=== PATIENT | female | born 1955 | race Two or more races ===

== ENCOUNTER 2024-07-14 22:32 | Inpatient (IN) | payer MEDICARE, SELFPAY ==
[2024-07-14 22:32] VITALS: BMI 46.4
--- NOTE | 2024-07-14 22:42 | EKG_ITS ---
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
[2024-07-14 23:00] VITALS: BP 100/57; PULSE 88; RESP 24; TEMP 37.7; O2SAT 89
--- NOTE | 2024-07-14 23:12 | XR_ITS ---
Examination: AP chest single view TECHNIQUE: AP portable upright chest single view Exam date time: July 14, 2024 11:53 PM INDICATIONS: Difficulty breathing and shortness of breath today. FINDINGS: Mild chronic heart failure pattern Mild enlargement cardiac contour Prominent vascular congestion including central vascular engorgement Early edema and/or pneumonia at the lung bases IMPRESSION: Mild heart failure pattern Early edema and/or pneumonia at the lung bases, clinical correlation is advised
--- NOTE | 2024-07-14 23:14 | EDRME_ITS ---
Rapid Medical Screening Exam [facility] Arrival date/time: 07/14/24 22:32 69F with extensive PMH including COPD, CHF, DVT, and afib presents to ED with 1 week of cough, fevers/chills, and SOB. Chief Complaint: Shortness of Breath/Dyspnea Time Seen by Provider: 07/14/24 23:34 Vital signs: Vital Signs Temperature 99.8 F 07/14/24 23:00 Pulse Rate 88 07/14/24 23:00 Respiratory Rate 24 H 07/14/24 23:00 Blood Pressure 100/57 L 07/14/24 23:00 Pulse Oximetry (%) 89 L 07/14/24 23:00 Oxygen Delivery Method Nasal Cannula 07/14/24 23:00 Oxygen Flow Rate 6 07/14/24 23:00
[2024-07-14] MEDS: IPRATROPIUM RT 0.5 MG/ 2.5 ML NEBU 1 MG INH (23:33)
--- NOTE | 2024-07-14 23:34 | PD.EDSOB ---
ED SOB =RME/HPI General Chief Complaint: Shortness of Breath/Dyspnea Stated Complaint: DIFFICULTY BREATHING Time Seen by Provider: 07/14/24 23:34 Arrival date/time: 07/14/24 22:32 RME / HPI RME / HPI Narrative: 07/14/24 22:32 69F with extensive PMH including COPD, CHF, DVT, and afib presents to ED with 1 week of cough, fevers/chills, and SOB. Dr. Douglas?s Main ED Evaluation: 69yo female with a history of COPD on /, pulmonary hypertension, CHF, aFib presents to the ED for a chief complaint of shortness of breath x 5 days. Patient states she started having shortness of breath on Wednesday, reporting it has progressively gotten worse over the last day. Patient reports an associated productive cough with yellow phlegm, diarrhea, sweating, and chills. Patient denies any N/V or any other associated symptoms. Related Data Home Medications ?Medication ?Instructions ?Recorded ?Confirmed spironolactone 50 mg tablet 50 mg PO QDAY 11/26/17 08/12/23 ambrisentan 10 mg tablet (Letairis) 10 mg PO HS 05/10/19 08/12/23 pantoprazole 40 mg tablet,delayed 40 mg PO QDAY 12/05/19 08/12/23 release ropinirole 3 mg tablet 6 mg PO HS 12/05/19 08/12/23 trazodone 50 mg tablet 50 mg PO HS 12/05/19 08/12/23 tadalafil (pulm. hypertension) 20 40 mg PO QDAY 01/25/20 08/12/23 mg tablet (pulmonary hypertension) (Adcirca) potassium chloride 10 mEq 10 meq PO BID 05/13/20 08/12/23 capsule,extended release gabapentin 100 mg capsule 100 mg PO QDAY 01/09/22 08/12/23 levothyroxine 100 mcg tablet 50 mcg PO QDAY 01/09/22 08/12/23 (Euthyrox) selexipag 200 mcg tablet (Uptravi) 200 mcg PO BID 08/13/23 08/13/23 Previous Rx's ?Medication ?Instructions ?Recorded albuterol sulfate 90 mcg/actuation 2 puff inhalation Q4HR PRN 05/17/19 aerosol inhaler Shortness Of Breath Or Wheezing #0 grams apixaban 5 mg (74 tabs) tablets in 5 mg PO BID DVT #74 tabs 08/17/23 a dose pack (U-NOTE DVT-PE Treat 30D Start) bumetanide 1 mg tablet 1 mg PO BID #60 tabs 08/17/23 ondansetron 4 mg disintegrating 4 mg PO Q8H PRN nausea and 08/17/23 tablet vomiting #30 tabs Allergies Allergy/AdvReac Type Severity Reaction Status Date / Time erythromycin base Allergy Severe SWELLING Verified 08/12/23 07:45 Review of Systems Review of Systems Systems Reviewed: All systems reviewed, normal except as documented Past Medical History Past Medical History NEUROLOGIC: Positive Neurological Disorders and Peripheral Neuropathy; Negative Cerebrovascular Accident, Transient Ischemic Attacks (TIA), Dementia, Alzheimer's Disease, Parkinson's Disease, Brain Tumor, Meningitis, Seizures, Epilepsy, Multiple Sclerosis, Cerebral Palsy, Amyotrophic Lateral Sclerosis (ALS/Anna Gehrig's), Guillain-[place] Syndrome, Spina Bifida, Paralysis, Welsh's Palsy, Subdural Hematoma, Migraine, Head Trauma, Spinal Cord Injury or Traumatic Brain Injury CARDIAC: Positive Cardiac Disorders, Cardiac Arrhythmia, Atrial Fibrillation, Heart Murmur, Peripheral Vascular Disease, Congestive Heart Failure, Edema, Cellulitis, Deep Vein Thrombosis, Hypertension, Hypotension and Varicose Veins; Negative Myocardial Infarction, Angina, Coronary Artery Disease, Atherosclerotic Heart Disease, Hypercholesterolemia, Aneurysm, Congenital Heart Disease, Valvular Heart Disease, Rheumatic Fever or Cardiomyopathy RESPIRATORY: Positive Chronic Obstructive Pulmonary Disease (COPD), Asthma, Pneumonia, Pulmonary Edema, Sleep Apnea, CPAP Dependent and Smoking Exposure; Negative Pulmonary Fibrosis, Tuberculosis or Pulmonary Embolism GASTROINTESTINAL: Positive Gastrointestinal Disorders, Gall Bladder Disease and Obesity; Negative Cirrhosis, Pancreatitis, Celiac Disease, Gastrointestinal Bleed, Esophageal Varices, Mcclure's Esophagus, Colitis, Ulcerative Colitis, Diverticulitis, Diverticulosis, Ulcer, Colorectal Cancer, Irritable Bowel, Crohn's Disease, Obstructive Bowel, Hiatal Hernia, Hemorrhoids or Gastroesophageal Reflux Disease GENITOURINARY: Negative Genitourinary Disorders, Renal Disease, Kidney Stones, Polycystic Kidney Disease, Neurogenic Bladder, Inguinal Hernia, Dialysis, Prostate Cancer or Benign Prostatic Hyperplasia REPRODUCTIVE: Positive Previous Pregnancies; Negative Breast Cancer, Endometriosis, Genital Herpes, Gonorrhea, Pelvic Inflammatory Disease, Syphilis, Testicular Cancer or Uterine Prolapse MUSCULOSKELETAL: Positive Musculoskeletal Disorders and Arthritis; Negative Muscular Dystrophy, Myasthenia Gravis, Marfan's Syndrome, Bone Cancer, Rheumatoid Arthritis, Osteoporosis, Degenerative Disk Disease, Gout, Scoliosis, Carpal Tunnel Syndrome, Fibromyalgia, Fractures, Degenerative Joint Disease, Osteomyelitis or Poliovirus ENT: Negative Cataracts, Glaucoma, Blind, Retinal Detachment, Macular Degeneration, Ear Infection, Deafness, Head Trauma or Eye Prosthesis ENDOCRINE: Positive Endocrine Disorders, Hyperthyroidism and Hypothyroidism; Negative Diabetes Mellitus Type 1, Diabetes Mellitus Type 2, Hypoglycemia, Martin's Syndrome, Clarke's Disease, Parathyroid Disease, Pituitary Disease, Systemic Lupus Erythematosus, Syndrome of Inappropriate Antidiuretic Hormone (SIADH), Adrenal Disease or Graves' Disease HEMATOLOGIC: Negative Blood Disorders, Anemia, Leukemia, Hemophilia, Thalassemia, Sickle Cell Disease or Clotting Problems PSYCHO/SOCIAL: Positive Depression and Anxiety; Negative Psychiatric Problems, Schizophrenia, Recreational Drug Use, Bipolar Disorder, Self-Mutilation, Attention Deficit Disorder, Attention Deficit Hyperactivity Disorder, Depression, Post Traumatic Stress Disorder or Eating Disorder OTHER HISTORY: Positive Hospitalization, Shingles, Falls, MRSA, Chicken Pox, Measles and Mumps; Negative Autoimmune Disease, Down Syndrome, Autism, Developmental Delay, Blood Transfusions, Blood Transfusion Reaction, Anesthesia Reactions, Organ Transplant, Chemotherapy, Radiation Therapy, Hyperbaric Therapy, Cancer, Breast Cancer, Cervical Cancer, Colorectal Cancer, Lung Cancer, Ovarian Cancer, Prostate Cancer or Testicular Cancer Family History FAMILY HISTORY: Positive Family Psychiatric Problems, Family Respiratory Disorders, Family Cardiac Disorders, Family Gastrointestinal Problems and Family Surgery; Negative Family Cancer or Family Anesthesia Reaction Surgical History SURGICAL: Positive Joint Replacement and Hysterectomy; Negative Cardiac Surgery, Open Heart Surgery, Coronary Artery Bypass Graft, Valve Replacement, Vascular Surgery, Coronary Stent, Cardiac Catheterization, Pacemaker, Angiogram, Auto Implanted Cardiovert Defib, Carotid Endarterectomy, Endocrine Surgery, Thyroidectomy, Ear Surgery, Tympanostomy Tube, Eye Surgery, Nose Surgery, Oral Surgery, Tonsillectomy, Adenoidectomy, Cochlear Implant, Corneal Transplant, Throat Surgery, Abdominal Surgery, Tracheostomy, Gastric Bypass Surgery, Gastrostomy, Bowel Surgery, Nephrectomy, Transurethral Resection, Amputation, Open Reduction Internal Fixation, Arthroscopy, Neurologic Surgery, Brain Shunt, Mastectomy, Lumpectomy, Tubal Ligation, Section, Vasectomy or Organ Transplant Social History SMOKING STATUS: Never smoker SECOND HAND EXPOSURE: Yes (12 years working at [employer]) SUBSTANCE USE: does not use ED Exam Narrative Physical exam: GENERAL APPEARANCE: alert and oriented x 4, well-developed, well-nourished, no acute distress VITALS: All vitals were reviewed and the pulse ox is 88% on 4L/NC, which is hypoxic according to my interpretation. HEENT: Normocephalic, atraumatic; pupils equal, round, reactive to light; EOMI; mucous membranes pink, moist; oropharynx clear NECK: Supple LUNGS: CTABL; no wheezes, no rales, no rhonchi; no respiratory distress; tachypneic HEART: Regular rate, regular rhythm; normal S1, S2; no murmurs ABDOMEN: non distended; normal BS; soft, no tenderness, no guarding, no rebound; no masses, no organomegaly, no hernia BACK: no CVA tenderness EXTREMITIES: atraumatic; no edema NEUROLOGIC: awake; alert and oriented x4; cranial nerves II-XII grossly intact; no focal sensory or motor deficits PSYCHIATRIC: appropriate mood and affect SKIN: warm, dry, normal color; no rashes Course Course Course Narrative: CXR is ordered for determining the etiology of shortness of breath. Quality Measures Possible source: pulmonary Blood cultures ordered: yes Antibiotic ordered: Yes Pertinent labs: 07/14/24 00:00 Lactic Acid 1.2 mMol/L (0.4-2.0) Procalcitonin 0.60 H ng/ml (0.0-0.49) sepsis Orders Category Date Time Status Bedside Blood Glucose NOW Care 07/15/24 00:16 Active Bedside COVID-19 Antigen Test NOW Care 07/14/24 23:12 Active Bedside Influenza A&B Antigen Test NOW Care 07/14/24 23:12 Completed Patient Service Coordinator now Care 07/15/24 00:17 Active Continuous Pulse Oximetry NOW Care 07/15/24 00:17 Completed EKG (ED ONLY) *Do not use* NOW Care 07/14/24 22:43 Completed Insert IV NOW Care 07/14/24 23:14 Active Strict Intake and Output Routine Care 07/15/24 00:16 Ordered EKG (ED Only) Stat Exams 07/14/24 22:42 Draft XR chest 1V portable Stat Exams 07/14/24 23:12 Completed ABG [Arterial Blood Gas] Stat Lab 07/14/24 23:46 Completed B-Type Natriuretic Peptide Stat Lab 07/14/24 00:00 Completed Blood Culture (Lab) Stat Lab 07/15/24 00:00 Received CBC Stat Lab 07/14/24 00:00 Completed Comprehensive Metabolic Panel Stat Lab 07/14/24 00:00 Completed Free T4 (Free Thyroxine) Stat Lab 07/14/24 00:00 Completed Lactate (Lactic Acid) Stat Lab 07/14/24 00:00 Completed Magnesium Stat Lab 07/14/24 00:00 Completed Partial Thromboplastin Time Stat Lab 07/15/24 00:00 Completed Procalcitonin Stat Lab 07/14/24 00:00 Completed Prothrombin Time with INR Stat Lab 07/15/24 00:00 Completed Troponin I Stat Lab 07/14/24 00:00 Completed Urinalysis Stat Lab 07/15/24 01:12 Completed Urine Culture Stat Lab 07/15/24 01:12 Received Ipratropium Nora Rt Shell [Atrovent Rt Shell] Med 07/14/24 23:13 Discontinued 1 mg INH X1 ONE MethylPREDNISolone.* [SoluMEDROL Inj] Med 07/14/24 23:48 Discontinued 125 mg IVP X1 ONE Morphine Inj Med 07/15/24 02:19 Discontinued 5 mg IVP Q30M PRN POTASSIUM CHL 10 mEq IVPB [Kcl Ivpb] Med 07/15/24 02:24 Ordered 10 meq in 100 ml IV X1 Potassium Chloride [K-Dur] Med 07/15/24 02:24 Once 40 meq PO X1 ONE cefTRIAXone/D5w 1gm IV premix [Rocephin/D5w 1gm IV Med 07/15/24 00:20 Discontinued premix] 1 gm in 50 ml IV X1 Oxygen Delivery NOW RT 07/15/24 00:16 Active Vital Signs Vital signs: Vital Signs Temperature 99.8 F 07/14/24 23:00 Pulse Rate 88 07/14/24 23:00 Respiratory Rate 24 H 07/14/24 23:00 Blood Pressure 100/57 L 07/14/24 23:00 Pulse Oximetry (%) 89 L 07/14/24 23:00 Oxygen Delivery Method Nasal Cannula 07/14/24 23:00 Oxygen Flow Rate 6 07/14/24 23:00 Shortness of Breath / Dyspnea MDM Narrative MDM Narrative:: Scribe Attestation: 07/14/24 Ely Cormier am scribing for and in the presence of Dr. Douglas. 0023: Sepsis alert initiated due to the patient being tachycardic at 104 and tachypneic at 26. Orders made at this time are congruent with ED Adult Sepsis Order List. Re-evaluation is to be completed. NS IVF not ordered due to the patient being in CHF. Potassium ordered due to her Potassium level being low. 0225: Discussed case with the resident physician, attending Dr. Cleary from Hospitalist service regarding admission. Discussed patients ED course, exam findings, labs, and radiology results. The Hospitalist agrees to accept the patient for admission. Patient is 98 systolically. NS IVF ordered. Patient data External records reviewed:: [facility] previous records (Per chart review, patient was admitted here on 08/12/23 for acute DVT of the LLE.) Clinical information provided by:: patient Social determinants that could affect healthcare access:: none Patient has the following chronic illnesses:: COPD, pulmonary hypertension, CHF, aFib How is presenting disease/condition affected by chronic disease/condition?: exacerbated by Evaluation data The following diagnostics were reviewed and interpreted by me:: lab results, radiology exam(s) and EKG tracing(s) Lab and/or radiology exams considered but not ordered:: none Interpretation Summary: Bedside Influenza is negative, CBC is normal, Potassium is low at 2.8, Troponin is normal, BNP is normal, Lactic Acid is normal, Procalcitonin is 0.60, UA is positive for a UTI, according to my interpretation. CXR shows a right lower lobe infiltrate, cardiomegaly, and mild vascular congestion, according to my interpretation. EKG done at 2258, NSR, rate of 88, right axis deviation, ST depressions in lead II, lead III, avF, and V1-V4; no STEMI, unchanged from previous EKG done on 08/12/23, according to my interpretation. Medications / Prescriptions Medications or Prescriptions considered but not ordered:: none Medication administrations:: Medication Administration History Potassium Chloride (Kcl Ivpb) 10 meq in 100 mls @ 100 mls/hr IV X1 ONE Stop: 07/15/24 03:23 Potassium Chloride (Potassium Chloride 20 Meq Tabcr) 40 meq PO X1 ONE Stop: 07/15/24 02:25 Discontinued Medications Ceftriaxone Sodium/Dextrose (Rocephin/D5w 1gm Iv Premix) 1 gm in 50 mls @ 100 mls/hr IV X1 ONE Stop: 07/15/24 00:49 Last Admin: 07/15/24 01:00 Dose: 100 mls/hr Documented By: JESSICA Ipratropium Nora (Ipratropium Rt 0.5 Mg/ 2.5 Ml Nebu) 1 mg INH X1 ONE Stop: 07/14/24 23:14 Last Admin: 07/14/24 23:33 Dose: 1 mg Documented By: CHLOE Methylprednisolone Sodium Succinate (Methylprednisolone Sod Succ 62.5 Mg/Ml 2ml Vial) 125 mg IVP X1 ONE Stop: 07/14/24 23:49 Last Admin: 07/15/24 00:07 Dose: 125 mg Documented By: JESSICA Morphine Sulfate (Morphine Sulf Inj 10 Mg/Ml Vial) 5 mg IVP Q30M PRN PRN Reason: PAIN see above Consultations Consultation(s) initiated? (list below): Yes Diagnosis Shortness of Breath Differential Diagnosis: community acquired pneumonia and other (COPD exacerbation, CHF exacerbation, sepsis, septic shock) Most likely diagnosis given after review of the tests above:: hypokalemia, hypoxia, UTI, sepsis Admission Indicated Admission indicated?: indicated Admission Request Was there a request for admission?: Yes Admission Attestation Admission request attestation: Discussed case with [] from Hospitalist service regarding admission. Discussed patients ED course, exam findings, labs, and radiology results. The Hospitalist [agrees,declines] to accept the patient for admission. Disposition Plan Disposition Plan: Admit Critical Care Time Critical Care Time Critical Care Time: Yes Total Critical Care Time (min.): 35 Attestation: The high probability of sudden, clinically significant deterioration in the patient?s condition required the highest level of my preparedness to intervene urgently. The services I provided to this patient were to treat and/or prevent clinically significant deterioration. Services included the following: chart data review, reviewing nursing notes and/or old charts, documentation time, lean process deployment consultant collaboration regarding findings and treatment options, medication orders and management, direct patient care, vital sign assessments and ordering, interpreting and reviewing diagnostic studies and lab tests. Aggregate critical care time includes only time during which I was engaged in work directly related to the patient?s care, as described above, whether at bedside or elsewhere in the Emergency Department. It did not include time spent performing other reported procedures or the services of residents, students, nurses or physician assistants. Discharge Plan Plan Patient Disposition: Admit Acute Care w/in Hospital Prescriptions/Referrals Prescriptions/Med Rec: No Action spironolactone 50 mg Tablet 50 mg PO QDAY trazodone 50 mg tablet 50 mg PO HS ropinirole 3 mg tablet 6 mg PO HS pantoprazole 40 mg tablet,delayed release (DR/EC) 40 mg PO QDAY Patient Comments: TAKE 1 TABLET BY MOUTH ONCE DAILY FOR 90 DAYS potassium chloride 10 mEq Capsule, Extended Release 10 meq PO BID ambrisentan [Letairis] 10 mg Tablet 10 mg PO HS albuterol sulfate 90 mcg/actuation Hfa Aerosol Inhaler 2 puff Inhalation Q4HR PRN (Reason: Shortness Of Breath Or Wheezing) Qty: 0 0RF tadalafil (pulm. hypertension) [Adcirca] 20 mg Tablet 40 mg PO QDAY gabapentin 100 mg Capsule 100 mg PO QDAY levothyroxine [Euthyrox] 100 mcg Tablet 50 mcg PO QDAY Uptravi 200 mcg tablet 200 mcg PO BID Rx Instructions: Take 200mcg by mouth 2 times a day for 1 week Then increase by 200mcg 2 times a day at weekly intervals to the highest tolerated dose up to 1600mcg 2 time a day [place]ha DVT-PE Treat 30D Start 5 mg (74 tabs) tablets,dose pack 5 mg PO BID Qty: 74 0RF bumetanide 1 mg tablet 1 mg PO BID Qty: 60 0RF ondansetron 4 mg tablet,disintegrating 4 mg PO Q8H PRN (Reason: nausea and vomiting) Qty: 30 0RF Referrals: Mikey Stephen MD [Primary Care Provider] - In 1 week Problem List Clinical Impression: Sepsis, Hypoxia, Hypokalemia, UTI (urinary tract infection) Patient/Caregiver Discharge Instructions Print Language: [place] Stand Alone Forms: Kayleen Award Info., Patient Portal Info Letter
[2024-07-14 23:44] VITALS: PULSE 79; RESP 19; O2SAT 94
[2024-07-14 23:50] LABS: Base Excess 1 (-3-3); HCO3 24 mEq/L (20-26); Inspired Oxygen, FIO2 21 %; O2 Saturation 89 % (91-98); PCO2 33 mmHg (32.0-48.0); pH, Arterial 7.46 (7.35-7.45)
[2024-07-14 23:51] LABS: Allen Test Performed/OK; Puncture Site Right Radial
[2024-07-14 23:53] LABS: PO2 55 mmHg (83-108)
[2024-07-15] VITALS (17 sets, daily range): BP systolic 95–127; BP diastolic 54–70; PULSE 55–85; RESP 15–26; TEMP 36.1–37.2; O2SAT 92–97; BMI 39.6
[2024-07-15] MEDS: MethylPREDNISolone SOD SUCC 62.5 MG/ML 2ML VIAL 125 MG IVP (00:07)
[2024-07-15 00:32] LABS: Lactate (Lactic Acid) 1.2 mMol/L (0.4-2.0)
[2024-07-15 00:50] LABS: INR 1.2 (0.9-1.3); Partial Thromboplastin Time 34.5 Seconds (22.0-36.0); Prothrombin Time 12.9 Seconds (9.0-12.2)
[2024-07-15] MEDS: cefTRIAXone/D5w 1gm IV premix 1 GM/50 ML BAG IV ×2 (01:00→20:44)
[2024-07-15 01:04] LABS: B-Type Natriuretic Peptide 99 pg/mL (0-100)
[2024-07-15 01:08] LABS: Alanine Aminotransferase 10 U/L (10-49); Albumin, Serum 3.7 gm/dL (3.4-4.8); Albumin/Globulin Ratio 1.5 (1.2-2.2); Alkaline Phosphatase 81 U/L (46-116); Anion Gap 10 (7-16); Aspartate Amino Transferase 20 U/L (0-34); BUN/Creatinine Ratio 13 Ratio (12-20); Bilirubin,Total 0.6 mg/dL (0.3-1.2); Blood Urea Nitrogen 17 mg/dL (9-23); Calcium 8.2 mg/dL (8.3-10.6); Calcium (Corrected) 8.4 mg/dL (8.5-10.1); Carbon Dioxide 23.2 mMol/L (20.0-31.0); Chloride 102 mMol/L (98-107); Creatinine (Component) 1.3 mg/dL (0.6-1.3); Estimated Creatinine Clearance 44.2 mL/min (>60); Globulin 2.5 gm/dL (2.3-3.5); Glucose 132 mg/dL (74-106); Magnesium 1.7 mg/dL (1.6-2.6); Osmolality,Calculated 273 (275-295); Potassium 2.8 mMol/L (3.4-5.1); Sodium 135 mMol/L (136-145); Total Protein 6.2 gm/dL (5.7-8.2); Troponin I < 0.020 ng/mL (0.0-0.045); eGFR 45 See Note
[2024-07-15 01:19] LABS: Collection Type, Urine Catheter
[2024-07-15 01:26] LABS: Basophils # (Auto) 0.1 Thou/mm3 (0.0-0.2); Basophils % (Auto) 1 % (0-2.5); Eosinophils % (Auto) 1 % (0-10); Hematocrit 37.9 % (36.0-46.0); Hemoglobin 12.5 g/dL (12.0-16.0); Immature Granulocytes % (Auto) 2 % (0-0); Immature Granulocytes Auto 0.15 Thou/mm3 (0.00-0.00); Lymphocytes # (Auto) 1.1 Thou/mm3 (1.0-4.8); Lymphocytes % (Auto) 13 % (10-50); Mean Corpuscular Hemoglobin 25.7 pg (25.0-35.0); Mean Corpuscular Volume 78 fL (80-100); Monocytes # (Auto) 0.9 Thou/mm3 (0.0-0.8); Monocytes % (Auto) 11 % (0-12); Neutrophils # (Auto) 6.3 Thou/mm3 (1.8-7.7); Neutrophils % (Auto) 73 % (37-80); Nucleated Red Blood Cell % 0 /100 WBC (0); Platelet Count 148 Thou/mm3 (140-440); RDW Standard Deviation 44.8 fL (36.4-46.3); Red Blood Count 4.86 Miln/mm3 (4.00-5.20); White Blood Count 8.5 Thou/mm3 (3.6-11.0)
[2024-07-15 01:39] LABS: Bacteria,Urine Rare; Bilirubin,Urine Negative (Negative); Blood,Urine Negative (Negative); Clarity,Urine Turbid (Clear/Hazy); Color,Urine Lt-Yellow (Lt Yel-Yel); Glucose, Urine Negative (Negative); Hyaline Casts,Urine 1 /hpf (0-1); Ketones,Urine Negative (Negative); Leukocyte Esterase,Urine Positive (Negative); Nitrite,Urine Positive (Negative); Protein,Urine Negative (Neg - Trace); RBC,Urine 5 /hpf (0-3); Specific Gravity,Urine 1.009 (1.001-1.035); Squamous Epithelial Cell,Urine 1 /hpf (0-5); Urobilinogen,Urine Negative mg/dL (0.0-1.0); WBC,Urine 78 /hpf (0-5)
[2024-07-15] MEDS: POTASSIUM CHLORIDE 20 mEq TABCR 40 MEQ PO ×2 (02:48→05:45)
[2024-07-15] MEDS: POTASSIUM CHL 10 mEq IVPB 10 MEQ/100 ML BAG 100 MEQ IV (02:49)
--- NOTE | 2024-07-15 03:22 | PD.RESHP ---
Documentation for date of: 07/15/24 [facility] History of Present Illness History of present illness: The patient is a 69-year-old female with a past medical history of COPD and CHF on 3-4L of oxygen, severe pulmonary artery hypertension, hypothyroidism, A-fib, and restless leg syndrome who presents to the ED on 07/14/2024 with complaints of productive cough, fever and shortness of breath. Per patient, she has been in her usual state of health until about a week ago when she developed a cough not preceded by runny nose or sore throat, productive in nature with yellowish and occasionally greenish sputum and accompanied with hemoptysis after long periods of coughing. She also reports a fever with the highest recorded temperature of 101.2, with chills. Patient explains that she started to have shortness of breath about 2 days after her symptoms started, denies orthopnea or PND and denies chest pain or palpitations. As she does use about 3 to 4 L of oxygen at baseline at home, she noticed that she was requiring more use daily and continue to have shortness of breath after which she presented to the ED. She denies any sick contacts and no travel history, no recent illnesses or surgeries. Additionally, denies any GI or genitourinary symptoms including dysuria. ED course: In the ED, the patient was initially noted to be hypoxic, saturating at 89% on room air and was put on 6 L of oxygen. Additionally, she was noted to be tachypneic and tachycardic although afebrile. Initial labs significant for MCV of 78, sodium 135 potassium 2.8 normal lactic acid and elevated procalcitonin 0.6. ABG was done which had a pH of 7.46 with pO2 of 55. Urinalysis showed turbid urine with 5 RBCs and 70 WBCs. Chest x-ray showed pneumonia in the lung bases, particularly on the right and EKG showed a sinus rhythm with a heart rate of 88. PMHx-as above PSHx-joint replacement, hysterectomy Social ykxslyp-olw-irvwik nondrinker Home meds-bumetanide, gabapentin, levothyroxine, ropinirole, tadalafil, trazodone, selexipag Review of Systems Review of Systems Narrative Review of Systems: GENERAL: Admits fevers and chills HEENT: Denies headache or visual/hearing changes. Denies nasal discharge. NEURO: Denies unusual weakness or difficulty speaking. CARDIO: Denies chest pain or palpitations. PULM: Admits productive cough, shortness of breath. Denies wheezing. GI: Denies abdominal pain, N/V/C/D/reflux/gas, bright red blood per rectum or melena. Reports having BMs. URO: Denies burning/itching/pain/urinary changes. MSK/EXT/SKIN: Denies joint/skeletal/muscle pain, issues/changes in upper or lower extremities, itchiness, or superficial pain. PSYCH: Cooperative, pleasant mood & affect. Exam Vital Signs Temp Pulse Resp BP Pulse Ox O2 Del Method O2 Flow Rate 98.0 F 70 22 H 107/57 L 92 L Nasal Cannula 5 07/15/24 01:01 07/15/24 02:59 07/15/24 02:59 07/15/24 01:01 07/15/24 02:59 07/15/24 01:01 07/15/24 01:01 Narrative Exam GENERAL: AAOX3 NEURO: GAME ROOM ATTENDANT grossly intact, moves extremities x4 HEENT: Moist mucosa. Eyes open, symmetrical, & clear CARDIO: No chest pain on palpation. Heart RRR, III/ systolic ejection murmur heard on left sternal border PULM: Crackles bilaterally, worse in the right basal lung GI: Abdomen soft, nondistended, no pain on palpation. BSx4 URO/OPHTHALMIC PHOTOGRAPHER:: No further abnormalities noted. SKIN/MSK/EXT: Bilateral stasis dermatitis, minimal pitting edema Results: Labs 07/14/24 00:00 07/14/24 00:00 Labs: Short CBC 07/14/24 Range/Units 00:00 WBC 8.5 (3.6-11.0) Thou/mm3 Hgb 12.5 (12.0-16.0) g/dL Hct 37.9 (36.0-46.0) % Plt Count 148 (140-440) Thou/mm3 BMP 07/14/24 00:00 Sodium 135 L Potassium 2.8 L Chloride 102 Carbon Dioxide 23.2 BUN 17 Creatinine 1.3 Glucose 132 H Calcium 8.2 L Cardiac Enzymes 07/14/24 Range/Units 00:00 Troponin I < 0.020 (0.0-0.045) ng/mL Liver Function 07/14/24 Range/Units 00:00 Total Bilirubin 0.6 (0.3-1.2) mg/dL AST 20 (0-34) U/L ALT 10 (10-49) U/L Alkaline Phosphatase 81 (46-116) U/L Albumin 3.7 (3.4-4.8) gm/dL Urine 07/15/24 Range/Units 01:12 Urine Color Lt-Yellow (Lt Yel-Yel) Urine Clarity Turbid A (Clear/Hazy) Urine pH 6.0 (5.0-7.0) Ur Specific [place] 1.009 (1.001-1.035) Urine Protein Negative (Neg - Trace) Urine Glucose (UA) Negative (Negative) ABG Interpretation ABG results: 07/14/24 23:46 ABG pH 7.46 H ABG pCO2 33 ABG pO2 55 L* ABG HCO3 24 ABG O2 Saturation 89 L ABG Base Excess 1 Quality Measures Quality Measures sepsis Current suspected stage: sepsis Possible source: pulmonary Blood cultures ordered: yes Antibiotic ordered: Yes Advance care planning discussed with:: patient Medications Home Medications and Allergies Home Medications ?Medication ?Instructions ?Recorded ?Confirmed ?Type spironolactone 50 mg tablet 50 mg PO QDAY 11/26/17 08/12/23 History ambrisentan 10 mg tablet (Letairis) 10 mg PO HS 05/10/19 08/12/23 History pantoprazole 40 mg tablet,delayed 40 mg PO QDAY 12/05/19 08/12/23 History release ropinirole 3 mg tablet 6 mg PO HS 12/05/19 08/12/23 History trazodone 50 mg tablet 50 mg PO HS 12/05/19 08/12/23 History tadalafil (pulm. hypertension) 20 40 mg PO QDAY 01/25/20 08/12/23 History mg tablet (pulmonary hypertension) (Adcirca) potassium chloride 10 mEq 10 meq PO BID 05/13/20 08/12/23 History capsule,extended release gabapentin 100 mg capsule 100 mg PO QDAY 01/09/22 08/12/23 History levothyroxine 100 mcg tablet 50 mcg PO QDAY 01/09/22 08/12/23 History (Euthyrox) selexipag 200 mcg tablet (Uptravi) 200 mcg PO BID 08/13/23 08/13/23 History Allergies Allergy/AdvReac Type Severity Reaction Status Date / Time erythromycin base Allergy Severe SWELLING Verified 08/12/23 07:45 Visit Medications Acetaminophen (Acetaminophen 325 Mg Tablet) 650 mg PO Q6H PRN PRN Reason: Pain 1-3 or Fever >100.3 Stop: 08/14/24 02:53 Apixaban (Apixaban 2.5 Mg Tablet) 5 mg PO BID KARLY Stop: 08/14/24 08:59 Azithromycin (Azithromycin 250 Mg Tablet) 500 mg PO QDAY KARLY Stop: 07/22/24 08:59 Azithromycin (Azithromycin 250 Mg Tablet) 250 mg PO QDAY KARLY Stop: 07/20/24 08:59 Gabapentin (Gabapentin 100 Mg Capsule) 100 mg PO QDAY KARLY Stop: 08/14/24 08:59 Potassium Chloride (Kcl Ivpb) 10 meq in 100 mls @ 100 mls/hr IV X1 ONE Stop: 07/15/24 03:23 Last Admin: 07/15/24 02:49 Dose: 100 mls/hr Ceftriaxone Sodium/Dextrose (Rocephin/D5w 1gm Iv Premix) 1 gm in 50 mls @ 100 mls/hr IV QDAY@2100 KARLY Stop: 07/22/24 20:59 Levothyroxine Sodium (Levothyroxine Sodium 100 Mcg Tablet) 100 mcg PO ACBR KARLY Stop: 08/14/24 05:59 Ondansetron HCl (Ondansetron Inj 2 Mg/Ml Inj 2 Ml) 4 mg IV Q6H PRN; Protocol PRN Reason: NAUSEA OR VOMITING Stop: 08/14/24 02:53 Prednisone (Prednisone 20 Mg Tablet) 40 mg PO QDAY KARLY Stop: 07/19/24 09:01 Ropinirole HCl (Ropinirole Hcl 1 Mg Tablet) 3 mg PO HS KARLY Stop: 08/14/24 20:59 Trazodone HCl (Trazodone Hcl 50 Mg Tablet) 50 mg PO HS KARLY Stop: 08/14/24 20:59 Discontinued Medications Ceftriaxone Sodium/Dextrose (Rocephin/D5w 1gm Iv Premix) 1 gm in 50 mls @ 100 mls/hr IV X1 ONE Stop: 07/15/24 00:49 Last Admin: 07/15/24 01:00 Dose: 100 mls/hr Sodium Chloride (Ns) 1,000 mls @ 999 mls/hr IV .Q1H1M ONE Stop: 07/15/24 03:28 Last Admin: 07/15/24 02:54 Dose: Not Given Ipratropium [place] (Ipratropium Rt 0.5 Mg/ 2.5 Ml Nebu) 1 mg INH X1 ONE Stop: 07/14/24 23:14 Last Admin: 07/14/24 23:33 Dose: 1 mg Methylprednisolone Sodium Succinate (Methylprednisolone Sod Succ 62.5 Mg/Ml 2ml Vial) 125 mg IVP X1 ONE Stop: 07/14/24 23:49 Last Admin: 07/15/24 00:07 Dose: 125 mg Morphine Sulfate (Morphine Sulf Inj 10 Mg/Ml Vial) 5 mg IVP Q30M PRN PRN Reason: PAIN Potassium Chloride (Potassium Chloride 20 Meq Tabcr) 40 meq PO X1 ONE Stop: 07/15/24 02:25 Last Admin: 07/15/24 02:48 Dose: 40 meq Assessment & Plan Plan Summary: ear-old female with a past medical history of COPD and CHF on 3-4L of oxygen, severe pulmonary artery hypertension, hypothyroidism, A-fib, and restless leg syndrome who presents to the ED on 07/14/2024 with complaints of productive cough, fever and shortness of breath. Chest x-ray revealed pneumonia. Admitted for acute on chronic hypoxic respiratory failure #Acute on chronic hypoxic respiratory failure #Sepsis secondary community-acquired pneumonia Per patient, she has been in her usual state of health until about a week ago when she developed a cough not preceded by runny nose or sore throat, productive in nature with yellowish and occasionally greenish sputum and accompanied with hemoptysis after long periods of coughing. She also reports a fever with the highest recorded temperature of 101.2, with chills. In the ED, the patient was initially noted to be hypoxic, saturating at 89% on room air and was put on 6 L of oxygen. Bedside influenza and COVID-negative Additionally, she was noted to be tachypneic and tachycardic although afebrile. Chest x-ray showed pneumonia in the lung bases. Plan: - Admit to med telemetry - RSV - Holding off on IV fluids due to history of CHF and patient is adequately hydrated - IV ceftriaxone 1 g daily and azithromycin 500 mg x 1 and 250 mg daily for 3 days -Blood and sputum cultures with Gram stain - Oxygen as needed #Asymptomatic bacteriuria Urinalysis on admission showed turbid urine with minimal RBC and WBCs as well as rare bacteria.. Patient denies dysuria or any other genitourinary symptoms #Electrolyte imbalance #Hypokalemia #Hyponatremia Admit to labs showed sodium of 135 with potassium of 2.8. Patient denies any vomiting or diarrhea. She does take bumetanide 1 mg twice daily. Repleted with 100 mg of potassium. Plan: - Follow renal panel in a.m. #History of COPD Patient has a history of COPD is on 3 to 4 L of oxygen at home. She also uses inhaler albuterol fluticasone. She also uses a BiPAP at night. On admission, patient has no wheezing and does not seem to be in COPD exacerbation. Admitting ABG was with a pH of 7.46, pCO2 of 33 and repeat with pH of 7.32 and pCO2 of 72 with a bicarb of 37. BiPAP settings adjusted Plan: - Repeat ABG in a.m. - Ensure BiPAP at night - Prednisone 40 mg daily #History of CHF #History of pulmonary hypertension Patient has a history of CHF and pulmonary hypertension as well as reported undiagnosed congenital heart disease. Last echocardiogram done about a year ago showed a normal LV size and function with estimated RVSP of 102 mmHg. She is on bumetanide 1 mg twice daily, tadalafil 40 mg daily and selexipag 1600 mcg daily. On this admission, patient denies PND and orthopnea only has minimal trace edema in bilateral lower extremities. Plan: - Resume home medications - Fluid restriction 1200 cc #History of paroxysmal A-fib Patient has a history of paroxysmal A-fib and is on Eliquis 5 mg twice daily On admission, EKG showed sinus rhythm. Plan: - Resume Eliquis 5 mg twice daily #History of restless leg syndrome On ropinirole 3 mg at bedtime Plan: - Resume home medication Health maintenance: Dispo: MedTele Diet: Cardiac with fluid restrition DVT: Eliquis Levy: None Lines: Peripheral Med Rec: Pending, f/u PT: Not ordered Code: Full Case was discussed with attending physician, Dr Evin Manley MD PGY-1 Disclaimer: This note was dictated by speech recognition. Minor errors in supplemental manager may be present due to voice recognition software. Attending Provider Attestation/Addendum I attest that I was physically present for the evaluation, physical examination, lab and imaging review of the patient with the residents. I discussed the case with the residents and agree with most of the the findings and plans of care except mentioned below. Patient is a 69 years old female with past medical history of COPD and CHF on 3 to 4 L of oxygen at home, severe pulmonary artery hypertension, hypothyroidism, A-fib, restless leg syndrome who presented to the ED with complaint of increased shortness of breath, fever and increased productive cough. Her symptoms started about a week ago. She had noted temperature of 101.2 ?F at home associated with chills. In the ED, she was found to be tachycardic and tachypneic. Saturating around high 80s on 6 L nasal cannula. Lab results were significant for potassium of 2.8 and procalcitonin 0.6. Chest x-ray was done, which shows pneumonia in the lung bases. We will admit the patient for management of acute on chronic hypoxic respiratory failure secondary to COPD exacerbation due to community-acquired pneumonia. #Acute on chronic hypoxic respiratory failure #COPD exacerbation #Community-acquired pneumonia Presented with increased shortness of breath, productive cough and fever Chest x-ray shows early pneumonia in the lung bases Started on IV Rocephin and azithromycin Received 125 mg of Solu-Medrol in the ED, we will continue with 40 mg prednisone daily DuoNebs as needed RSV, sputum culture ordered, negative COVID and influenza #Hypokalemia Patient had potassium of 2.8 Repleted accordingly #History of CHF #Pulmonary hypertension Patient has trace edema on exam, does not appear to be on exacerbation Resume home medications #History of paroxysmal A-fib Continue home Eliquis #Restless leg syndrome Continue home ropinirole #Asymptomatic bacteriuria Urinalysis shows WBCs but patient denies any urinary symptoms Patient is on Rocephin for CAP Tex Cleary MD
[2024-07-15 05:23] LABS: Basophils % (Auto) 0 % (0-2.5); Eosinophils % (Auto) 0 % (0-10); Hematocrit 35.1 % (36.0-46.0); Hemoglobin 11.2 g/dL (12.0-16.0); Immature Granulocytes % (Auto) 1 % (0-0); Lymphocytes # (Auto) 0.4 Thou/mm3 (1.0-4.8); Lymphocytes % (Auto) 6 % (10-50); Mean Corpuscular HGB Conc 31.9 g/dl (31.0-37.0); Mean Corpuscular Hemoglobin 25.3 pg (25.0-35.0); Mean Corpuscular Volume 79 fL (80-100); Monocytes # (Auto) 0.2 Thou/mm3 (0.0-0.8); Monocytes % (Auto) 3 % (0-12); Neutrophils # (Auto) 6.3 Thou/mm3 (1.8-7.7); Neutrophils % (Auto) 89 % (37-80); Nucleated Red Blood Cell % 0 /100 WBC (0); Platelet Count 168 Thou/mm3 (140-440); RDW Standard Deviation 44.6 fL (36.4-46.3); Red Blood Count 4.42 Miln/mm3 (4.00-5.20); White Blood Count 7.1 Thou/mm3 (3.6-11.0)
[2024-07-15 05:42] LABS: Glucose Estimated Average 120 mg/dL (80-131); Hemoglobin A1C 5.8 % Hgb (4.8-6.0)
[2024-07-15 05:48] LABS: Ferritin 42 ng/mL (7.3-270.7); Iron 16 mcg/dL (50-170); Percent Iron Saturation 5 % (20-55); Total Iron Binding Capacity 289 mcg/dL (250-425); Unsaturated Iron Binding 273 (225-295)
[2024-07-15 05:48] LABS: Base Excess -1 (-3-3); HCO3 23 mEq/L (20-26); Inspired Oxygen, FIO2 45 %; O2 Saturation 93 % (91-98); PCO2 35 mmHg (32.0-48.0); PO2 73 mmHg (83-108); pH, Arterial 7.43 (7.35-7.45)
[2024-07-15 05:52] LABS: Puncture Site Left Radial
[2024-07-15 05:53] LABS: Allen Test Performed/OK
[2024-07-15 05:58] LABS: Alanine Aminotransferase 9 U/L (10-49); Albumin, Serum 3.5 gm/dL (3.4-4.8); Albumin/Globulin Ratio 1.4 (1.2-2.2); Alkaline Phosphatase 78 U/L (46-116); Anion Gap 10 (7-16); Aspartate Amino Transferase 18 U/L (0-34); BUN/Creatinine Ratio 16 Ratio (12-20); Bilirubin,Total 0.5 mg/dL (0.3-1.2); Blood Urea Nitrogen 18 mg/dL (9-23); Calcium (Corrected) 8.4 mg/dL (8.5-10.1); Carbon Dioxide 22.9 mMol/L (20.0-31.0); Chloride 102 mMol/L (98-107); Creatinine (Component) 1.1 mg/dL (0.6-1.3); Estimated Creatinine Clearance 52.3 mL/min (>60); Globulin 2.5 gm/dL (2.3-3.5); Glucose 179 mg/dL (74-106); Magnesium 1.7 mg/dL (1.6-2.6); Osmolality,Calculated 276 (275-295); Potassium 3.4 mMol/L (3.4-5.1); Sodium 135 mMol/L (136-145); Thyroid Stimulating Hormone 3.14 uIU/mL (0.55-4.78); eGFR 55 See Note
--- NOTE | 2024-07-15 08:00 | PC.NURSE ---
breakfast tray provided.
[2024-07-15] MEDS: predniSONE 20 MG TABLET 40 MG PO (09:28)
[2024-07-15] MEDS: DOXYCYCLINE 100 MG TABLET PO ×2 (09:29→20:44)
[2024-07-15] MEDS: APIXABAN 2.5 MG TABLET 5 MG PO ×2 (09:29→20:44)
[2024-07-15] MEDS: GABAPENTIN 100 MG CAPSULE PO (09:29)
[2024-07-15] MEDS: LEVOTHYROXINE SODIUM 100 MCG TABLET PO (10:42)
--- NOTE | 2024-07-15 10:46 | PC.NURSE ---
PT C/O SOB, RT CALLED FOR ORDERED PRN BREATHING TREATMENT.
[2024-07-15] MEDS: ALBUTEROL/IPRATROPIUM (Duoneb) RT SOL 3 ML NEBU INH (10:55)
[2024-07-15 14:58] LABS: Respiratory Syncytial Virus Ag Negative (Negative)
--- NOTE | 2024-07-15 16:35 | ESPR_ITS ---
<Statement entered by Chan Pritchett MD - 07/16/24 10:55> I discussed with and supervised the international sales representative physician involved in the care of this patient. Patient assessment and plan was discussed with entire medicine team, including my attending. I agree with the assessment and plan as documented by international sales representative doctor. Patient care was discussed with my attending physician Dr. Rima Pritchett, PGY-2 Documentation for date of: 07/15/24 Subjective Subjective Interval history: Patient examined at bedside. No major complaints, vital stable. Saturating 93% on 4 L O2. Physical exam negative for fluid overload status. CBC CMP unremarkable. Creatinine downtrended 1.1. Patient had moderate respiratory alkalosis which resolved with BiPAP. Urine cultures and blood cultures pending, will continue with antibiotics for treatment of pneumonia. Exam Vital Signs Temp Pulse Resp BP Pulse Ox O2 Del Method O2 Flow Rate 97.4 F 61 17 123/70 94 L Nasal Cannula 3 07/15/24 16:00 07/15/24 16:00 07/15/24 16:00 07/15/24 16:00 07/15/24 16:00 07/15/24 16:00 07/15/24 16:00 FiO2 45 07/15/24 07:01 Narrative Exam GENERAL: AAOX3 NEURO: SPECIALTY SALES CONSULTANT grossly intact, moves extremities x4 HEENT: Moist mucosa. Eyes open, symmetrical, & clear CARDIO: No chest pain on palpation. Heart RRR, III/ systolic ejection murmur heard on left sternal border PULM:lungs clear to auscultation GI: Abdomen soft, nondistended, no pain on palpation. BSx4 URO/GERIATRIC NURSING ASSISTANT:: No further abnormalities noted. SKIN/MSK/EXT: Bilateral stasis dermatitis, minimal pitting edema Objective Labs 07/16/24 05:24 07/16/24 05:24 Labs: Laboratory Results - last 24 hr 07/14/24 07/14/24 07/15/24 00:00 23:46 00:00 WBC 8.5 RBC 4.86 Hgb 12.5 Hct 37.9 MCV 78 L MCH 25.7 MCHC 33.0 RDW Std Deviation 44.8 Plt Count 148 Neut % (Auto) 73 Lymph % (Auto) 13 [place] % (Auto) 11 Eos % (Auto) 1 Baso % (Auto) 1 Neut # (Auto) 6.3 Lymph # (Auto) 1.1 [place] # (Auto) 0.9 H Eos # (Auto) 0.0 Baso # (Auto) 0.1 Immature Gran # (Auto) 0.15 H Absolute Nucleated RBC 0.00 Immature Gran % 2 H Nucleated RBC % 0 PT 12.9 H INR 1.2 APTT 34.5 Puncture Site Right Radial ABG pH 7.46 H ABG pCO2 33 ABG pO2 55 L* ABG HCO3 24 ABG O2 Saturation 89 L ABG Base Excess 1 FiO2 21 Sodium 135 L Potassium 2.8 L Chloride 102 Carbon Dioxide 23.2 Anion Gap 10 BUN 17 Creatinine 1.3 Estim Creat Clear Calc 44.2 L eGFR 45 L BUN/Creatinine Ratio [address] Glu mg/dL Hemoglobin A1c Calculated Osmolality 273 L Lactic Acid 1.2 Calcium 8.2 L Corrected Calcium 8.4 L Magnesium 1.7 Iron TIBC Iron Saturation Unsat Iron Binding Ferritin Total Bilirubin 0.6 AST 20 ALT 10 Alkaline Phosphatase 81 Troponin I < 0.020 B-Natriuretic Peptide 99 Total Protein 6.2 Albumin 3.7 Globulin 2.5 Albumin/Globulin Ratio 1.5 Procalcitonin 0.60 H TSH Free T4 1.00 Ur Collection Type Urine Color Urine Clarity Urine pH Ur Specific [place] Urine Protein Urine Glucose (UA) Urine Ketones Urine Blood Urine Nitrite Urine Bilirubin Urine Urobilinogen (Auto) Ur Leukocyte Esterase Urine RBC Urine WBC Ur Squamous Epith Cells Urine Bacteria Hyaline Casts RSV Rapid 07/15/24 07/15/24 07/15/24 01:12 03:30 05:00 WBC 7.1 RBC 4.42 Hgb 11.2 L Hct 35.1 L MCV 79 L MCH 25.3 MCHC 31.9 RDW Std Deviation 44.6 Plt Count 168 Neut % (Auto) 89 H Lymph % (Auto) 6 L [place] % (Auto) 3 Eos % (Auto) 0 Baso % (Auto) 0 Neut # (Auto) 6.3 Lymph # (Auto) 0.4 L [place] # (Auto) 0.2 Eos # (Auto) 0.0 Baso # (Auto) 0.0 Immature Gran # (Auto) 0.10 H Absolute Nucleated RBC 0.00 Immature Gran % 1 H Nucleated RBC % 0 PT INR APTT Puncture Site ABG pH ABG pCO2 ABG pO2 ABG HCO3 ABG O2 Saturation ABG Base Excess FiO2 Sodium 135 L Potassium 3.4 D Chloride 102 Carbon Dioxide 22.9 Anion Gap 10 BUN 18 Creatinine 1.1 Estim Creat Clear Calc 52.3 L eGFR 55 L BUN/Creatinine Ratio [address]ucose [address] Glu mg/dL 120 Hemoglobin A1c 5.8 Calculated Osmolality 276 Lactic Acid Calcium 8.0 L Corrected Calcium 8.4 L Magnesium 1.7 Iron 16 L TIBC 289 Iron Saturation 5 L Unsat Iron Binding 273 Ferritin 42 Total Bilirubin 0.5 AST 18 ALT 9 L Alkaline Phosphatase 78 Troponin I B-Natriuretic Peptide Total Protein 6.0 Albumin 3.5 Globulin 2.5 Albumin/Globulin Ratio 1.4 Procalcitonin TSH 3.14 Free T4 Ur Collection Type Catheter Urine Color Lt-Yellow Urine Clarity Turbid A Urine pH 6.0 Ur Specific [place] 1.009 Urine Protein Negative Urine Glucose (UA) Negative Urine Ketones Negative Urine Blood Negative Urine Nitrite Positive Urine Bilirubin Negative Urine Urobilinogen (Auto) Negative Ur Leukocyte Esterase Positive Urine RBC 5 H Urine WBC 78 H Ur Squamous Epith Cells 1 Urine Bacteria Rare Hyaline Casts 1 RSV Rapid 07/15/24 07/15/24 05:30 13:41 WBC RBC Hgb Hct MCV MCH MCHC RDW Std Deviation Plt Count Neut % (Auto) Lymph % (Auto) [place] % (Auto) Eos % (Auto) Baso % (Auto) Neut # (Auto) Lymph # (Auto) [place] # (Auto) Eos # (Auto) Baso # (Auto) Immature Gran # (Auto) Absolute Nucleated RBC Immature Gran % Nucleated RBC % PT INR APTT Puncture Site Left Radial ABG pH 7.43 ABG pCO2 35 ABG pO2 73 L ABG HCO3 23 ABG O2 Saturation 93 ABG Base Excess -1 FiO2 45 Sodium Potassium Chloride Carbon Dioxide Anion Gap BUN Creatinine Estim Creat Clear Calc eGFR BUN/Creatinine Ratio Glucose Estimated Ave Glu mg/dL Hemoglobin A1c Calculated Osmolality Lactic Acid Calcium Corrected Calcium Magnesium Iron TIBC Iron Saturation Unsat Iron Binding Ferritin Total Bilirubin AST ALT Alkaline Phosphatase Troponin I B-Natriuretic Peptide Total Protein Albumin Globulin Albumin/Globulin Ratio Procalcitonin TSH Free T4 Ur Collection Type Urine Color Urine Clarity Urine pH Ur Specific [place] Urine Protein Urine Glucose (UA) Urine Ketones Urine Blood Urine Nitrite Urine Bilirubin Urine Urobilinogen (Auto) Ur Leukocyte Esterase Urine RBC Urine WBC Ur Squamous Epith Cells Urine Bacteria Hyaline Casts RSV Rapid Negative ABG Interpretation ABG results: 07/14/24 07/15/24 07/15/24 23:46 03:30 05:30 ABG pH 7.46 H 7.43 ABG pCO2 33 35 ABG pO2 55 L* 73 L ABG HCO3 24 23 ABG O2 Saturation 89 L 93 ABG Base Excess 1 -1 Quality Measures Quality Measures sepsis Current suspected stage: sepsis Possible source: pulmonary Blood cultures ordered: yes Antibiotic ordered: Yes Advance care planning discussed with:: patient Assessment & Plan Assessment Current Active Medications: Generic Name Dose Route Start Last Admin Trade Name Freq PRN Reason Stop Dose Admin Acetaminophen 650 mg 07/15/24 02:54 Acetaminophen 325 Mg Tablet PO 08/14/24 02:53 Q6H PRN Pain 1-3 or Fever >100.3 Albuterol 2 puff 07/15/24 16:12 Albuterol Inh 8 Gm INH 08/14/24 16:11 Q4HRRT KARLY Albuterol/Ipratropium 3 ml 07/15/24 04:49 07/15/24 10:55 Albuterol/Ipratropium (Duoneb) Rt Shell 3 Ml Nebu INH 08/14/24 06:59 3 ml Q6HRRT PRN Administration SOB or wheeze Apixaban 5 mg 07/15/24 09:00 07/15/24 09:29 Apixaban 2.5 Mg Tablet PO 08/14/24 08:59 5 mg BID KARLY Administration Bumetanide 1 mg 07/15/24 18:00 Bumetanide 0.5 Mg Tablet PO 08/14/24 17:59 BIDD KARLY Doxycycline Hyclate 100 mg 07/15/24 09:00 07/15/24 09:29 Doxycycline 100 Mg Tablet PO 07/22/24 08:59 100 mg BID KARLY Administration Gabapentin 100 mg 07/15/24 09:00 07/15/24 09:29 Gabapentin 100 Mg Capsule PO 08/14/24 08:59 100 mg QDAY KARLY Administration Gabapentin 100 mg 07/15/24 16:15 Gabapentin 100 Mg Capsule PO 08/14/24 16:14 QDAY KARLY Ceftriaxone Sodium/Dextrose 1 gm in 50 mls @ 100 mls/hr 07/15/24 21:00 Rocephin/D5w 1gm Iv Premix IV 07/22/24 20:59 QDAY@2100 KARLY Levothyroxine Sodium 100 mcg 07/15/24 06:00 07/15/24 10:42 Levothyroxine Sodium 100 Mcg Tablet PO 08/14/24 05:59 100 mcg [facility] Administration Levothyroxine Sodium 100 mcg 07/16/24 06:00 Levothyroxine Sodium 100 Mcg Tablet PO 08/15/24 05:59 [facility] Respiratory Home 1 inh 07/15/24 16:15 Medication- Please 08/14/24 16:14 Speak With Patient Q24H [facility] Caregiver To Have Rx Brought To [facility] Non-Formulary Medication 1,600 mcg 07/15/24 21:00 Selexipag [Uptravi] PO 08/14/24 20:59 BID [facility] Non-Formulary Medication 40 mg 07/15/24 16:15 Tadalafil (Pulm. Hypertension) [Adcirca] PO 08/14/24 16:14 QDAY [facility] Ondansetron HCl 4 mg 07/15/24 02:54 Ondansetron Inj 2 Mg/Ml Inj 2 Ml IV 08/14/24 02:53 Q6H PRN NAUSEA OR VOMITING Protocol Prednisone 40 mg 07/15/24 09:00 07/15/24 09:28 Prednisone 20 Mg Tablet PO 07/19/24 09:01 40 mg QDAY [facility] Administration Ropinirole HCl 6 mg 07/15/24 21:00 Ropinirole Hcl 1 Mg Tablet PO 08/14/24 20:59 HS [facility] Spironolactone 50 mg 07/16/24 09:00 Spironolactone 25 Mg Tablet PO 08/15/24 08:59 QDAY [facility] Trazodone HCl 50 mg 07/15/24 21:00 Trazodone Hcl 50 Mg Tablet PO 08/14/24 20:59 HS [facility] Plan 69 year-old female with a past medical history of COPD and CHF on 3-4L of oxygen, severe pulmonary artery hypertension, hypothyroidism, A-fib, and restless leg syndrome who presents to the ED on 07/14/2024 with complaints of productive cough, fever and shortness of breath. Chest x-ray revealed pneumonia. Admitted for acute on chronic hypoxic respiratory failure and sepsis 2/2 pna. #Acute on chronic hypoxic respiratory failure #Sepsis secondary community-acquired pneumonia #COPD exacerbation Per patient, she has been in her usual state of health until about a week ago when she developed a cough not preceded by runny nose or sore throat, productive in nature with yellowish and occasionally greenish sputum and accompanied with hemoptysis after long periods of coughing. She also reports a fever with the highest recorded temperature of 101.2, with chills. In the ED, the patient was initially noted to be hypoxic, saturating at 89% on room air and was put on 6 L of oxygen. Bedside influenza and COVID-negative Additionally, she was noted to be tachypneic and tachycardic although afebrile. Chest x-ray showed pneumonia in the lung bases. Admitting ABG was with a pH of 7.46, pCO2 of 33 and repeat with pH of 7.32 and pCO2 of 72 with a bicarb of 37. Plan: - Admit to med telemetry - RSV - Holding off on IV fluids due to history of CHF and patient is adequately hydrated - IV ceftriaxone 1 g daily -doxycyline 100mg BID -Blood and sputum cultures with Gram stain - Oxygen as needed -BiPAP HS -duonebs PRN #Electrolyte imbalance #Hypokalemia #Hyponatremia Admit to labs showed sodium of 135 with potassium of 2.8. Patient denies any vomiting or diarrhea. She does take bumetanide 1 mg twice daily. Repleted with 100 mg of potassium. Plan: - Follow renal panel in a.m. -replete as needed #History of CHF #History of pulmonary hypertension Patient has a history of CHF and pulmonary hypertension as well as reported undiagnosed congenital heart disease. Last echocardiogram done about a year ago showed a normal LV size and function with estimated RVSP of 102 mmHg. She is on bumetanide 1 mg twice daily, tadalafil 40 mg daily and selexipag 1600 mcg daily. On this admission, patient denies PND and orthopnea only has minimal trace edema in bilateral lower extremities. Plan: - Resume home medications -Bumetanide 1 mg twice daily ? Selexipag 1600 mcg twice daily ? Tadalafil 40 mg daily - Fluid restriction 1200 cc #History of paroxysmal A-fib Patient has a history of paroxysmal A-fib and is on Eliquis 5 mg twice daily On admission, EKG showed sinus rhythm. Plan: - Resume Eliquis 5 mg twice daily #History of restless leg syndrome - ropinirole 3 mg at bedtime Health maintenance: Dispo: MedTele Diet: Cardiac with fluid restrition DVT: Eliquis Levy: None Lines: Peripheral Code: Full The patient's management plan was discussed with my attending physician Dr. Abarca. Lissy Grossman, PGY-1 Attending Provider Attestation/Addendum I discussed with and supervised the resident physician who took care of this patient. I agree with the assessment and plan as above. 69-year-old female patient was admitted for hypoxic respiratory failure secondary to pneumonia. The patient has underlying COPD, congestive heart failure, pulmonary hypertension on tadalafil. Patient is on IV antibiotic treatment. She is receiving bronchodilators, she will continue on bumetanide as a diuretic. Continue to monitor electrolytes.
[2024-07-15] MEDS: BUMETANIDE 0.5 MG TABLET 1 MG PO (17:50)
[2024-07-15] MEDS: TADALAFIL 20 MG PO (17:51)
[2024-07-15] MEDS: ALBUTEROL INH 8 GM 2 PUFF INH ×2 (19:40→22:57)
[2024-07-15] MEDS: rOPINIRole HCL 1 MG TABLET 6 MG PO (20:44)
[2024-07-15] MEDS: traZODone HCL 50 MG TABLET PO (20:44)
[2024-07-16] VITALS (16 sets, daily range): BP systolic 96–123; BP diastolic 52–69; PULSE 54–92; RESP 14–21; TEMP 35.8–36.4; O2SAT 89–98
[2024-07-16] MEDS: ALBUTEROL INH 8 GM 2 PUFF INH ×6 (02:55→22:45)
[2024-07-16] MEDS: BUMETANIDE 0.5 MG TABLET 1 MG PO ×2 (05:02→17:25)
[2024-07-16] MEDS: LEVOTHYROXINE SODIUM 100 MCG TABLET PO ×2 (05:03)
[2024-07-16] MEDS: SELEXIPAG 1600 MCG PO ×2 (05:03→17:28)
[2024-07-16 06:48] LABS: Alanine Aminotransferase 11 U/L (10-49); Albumin, Serum 3.6 gm/dL (3.4-4.8); Albumin/Globulin Ratio 1.4 (1.2-2.2); Alkaline Phosphatase 76 U/L (46-116); Anion Gap 7 (7-16); Aspartate Amino Transferase 15 U/L (0-34); BUN/Creatinine Ratio 22 Ratio (12-20); Bilirubin,Total 0.4 mg/dL (0.3-1.2); Blood Urea Nitrogen 22 mg/dL (9-23); Calcium (Corrected) 9.3 mg/dL (8.5-10.1); Carbon Dioxide 23.8 mMol/L (20.0-31.0); Chloride 100 mMol/L (98-107); Estimated Creatinine Clearance 52.3 mL/min (>60); Globulin 2.6 gm/dL (2.3-3.5); Glucose 140 mg/dL (74-106); Osmolality,Calculated 267 (275-295); Phosphorous 3.1 mg/dL (2.4-5.1); Potassium 3.8 mMol/L (3.4-5.1); Sodium 131 mMol/L (136-145); Total Protein 6.2 gm/dL (5.7-8.2); eGFR > 60 See Note
[2024-07-16 06:50] LABS: Basophils % (Auto) 0 % (0-2.5); Eosinophils % (Auto) 0 % (0-10); Immature Granulocytes % (Auto) 1 % (0-0); Immature Granulocytes Auto 0.14 Thou/mm3 (0.00-0.00); Lymphocytes # (Auto) 1.1 Thou/mm3 (1.0-4.8); Lymphocytes % (Auto) 11 % (10-50); Mean Corpuscular HGB Conc 32.4 g/dl (31.0-37.0); Mean Corpuscular Hemoglobin 25.8 pg (25.0-35.0); Mean Corpuscular Volume 80 fL (80-100); Monocytes # (Auto) 0.9 Thou/mm3 (0.0-0.8); Monocytes % (Auto) 9 % (0-12); Neutrophils # (Auto) 7.9 Thou/mm3 (1.8-7.7); Neutrophils % (Auto) 79 % (37-80); Nucleated Red Blood Cell % 0 /100 WBC (0); Platelet Count 199 Thou/mm3 (140-440); RDW Standard Deviation 45.5 fL (36.4-46.3); Red Blood Count 4.65 Miln/mm3 (4.00-5.20)
[2024-07-16] MEDS: DOXYCYCLINE 100 MG TABLET PO ×2 (08:20→20:32)
[2024-07-16] MEDS: SPIRONOLACTONE 25 MG TABLET 50 MG PO (08:20)
[2024-07-16] MEDS: GABAPENTIN 100 MG CAPSULE PO (08:20)
[2024-07-16] MEDS: predniSONE 20 MG TABLET 40 MG PO (08:20)
[2024-07-16] MEDS: APIXABAN 2.5 MG TABLET 5 MG PO ×2 (08:20→20:32)
[2024-07-16] MEDS: TADALAFIL 20 MG PO (08:23)
--- NOTE | 2024-07-16 11:23 | ESPR_ITS ---
Documentation for date of: 07/16/24 Subjective Subjective Interval history: Patient examined at bedside. No events overnight. She has no major complaints. Sitting comfortably crocheting. Vitals are stable, patient on 2 L oxygen nasal cannula saturating 97%. No lower extremity swelling, lungs are clear. Labs unremarkable. Blood culture preliminary returned positive for GPC. At this time we will continue with ceftriaxone and Doxy. Prednisone 40mg daily and duonebs for COPD exacerbation. Exam Vital Signs Temp Pulse Resp BP Pulse Ox O2 Del Method O2 Flow Rate 96.4 F L 58 L 18 103/54 L 98 BiPAP 3 07/16/24 08:00 07/16/24 10:43 07/16/24 10:43 07/16/24 08:20 07/16/24 10:43 07/16/24 08:00 07/16/24 10:43 FiO2 45 07/16/24 02:56 Narrative Exam GENERAL: AAOX3, pleasant, elderly female, comfortable NEURO: PARACHUTE FOLDER grossly intact, moves extremities x4 HEENT: Moist mucosa. Eyes open, symmetrical, & clear CARDIO: No chest pain on palpation. Heart RRR, III/ systolic ejection murmur heard on left sternal border PULM:lungs clear to auscultation GI: Abdomen soft, nondistended, no pain on palpation. BSx4 Obese. URO/COMMERCIAL INTERIOR DESIGNER:: No further abnormalities noted. SKIN/MSK/EXT: Bilateral stasis dermatitis, no edema. Objective Labs 07/16/24 05:24 07/16/24 05:24 Labs: Laboratory Results - last 24 hr 07/15/24 07/16/24 13:41 05:24 WBC 10.0 D RBC 4.65 Hgb 12.0 Hct 37.0 MCV 80 MCH 25.8 MCHC 32.4 RDW Std Deviation 45.5 Plt Count 199 D Neut % (Auto) 79 Lymph % (Auto) 11 [place] % (Auto) 9 Eos % (Auto) 0 Baso % (Auto) 0 Neut # (Auto) 7.9 H Lymph # (Auto) 1.1 [place] # (Auto) 0.9 H Eos # (Auto) 0.0 Baso # (Auto) 0.0 Immature Gran # (Auto) 0.14 H Absolute Nucleated RBC 0.00 Immature Gran % 1 H Nucleated RBC % 0 Sodium 131 L Potassium 3.8 Chloride 100 Carbon Dioxide 23.8 Anion Gap 7 BUN 22 Creatinine 1.0 Estim Creat Clear Calc 52.3 L eGFR > 60 BUN/Creatinine Ratio 22 H Glucose 140 H Calculated Osmolality 267 L Calcium 9.0 Corrected Calcium 9.3 Phosphorus 3.1 Magnesium 2.0 Total Bilirubin 0.4 AST 15 ALT 11 Alkaline Phosphatase 76 Total Protein 6.2 Albumin 3.6 Globulin 2.6 Albumin/Globulin Ratio 1.4 RSV Rapid Negative ABG Interpretation ABG results: 07/14/24 07/15/24 07/15/24 23:46 03:30 05:30 ABG pH 7.46 H 7.43 ABG pCO2 33 35 ABG pO2 55 L* 73 L ABG HCO3 24 23 ABG O2 Saturation 89 L 93 ABG Base Excess 1 -1 Quality Measures Quality Measures sepsis Current suspected stage: ruled out Possible source: pulmonary Blood cultures ordered: yes Antibiotic ordered: Yes Advance care planning discussed with:: patient Assessment & Plan Assessment Current Active Medications: Generic Name Dose Route Start Last Admin Trade Name Freq PRN Reason Stop Dose Admin Acetaminophen 650 mg 07/15/24 02:54 Acetaminophen 325 Mg Tablet PO 08/14/24 02:53 Q6H PRN Pain 1-3 or Fever >100.3 Albuterol 2 puff 07/15/24 16:12 07/16/24 10:42 Albuterol Inh 8 Gm INH 08/14/24 16:11 2 puff Q4HRRT KARLY Administration Albuterol/Ipratropium 3 ml 07/15/24 04:49 07/15/24 10:55 Albuterol/Ipratropium (Duoneb) Rt Shell 3 Ml Nebu INH 08/14/24 06:59 3 ml Q6HRRT PRN Administration SOB or wheeze Apixaban 5 mg 07/15/24 09:00 07/16/24 08:20 Apixaban 2.5 Mg Tablet PO 08/14/24 08:59 5 mg BID KARLY Administration Bumetanide 1 mg 07/15/24 18:00 07/16/24 05:02 Bumetanide 0.5 Mg Tablet PO 08/14/24 17:59 1 mg BIDD KARLY Administration Tadalafil [Adcirca 0 ea 07/15/24 16:45 07/16/24 08:23 ] 20 Mg Tablet PO 08/14/24 16:44 2 tablet QDAY KARLY Administration Selexipag [Uptravi] 0 ea 07/15/24 17:00 07/16/24 05:03 1600 Mcg Tablet) PO 08/14/24 16:59 1 tablet Q12H KARLY Administration Doxycycline Hyclate 100 mg 07/15/24 09:00 07/16/24 08:20 Doxycycline 100 Mg Tablet PO 07/22/24 08:59 100 mg BID KARLY Administration Gabapentin 100 mg 07/15/24 16:15 07/16/24 08:20 Gabapentin 100 Mg Capsule PO 08/14/24 16:14 100 mg QDAY KARLY Administration Ceftriaxone Sodium/Dextrose 1 gm in 50 mls @ 100 mls/hr 07/15/24 21:00 07/15/24 20:44 Rocephin/D5w 1gm Iv Premix IV 07/22/24 20:59 100 mls/hr QDAY@2100 KARLY Administration Levothyroxine Sodium 100 mcg 07/15/24 06:00 07/16/24 05:03 Levothyroxine Sodium 100 Mcg Tablet PO 08/14/24 05:59 100 mcg ACBR KARLY Administration Levothyroxine Sodium 100 mcg 07/16/24 06:00 07/16/24 05:03 Levothyroxine Sodium 100 Mcg Tablet PO 08/15/24 05:59 100 mcg ACBR KARLY Administration Respiratory Home 1 inh 07/15/24 16:15 Medication- Please 08/14/24 16:14 Speak With Patient Q24H KARLY Caregiver To Have Rx Brought To [facility] Ondansetron HCl 4 mg 07/15/24 02:54 Ondansetron Inj 2 Mg/Ml Inj 2 Ml IV 08/14/24 02:53 Q6H PRN NAUSEA OR VOMITING Protocol Prednisone 40 mg 07/15/24 09:00 07/16/24 08:20 Prednisone 20 Mg Tablet PO 07/19/24 09:01 40 mg QDAY KARLY Administration Ropinirole HCl 6 mg 07/15/24 21:00 07/15/24 20:44 Ropinirole Hcl 1 Mg Tablet PO 08/14/24 20:59 6 mg HS KARLY Administration Spironolactone 50 mg 07/16/24 09:00 07/16/24 08:20 Spironolactone 25 Mg Tablet PO 08/15/24 08:59 50 mg QDAY KARLY Administration Trazodone HCl 50 mg 07/15/24 21:00 07/15/24 20:44 Trazodone Hcl 50 Mg Tablet PO 08/14/24 20:59 50 mg HS KARLY Administration Plan 69 year-old female with a past medical history of COPD and CHF on 3-4L of oxygen, severe pulmonary artery hypertension, hypothyroidism, A-fib, and restless leg syndrome who presents to the ED on 07/14/2024 with complaints of productive cough, fever and shortness of breath. Chest x-ray revealed pneumonia. Admitted for acute on chronic hypoxic respiratory failure and sepsis 04/23 pna. #Acute on chronic hypoxic respiratory failure #Sepsis secondary community-acquired pneumonia #COPD exacerbation Per patient, she has been in her usual state of health until about a week ago when she developed a cough not preceded by runny nose or sore throat, productive in nature with yellowish and occasionally greenish sputum and accompanied with hemoptysis after long periods of coughing. She also reports a fever with the highest recorded temperature of 101.2, with chills. In the ED, the patient was initially noted to be hypoxic, saturating at 89% on room air and was put on 6 L of oxygen. Bedside influenza and COVID-negative Additionally, she was noted to be tachypneic and tachycardic although afebrile. Chest x-ray showed pneumonia in the lung bases. Admitting ABG was with a pH of 7.46, pCO2 of 33 and repeat with pH of 7.32 and pCO2 of 72 with a bicarb of 37. RSV negative. Plan: - IV ceftriaxone 1 g daily -doxycyline 100mg BID -Blood and sputum cultures with Gram stain pending - Oxygen as needed -BiPAP HS -duonebs PRN #Electrolyte imbalance #Hypokalemia #Hyponatremia Admit to labs showed sodium of 135 with potassium of 2.8. Patient denies any vomiting or diarrhea. She does take bumetanide 1 mg twice daily. Plan: - Follow renal panel in a.m. -replete as needed #History of CHF #History of pulmonary hypertension Patient has a history of CHF and pulmonary hypertension as well as reported undiagnosed congenital heart disease. Last echocardiogram done about a year ago showed a normal LV size and function with estimated RVSP of 102 mmHg. Plan: - Resume home medications -Bumetanide 1 mg twice daily ? Selexipag 1600 mcg twice daily ? Tadalafil 40 mg daily - Fluid restriction 1200 cc #History of paroxysmal A-fib Patient has a history of paroxysmal A-fib and is on Eliquis 5 mg twice daily On admission, EKG showed sinus rhythm. Plan: - Resume Eliquis 5 mg twice daily #History of restless leg syndrome - ropinirole 3 mg at bedtime Health maintenance: Dispo: MedTele Diet: Cardiac with fluid restrition DVT: Eliquis Levy: None Lines: Peripheral Code: Full The patient's management plan was discussed with my attending physician Dr. Abarca. Lissy Grossman, PGY-1 Attending Provider Attestation/Addendum 69-year-old female with congestive heart failure, pulmonary hypertension, COPD on home oxygen admitted for hypoxic respiratory failure. Gram-positive cocci pneumonia. The patient is significantly improved since yesterday. She has no difficulty talking. She denies chest pain. She is no longer tachypneic. Will continue current medications. Discussed with housestaff
[2024-07-16] MEDS: cefTRIAXone/D5w 1gm IV premix 1 GM/50 ML BAG IV (20:31)
[2024-07-16] MEDS: traZODone HCL 50 MG TABLET PO (20:32)
[2024-07-16] MEDS: rOPINIRole HCL 1 MG TABLET 6 MG PO (20:32)
[2024-07-17] VITALS (18 sets, daily range): BP systolic 92–118; BP diastolic 50–64; PULSE 54–80; RESP 16–22; TEMP 36.1–36.4; O2SAT 92–97
[2024-07-17] MEDS: ALBUTEROL INH 8 GM 2 PUFF INH ×6 (02:11→22:26)
[2024-07-17] MEDS: SELEXIPAG 1600 MCG PO ×2 (05:04→17:08)
[2024-07-17] MEDS: BUMETANIDE 0.5 MG TABLET 1 MG PO ×2 (05:04→17:08)
[2024-07-17] MEDS: LEVOTHYROXINE SODIUM 100 MCG TABLET PO (05:04)
[2024-07-17 05:40] LABS: Basophils % (Auto) 0 % (0-2.5); Eosinophils # (Auto) 0.1 Thou/mm3 (0.0-0.5); Eosinophils % (Auto) 1 % (0-10); Hematocrit 37.9 % (36.0-46.0); Immature Granulocytes % (Auto) 1 % (0-0); Immature Granulocytes Auto 0.13 Thou/mm3 (0.00-0.00); Lymphocytes # (Auto) 1.3 Thou/mm3 (1.0-4.8); Lymphocytes % (Auto) 13 % (10-50); Mean Corpuscular HGB Conc 31.7 g/dl (31.0-37.0); Mean Corpuscular Hemoglobin 25.8 pg (25.0-35.0); Mean Corpuscular Volume 82 fL (80-100); Monocytes # (Auto) 0.7 Thou/mm3 (0.0-0.8); Monocytes % (Auto) 7 % (0-12); Neutrophils # (Auto) 7.9 Thou/mm3 (1.8-7.7); Neutrophils % (Auto) 78 % (37-80); Nucleated Red Blood Cell % 0 /100 WBC (0); Platelet Count 225 Thou/mm3 (140-440); RDW Standard Deviation 47.3 fL (36.4-46.3); Red Blood Count 4.65 Miln/mm3 (4.00-5.20); White Blood Count 10.2 Thou/mm3 (3.6-11.0)
[2024-07-17 06:21] LABS: Alanine Aminotransferase 10 U/L (10-49); Albumin, Serum 3.5 gm/dL (3.4-4.8); Albumin/Globulin Ratio 1.5 (1.2-2.2); Alkaline Phosphatase 75 U/L (46-116); Anion Gap 9 (7-16); Aspartate Amino Transferase 12 U/L (0-34); BUN/Creatinine Ratio 29 Ratio (12-20); Bilirubin,Total 0.3 mg/dL (0.3-1.2); Blood Urea Nitrogen 26 mg/dL (9-23); Calcium 8.6 mg/dL (8.3-10.6); Carbon Dioxide 25.4 mMol/L (20.0-31.0); Chloride 103 mMol/L (98-107); Creatinine (Component) 0.9 mg/dL (0.6-1.3); Estimated Creatinine Clearance 58.1 mL/min (>60); Globulin 2.4 gm/dL (2.3-3.5); Glucose 129 mg/dL (74-106); Magnesium 1.8 mg/dL (1.6-2.6); Osmolality,Calculated 280 (275-295); Potassium 3.9 mMol/L (3.4-5.1); Sodium 137 mMol/L (136-145); Total Protein 5.9 gm/dL (5.7-8.2); eGFR > 60 See Note
[2024-07-17] MEDS: DOXYCYCLINE 100 MG TABLET PO ×2 (08:39→21:12)
[2024-07-17] MEDS: predniSONE 20 MG TABLET 40 MG PO (08:40)
[2024-07-17] MEDS: APIXABAN 2.5 MG TABLET 5 MG PO ×2 (08:41→21:11)
[2024-07-17] MEDS: SPIRONOLACTONE 25 MG TABLET 50 MG PO (08:41)
[2024-07-17] MEDS: GABAPENTIN 100 MG CAPSULE PO (08:41)
[2024-07-17] MEDS: TADALAFIL 20 MG PO (08:42)
--- NOTE | 2024-07-17 11:55 | PC.SS ---
SS met with patient regarding her d/c plan.? Pt is alert/oriented.? Pt was admitted for Acute On Chronic Hypoxic Respiratory Failure.? Pt confirmed demographic and contact information is correct on facesheet.? Pt resides with and son.? Pt ambulates using a 4 wheel with seat, rollator walker.? Pt is ok with all ADLs.? Pt uses 2 liters of continuos O2 at home from [facility].? Patient?s pharmacy of choice is [facility].? Pt named her , Clayton Ly medical decision maker if she is unable.? SS provided verbal options for d/c to home or SNF.? Patient?s choice is to return home upon d/c.? Pt states her son, Clayton Ly, phone# [phone] will provide transportation upon dc.? Pt is aware to inform son to bring small O2 tank to hospital at d/c.? Pt states she has followed up with PCP in May and her next appointment is next week. D/C plan:? Return home Next of Kin:? Clayton Ly, , phone# [phone] PCP:? Dr. Mikey Stephen Address:? Correct on facesheet
--- NOTE | 2024-07-17 14:51 | ESPR_ITS ---
Documentation for date of: 07/17/24 Subjective Subjective Interval history: Patient examined at bedside. No events overnight. She has no major complaints. Sitting comfortably eating. Vitals are stable, patient on 2 L oxygen nasal cannula saturating 96%. No lower extremity swelling, lungs are clear. Labs unremarkable. Blood culture preliminary returned positive for GPC. Speciation pending. Urine culture positive for citrobacter freundii--sensitive to ceftriaxone. She is currently asymptomatic, denies any dysuria. Prednisone 40mg daily and duonebs for COPD exacerbation. Anticipate discharge next 24hrs. Exam Vital Signs Temp Pulse Resp BP Pulse Ox O2 Del Method O2 Flow Rate 97.1 F 75 16 93/50 L 94 L Nasal Cannula 3 07/17/24 11:57 07/17/24 12:31 07/17/24 11:57 07/17/24 11:57 07/17/24 11:57 07/17/24 11:57 07/17/24 11:57 FiO2 45 07/16/24 02:56 Narrative Exam GENERAL: AAOX3, pleasant, elderly female, comfortable NEURO: SEAM STAYER grossly intact, moves extremities x4 HEENT: Moist mucosa. Eyes open, symmetrical, & clear CARDIO: No chest pain on palpation. Heart RRR, III/ systolic ejection murmur heard on left sternal border PULM:lungs clear to auscultation GI: Abdomen soft, nondistended, no pain on palpation. BSx4 Obese. URO/EDUCATION SITE MANAGER:: No further abnormalities noted. SKIN/MSK/EXT: Bilateral stasis dermatitis, no edema. Objective Labs 07/17/24 04:24 07/17/24 04:24 Labs: Laboratory Results - last 24 hr 07/17/24 04:24 WBC 10.2 RBC 4.65 Hgb 12.0 Hct 37.9 MCV 82 MCH 25.8 MCHC 31.7 RDW Std Deviation 47.3 H Plt Count 225 Neut % (Auto) 78 Lymph % (Auto) 13 [place] % (Auto) 7 Eos % (Auto) 1 Baso % (Auto) 0 Neut # (Auto) 7.9 H Lymph # (Auto) 1.3 [place] # (Auto) 0.7 Eos # (Auto) 0.1 Baso # (Auto) 0.0 Immature Gran # (Auto) 0.13 H Absolute Nucleated RBC 0.00 Immature Gran % 1 H Nucleated RBC % 0 Sodium 137 Potassium 3.9 Chloride 103 Carbon Dioxide 25.4 Anion Gap 9 BUN 26 H Creatinine 0.9 Estim Creat Clear Calc 58.1 L eGFR > 60 BUN/Creatinine Ratio 29 H Glucose 129 H Calculated Osmolality 280 Calcium 8.6 Corrected Calcium 9.0 Phosphorus 3.0 Magnesium 1.8 Total Bilirubin 0.3 AST 12 ALT 10 Alkaline Phosphatase 75 Total Protein 5.9 Albumin 3.5 Globulin 2.4 Albumin/Globulin Ratio 1.5 ABG Interpretation ABG results: 07/14/24 07/15/24 07/15/24 23:46 03:30 05:30 ABG pH 7.46 H 7.43 ABG pCO2 33 35 ABG pO2 55 L* 73 L ABG HCO3 24 23 ABG O2 Saturation 89 L 93 ABG Base Excess 1 -1 Quality Measures Quality Measures sepsis Current suspected stage: ruled out Possible source: pulmonary Blood cultures ordered: yes Antibiotic ordered: Yes Advance care planning discussed with:: patient Assessment & Plan Assessment Current Active Medications: Generic Name Dose Route Start Last Admin Trade Name Freq PRN Reason Stop Dose Admin Acetaminophen 650 mg 07/15/24 02:54 Acetaminophen 325 Mg Tablet PO 08/14/24 02:53 Q6H PRN Pain 1-3 or Fever >100.3 Albuterol 2 puff 07/15/24 16:12 07/17/24 11:13 Albuterol Inh 8 Gm INH 08/14/24 16:11 2 puff Q4HRRT KARLY Administration Albuterol/Ipratropium 3 ml 07/15/24 04:49 07/15/24 10:55 Albuterol/Ipratropium (Duoneb) Rt Shell 3 Ml Nebu INH 08/14/24 06:59 3 ml Q6HRRT PRN Administration SOB or wheeze Apixaban 5 mg 07/15/24 09:00 07/17/24 08:41 Apixaban 2.5 Mg Tablet PO 08/14/24 08:59 5 mg BID KARLY Administration Bumetanide 1 mg 07/15/24 18:00 07/17/24 05:04 Bumetanide 0.5 Mg Tablet PO 08/14/24 17:59 1 mg BIDD KARLY Administration Tadalafil [Adcirca 0 ea 07/15/24 16:45 07/17/24 08:42 ] 20 Mg Tablet PO 08/14/24 16:44 2 tablet QDAY KARLY Administration Selexipag [Uptravi] 0 ea 07/15/24 17:00 07/17/24 05:04 1600 Mcg Tablet) PO 08/14/24 16:59 1 tablet Q12H KARLY Administration Doxycycline Hyclate 100 mg 07/15/24 09:00 07/17/24 08:39 Doxycycline 100 Mg Tablet PO 07/22/24 08:59 100 mg BID KARLY Administration Gabapentin 100 mg 07/15/24 16:15 07/17/24 08:41 Gabapentin 100 Mg Capsule PO 08/14/24 16:14 100 mg QDAY KARLY Administration Ceftriaxone Sodium/Dextrose 1 gm in 50 mls @ 100 mls/hr 07/15/24 21:00 07/16/24 20:31 Rocephin/D5w 1gm Iv Premix IV 07/22/24 20:59 100 mls/hr QDAY@2100 KARLY Administration Levothyroxine Sodium 100 mcg 07/15/24 06:00 07/17/24 05:04 Levothyroxine Sodium 100 Mcg Tablet PO 08/14/24 05:59 100 mcg ACBR KARLY Administration Respiratory Home 1 inh 07/15/24 16:15 07/16/24 19:28 Medication- Please IH 08/14/24 16:14 Not Given Speak With Patient Q24H KARLY Caregiver To Have Rx Brought To [facility] Ondansetron HCl 4 mg 07/15/24 02:54 Ondansetron Inj 2 Mg/Ml Inj 2 Ml IV 08/14/24 02:53 Q6H PRN NAUSEA OR VOMITING Protocol Prednisone 40 mg 07/15/24 09:00 07/17/24 08:40 Prednisone 20 Mg Tablet PO 07/19/24 09:01 40 mg QDAY KARLY Administration Ropinirole HCl 6 mg 07/15/24 21:00 07/16/24 20:32 Ropinirole Hcl 1 Mg Tablet PO 08/14/24 20:59 6 mg HS KARLY Administration Spironolactone 50 mg 07/16/24 09:00 07/17/24 08:41 Spironolactone 25 Mg Tablet PO 08/15/24 08:59 50 mg QDAY KARLY Administration Trazodone HCl 50 mg 07/15/24 21:00 07/16/24 20:32 Trazodone Hcl 50 Mg Tablet PO 08/14/24 20:59 50 mg HS KARLY Administration Plan 69 year-old female with a past medical history of COPD and CHF on 3-4L of oxygen, severe pulmonary artery hypertension, hypothyroidism, A-fib, and restless leg syndrome who presents to the ED on 07/14/2024 with complaints of productive cough, fever and shortness of breath. Chest x-ray revealed pneumonia. Admitted for acute on chronic hypoxic respiratory failure and sepsis / pna. #Acute on chronic hypoxic respiratory failure #Sepsis secondary community-acquired pneumonia #COPD exacerbation Per patient, she has been in her usual state of health until about a week ago when she developed a cough not preceded by runny nose or sore throat, productive in nature with yellowish and occasionally greenish sputum and accompanied with hemoptysis after long periods of coughing. She also reports a fever with the highest recorded temperature of 101.2, with chills. In the ED, the patient was initially noted to be hypoxic, saturating at 89% on room air and was put on 6 L of oxygen. Bedside influenza and COVID-negative Additionally, she was noted to be tachypneic and tachycardic although afebrile. Chest x-ray showed pneumonia in the lung bases. Admitting ABG was with a pH of 7.46, pCO2 of 33 and repeat with pH of 7.32 and pCO2 of 72 with a bicarb of 37. RSV negative. Plan: - IV ceftriaxone 1 g daily -doxycyline 100mg BID -Blood and sputum cultures with Gram stain pending - Oxygen as needed -BiPAP HS -duonebs PRN #Asymptomatic bacteruira Urine cultures 07/15 positive for Citrobacter freundii. Currently denies any symptoms such as dysuria, incontinence. UA was positive for nitrite, leukocyte esterase, WBC 78. Sensitive to ceftriaxone which patient is currently receiving for treatment CAP. -Continue to monitor #Electrolyte imbalance #Hypokalemia #Hyponatremia Admit to labs showed sodium of 135 with potassium of 2.8. Patient denies any vomiting or diarrhea. She does take bumetanide 1 mg twice daily. Plan: - Follow renal panel in a.m. -replete as needed #History of CHF #History of pulmonary hypertension Patient has a history of CHF and pulmonary hypertension as well as reported undiagnosed congenital heart disease. Last echocardiogram done about a year ago showed a normal LV size and function with estimated RVSP of 102 mmHg. Plan: - Resume home medications -Bumetanide 1 mg twice daily ? Selexipag 1600 mcg twice daily ? Tadalafil 40 mg daily - Fluid restriction 1200 cc #History of paroxysmal A-fib Patient has a history of paroxysmal A-fib and is on Eliquis 5 mg twice daily On admission, EKG showed sinus rhythm. Plan: - Resume Eliquis 5 mg twice daily #History of restless leg syndrome - ropinirole 3 mg at bedtime Health maintenance: Dispo: MedTele, CAP, COPD Diet: Cardiac with fluid restrition DVT: Eliquis Levy: None Lines: Peripheral Code: Full The patient's management plan was discussed with my attending physician Dr. Abarca. Lissy Grossman, PGY-1 GRACE discussed with and supervised the manager internet retails sales physician who took care of this patient. I personally saw and examined the patient and discussed the assessment and plan with the entire medicine team, including my attending Dr. Rima MARTINEZ. I agree with the assessment and plan as documented above. Patient interviewed and examined at bedside this a.m. No overnight reported. Patient currently at baseline O2 requirement. Respiratory exam benign. Patient's blood culture from 07/15 were positive 4 out of 4 bottles for GPC resrembling Strep species. Final culture and sensitivities are pending. Repeat blood cultures thus far have been negative. If final speciation report shows S. Viridans will obtain echo to r/o endocarditis.Urine culture did show CItrobacter, however patient did not have any urinary symptoms, but still sensitive to ceftriaxone. WIll continue ceftriaxone and doxy for pneumonia treatment. Kosta Ghosh M.D. Internal Medicine PGY-3 Attending Provider Attestation/Addendum Patient was seen and examined. She has respiratory failure secondary to pneumonia. Patient has CHF and pulmonary hypertension, she has COPD. Patient's symptoms are improved. She afebrile. She has a breathing no use of aspiration. The patient denies dizziness no chest pain no hemoptysis.
[2024-07-17] MEDS: rOPINIRole HCL 1 MG TABLET 6 MG PO (21:11)
[2024-07-17] MEDS: traZODone HCL 50 MG TABLET PO (21:11)
[2024-07-17] MEDS: cefTRIAXone/D5w 1gm IV premix 1 GM/50 ML BAG IV (21:12)
[2024-07-18] VITALS (17 sets, daily range): BP systolic 93–114; BP diastolic 51–70; PULSE 45–87; RESP 14–20; TEMP 36.1–37; O2SAT 91–96
--- NOTE | 2024-07-18 01:41 | PC.NURSE ---
Dr. Mclaughlin notified regarding patient having bradycardia with HR 40s and low 50s, going as low as 45. Patient asymptomatic. No new orders at this time.
[2024-07-18] MEDS: ACETAMINOPHEN 325 MG TABLET 650 MG PO ×2 (02:01→23:25)
[2024-07-18] MEDS: ALBUTEROL INH 8 GM 2 PUFF INH ×6 (03:29→23:15)
--- NOTE | 2024-07-18 05:40 | PC.NURSE ---
spoke with dr montenegro regarding patients morning bumex medication. BP 111/64 HR 45, ,moni states to still give bumex dose
[2024-07-18] MEDS: SELEXIPAG 1600 MCG PO ×2 (05:44→16:52)
[2024-07-18] MEDS: BUMETANIDE 0.5 MG TABLET 1 MG PO ×2 (05:44→17:27)
[2024-07-18] MEDS: LEVOTHYROXINE SODIUM 100 MCG TABLET PO (05:45)
[2024-07-18 06:07] LABS: Basophils % (Auto) 0 % (0-2.5); Eosinophils # (Auto) 0.1 Thou/mm3 (0.0-0.5); Eosinophils % (Auto) 1 % (0-10); Hemoglobin 11.5 g/dL (12.0-16.0); Immature Granulocytes % (Auto) 1 % (0-0); Immature Granulocytes Auto 0.12 Thou/mm3 (0.00-0.00); Lymphocytes # (Auto) 1.6 Thou/mm3 (1.0-4.8); Lymphocytes % (Auto) 17 % (10-50); Mean Corpuscular HGB Conc 31.1 g/dl (31.0-37.0); Mean Corpuscular Hemoglobin 25.4 pg (25.0-35.0); Mean Corpuscular Volume 82 fL (80-100); Monocytes # (Auto) 0.8 Thou/mm3 (0.0-0.8); Monocytes % (Auto) 8 % (0-12); Neutrophils % (Auto) 73 % (37-80); Nucleated Red Blood Cell % 0 /100 WBC (0); Platelet Count 258 Thou/mm3 (140-440); RDW Standard Deviation 47.3 fL (36.4-46.3); Red Blood Count 4.53 Miln/mm3 (4.00-5.20); White Blood Count 9.6 Thou/mm3 (3.6-11.0)
[2024-07-18 06:36] LABS: Alanine Aminotransferase 18 U/L (10-49); Albumin, Serum 3.5 gm/dL (3.4-4.8); Albumin/Globulin Ratio 1.5 (1.2-2.2); Alkaline Phosphatase 68 U/L (46-116); Anion Gap 7 (7-16); Aspartate Amino Transferase 24 U/L (0-34); BUN/Creatinine Ratio 29 Ratio (12-20); Bilirubin,Total 0.3 mg/dL (0.3-1.2); Blood Urea Nitrogen 29 mg/dL (9-23); Calcium 8.5 mg/dL (8.3-10.6); Calcium (Corrected) 8.9 mg/dL (8.5-10.1); Carbon Dioxide 26.2 mMol/L (20.0-31.0); Chloride 100 mMol/L (98-107); Estimated Creatinine Clearance 52.3 mL/min (>60); Globulin 2.4 gm/dL (2.3-3.5); Glucose 105 mg/dL (74-106); Osmolality,Calculated 272 (275-295); Phosphorous 2.9 mg/dL (2.4-5.1); Potassium 4.1 mMol/L (3.4-5.1); Sodium 133 mMol/L (136-145); Total Protein 5.9 gm/dL (5.7-8.2); eGFR > 60 See Note
[2024-07-18] MEDS: APIXABAN 2.5 MG TABLET 5 MG PO ×2 (08:08→20:25)
[2024-07-18] MEDS: SPIRONOLACTONE 25 MG TABLET 50 MG PO (08:09)
[2024-07-18] MEDS: DOXYCYCLINE 100 MG TABLET PO ×2 (08:09→20:26)
[2024-07-18] MEDS: GABAPENTIN 100 MG CAPSULE PO (08:09)
[2024-07-18] MEDS: predniSONE 20 MG TABLET 40 MG PO (08:11)
[2024-07-18] MEDS: TADALAFIL 20 MG PO (08:13)
--- NOTE | 2024-07-18 16:53 | PD.RESPRO ---
Documentation for date of: 07/18/24 Subjective Subjective Interval history: Patient examined at bedside. No events overnight. She has no major complaints. Sitting comfortably in chair knitting. Vitals are stable, patient on 4 L oxygen nasal cannula saturating 91%. No lower extremity swelling, lungs are clear. Labs unremarkable. Blood culture preliminary returned positive for GPC. Speciation pending. Urine culture positive for citrobacter freundii--sensitive to ceftriaxone. She is currently asymptomatic, denies any dysuria. Prednisone 40mg daily and duonebs for COPD exacerbation. Anticipate discharge next 24hrs. Exam Vital Signs Temp Pulse Resp BP Pulse Ox O2 Del Method O2 Flow Rate 97.0 F 67 18 114/70 93 L Nasal Cannula 4 07/18/24 16:00 07/18/24 16:00 07/18/24 16:00 07/18/24 16:00 07/18/24 16:00 07/18/24 16:00 07/18/24 16:00 FiO2 45 07/16/24 02:56 Narrative Exam GENERAL: AAOX3, pleasant, elderly female, comfortable NEURO: VENDOR REPRESENTATIVES grossly intact, moves extremities x4 HEENT: Moist mucosa. Eyes open, symmetrical, & clear CARDIO: No chest pain on palpation. Heart RRR, III/ systolic ejection murmur heard on left sternal border PULM:lungs clear to auscultation GI: Abdomen soft, nondistended, no pain on palpation. BSx4 Obese. URO/CASSANDRA ARCHITECT:: No further abnormalities noted. SKIN/MSK/EXT: Bilateral stasis dermatitis, no edema. Objective Labs 07/19/24 05:16 07/19/24 05:16 Labs: Laboratory Results - last 24 hr 07/18/24 05:38 WBC 9.6 RBC 4.53 Hgb 11.5 L Hct 37.0 MCV 82 MCH 25.4 MCHC 31.1 RDW Std Deviation 47.3 H Plt Count 258 D Neut % (Auto) 73 Lymph % (Auto) 17 [place] % (Auto) 8 Eos % (Auto) 1 Baso % (Auto) 0 Neut # (Auto) 7.0 Lymph # (Auto) 1.6 [place] # (Auto) 0.8 Eos # (Auto) 0.1 Baso # (Auto) 0.0 Immature Gran # (Auto) 0.12 H Absolute Nucleated RBC 0.00 Immature Gran % 1 H Nucleated RBC % 0 Sodium 133 L Potassium 4.1 Chloride 100 Carbon Dioxide 26.2 Anion Gap 7 BUN 29 H Creatinine 1.0 Estim Creat Clear Calc 52.3 L eGFR > 60 BUN/Creatinine Ratio 29 H Glucose 105 Calculated Osmolality 272 L Calcium 8.5 Corrected Calcium 8.9 Phosphorus 2.9 Total Bilirubin 0.3 AST 24 ALT 18 Alkaline Phosphatase 68 Total Protein 5.9 Albumin 3.5 Globulin 2.4 Albumin/Globulin Ratio 1.5 ABG Interpretation ABG results: 07/14/24 07/15/24 07/15/24 23:46 03:30 05:30 ABG pH 7.46 H 7.43 ABG pCO2 33 35 ABG pO2 55 L* 73 L ABG HCO3 24 23 ABG O2 Saturation 89 L 93 ABG Base Excess 1 -1 Quality Measures Quality Measures sepsis Current suspected stage: ruled out Possible source: pulmonary Blood cultures ordered: yes Antibiotic ordered: Yes Advance care planning discussed with:: patient Assessment & Plan Assessment Current Active Medications: Generic Name Dose Route Start Last Admin Trade Name Freq PRN Reason Stop Dose Admin Acetaminophen 650 mg 07/15/24 02:54 07/18/24 02:01 Acetaminophen 325 Mg Tablet PO 08/14/24 02:53 650 mg Q6H PRN Administration Pain 1-3 or Fever >100.3 Albuterol 2 puff 07/15/24 16:12 07/18/24 13:57 Albuterol Inh 8 Gm INH 08/14/24 16:11 2 puff Q4HRRT KARLY Administration Albuterol/Ipratropium 3 ml 07/15/24 04:49 07/15/24 10:55 Albuterol/Ipratropium (Duoneb) Rt Shell 3 Ml Nebu INH 08/14/24 06:59 3 ml Q6HRRT PRN Administration SOB or wheeze Apixaban 5 mg 07/15/24 09:00 07/18/24 08:08 Apixaban 2.5 Mg Tablet PO 08/14/24 08:59 5 mg BID KARLY Administration Bumetanide 1 mg 07/15/24 18:00 07/18/24 05:44 Bumetanide 0.5 Mg Tablet PO 08/14/24 17:59 1 mg BIDD KARLY Administration Tadalafil [Adcirca 0 ea 07/15/24 16:45 07/18/24 08:13 ] 20 Mg Tablet PO 08/14/24 16:44 2 tablet QDAY KARLY Administration Selexipag [Uptravi] 0 ea 07/15/24 17:00 07/18/24 05:44 1600 Mcg Tablet) PO 08/14/24 16:59 1 tablet Q12H KARLY Administration Doxycycline Hyclate 100 mg 07/15/24 09:00 07/18/24 08:09 Doxycycline 100 Mg Tablet PO 07/22/24 08:59 100 mg BID KARLY Administration Gabapentin 100 mg 07/15/24 16:15 07/18/24 08:09 Gabapentin 100 Mg Capsule PO 08/14/24 16:14 100 mg QDAY KARLY Administration Ceftriaxone Sodium/Dextrose 1 gm in 50 mls @ 100 mls/hr 07/15/24 21:00 07/17/24 21:12 Rocephin/D5w 1gm Iv Premix IV 07/22/24 20:59 100 mls/hr QDAY@2100 KARLY Administration Levothyroxine Sodium 100 mcg 07/15/24 06:00 07/18/24 05:45 Levothyroxine Sodium 100 Mcg Tablet PO 08/14/24 05:59 100 mcg ACBR KARLY Administration Respiratory Home 1 inh 07/15/24 16:15 07/18/24 16:43 Medication- Please IH 08/14/24 16:14 Not Given Speak With Patient Q24H KARLY Caregiver To Have Rx Brought To [facility] Ondansetron HCl 4 mg 07/15/24 02:54 Ondansetron Inj 2 Mg/Ml Inj 2 Ml IV 08/14/24 02:53 Q6H PRN NAUSEA OR VOMITING Protocol Prednisone 40 mg 07/15/24 09:00 07/18/24 08:11 Prednisone 20 Mg Tablet PO 07/19/24 09:01 40 mg QDAY KRALY Administration Ropinirole HCl 6 mg 07/15/24 21:00 07/17/24 21:11 Ropinirole Hcl 1 Mg Tablet PO 08/14/24 20:59 6 mg HS KARLY Administration Spironolactone 50 mg 07/16/24 09:00 07/18/24 08:09 Spironolactone 25 Mg Tablet PO 08/15/24 08:59 50 mg QDAY KARYL Administration Trazodone HCl 50 mg 07/15/24 21:00 07/17/24 21:11 Trazodone Hcl 50 Mg Tablet PO 08/14/24 20:59 50 mg HS KARLY Administration Plan 69 year-old female with a past medical history of COPD and CHF on 3-4L of oxygen, severe pulmonary artery hypertension, hypothyroidism, A-fib, and restless leg syndrome who presents to the ED on 07/14/2024 with complaints of productive cough, fever and shortness of breath. Chest x-ray revealed pneumonia. Admitted for acute on chronic hypoxic respiratory failure and sepsis / pna. #Acute on chronic hypoxic respiratory failure #Sepsis secondary community-acquired pneumonia #COPD exacerbation Per patient, she has been in her usual state of health until about a week ago when she developed a cough not preceded by runny nose or sore throat, productive in nature with yellowish and occasionally greenish sputum and accompanied with hemoptysis after long periods of coughing. She also reports a fever with the highest recorded temperature of 101.2, with chills. In the ED, the patient was initially noted to be hypoxic, saturating at 89% on room air and was put on 6 L of oxygen. Bedside influenza and COVID-negative Additionally, she was noted to be tachypneic and tachycardic although afebrile. Chest x-ray showed pneumonia in the lung bases. Admitting ABG was with a pH of 7.46, pCO2 of 33 and repeat with pH of 7.32 and pCO2 of 72 with a bicarb of 37. RSV negative. Sputum cultures negative. Plan: - IV ceftriaxone 1 g daily -doxycyline 100mg BID -Blood stain pending - Oxygen as needed -BiPAP HS -duonebs PRN #Asymptomatic bacteruira Urine cultures 07/15 positive for Citrobacter freundii. Currently denies any symptoms such as dysuria, incontinence. UA was positive for nitrite, leukocyte esterase, WBC 78. Sensitive to ceftriaxone which patient is currently receiving for treatment CAP. -Continue to monitor #Electrolyte imbalance #Hypokalemia #Hyponatremia Admit to labs showed sodium of 135 with potassium of 2.8. Patient denies any vomiting or diarrhea. She does take bumetanide 1 mg twice daily. Plan: - Follow renal panel in a.m. -replete as needed #History of CHF #History of pulmonary hypertension Patient has a history of CHF and pulmonary hypertension as well as reported undiagnosed congenital heart disease. Last echocardiogram done about a year ago showed a normal LV size and function with estimated RVSP of 102 mmHg. Plan: - Resume home medications -Bumetanide 1 mg twice daily ? Selexipag 1600 mcg twice daily ? Tadalafil 40 mg daily - Fluid restriction 1200 cc #History of paroxysmal A-fib Patient has a history of paroxysmal A-fib and is on Eliquis 5 mg twice daily On admission, EKG showed sinus rhythm. Plan: - Resume Eliquis 5 mg twice daily #History of restless leg syndrome - ropinirole 3 mg at bedtime Health maintenance: Dispo: MedTele, CAP, COPD Diet: Cardiac with fluid restrition DVT: Eliquis Levy: None Lines: Peripheral Code: Full The patient's management plan was discussed with my attending physician Dr. Omer. Lissy Grossman, PGY-1 I discussed with and supervised the medical assistant internal medicine physician who took care of this patient. I personally saw and examined the patient and discussed the assessment and plan with the entire medicine team, including my attending Dr. Kan MARTINEZ. I agree with the assessment and plan as documented above. Patient examined at bedside this a.m. No acute overnight events were reported. On exam patient is resting comfortably in bed in no apparent or acute distress. Patient currently on 4 L of supplemental oxygen via nasal cannula saturating at 91%. Blood culture speciation is currently pending. Preliminary cultures did show GPC. We will keep the patient until speciation with cultures and sensitivity result. Patient's urine culture did speciate Citrobacter freundii, however the patient is asymptomatic. Patient is on empiric Treatment with ceftriaxone which the aforementioned bug is sensitive. Kosta Ghosh M.D. Internal Medicine PGY-3 Attending Provider Attestation/Addendum I have examined the patient, reviewed labs and imaging findings, discussed the case with the resident(s), and reviewed entered orders. I agree with the plan of care as outlined in this note, with these additional summaries/recommendations: Pending speciation of 07/15/2024 blood cultures as preliminarily showing GPC's. Lab was contacted and speciation will most likely be available tomorrow. Continue IV antibiotics for now. Dr. Kan MD
[2024-07-18] MEDS: rOPINIRole HCL 1 MG TABLET 6 MG PO (20:26)
[2024-07-18] MEDS: traZODone HCL 50 MG TABLET PO (20:26)
[2024-07-18] MEDS: cefTRIAXone/D5w 1gm IV premix 1 GM/50 ML BAG IV (20:26)
[2024-07-19] VITALS (16 sets, daily range): BP systolic 97–124; BP diastolic 50–67; PULSE 49–90; RESP 16–22; TEMP 35.9–36.3; O2SAT 92–98; BMI 39.4
[2024-07-19] MEDS: SELEXIPAG 1600 MCG PO ×2 (05:22→17:36)
[2024-07-19] MEDS: BUMETANIDE 0.5 MG TABLET 1 MG PO (05:23)
[2024-07-19] MEDS: LEVOTHYROXINE SODIUM 100 MCG TABLET PO (05:23)
[2024-07-19 05:31] LABS: Hemoglobin 11.4 g/dL (12.0-16.0); Mean Corpuscular Volume 82 fL (80-100); Nucleated Red Blood Cell % 0 /100 WBC (0)
[2024-07-19 05:36] LABS: Basophils % (Auto) 0 % (0-2.5); Eosinophils # (Auto) 0.1 Thou/mm3 (0.0-0.5); Eosinophils % (Auto) 1 % (0-10); Hematocrit 36.5 % (36.0-46.0); Immature Granulocytes % (Auto) 1 % (0-0); Immature Granulocytes Auto 0.11 Thou/mm3 (0.00-0.00); Lymphocytes # (Auto) 1.5 Thou/mm3 (1.0-4.8); Lymphocytes % (Auto) 13 % (10-50); Mean Corpuscular HGB Conc 31.2 g/dl (31.0-37.0); Mean Corpuscular Hemoglobin 25.4 pg (25.0-35.0); Monocytes # (Auto) 0.7 Thou/mm3 (0.0-0.8); Monocytes % (Auto) 7 % (0-12); Neutrophils # (Auto) 8.6 Thou/mm3 (1.8-7.7); Neutrophils % (Auto) 78 % (37-80); Platelet Count 276 Thou/mm3 (140-440); RDW Standard Deviation 47.2 fL (36.4-46.3); Red Blood Count 4.48 Miln/mm3 (4.00-5.20)
[2024-07-19 05:54] LABS: Alanine Aminotransferase 31 U/L (10-49); Albumin, Serum 3.2 gm/dL (3.4-4.8); Albumin/Globulin Ratio 1.4 (1.2-2.2); Alkaline Phosphatase 72 U/L (46-116); Anion Gap 6 (7-16); Aspartate Amino Transferase 31 U/L (0-34); BUN/Creatinine Ratio 32 Ratio (12-20); Bilirubin,Total 0.3 mg/dL (0.3-1.2); Blood Urea Nitrogen 32 mg/dL (9-23); Calcium 8.2 mg/dL (8.3-10.6); Calcium (Corrected) 8.8 mg/dL (8.5-10.1); Carbon Dioxide 27.7 mMol/L (20.0-31.0); Chloride 103 mMol/L (98-107); Estimated Creatinine Clearance 52.3 mL/min (>60); Globulin 2.3 gm/dL (2.3-3.5); Glucose 149 mg/dL (74-106); Osmolality,Calculated 283 (275-295); Potassium 4.2 mMol/L (3.4-5.1); Sodium 137 mMol/L (136-145); Total Protein 5.5 gm/dL (5.7-8.2); eGFR > 60 See Note
[2024-07-19] MEDS: ALBUTEROL/IPRATROPIUM (Duoneb) RT SOL 3 ML NEBU INH (07:36)
[2024-07-19] MEDS: ALBUTEROL INH 8 GM 2 PUFF INH ×5 (07:40→22:41)
--- NOTE | 2024-07-19 07:54 | CHAP ---
Patient was visited by a Spiritual Care Volunteer on 07/18/2024 between 0900 and 1100 and received comfort, encouragement and/or prayer.
--- NOTE | 2024-07-19 09:34 | PC.SS ---
Follow up note: On IV antibiotic. Waiting for sensitivity report. Pt will return home upon dc.
[2024-07-19] MEDS: GABAPENTIN 100 MG CAPSULE PO (10:14)
[2024-07-19] MEDS: APIXABAN 2.5 MG TABLET 5 MG PO ×2 (10:21→20:37)
[2024-07-19] MEDS: predniSONE 20 MG TABLET 40 MG PO (10:21)
[2024-07-19] MEDS: DOXYCYCLINE 100 MG TABLET PO (10:21)
--- NOTE | 2024-07-19 15:02 | PD.IDPROG ---
Subjective Subjective Interval history: asked to see. citrobacter from urine and single pos bc with strep mitis, a viridans strep species. she clearly came in with resp sx. no urinary sx at all. Exam Vital Signs Temp Pulse Resp BP Pulse Ox O2 Del Method O2 Flow Rate 97.2 F 66 20 102/50 L 98 Nasal Cannula 4 07/19/24 11:59 07/19/24 14:19 07/19/24 14:19 07/19/24 11:59 07/19/24 14:19 07/19/24 11:59 07/19/24 14:19 FiO2 45 07/19/24 11:59 Narrative Exam ON O2 at home. is on higher amt here but that may be staff's attempt to keep the sats high and avoid adverse evals for that reason. she is improved clearly Objective - Internal Medicine Labs 07/19/24 05:16 07/19/24 05:16 Labs: Laboratory Results - last 24 hr 07/19/24 05:16 WBC 11.0 RBC 4.48 Hgb 11.4 L Hct 36.5 MCV 82 MCH 25.4 MCHC 31.2 RDW Std Deviation 47.2 H Plt Count 276 Neut % (Auto) 78 Lymph % (Auto) 13 [place] % (Auto) 7 Eos % (Auto) 1 Baso % (Auto) 0 Neut # (Auto) 8.6 H Lymph # (Auto) 1.5 [place] # (Auto) 0.7 Eos # (Auto) 0.1 Baso # (Auto) 0.0 Immature Gran # (Auto) 0.11 H Absolute Nucleated RBC 0.00 Immature Gran % 1 H Nucleated RBC % 0 Sodium 137 Potassium 4.2 Chloride 103 Carbon Dioxide 27.7 Anion Gap 6 L BUN 32 H Creatinine 1.0 Estim Creat Clear Calc 52.3 L eGFR > 60 BUN/Creatinine Ratio 32 H Glucose 149 H Calculated Osmolality 283 Calcium 8.2 L Corrected Calcium 8.8 Total Bilirubin 0.3 AST 31 ALT 31 Alkaline Phosphatase 72 Total Protein 5.5 L Albumin 3.2 L Globulin 2.3 Albumin/Globulin Ratio 1.4 ABG Interpretation ABG results: 07/14/24 07/15/24 07/15/24 23:46 03:30 05:30 ABG pH 7.46 H 7.43 ABG pCO2 33 35 ABG pO2 55 L* 73 L ABG HCO3 24 23 ABG O2 Saturation 89 L 93 ABG Base Excess 1 -1 Assessment & Plan A&P Narrative uti vs asb pulm htn. here with resp sx and pneumonia on O2 at home will change to po bactrim and keflex for 3-4d more f/u with outpt primary. Time Spent With Patient Time: Total time spent is greater than 50% in coordination of care (as documented) at patient's floor/unit and/or counseling patient:
--- NOTE | 2024-07-19 15:05 | ESPR_ITS ---
Documentation for date of: 07/19/24 Subjective Subjective Interval history: Patient examined at bedside. No events overnight. Has no major complaints. Vitals are stable, patient saturating at 93% O2 on 4 L NC. Blood pressure slightly soft 97/53. Held patient's dose of tadalafil and Aldactone today. Labs unremarkable. Blood cultures resulted Streptococcus mitis/oralis-- typically part of oral jesus. She denies any dental work, procedures. ID team consulted for recs. Sensitivity panel is pending. Continue antibiotics in setting of pneumonia and GPC bacteremia. 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 Eyes open, symmetrical, & clear CARDIO: No chest pain on palpation. Heart RRR, III/ systolic ejection murmur heard on left sternal border PULM:lungs clear to auscultation GI: Abdomen soft, nondistended, no pain on palpation. BSx4 Obese. URO/WET CHEMISTRY ANALYST:: No further abnormalities noted. SKIN/MSK/EXT: Bilateral stasis dermatitis, no edema. Objective Labs 07/20/24 04:50 07/20/24 04:50 Labs: Laboratory Results - last 24 hr 07/19/24 05:16 WBC 11.0 RBC 4.48 Hgb 11.4 L Hct 36.5 MCV 82 MCH 25.4 MCHC 31.2 RDW Std Deviation 47.2 H Plt Count 276 Neut % (Auto) 78 Lymph % (Auto) 13 [place] % (Auto) 7 Eos % (Auto) 1 Baso % (Auto) 0 Neut # (Auto) 8.6 H Lymph # (Auto) 1.5 [place] # (Auto) 0.7 Eos # (Auto) 0.1 Baso # (Auto) 0.0 Immature Gran # (Auto) 0.11 H Absolute Nucleated RBC 0.00 Immature Gran % 1 H Nucleated RBC % 0 Sodium 137 Potassium 4.2 Chloride 103 Carbon Dioxide 27.7 Anion Gap 6 L BUN 32 H Creatinine 1.0 Estim Creat Clear Calc 52.3 L eGFR > 60 BUN/Creatinine Ratio 32 H Glucose 149 H Calculated Osmolality 283 Calcium 8.2 L Corrected Calcium 8.8 Total Bilirubin 0.3 AST 31 ALT 31 Alkaline Phosphatase 72 Total Protein 5.5 L Albumin 3.2 L Globulin 2.3 Albumin/Globulin Ratio 1.4 ABG Interpretation ABG results: 07/14/24 07/15/24 07/15/24 23:46 03:30 05:30 ABG pH 7.46 H 7.43 ABG pCO2 33 35 ABG pO2 55 L* 73 L ABG HCO3 24 23 ABG O2 Saturation 89 L 93 ABG Base Excess 1 -1 Quality Measures Quality Measures sepsis Current suspected stage: ruled out Possible source: pulmonary Blood cultures ordered: yes Antibiotic ordered: Yes Advance care planning discussed with:: patient Assessment & Plan Assessment Current Active Medications: Generic Name Dose Route Start Last Admin Trade Name Freq PRN Reason Stop Dose Admin Acetaminophen 650 mg 07/15/24 02:54 07/18/24 23:25 Acetaminophen 325 Mg Tablet PO 08/14/24 02:53 650 mg Q6H PRN Administration Pain 1-3 or Fever >100.3 Albuterol 2 puff 07/15/24 16:12 07/19/24 14:19 Albuterol Inh 8 Gm INH 08/14/24 16:11 2 puff Q4HRRT KARLY Administration Albuterol/Ipratropium 3 ml 07/15/24 04:49 07/19/24 07:36 Albuterol/Ipratropium (Duoneb) Rt Shell 3 Ml Nebu INH 08/14/24 06:59 3 ml Q6HRRT PRN Administration SOB or wheeze Apixaban 5 mg 07/15/24 09:00 07/19/24 10:21 Apixaban 2.5 Mg Tablet PO 08/14/24 08:59 5 mg BID KARLY Administration Bumetanide 1 mg 07/15/24 18:00 07/19/24 05:23 Bumetanide 0.5 Mg Tablet PO 08/14/24 17:59 1 mg BIDD KARLY Administration Tadalafil [Adcirca 0 ea 07/15/24 16:45 07/19/24 10:22 ] 20 Mg Tablet PO 08/14/24 16:44 Not Given QDAY KARLY Selexipag [Uptravi] 0 ea 07/15/24 17:00 07/19/24 05:22 1600 Mcg Tablet) PO 08/14/24 16:59 1 tablet Q12H KARLY Administration Doxycycline Hyclate 100 mg 07/15/24 09:00 07/19/24 10:21 Doxycycline 100 Mg Tablet PO 07/22/24 08:59 100 mg BID KARLY Administration Gabapentin 100 mg 07/15/24 16:15 07/19/24 10:14 Gabapentin 100 Mg Capsule PO 08/14/24 16:14 100 mg QDAY KARLY Administration Ceftriaxone Sodium/Dextrose 1 gm in 50 mls @ 100 mls/hr 07/15/24 21:00 07/18/24 20:26 Rocephin/D5w 1gm Iv Premix IV 07/22/24 20:59 100 mls/hr QDAY@2100 KARLY Administration Levothyroxine Sodium 100 mcg 07/15/24 06:00 07/19/24 05:23 Levothyroxine Sodium 100 Mcg Tablet PO 08/14/24 05:59 100 mcg ACBR KARLY Administration Respiratory Home 1 inh 07/15/24 16:15 07/19/24 14:17 Medication- Please IH 08/14/24 16:14 Not Given Speak With Patient Q24H [facility] Caregiver To Have Rx Brought To [facility] Ondansetron HCl 4 mg 07/15/24 02:54 Ondansetron Inj 2 Mg/Ml Inj 2 Ml IV 08/14/24 02:53 Q6H PRN NAUSEA OR VOMITING Protocol Ropinirole HCl 6 mg 07/15/24 21:00 07/18/24 20:26 Ropinirole Hcl 1 Mg Tablet PO 08/14/24 20:59 6 mg HS KARLY Administration Spironolactone 50 mg 07/16/24 09:00 07/19/24 10:21 Spironolactone 25 Mg Tablet PO 08/15/24 08:59 Not Given QDAY KARLY Trazodone HCl 50 mg 07/15/24 21:00 07/18/24 20:26 Trazodone Hcl 50 Mg Tablet PO 08/14/24 20:59 50 mg HS KARLY Administration Plan 69 year-old female with a past medical history of COPD and CHF on 3-4L of oxygen, severe pulmonary artery hypertension, hypothyroidism, A-fib, and restless leg syndrome who presents to the ED on 07/14/2024 with complaints of productive cough, fever and shortness of breath. Chest x-ray revealed pneumonia. Admitted for acute on chronic hypoxic respiratory failure and sepsis / pna. #Acute on chronic hypoxic respiratory failure #Sepsis (resolved) secondary #Step mitis/oralis bacteremia vs #CAP #COPD exacerbation Per patient, she has been in her usual state of health until about a week ago when she developed a cough not preceded by runny nose or sore throat, productive in nature with yellowish and occasionally greenish sputum and accompanied with hemoptysis after long periods of coughing. She also reports a fever with the highest recorded temperature of 101.2, with chills. In the ED, the patient was initially noted to be hypoxic, saturating at 89% on room air and was put on 6 L of oxygen. Bedside influenza and COVID-negative Additionally, she was noted to be tachypneic and tachycardic although afebrile. Chest x-ray showed pneumonia in the lung bases. Admitting ABG was with a pH of 7.46, pCO2 of 33 and repeat with pH of 7.32 and pCO2 of 72 with a bicarb of 37. RSV negative. Sputum cultures negative. Plan: - IV ceftriaxone 1 g daily -doxycyline 100mg BID -ID consulted, recs pending -Blood culture sensitivity pending -repeat blood cultures pending - Oxygen as needed -BiPAP HS -duonebs PRN #Asymptomatic bacteruira Urine cultures 07/15 positive for Citrobacter freundii. Currently denies any symptoms such as dysuria, incontinence. UA was positive for nitrite, leukocyte esterase, WBC 78. Sensitive to ceftriaxone which patient is currently receiving for treatment CAP. -Continue to monitor #Electrolyte imbalance #Hypokalemia #Hyponatremia Admit to labs showed sodium of 135 with potassium of 2.8. Patient denies any vomiting or diarrhea. She does take bumetanide 1 mg twice daily. Plan: - Follow renal panel in a.m. -replete as needed #History of CHF #History of pulmonary hypertension Patient has a history of CHF and pulmonary hypertension as well as reported undiagnosed congenital heart disease. Last echocardiogram done about a year ago showed a normal LV size and function with estimated RVSP of 102 mmHg. Plan: - Resume home medications -Bumetanide 1 mg twice daily ? Selexipag 1600 mcg twice daily ? Tadalafil 40 mg daily - Fluid restriction 1200 cc #History of paroxysmal A-fib Patient has a history of paroxysmal A-fib and is on Eliquis 5 mg twice daily On admission, EKG showed sinus rhythm. Plan: - Resume Eliquis 5 mg twice daily #History of restless leg syndrome - ropinirole 3 mg at bedtime Health maintenance: Dispo: MedTele, CAP, COPD Diet: Cardiac with fluid restrition DVT: Eliquis Levy: None Lines: Peripheral Code: Full The patient's management plan was discussed with my attending physician Dr. Omer. Lissy Grossman, PGY-1 GRACE discussed with and supervised the multicultural internship physician who took care of this patient. I personally saw and examined the patient and discussed the assessment and plan with the entire medicine team, including my attending Dr. Kan MARTINEZ. I agree with the assessment and plan as documented above. Patient interviewed and examined at bedside this a.m. Patient's blood cultures grew Streptococcus mitis with sensitivity report pending. Patient otherwise doing well with no acute complaints. On exam she is resting comfortably in her chair oxygenating well at her baseline supplemental oxygen requirement. Will contact scratch that we will consult infectious disease for the aforementioned blood culture. Kosta Ghosh M.D. Internal Medicine PGY-3 Attending Provider Attestation/Addendum I have examined the patient, reviewed labs and imaging findings, discussed the case with the resident(s), and reviewed entered orders. I agree with the plan of care as outlined in this note, with these additional summaries/recommendations: Patient seen at bedside. She reports feeling better. 07/15/2024 blood cultures grew Streptococcus mitis/oralis 2 out of 2. Infectious disease consulted and continue IV antibiotics. Continue supplemental oxygen and wean as tolerated. Continue Eliquis for paroxysmal atrial fibrillation. Blood pressure was noted to be soft this morning and tadalafil was placed on hold. We will continue to monitor hemodynamics closely throughout the day. Dr. Kan MD
[2024-07-19] MEDS: cephALEXin 250 MG CAPSULE 500 MG PO ×2 (17:27→20:37)
--- NOTE | 2024-07-19 18:13 | ESCONSULT_ITS ---
RE: RAYNA LANDEROS : 1955 DATE OF CONSULTATION: 07/19/2024 REFERRING PHYSICIAN: Tex Cleary MD REASON FOR CONSULTATION: Respiratory symptoms with positive urine culture, and positive blood culture . HISTORY OF PRESENT ILLNESS: The patient is an unfortunate 69-year-old woman with pulmonary hypertension who is followed by a team at [place]. She is on oxygen at home and uses pulmonary hypertension medications at home. She sees a pulmonary hypertension specialist at [place] and uses oxygen at 3-4per liters per minutes every day. She is also on thyroid replacement, midodrine, pantoprazole, and other medications. She had no renal insufficiency. No other electrolyte or lab abnormalities and her echocardiogram was negative. She seems to be doing rather well except for her pulmonary hypertension. She is much better and is still on a fair amount of oxygen. Her history is as noted. ALLERGIES: LIMITED TO INFORMATION ON FILE. THERE IS AN ALLERGY TO ERYTHROMYCIN BASE NOTED. IMMUNIZATIONS: Immunizations are not pursued. FAMILY HISTORY: Unchanged. Please see other notes for details. SOCIAL HISTORY: Unchanged. Please see other notes for details. PHYSICAL EXAMINATION: General: Pleasant, not very ill-appearing woman appearing her stated age. HEENT: Benign. Heart: Benign. Lungs: Benign. She has been here for about 4 days already, so is eager to go home. From my perspective, she would probably go home on Bactrim and Keflex. That combination through Wednesday would probably be reasonable. that regimen is just a bit more than 7 days would be to avoid the rebound potential on a weekend. So, I am going to advocate treatment through Wednesday. If she worsens in the meantime, we can see her back, but I think that would be unlikely. She is probably going to do fine. I will be glad to see her again if needed. DT: 15:42:12 TT: 16:54:00 Ref: [id number] - TID: [id number] MTDD
[2024-07-19] MEDS: rOPINIRole HCL 1 MG TABLET 6 MG PO (20:37)
[2024-07-19] MEDS: TRIMETHOPRIM/SULFA 160/800 DS TABLET 1 TAB PO (20:37)
[2024-07-19] MEDS: traZODone HCL 50 MG TABLET PO (20:37)
--- NOTE | 2024-07-19 22:02 | ESCONSULT_ITS ---
<Statement entered by Fermin Hernandez MD - 07/21/24 09:23> pt seen with resident. all findings confirmed. see additional notes for details HPI Data of Consult Consult date: 07/19/24 Requesting Physician: Tyrone Omer MD Admitting Provider: Tex Cleary MD Attending Provider: Tyrone Omer MD Primary Care Provider: Mikey Stephen MD Consult Narrative Reason for consult: Citrobacter UTI and GPC bacteremia History of present illness: Patient is a 61-year-old female with past medical history of COPD and CHF on 3 to 4 L, severe pulmonary artery hypertension, hypothyroidism, A-fib and restless leg syndrome who came [facility] with chief complaint of productive cough, fever, shortness of breath. Patient was experiencing symptoms of cough for 1 week prior that she described as productive with a yellowish sputum and had some episodes of hemoptysis after prolonged coughing. Initially patient was noted to be febrile with a temperature of 101.2 and was saturating 89% upon 6 L. Infectious disease was consulted because patient had a urinary tract infection with Citrobacter and gram-positive cocci noted to be strep mitis from a aerobic bottle. PMHx-as above PSHx-joint replacement, hysterectomy Social [id number]-[id number]-[id number] nondrinker Home meds-bumetanide, gabapentin, levothyroxine, ropinirole, tadalafil, trazodone, selexipag cc:: cc: Tyrone Omer MD Review of Systems Review of Systems Systems Reviewed: All systems reviewed, normal except as documented Exam Vital Signs Temp Pulse Resp BP Pulse Ox O2 Del Method O2 Flow Rate 97.2 F 65 16 110/51 L 92 L Nasal Cannula 4 07/19/24 20:00 07/19/24 20:00 07/19/24 20:00 07/19/24 20:00 07/19/24 20:00 07/19/24 20:07/19/24 20:00 FiO2 45 07/19/24 11:59 Narrative Exam GENERAL: AAOX3, pleasant, elderly female, comfortable NEURO: DIRECTOR OF HEAD START grossly intact, moves extremities x4 HEENT: Moist mucosa. Eyes open, symmetrical, & clear CARDIO: No chest pain on palpation. Heart RRR, III/ systolic ejection murmur heard on left sternal border PULM:lungs clear to auscultation GI: Abdomen soft, nondistended, no pain on palpation. BSx4 Obese. URO/STUDENT ASSISTANT:: No further abnormalities noted. SKIN/MSK/EXT: Bilateral stasis dermatitis, no edema. Results Labs 07/19/24 05:16 07/19/24 05:16 Labs: Short CBC 07/19/24 Range/Units 05:16 WBC 11.0 (3.6-11.0) Thou/mm3 Hgb 11.4 L (12.0-16.0) g/dL Hct 36.5 (36.0-46.0) % Plt Count 276 (140-440) Thou/mm3 BMP 07/19/24 05:16 Sodium 137 Potassium 4.2 Chloride 103 Carbon Dioxide 27.7 BUN 32 H Creatinine 1.0 Glucose 149 H Calcium 8.2 L Liver Function 07/19/24 Range/Units 05:16 Total Bilirubin 0.3 (0.3-1.2) mg/dL AST 31 (0-34) U/L ALT 31 (10-49) U/L Alkaline Phosphatase 72 (46-116) U/L Albumin 3.2 L (3.4-4.8) gm/dL ABG Interpretation ABG results: 07/14/24 07/15/24 07/15/24 23:46 03:30 05:30 ABG pH 7.46 H 7.43 ABG pCO2 33 35 ABG pO2 55 L* 73 L ABG HCO3 24 23 ABG O2 Saturation 89 L 93 ABG Base Excess 1 -1 Quality Measures Quality Measures sepsis Current suspected stage: ruled out Possible source: pulmonary Blood cultures ordered: yes Antibiotic ordered: Yes Advance care planning discussed with:: other Medications Home Medications and Allergies Home Medications ?Medication ?Instructions ?Recorded ?Confirmed ?Type spironolactone 50 mg tablet 50 mg PO QDAY 11/26/17 History ambrisentan 10 mg tablet (Letairis) 10 mg PO HS 08/12/23 History pantoprazole 40 mg tablet,delayed 40 mg PO QDAY 08/12/23 History release ropinirole 3 mg tablet 6 mg PO HS 12/05/19 07/15/24 History trazodone 50 mg tablet 50 mg PO HS 12/05/19 5 History tadalafil (pulm. hypertension) 20 40 mg PO QDAY 07/15/24 History mg tablet (pulmonary hypertension) (Adcirca) potassium chloride 10 mEq 10 meq PO BID 05/13/2007/15 History capsule,extended release gabapentin 100 mg capsule 100 mg PO QDAY 01/09/2206/21 History levothyroxine 100 mcg tablet 100 mcg PO QDAY 01/09/22 07/15/24 History (Euthyrox) selexipag 200 mcg tablet (Uptravi) 1,600 mcg PO BID 07/15/24 History fluticasone fur. 100 mcg-umeclid 1 inh inhalation Q24H 07/15/24 07/15/24 History 62.5 mcg-vilant 25 mcg inhalat.powder (Trelegy Ellipta) midodrine 10 mg tablet 10 mg PO TID PRN SBP 5 07/15/24 History Allergies Allergy/AdvReac Type Severity Reaction Status Date / Time erythromycin base Allergy Severe SWELLING Verified 08/12/23 07:45 Visit Medications Acetaminophen (Acetaminophen 325 Mg Tablet) 650 mg PO Q6H PRN PRN Reason: Pain 1-3 or Fever >100.3 Stop: 08/14/24 02:53 Last Admin: 07/18/24 23:25 Dose: 650 mg Albuterol (Albuterol Inh 8 Gm) 2 puff INH Q4HRRT [facility] Stop: 08/14/24 16:11 Last Admin: 07/19/24 18:33 Dose: 2 puff Albuterol/Ipratropium (Albuterol/Ipratropium (Duoneb) Rt Shell 3 Ml Nebu) 3 ml INH Q6HRRT PRN PRN Reason: SOB or wheeze Stop: 08/14/24 06:59 Last Admin: 07/19/24 07:36 Dose: 3 ml Apixaban (Apixaban 2.5 Mg Tablet) 5 mg PO BID [facility] Stop: 08/14/24 08:59 Last Admin: 07/19/24 20:37 Dose: 5 mg Bumetanide (Bumetanide 0.5 Mg Tablet) 1 mg PO BIDD [facility] Stop: 08/14/24 17:59 Last Admin: 07/19/24 17:34 Dose: Not Given Cephalexin HCl (Cephalexin 250 Mg Capsule) 500 mg PO QID [facility] Stop: 07/30/24 22:00 Last Admin: 07/19/24 20:37 Dose: 500 mg Tadalafil [Adcirca (] 20 Mg Tablet) 0 ea PO QDAY KARLY Stop: 08/14/24 16:44 Last Admin: 07/19/24 10:22 Dose: Not Given Selexipag [Uptravi] (1600 Mcg Tablet)) 0 ea PO Q12H KARLY Stop: 08/14/24 16:59 Last Admin: 07/19/24 17:36 Dose: 1 tablet Gabapentin (Gabapentin 100 Mg Capsule) 100 mg PO QDAY [facility] Stop: 08/14/24 16:14 Last Admin: 07/19/24 10:14 Dose: 100 mg Levothyroxine Sodium (Levothyroxine Sodium 100 Mcg Tablet) 100 mcg PO ACBR KARLY Stop: 08/14/24 05:59 Last Admin: 07/19/24 05:23 Dose: 100 mcg Respiratory Home Medication- Please Speak With Patient Caregiver To Have Rx Brought To [facility] 1 inh IH Q24H KARLY Stop: 08/14/24 16:14 Last Admin: 07/19/24 14:17 Dose: Not Given Ondansetron HCl (Ondansetron Inj 2 Mg/Ml Inj 2 Ml) 4 mg IV Q6H PRN; Protocol PRN Reason: NAUSEA OR VOMITING Stop: 08/14/24 02:53 Ropinirole HCl (Ropinirole Hcl 1 Mg Tablet) 6 mg PO [facility] Stop: 08/14/24 20:59 Last Admin: 07/19/24 20:37 Dose: 6 mg Spironolactone (Spironolactone 25 Mg Tablet) 50 mg PO QDAY [facility] Stop: 08/15/24 08:59 Last Admin: 07/19/24 10:21 Dose: Not Given Trazodone HCl (Trazodone Hcl 50 Mg Tablet) 50 mg PO [facility] Stop: 08/14/24 20:59 Last Admin: 07/19/24 20:37 Dose: 50 mg Trimethoprim/Sulfamethoxazole (Trimethoprim/Sulfa 160/800 Ds Tablet) 1 tab PO BID KARLY Stop: 07/30/24 22:00 Last Admin: 07/19/24 20:37 Dose: 1 tab Discontinued Medications Azithromycin (Azithromycin 250 Mg Tablet) 500 mg PO QDAY [facility] Stop: 07/22/24 08:59 Azithromycin (Azithromycin 250 Mg Tablet) 250 mg PO QDAY [facility] Stop: 07/20/24 08:59 Doxycycline Hyclate (Doxycycline 100 Mg Tablet) 100 mg PO BID KARLY Stop: 07/22/24 08:59 Last Admin: 07/19/24 10:21 Dose: 100 mg Gabapentin (Gabapentin 100 Mg Capsule) 100 mg PO QDAY [facility] Stop: 08/14/24 08:59 Last Admin: 07/15/24 09:29 Dose: 100 mg Ceftriaxone Sodium/Dextrose (Rocephin/D5w 1gm Iv Premix) 1 gm in 50 mls @ 100 mls/hr IV X1 ONE Stop: 07/15/24 00:49 Last Infusion: 07/15/24 03:34 Dose: Infused Potassium Chloride (Kcl Ivpb) 10 meq in 100 mls @ 100 mls/hr IV X1 ONE Stop: 07/15/24 03:23 Last Infusion: 07/15/24 04:06 Dose: Infused Sodium Chloride (Ns) 1,000 mls @ 999 mls/hr IV .Q1H1M ONE Stop: 07/15/24 03:28 Last Admin: 07/15/24 02:54 Dose: Not Given Ceftriaxone Sodium/Dextrose (Rocephin/D5w 1gm Iv Premix) 1 gm in 50 mls @ 100 mls/hr IV QDAY@2100 [facility] Stop: 07/22/24 20:59 Last Admin: 07/18/24 20:26 Dose: 100 mls/hr Ipratropium [place] (Ipratropium Rt 0.5 Mg/ 2.5 Ml Nebu) 1 mg INH X1 ONE Stop: 07/14/24 23:14 Last Admin: 07/14/24 23:33 Dose: 1 mg Levothyroxine Sodium (Levothyroxine Sodium 100 Mcg Tablet) 100 mcg PO ACBR KARLY Stop: 08/15/24 05:59 Last Admin: 07/16/24 05:03 Dose: 100 mcg Methylprednisolone Sodium Succinate (Methylprednisolone Sod Succ 62.5 Mg/Ml 2ml Vial) 125 mg IVP X1 ONE Stop: 07/14/24 23:49 Last Admin: 07/15/24 00:07 Dose: 125 mg Morphine Sulfate (Morphine Sulf Inj 10 Mg/Ml Vial) 5 mg IVP Q30M PRN PRN Reason: PAIN Non-Formulary Medication (Apixaban [Eliquis Dvt-Pe Treat 30d Start]) 5 mg PO BID [facility] Stop: 08/14/24 20:59 Potassium Chloride (Potassium Chloride 20 Meq Tabcr) 40 meq PO X1 ONE Stop: 07/15/24 02:25 Last Admin: 07/15/24 02:48 Dose: 40 meq Potassium Chloride (Potassium Chloride 20 Meq Tabcr) 40 meq PO X1 ONE Stop: 07/15/24 05:01 Last Admin: 07/15/24 05:45 Dose: 40 meq Prednisone (Prednisone 20 Mg Tablet) 40 mg PO QDAY KARLY Stop: 07/19/24 09:01 Last Admin: 07/19/24 10:21 Dose: 40 mg Ropinirole HCl (Ropinirole Hcl 1 Mg Tablet) 3 mg PO HS [facility] Stop: 08/14/24 20:59 Sodium Chloride (Sodium Chloride Rt 10% 15 Ml Nebu) 5 ml INH X1 ONE Stop: 07/15/24 03:40 Trazodone HCl (Trazodone Hcl 50 Mg Tablet) 50 mg PO HS [facility] Stop: 08/14/24 20:59 Assessment & Plan Plan #Asymptomatic bacteriuria #GPC bacteremia #Strep mitis bacteremia 1 out of 2 bottles #Citrobacter UTI Patient was initially on Rocephin Significant improvement in patient's hypoxia Recommend to continue with Keflex and Bactrim for complete antibiotic therapy for GPC bacteremia and UTI and pneumonia #Acute on chronic hypoxic respiratory failure #COPD #Pulmonary artery hypertension #Electrolyte imbalances #CHF #Paroxysmal A-fib #Restless leg syndrome ? Management as per primary team Plan of care discussed with supervising attending Dr David Arauz M.D. PGY-3
[2024-07-19] MEDS: ACETAMINOPHEN 325 MG TABLET 650 MG PO (22:06)
[2024-07-20] VITALS (9 sets, daily range): BP systolic 96–120; BP diastolic 51–63; PULSE 48–78; RESP 16–20; TEMP 36.1–37.1; O2SAT 93–98
[2024-07-20] MEDS: BUMETANIDE 0.5 MG TABLET 1 MG PO (05:33)
[2024-07-20] MEDS: cephALEXin 250 MG CAPSULE 500 MG PO ×2 (05:33→11:00)
[2024-07-20] MEDS: SELEXIPAG 1600 MCG PO (05:33)
[2024-07-20] MEDS: LEVOTHYROXINE SODIUM 100 MCG TABLET PO (05:34)
[2024-07-20 06:18] LABS: Basophils % (Auto) 0 % (0-2.5); Eosinophils % (Auto) 0 % (0-10); Hematocrit 36.6 % (36.0-46.0); Hemoglobin 11.4 g/dL (12.0-16.0); Immature Granulocytes % (Auto) 1 % (0-0); Immature Granulocytes Auto 0.11 Thou/mm3 (0.00-0.00); Lymphocytes # (Auto) 1.3 Thou/mm3 (1.0-4.8); Lymphocytes % (Auto) 11 % (10-50); Mean Corpuscular HGB Conc 31.1 g/dl (31.0-37.0); Mean Corpuscular Hemoglobin 25.7 pg (25.0-35.0); Mean Corpuscular Volume 82 fL (80-100); Monocytes # (Auto) 0.5 Thou/mm3 (0.0-0.8); Monocytes % (Auto) 5 % (0-12); Neutrophils # (Auto) 9.3 Thou/mm3 (1.8-7.7); Neutrophils % (Auto) 82 % (37-80); Nucleated Red Blood Cell % 0 /100 WBC (0); Platelet Count 288 Thou/mm3 (140-440); RDW Standard Deviation 47.6 fL (36.4-46.3); Red Blood Count 4.44 Miln/mm3 (4.00-5.20); White Blood Count 11.2 Thou/mm3 (3.6-11.0)
[2024-07-20 06:35] LABS: Alanine Aminotransferase 31 U/L (10-49); Albumin, Serum 3.4 gm/dL (3.4-4.8); Albumin/Globulin Ratio 1.5 (1.2-2.2); Alkaline Phosphatase 70 U/L (46-116); Anion Gap 7 (7-16); Aspartate Amino Transferase 22 U/L (0-34); BUN/Creatinine Ratio 31 Ratio (12-20); Bilirubin,Total 0.4 mg/dL (0.3-1.2); Blood Urea Nitrogen 31 mg/dL (9-23); Calcium 8.3 mg/dL (8.3-10.6); Calcium (Corrected) 8.8 mg/dL (8.5-10.1); Carbon Dioxide 28.4 mMol/L (20.0-31.0); Chloride 99 mMol/L (98-107); Estimated Creatinine Clearance 52.3 mL/min (>60); Globulin 2.3 gm/dL (2.3-3.5); Glucose 96 mg/dL (74-106); Magnesium 2.1 mg/dL (1.6-2.6); Osmolality,Calculated 274 (275-295); Potassium 4.2 mMol/L (3.4-5.1); Sodium 134 mMol/L (136-145); Total Protein 5.7 gm/dL (5.7-8.2); eGFR > 60 See Note
[2024-07-20] MEDS: ALBUTEROL INH 8 GM 2 PUFF INH ×2 (06:53→10:57)
[2024-07-20] MEDS: GABAPENTIN 100 MG CAPSULE PO (08:53)
[2024-07-20] MEDS: TRIMETHOPRIM/SULFA 160/800 DS TABLET 1 TAB PO (08:53)
[2024-07-20] MEDS: APIXABAN 2.5 MG TABLET 5 MG PO (08:53)
[2024-07-20] MEDS: SPIRONOLACTONE 25 MG TABLET 50 MG PO (08:54)
[2024-07-20] MEDS: TADALAFIL 20 MG PO (08:55)
--- NOTE | 2024-07-20 10:48 | ESDS_ITS ---
Planned Discharge Date 07/20/24 DS: Providers Provider Date of admission: 07/15/24 03:09 Primary care physician: Mikey Stephen MD Admitting Provider: Tex Cleary MD Attending Provider on Admission: Tyrone Omer MD Consults: 07/15/24 15:44 [facility] Referral - Nutrition Routine Comment: Positive screening for nutrition needs. 07/19/24 10:39 Consult to Infectious Diseases Routine Comment: Consulting Provider: Fermin Hernandez Attending Provider on DC: Tyrone Omer MD Discharging Provider: Tyrone Omer MD DS: Diagnosis Problem List Completed Was Problem List Reviewed/Reconciled?: Yes Hospital Course Hospital Course Hospital course: Fatimah is a 69-year-old female with a PMHx of COPD and CHF on 3-4L of oxygen, severe pulmonary artery hypertension, hypothyroidism, A-fib, and restless leg syndrome who was admitted on 07/14/2024 acute on chronic hypoxic respiratory failure likely multifactorial related to CAP and severe pulmonary hypertension. She came to the ED saturating 89% on room air, was then put on 6 L nasal cannula, was also tachypneic, tachycardic but afebrile. Labs were pertinent for sodium of 135, potassium 2.8, normal lactate, elevated Pro-Ean at 0.6, ABG showed pH of 7.46, PO2 of 55. Urinalysis showed turbid urine with 5 RBCs and 70 white blood cells. X-ray showed pneumonia in lung bases particular on the right. EKG was normal sinus rhythm with heart rate of 88. Medicine was consulted and patient admitted to the floor. While on the floor patient was being given Rocephin and Doxy broad-spectrum coverage including MRSA coverage. Blood cultures had resulted and showed 1 out of 2 bottles strep mitis bacteremia. ID was consulted for further recommendations. Blood cultures were reordered as doyle ent continued to be treated with Rocephin and doxycycline. Strep mitis and Citrobacter UTI were pansensitive and patient was recommended to continue with Keflex and Bactrim until Wednesday for treatment of symptomatic UTI and bacteremia. She was also recommended to follow-up with her PCP outpatient as well. She was also recommended to follow-up with her renal medicine physician who manages her severe pulmonary hypertension. Her spironolactone was held on discharge as patient was running hypotensive while in the hospital and recommended to continue to talk with her renal medicine physician or PCP want to resume it considering she is also on tadalafil as well. Discharge instructions: Follow up with PCP within one week Follow up with your renal medicine physician within one week for management of pulmonary hypertension Take medicines as prescribed Return to ER if your symptoms reappear or worsen Finish your antibiotic course of Cephalexin and Bactrim for four days Problem list: #Acute on chronic hypoxic respiratory failure #Sepsis, resolved #Strep mitis/oralis bacteremia #Citrobacter freundii UTI #CAP #COPD exacerbation #Asymptomatic bacteruira #Electrolyte imbalance #Hypokalemia #Hyponatremia #History of CHF #History of pulmonary hypertension #History of paroxysmal A-fib #History of restless leg syndrome Discharge summary was reviewed with my attending Dr. 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 Eyes open, symmetrical, & clear CARDIO: No chest pain on palpation. Heart RRR, III/ systolic ejection murmur heard on left sternal border PULM:lungs clear to auscultation GI: Abdomen soft, nondistended, no pain on palpation. BSx4 Obese. URO/WASTEWATER MANAGER:: No further abnormalities noted. SKIN/MSK/EXT: Bilateral stasis dermatitis, no edema. Discharge Plan Plan Patient Disposition: HOME (Self Care) Care Plan Goals: Discharge Instructions: Follow up with PCP within one week Follow up with your renal medicine physician within one week for management of pulmonary hypertension Take medicines as prescribed Return to ER if your symptoms reappear or worsen Finish your antibiotic course of Cephalexin and Bactrim for four days Prescriptions/Referrals Prescriptions/Med Rec: New cephalexin 500 mg capsule 500 mg PO Q6H 4 Days Qty: 16 0RF Rx Instructions: Take one capsule every 6 hours for four days sulfamethoxazole-trimethoprim [Bactrim DS] 800-160 mg tablet 1 tab PO BID 4 Days Qty: 8 0RF Rx Instructions: Take one tablet by mouth twice a day for four days Continued trazodone 50 mg tablet 50 mg PO HS ropinirole 3 mg tablet 6 mg PO HS pantoprazole 40 mg tablet,delayed release (DR/EC) 40 mg PO QDAY Patient Comments: TAKE 1 TABLET BY MOUTH ONCE DAILY FOR 90 DAYS potassium chloride 10 mEq Capsule, Extended Release 10 meq PO BID ambrisentan [Letairis] 10 mg Tablet 10 mg PO HS albuterol sulfate 90 mcg/actuation Hfa Aerosol Inhaler 2 puff Inhalation Q4HR PRN (Reason: Shortness Of Breath Or Wheezing) Qty: 0 0RF tadalafil (pulm. hypertension) [Adcirca] 20 mg Tablet 40 mg PO QDAY Trelegy Ellipta 100-62.5-25 mcg blister with device 1 inh inhalation Q24H midodrine 10 mg tablet 10 mg PO TID PRN (Reason: SBP) Patient Comments: SBP < 90 gabapentin 100 mg Capsule 100 mg PO QDAY levothyroxine [Euthyrox] 100 mcg Tablet 100 mcg PO QDAY Uptravi 200 mcg tablet 1,600 mcg PO BID Rx Instructions: Take 200mcg by mouth 2 times a day for 1 week Then increase by 200mcg 2 times a day at weekly intervals to the highest tolerated dose up to 1600mcg 2 time a day [place] DVT-PE Treat 30D Start 5 mg (74 tabs) tablets,dose pack 5 mg PO BID Qty: 74 0RF bumetanide 1 mg tablet 1 mg PO BID Qty: 60 0RF ondansetron 4 mg tablet,disintegrating 4 mg PO Q8H PRN (Reason: nausea and vomiting) Qty: 30 0RF Held spironolactone 50 mg Tablet 50 mg PO QDAY Hold Instructions: Hold until you see your PCP due to concern for low blood pressure Referrals: Mikey Stephen MD [Primary Care Provider] - Patient/Caregiver Discharge Instructions Education Materials: Urinary Tract Infections in Women, ED Shortness of Breath (Dyspnea) Print Language: Tanzanian Stand Alone Forms: [employer] Info., Patient Portal Info Letter Discharge Order Discharge Orders: Discharge (Routine); Ordered 07/20/24 Ordered By: Whit Johnson Quality Discharge Quality Measures VTE prophylaxis (Lakeshaquchaz) Attestestation MD Attestation I have examined the patient, reviewed labs and imaging findings, discussed the case with the resident(s), and reviewed entered orders. I agree with the plan of care as outlined in this note. Time Spent: [address] Kan MD
--- NOTE | 2024-07-20 12:20 | CHAP ---
Patient was visited by the Spiritual Care Volunteer who prayed for them. (Volunteer was in the hospital from 09:55-12:20).
== END 2024-07-20 12:47 | disposition home or self-care (01) | DRG 871 ==
LOC: SERX 07-15 02:27 → SERHOLD 07-15 03:12 → S3NX 07-15 14:35
PROVIDERS: Physician Assistant; Admitting Provider Student in an Organized Health Care Education/Training Program; Emergency Provider Emergency Medicine; PCP Family Medicine; Visit Provider Student in an Organized Health Care Education/Training Program
DX: A40.8 Other streptococcal sepsis (principal); J18.9 Pneumonia, unspecified organism; J96.21 Acute and chronic respiratory failure with hypoxia; J44.0 Chronic obstructive pulmonary disease with (acute) lower respiratory infection; E87.1 Hypo-osmolality and hyponatremia; J44.1 Chronic obstructive pulmonary disease with (acute) exacerbation; N39.0 Urinary tract infection, site not specified; I27.21 Secondary pulmonary arterial hypertension; I48.0 Paroxysmal atrial fibrillation; G25.81 Restless legs syndrome; E03.9 Hypothyroidism, unspecified; I50.9 Heart failure, unspecified; E87.6 Hypokalemia; Z79.01 Long term (current) use of anticoagulants; Z79.899 Other long term (current) drug therapy; Z90.710 Acquired absence of both cervix and uterus; Z99.81 Dependence on supplemental oxygen; B96.89 Other specified bacterial agents as the cause of diseases classified elsewhere; Z88.1 Allergy status to other antibiotic agents
CPT/HCPCS: 36415; 36600; 71045; 80053; 81001; 82728; 82803; 83036; 83540; 83550; 83605; 83735; 83880; 84100; 84145; 84439; 84443; 84484; 85025; 85610; 85730; 87040; 87077; 87086; 87186; 87205; 87400; 87634; 87811; 93005; 93225; 94640; 94660; 94664; 96365; 96366; 96367; 99291; A9270; J0696; J2919; J3480; J7512

== ENCOUNTER 2024-08-12 19:24 | Inpatient (IN) | payer MEDICARE, SELFPAY ==
[2024-08-12 19:31] VITALS: BP 108/50; PULSE 68; RESP 17; TEMP 37.9; O2SAT 96
[2024-08-12 19:39] VITALS: PULSE 93; RESP 20; O2SAT 94; BMI 44.4
--- NOTE | 2024-08-12 20:17 | PD.EDRME ---
Rapid Medical Screening Exam RME Arrival date/time: 08/12/24 19:24 Chief Complaint: Extremity Problem,Nontraumatic Time Seen by Provider: 08/12/24 20:08 Vital signs: Vital Signs Temperature 100.3 F 08/12/24 19:31 Pulse Rate 68 08/12/24 19:31 Respiratory Rate 17 08/12/24 19:31 Blood Pressure 108/50 L 08/12/24 19:31 Pulse Oximetry (%) 96 08/12/24 19:31 Oxygen Delivery Method Nasal Cannula 08/12/24 19:31 Oxygen Flow Rate 6 08/12/24 19:31 Vital signs reviewed by provider: Yes RME Narrative: 69-year-old female presents to the ED with complaint of right lower extremity pain ongoing since today. She denies fever but states she has had chills. She has a history of cellulitis. I have greeted and performed a focused initial assessment of this patient. A comprehensive ED assessment and evaluation of the patient, analysis of all test results, and completion of the medical decision making process will be conducted by additional ED providers.
--- NOTE | 2024-08-12 20:19 | XR_ITS ---
Examination: Duplex scan of the lower extremity, unilateral right Date and time of exam: August 12, 2024 2058 hours INDICATIONS: Right leg swelling and pain beginning 3 days ago Technique: Duplex scan of the extremity veins using B-mode/grayscale imaging and Doppler spectral analysis and color flow Attention is directed to internal echogenicity, compression and augmentation involving these veins, color flow assessment, spectral analysis Findings: Major deep venous structures in the extremity demonstrate normal course and caliber. There is no evidence of deep vein thrombosis. Normal color flow and spectral analysis Impression: Negative for DVT..
--- NOTE | 2024-08-12 20:19 | XR_ITS ---
Examination: Knee, right , 3 views Technique: Knee AP, lateral, oblique 3 views Date and time of exam: August 12, 2024 2118 hours INDICATIONS: Onset right knee pain today. FINDINGS: Significant osteopenia. Advanced tricompartment osteoarthritis No fracture IMPRESSION: Advanced tricompartment osteoarthritis Moderate knee effusion No fracture
[2024-08-12 22:37] LABS: Basophils # (Auto) 0.1 Thou/mm3 (0.0-0.2); Basophils % (Auto) 1 % (0-2.5); Eosinophils % (Auto) 0 % (0-10); Hematocrit 36.8 % (36.0-46.0); Hemoglobin 11.9 g/dL (12.0-16.0); Immature Granulocytes % (Auto) 0 % (0-0); Immature Granulocytes Auto 0.04 Thou/mm3 (0.00-0.00); Lymphocytes # (Auto) 0.7 Thou/mm3 (1.0-4.8); Lymphocytes % (Auto) 7 % (10-50); Mean Corpuscular HGB Conc 32.3 g/dl (31.0-37.0); Mean Corpuscular Hemoglobin 25.2 pg (25.0-35.0); Mean Corpuscular Volume 78 fL (80-100); Monocytes # (Auto) 1.1 Thou/mm3 (0.0-0.8); Monocytes % (Auto) 12 % (0-12); Neutrophils # (Auto) 7.6 Thou/mm3 (1.8-7.7); Neutrophils % (Auto) 80 % (37-80); Nucleated Red Blood Cell % 0 /100 WBC (0); Platelet Count 220 Thou/mm3 (140-440); RDW Standard Deviation 46.3 fL (36.4-46.3); Red Blood Count 4.72 Miln/mm3 (4.00-5.20); White Blood Count 9.6 Thou/mm3 (3.6-11.0)
[2024-08-12 22:57] LABS: Sed Rate (ESR) 36 mm/hr (0-30)
[2024-08-12 23:07] LABS: Albumin, Serum 4.3 gm/dL (3.4-4.8); Albumin/Globulin Ratio 1.7 (1.2-2.2); Alkaline Phosphatase 109 U/L (46-116); Anion Gap 8 (7-16); Aspartate Amino Transferase 14 U/L (0-34); BUN/Creatinine Ratio 12 Ratio (12-20); Bilirubin,Total 0.6 mg/dL (0.3-1.2); Blood Urea Nitrogen 14 mg/dL (9-23); C-Reactive Protein 3.7 mg/dL (0.0-0.9); Calcium 8.7 mg/dL (8.3-10.6); Calcium (Corrected) 8.7 mg/dL (8.5-10.1); Carbon Dioxide 26.6 mMol/L (20.0-31.0); Chloride 101 mMol/L (98-107); Creatinine (Component) 1.2 mg/dL (0.6-1.3); Estimated Creatinine Clearance 46.6 mL/min (>60); Globulin 2.6 gm/dL (2.3-3.5); Glucose 146 mg/dL (74-106); Osmolality,Calculated 275 (275-295); Potassium 4.4 mMol/L (3.4-5.1); Sodium 136 mMol/L (136-145); Total Protein 6.9 gm/dL (5.7-8.2); eGFR 49 See Note
[2024-08-12 23:18] LABS: Alanine Aminotransferase < 7 U/L (10-49)
[2024-08-13] VITALS (14 sets, daily range): BP systolic 99–124; BP diastolic 50–73; PULSE 62–95; RESP 16–24; TEMP 36–37.2; O2SAT 92–99; BMI 41.4
--- NOTE | 2024-08-13 00:41 | PC.NURSE ---
put pt onto gourney, put into gown, connected to satellite project site monitor and purewick put into place
--- NOTE | 2024-08-13 02:21 | PC.NURSE ---
informed provider Alphonse'Dustin patient is a 9/10 pain. no orders received.
[2024-08-13] MEDS: MORPHINE SULF INJ 10 MG/ML VIAL 4 MG IVP (03:26)
[2024-08-13] MEDS: Vancomycin Inj 1,000 MG in SODIUM CHLORIDE 0.9% 250 ML 250 ML 150 MG IV (03:26)
[2024-08-13] MEDS: ONDANSETRON INJ 2 MG/ML INJ 2 ML 4 MG IVP (03:26)
--- NOTE | 2024-08-13 03:59 | PD.EDSKIN ---
ED Skin Abcess FB-RME/HPI General Chief complaint: Extremity Problem,Nontraumatic Stated complaint: LEG PAIN Time Seen by Provider: 08/12/24 20:08 Source: patient Arrival date/time: 08/12/24 19:24 Mode of arrival: EMS Limitations: physical limitation RME / HPI RME / HPI narrative: 69-year-old female presents to the ED with complaint of right lower extremity pain ongoing since today. She denies fever but states she has had chills. She has a history of cellulitis. I have greeted and performed a focused initial assessment of this patient. A comprehensive ED assessment and evaluation of the patient, analysis of all test results, and completion of the medical decision making process will be conducted by additional ED providers. DR. KIRAN?S MAIN ED EVALUATION: 69-year-old female with history of CHF, DVT, Cellulitis, and Arthritis presenting to the emergency department via EMS from home who is presenting for chief complaint of severe right lower leg pain below the knee x 11:00 hours. Denies any falls or any other associated symptoms or medical complaints. - PMH:?Cardiac Arrhythmia, Atrial Fibrillation, Heart Murmur, Peripheral Vascular Disease, Congestive Heart Failure, Edema, Cellulitis, Deep Vein Thrombosis, Hypertension, Hypotension, Varicose Veins, Chronic Obstructive Pulmonary Disease (COPD), Asthma, Pneumonia, Pulmonary Edema, Sleep Apnea, CPAP Dependent, Obesity, Arthritis, Hyperthyroidism and Hypothyroidism - PSH: Hysterectomy - Social history: Denies - Current medications: Reviewed PCP is Quan Stephen MD Onset (ago): day(s) (1) Location: RLE Severity: severe Relieving factors: immobilization Exacerbating factors: movement Associated symptoms: denies other symptoms Treatments prior to arrival: none Related Data Home Medications ?Medication ?Instructions ?Recorded ?Confirmed spironolactone 50 mg tablet 50 mg PO QDAY 11/26/17 07/15/24 Held on 07/20/24. Instructions: Hold until you see your PCP due to concern for low blood pressure ambrisentan 10 mg tablet (Letairis) 10 mg PO HS 05/10/19 08/12/23 pantoprazole 40 mg tablet,delayed 40 mg PO QDAY 12/05/19 08/12/23 release ropinirole 3 mg tablet 6 mg PO HS 12/05/19 07/15/24 trazodone 50 mg tablet 50 mg PO HS 12/05/19 07/15/24 tadalafil (pulm. hypertension) 20 40 mg PO QDAY 01/25/20 07/15/24 mg tablet (pulmonary hypertension) (Adcirca) potassium chloride 10 mEq 10 meq PO BID 05/13/20 07/15/24 capsule,extended release gabapentin 100 mg capsule 100 mg PO QDAY 01/09/22 07/15/24 levothyroxine 100 mcg tablet 100 mcg PO QDAY 01/09/22 07/15/24 (Euthyrox) selexipag 200 mcg tablet (Uptravi) 1,600 mcg PO BID 08/13/23 07/15/24 fluticasone fur. 100 mcg-umeclid 1 inh inhalation Q24H 07/15/24 07/15/24 62.5 mcg-vilant 25 mcg inhalat.powder (Trelegy Ellipta) midodrine 10 mg tablet 10 mg PO TID PRN SBP 07/15/24 07/15/24 Previous Rx's ?Medication ?Instructions ?Recorded albuterol sulfate 90 mcg/actuation 2 puff inhalation Q4HR PRN 05/17/19 aerosol inhaler Shortness Of Breath Or Wheezing #0 grams apixaban 5 mg (74 tabs) tablets in 5 mg PO BID DVT #74 tabs 08/17/23 a dose pack (Leyou softwarequis DVT-PE Treat 30D Start) bumetanide 1 mg tablet 1 mg PO BID #60 tabs 08/17/23 ondansetron 4 mg disintegrating 4 mg PO Q8H PRN nausea and 08/17/23 tablet vomiting #30 tabs Allergies Allergy/AdvReac Type Severity Reaction Status Date / Time erythromycin base Allergy Severe SWELLING Verified 08/12/23 07:45 Review of Systems Review of Systems Systems Reviewed: All systems reviewed, normal except as documented Past Medical History Past Medical History NEUROLOGIC: Positive Neurological Disorders CARDIAC: Positive Cardiac Disorders, Cardiac Arrhythmia, Atrial Fibrillation (Eliquis), Heart Murmur, Peripheral Vascular Disease, Congestive Heart Failure, Edema, Cellulitis, Deep Vein Thrombosis, Hypertension, Hypotension and Varicose Veins RESPIRATORY: Positive Chronic Obstructive Pulmonary Disease (COPD), Asthma, Pneumonia, Pulmonary Edema, Sleep Apnea, CPAP Dependent and Smoking Exposure GASTROINTESTINAL: Positive Gastrointestinal Disorders and Obesity REPRODUCTIVE: Positive Previous Pregnancies MUSCULOSKELETAL: Positive Musculoskeletal Disorders and Arthritis ENDOCRINE: Positive Endocrine Disorders, Hyperthyroidism and Hypothyroidism PSYCHO/SOCIAL: Positive Anxiety OTHER HISTORY: Positive Hospitalization, Shingles, Falls, MRSA, Chicken Pox, Measles and Mumps Family History FAMILY HISTORY: Positive Family Respiratory Disorders, Family Cardiac Disorders, Family Gastrointestinal Problems and Family Surgery (heart surgery) Surgical History SURGICAL: Positive Hysterectomy Social History SECOND HAND EXPOSURE: Yes (12 years working at [employer]) ED Exam General Limitations: Present physical limitation Head Head exam: Present atraumatic, normocephalic and normal inspection Eye Eye exam: Present normal appearance, PERRL and EOMI ENT ENT exam: Present normal exam, normal oropharynx and mucous membranes moist Neck Neck exam: Present normal inspection, full ROM and trachea midline; Absent tenderness Chest Chest inspection: Present normal inspection and symmetric chest wall rise; Absent rash Respiratory Respiratory exam: Present other (Deep breath sounds BL); Absent wheezes or stridor Cardiovascular Cardiovascular exam: Present regular rate, normal rhythm and normal heart sounds Abdominal Exam Abdominal exam: Absent other (rash) Extremities Exam Extremities exam: Present other (Right knee effusion, redness to right anterir leg, no rashes on left leg); Absent pedal edema Back Exam Back exam: Present normal inspection and full ROM; Absent tenderness Neurological Exam Neurological exam: Present alert and oriented X3 Psychiatric Psychiatric exam: Present normal affect and normal mood; Absent depressed or anxious Skin Skin exam: Present warm, dry and intact; Absent rash (abdomen, chest, left leg) Course Quality Measures none Orders Category Date Time Status US venous duplex LE RT Stat Exams 08/12/24 20:19 Completed XR knee RT 3V Stat Exams 08/12/24 20:19 Completed Blood Culture (Lab) Stat Lab 08/12/24 22:33 Received CBC Stat Lab 08/12/24 22:26 Completed CMP [Comprehensive Metabolic Panel] Stat Lab 08/12/24 22:26 Completed CRP [C-Reactive Protein] Stat Lab 08/12/24 22:26 Completed ESR [Sed Rate (ESR)] Stat Lab 08/12/24 22:26 Completed Glucose,Synovial Fluid* Stat Lab 08/13/24 04:10 Received Gram Stain Stat Lab 08/13/24 04:10 Received Lactic Acid [Lactate (Lactic Acid)] Stat Lab 08/12/24 22:26 Completed Synovial Fld, Specific [place] Stat Lab 08/13/24 04:08 Ordered Synovial Fluid, Crystals* Stat Lab 08/13/24 04:08 Ordered Morphine Inj Med 08/13/24 03:04 Discontinued 4 mg IVP X1 ONE Ondansetron Inj [Zofran Inj] Med 08/13/24 03:07 Discontinued 4 mg IVP X1 ONE Piper/Tazo 3.375 gm Premix [Zosyn] Med 08/13/24 03:46 Discontinued 3.375 gm in 50 ml IV X1 Sodium Chloride 0.9% 500 ml [Ns] 500 ml Med 08/13/24 04:49 Discontinued IV 999 mls/hr Vancomycin Inj 1,000 mg Med 08/13/24 03:07 Discontinued Sodium Chloride 0.9% 250 ml [Ns] 250 ml IV X1 Vital Signs Vital signs: Vital Signs Temperature 100.3 F 08/12/24 19:31 Pulse Rate 68 08/12/24 19:31 Respiratory Rate 17 08/12/24 19:31 Blood Pressure 108/50 L 08/12/24 19:31 Pulse Oximetry (%) 96 08/12/24 19:31 Oxygen Delivery Method Nasal Cannula 08/12/24 19:31 Oxygen Flow Rate 6 08/12/24 19:31 Skin / Abscess / Foreign Body MDM Narrative MDM Narrative:: Scribe Attestation: 08/13/2024 Haylie Cormier am scribing for and in the presence of Dr. Kiran. Provider Notation: Although this document has been carefully reviewed, there may still be some phonetic and other typographical errors.? These errors are purely grammatical due to imperfections in the software program and should not be construed in any way to compromise the substance of the patient's medical care during this visit. 69-year-old female with history of CHF, DVT, Cellulitis, and Arthritis presenting to the emergency department via EMS from home who is presenting for chief complaint of severe right lower leg pain x 11:00 hours. ROS: right lower leg pain below the knee x 11:00 hours. Differential diagnoses include abscess of skin or subcutaneous tissue, herpes zoster, cellulitis, impetigo and contact dermatitis. Patient data External records reviewed:: [facility] previous records (Reviewed prior ED records from 07/14/24. Patient was seen for Hypokalemia.) Clinical information provided by:: patient Social determinants that could affect healthcare access:: none Patient has the following chronic illnesses:: Cardiac Arrhythmia, Atrial Fibrillation, Heart Murmur, Peripheral Vascular Disease, Congestive Heart Failure, Edema, Cellulitis, Deep Vein Thrombosis, Hypertension, Hypotension, Varicose Veins, Chronic Obstructive Pulmonary Disease (COPD), Asthma, Pneumonia, Pulmonary Edema, Sleep Apnea, CPAP Dependent, Obesity, Arthritis, Hyperthyroidism and Hypothyroidism How is presenting disease/condition affected by chronic disease/condition?: exacerbated by Evaluation data The following diagnostics were reviewed and interpreted by me:: lab results and radiology exam(s) Lab and/or radiology exams considered but not ordered:: None Interpretation Summary: RADIOLOGY Venous Duplex: Findings: Major deep venous structures in the extremity demonstrate normal course and caliber. There is no evidence of deep vein thrombosis. Normal color flow and spectral analysis Impression: Negative for DVT. Right Knee X-Ray: FINDINGS: Significant osteopenia. Advanced tricompartment osteoarthritis No fracture IMPRESSION: Advanced tricompartment osteoarthritis Moderate knee effusion No fracture LABS Hgb 11.9, MCV 78, Lymph % 7%, Lymph # 0.7, [place] # 1.1, Immature Gran # 0.04, ESR 36. Est. Creatinine Clear Calc 46.6, eGFR 49, Glucose 146, ALT < 7, C-Reactive Prot, Quant 3.7. Medications / Prescriptions Medications or Prescriptions considered but not ordered:: None Medication administrations:: Medication Administration History Acetaminophen (Acetaminophen 325 Mg Tablet) 650 mg PO Q6H PRN PRN Reason: Temp>100.3 or mild pain 1-3 Stop: 09/12/24 05:30 Hydrocodone Bitart/Acetaminophen (Hydrocodone/Apap 5/325 Tablet) 1 tab PO Q6HR PRN PRN Reason: Pain Scale 6-10 Stop: 08/18/24 05:30 Last Admin: 08/13/24 05:49 Dose: 1 tab Documented By: DT Heparin Sodium (Porcine) (Heparin Sod Inj 5000 Unit/Ml Vial) 5,000 unit SC BID [facility] Stop: 08/27/24 08:59 Ondansetron HCl (Ondansetron Inj 2 Mg/Ml Inj 2 Ml) 4 mg IVP Q6H PRN; Protocol PRN Reason: NAUSEA OR VOMITING Stop: 09/12/24 05:30 Pantoprazole Sodium (Pantoprazole 40 Mg Tablet) 40 mg PO QDAY [facility] Stop: 09/12/24 08:59 Discontinued Medications Vancomycin HCl 1,000 mg/ (Sodium Chloride) 250 mls @ 150 mls/hr IV X1 ONE Stop: 08/13/24 04:46 Last Infusion: 08/13/24 05:33 Dose: Infused Documented By: Admin: 08/13/24 03:26 Dose: 150 mls/hr Documented By: RICA Piperacillin/Tazobactam/Dextrose (Zosyn) 3.375 gm in 50 mls @ 100 mls/hr IV X1 ONE Stop: 08/13/24 04:15 Last Admin: 08/13/24 05:30 Dose: 100 mls/hr Documented By: DT Sodium Chloride (Ns) 500 mls @ 999 mls/hr IV .Q31M ONE Stop: 08/13/24 05:19 Last Infusion: 08/13/24 05:34 Dose: Infused Documented By: Admin: 08/13/24 05:03 Dose: 999 mls/hr Documented By: DT Morphine Sulfate (Morphine Sulf Inj 10 Mg/Ml Vial) 4 mg IVP X1 ONE Stop: 08/13/24 03:05 Last Admin: 08/13/24 03:26 Dose: 4 mg Documented By: DT Ondansetron HCl (Ondansetron Inj 2 Mg/Ml Inj 2 Ml) 4 mg IVP X1 ONE; Protocol Stop: 08/13/24 03:08 Last Admin: 08/13/24 03:26 Dose: 4 mg Documented By: DT See above if any Consultations Consultation(s) initiated? (list below): Yes Consultation #1 (Physician, Specialty, Details): Dr. Ellis made aware of the patient?s HPI, PMHx, lab and/or radiology results. Treatment plan was discussed. Will admit for further evaluation and management. Accepts patient for admission. Time: 04:33 Diagnosis Skin/Abscess Differential Diagnosis: abscess of skin or subcutaneous tissue, herpes zoster, cellulitis, impetigo and contact dermatitis Most likely diagnosis given after review of the tests above:: Cellulitis Admission Indicated Admission indicated?: indicated Explain why admission is indicated or not indicated:: Cellulitis Admission Request Was there a request for admission?: Yes Admission Attestation Admission request attestation: Discussed case with [] from Hospitalist service regarding admission. Discussed patients ED course, exam findings, labs, and radiology results. The Hospitalist [agrees,declines] to accept the patient for admission. Disposition Plan Disposition Plan: Admit Discharge Plan Plan Patient Disposition: Admit Acute Care w/in Hospital Problem List Clinical Impression: Cellulitis
[2024-08-13] MEDS: SODIUM CHLORIDE 0.9% 500 ML 500 ML 999 ML IV (05:03)
[2024-08-13] MEDS: PIPER/TAZO 3.375 GM PREMIX 3.375 GM/50 ML BAG IV (05:30)
--- NOTE | 2024-08-13 05:38 | PD.RESHP ---
Documentation for date of: 08/13/24 HPI History of Present Illness Chief complaint: severe right knee pain History of present illness: A 69-year-old female with a past medical history of COPD on 4 L oxygen, using Bipap at night, severe pulmonary hypertension, hypothyroidism, atrial fibrillation, CHF, history of DVT, restless leg syndrome presented to the hospital with chief complaints of severe pain in the right knee since 1 day. Patient was apparently normal 1 day back, at baseline patient is able to do her routine daily activities by herself and walks around home with the help of a walker. On the day of admission, patient tried to get out of the bed in the afternoon after taking a nap and noticed severe excruciating pain in the right knee following which she noted difficulty in ambulating and took help of his to go to the bathroom with the help of her walker and since then patient continued to have that severe pain. Denies trauma, fever, swelling. Noted mild chills. ED course: - Vitals are stable at the time of admission except for mild increase in temperature, 100.3 ?F - Labs significant for Hb 11.9, ESR 36, creatinine 1.2, CRP 3.7 - Knee x-ray showed advanced tricompartment osteoarthritis, knee effusion. Bilateral venous Doppler is negative for DVT - In the ED, patient was given vancomycin, Zosyn, hydrocodone -Patient is admitted in the hospital for pain management of advanced right knee osteoarthritis, to rule out structural abnormalities. Past medical history: COPD, severe pulmonary hypertension, hypothyroidism, atrial fibrillation, CHF, DVT, restless leg syndrome Past surgical history: Hysterectomy Social history: Denies smoking, alcohol, other illicit drug abuse Allergies: Erythromycin Review of Systems Review of Systems Systems Reviewed: All systems reviewed, normal except as documented Past Medical History Past Medical History NEUROLOGIC: Positive Neurological Disorders CARDIAC: Positive Cardiac Disorders, Cardiac Arrhythmia, Atrial Fibrillation (Eliquis), Heart Murmur, Peripheral Vascular Disease, Congestive Heart Failure, Edema, Cellulitis, Deep Vein Thrombosis, Hypertension, Hypotension and Varicose Veins RESPIRATORY: Positive Chronic Obstructive Pulmonary Disease (COPD), Asthma, Pneumonia, Pulmonary Edema, Sleep Apnea, CPAP Dependent and Smoking Exposure GASTROINTESTINAL: Positive Gastrointestinal Disorders and Obesity REPRODUCTIVE: Positive Previous Pregnancies MUSCULOSKELETAL: Positive Musculoskeletal Disorders and Arthritis ENDOCRINE: Positive Endocrine Disorders, Hyperthyroidism and Hypothyroidism PSYCHO/SOCIAL: Positive Anxiety OTHER HISTORY: Positive Hospitalization, Shingles, Falls, MRSA, Chicken Pox, Measles and Mumps Family History FAMILY HISTORY: Positive Family Respiratory Disorders, Family Cardiac Disorders, Family Gastrointestinal Problems and Family Surgery (heart surgery) Surgical History SURGICAL: Positive Hysterectomy Social History SECOND HAND EXPOSURE: Yes (12 years working at [employer]) Exam Vital Signs Temp Pulse Resp BP Pulse Ox O2 Del Method O2 Flow Rate 98.6 F 85 16 108/56 L 99 Nasal Cannula 4 08/13/24 01:15 08/13/24 01:15 08/13/24 01:15 08/13/24 03:33 08/13/24 03:33 08/13/24 03:33 08/13/24 03:33 Narrative Exam General: Awake. HEENT: Normocephalic, atraumatic, mucous membranes moist. Heart: Regular rate and rhythm,ESM @ PA and psm @ TA Lungs: Clear to auscultation with no wheezing or crackles. Abdomen: Soft, nondistended, nontender, positive bowel sounds. ?No guarding or rebound tenderness. Neurologic: Alert and oriented x3, no gross neurological deficit, and patient able to move all 4 extremities. Extremities: Noted severe pain in the knee joint. Also noted bilateral erythema with asymmetry of both lower extremity, left lower extremity appears more swollen with chronic skin changes Skin: No rash or ecchymoses. Results: Labs 08/12/24 22:26 08/12/24 22:26 Labs: Short CBC 08/12/24 Range/Units 22:26 WBC 9.6 (3.6-11.0) Thou/mm3 Hgb 11.9 L (12.0-16.0) g/dL Hct 36.8 (36.0-46.0) % Plt Count 220 D (140-440) Thou/mm3 BMP 08/12/24 22:26 Sodium 136 Potassium 4.4 Chloride 101 Carbon Dioxide 26.6 BUN 14 Creatinine 1.2 Glucose 146 H Calcium 8.7 Liver Function 08/12/24 Range/Units 22:26 Total Bilirubin 0.6 (0.3-1.2) mg/dL AST 14 (0-34) U/L ALT < 7 L (10-49) U/L Alkaline Phosphatase 109 (46-116) U/L Albumin 4.3 (3.4-4.8) gm/dL Quality Measures Quality Measures none Advance care planning discussed with:: patient Medications Home Medications and Allergies Home Medications ?Medication ?Instructions ?Recorded ?Confirmed ?Type spironolactone 50 mg tablet 50 mg PO QDAY 11/26/17 08/13/24 History Held on 07/20/24. Instructions: Hold until you see your PCP due to concern for low blood pressure ambrisentan 10 mg tablet (Letairis) 10 mg PO HS 05/10/19 08/13/24 History pantoprazole 40 mg tablet,delayed 40 mg PO QDAY 12/05/19 08/13/24 History release ropinirole 3 mg tablet 6 mg PO HS 12/05/19 08/13/24 History trazodone 50 mg tablet 50 mg PO HS 12/05/19 08/13/24 History tadalafil (pulm. hypertension) 20 40 mg PO QDAY 01/25/20 08/13/24 History mg tablet (pulmonary hypertension) (Adcirca) potassium chloride 10 mEq 10 meq PO BID 05/13/20 08/13/24 History capsule,extended release gabapentin 100 mg capsule 100 mg PO QDAY 01/09/22 08/13/24 History levothyroxine 100 mcg tablet 100 mcg PO QDAY 01/09/22 08/13/24 History (Euthyrox) selexipag 200 mcg tablet (Uptravi) 1,600 mcg PO BID 08/13/23 08/13/24 History fluticasone fur. 100 mcg-umeclid 1 inh inhalation Q24H 07/15/24 08/13/24 History 62.5 mcg-vilant 25 mcg inhalat.powder (Trelegy Ellipta) midodrine 10 mg tablet 10 mg PO TID PRN SBP 07/15/24 08/13/24 History Allergies Allergy/AdvReac Type Severity Reaction Status Date / Time erythromycin base Allergy Severe SWELLING Verified 08/12/23 07:45 Visit Medications Acetaminophen (Acetaminophen 325 Mg Tablet) 650 mg PO Q6H PRN PRN Reason: Fever >101.5 Stop: 09/12/24 05:30 Hydrocodone Bitart/Acetaminophen (Hydrocodone/Apap 5/325 Tablet) 1 tab PO Q6HR PRN PRN Reason: Pain Scale 6-10 Stop: 08/18/24 05:30 Heparin Sodium (Porcine) (Heparin Sod Inj 5000 Unit/Ml Vial) 5,000 unit SC BID KARLY Stop: 08/27/24 08:59 Ondansetron HCl (Ondansetron Inj 2 Mg/Ml Inj 2 Ml) 4 mg IVP Q6H PRN; Protocol PRN Reason: NAUSEA OR VOMITING Stop: 09/12/24 05:30 Pantoprazole Sodium (Pantoprazole 40 Mg Tablet) 40 mg PO QDAY [facility] Stop: 09/12/24 08:59 Discontinued Medications Vancomycin HCl 1,000 mg/ (Sodium Chloride) 250 mls @ 150 mls/hr IV X1 ONE Stop: 08/13/24 04:46 Last Infusion: 08/13/24 05:33 Dose: Infused Piperacillin/Tazobactam/Dextrose (Zosyn) 3.375 gm in 50 mls @ 100 mls/hr IV X1 ONE Stop: 08/13/24 04:15 Last Admin: 08/13/24 05:30 Dose: 100 mls/hr Sodium Chloride (Ns) 500 mls @ 999 mls/hr IV .Q31M ONE Stop: 08/13/24 05:19 Last Infusion: 08/13/24 05:34 Dose: Infused Morphine Sulfate (Morphine Sulf Inj 10 Mg/Ml Vial) 4 mg IVP X1 ONE Stop: 08/13/24 03:05 Last Admin: 08/13/24 03:26 Dose: 4 mg Ondansetron HCl (Ondansetron Inj 2 Mg/Ml Inj 2 Ml) 4 mg IVP X1 ONE; Protocol Stop: 08/13/24 03:08 Last Admin: 08/13/24 03:26 Dose: 4 mg Assessment & Plan Plan A 69-year-old female with a past medical history of COPD on 4 L oxygen, severe pulmonary hypertension, hypothyroidism, atrial fibrillation, CHF, history of DVT, restless leg syndrome presented to the hospital with chief complaints of severe pain in the right knee since 1 day and admitted for pain management # Right knee pain # Likely advanced osteoarthritis, to rule out other structural abnormalities - Presented to the hospital with chief complaints of severe right knee pain since 31 October - Denies trauma, fever, recent travel - On physical examination, noted to have severe tenderness, erythema, localized rise of temperature around knee joint - Vitals are stable. Labs showed elevated ESR and CRP - Knee x-ray showed advanced tricompartmental osteoarthritis with effusion - In the ED, knee joint was aspirated but the fluid was not sufficient to do a synovial fluid analysis - Blood culture and synovial fluid for Gram staining was sent Plan - Hydrocodone and Tylenol as needed for pain - Warm compresses to knee as needed - MRI knee ordered to rule out other structural abnormalities - Consult orthopedics as needed -reattempt joint aspiration # COPD on 4 L oxygen # Severe pulmonary hypertension # CHF - Patient reported that she is using 4 L oxygen at home - Home medication reconciliation is done and resumed her home medications - Patient is using Bipap HS at home, resumed it # Hypothyroidism - Patient is using 100 mcg levothyroxine at home - TSH is within normal limits on 06/2024 - Will resume levothyroxine # History of unprovoked DVT/A-fib - Patient is on Eliquis 5 Mg p.o. twice daily - Bilateral venous Doppler did not show any evidence of DVT - On physical examination, patient appears to be in sinus rhythm - Will resume Eliquis Hospital Maintenance: Dispo: medtele DVT ppx: Eliquis GI ppx: protonix Diet: Regular IV lines: Peripheral Code status: Full Patient plan of care was discussed with the attending physician, Dr. Caleb Carty, PGY1 Attending Provider Attestation/Addendum I have examined the patient, reviewed labs and imaging findings, discussed the case with the resident(s), and reviewed entered orders. I agree with the plan of care as outlined in this note, with these additional summaries/recommendations: 69-year-old female with COPD, pulmonary hypertension, A-fib, CHF, history of DVT right leg, hypothyroidism, chronic neck pain presents to the ED with chief complaint of swollen red, severely tender right knee joint that began yesterday. She denies any trauma or acute extremity reports she awoke from sleep with severe pain with even small movements and inability to bear weight. Labs in the ER showed elevated ESR and CRP, normal white count. Attempt was made at joint aspiration in the ER however unsuccessful. X-ray showed moderate effusion and tricompartment osteoarthritis. Low suspicion for septic arthritis at this time, however will reattempt joint fluid analysis sent for culture, as well as additional imaging of the joint including MRI to be done. Continue with pain management for now. Cheko Ellis MD
[2024-08-13] MEDS: HYDROcodone/APAP 5/325 TABLET 1 TAB PO ×3 (05:49→18:12)
[2024-08-13] MEDS: LEVOTHYROXINE SODIUM 100 MCG TABLET PO (07:18)
[2024-08-13] MEDS: APIXABAN 2.5 MG TABLET 5 MG PO (10:21)
[2024-08-13] MEDS: PANTOPRAZOLE 40 MG TABLET PO (10:22)
[2024-08-13] MEDS: GABAPENTIN 100 MG CAPSULE PO (10:22)
--- NOTE | 2024-08-13 10:27 | XR_ITS ---
Examination: AP chest single view Technique: AP portable semiupright chest single view Date and time: August 13, 2024 1034 hrs. Comparison July 14, 2024 Indications: Shortness of breath today. Findings: Mild chronic heart failure pattern Mild to moderate enlargement cardiac contour Prominent vascular congestion although no justin pulmonary edema No lobar pneumonia Prominent osteopenia Impression: Mild chronic heart failure pattern
--- NOTE | 2024-08-13 12:06 | PC.NURSE ---
dR. JETER MADE AWARE BLOOD CULTURE RESULTS. NO NEW ORDERS.
[2024-08-13] MEDS: TADALAFIL 20 MG PO (13:22)
[2024-08-13] MEDS: SELEXIPAG 1600 MCG PO ×2 (13:23→21:06)
[2024-08-13 13:42] LABS: Base Excess 0 (-3-3); HCO3 25 mEq/L (20-26); Inspired Oxygen, FIO2 21 %; O2 Saturation 86 % (91-98); PCO2 40 mmHg (32.0-48.0)
[2024-08-13 13:43] LABS: Allen Test Not Performed; Inspired O2, VO2 Liters 7 L/min; Puncture Site Site Not Noted
[2024-08-13 13:44] LABS: PO2 54 mmHg (83-108)
[2024-08-13] MEDS: ALBUTEROL/IPRATROPIUM (Duoneb) RT SOL 3 ML NEBU INH ×2 (14:03→22:04)
--- NOTE | 2024-08-13 14:27 | ESDS_ITS ---
<Statement entered by Vannesa Reich DO - 08/13/24 16:46> I, Vannesa Reich DO, attest that I was physically present for the cardenas portions of the service and evaluated the patient with the resident and I reviewed and discussed the case with the resident and agree with the resident's findings and plans of care as documented above Planned Discharge Date 08/13/24 DS: Providers Provider Date of admission: 08/13/24 05:31 Primary care physician: Quan Stephen MD Admitting Provider: Cheko Ellis MD Attending Provider on Admission: Cheko Ellis MD Consults: 08/13/24 13:54 Referral - [facility] Stat Service Needed for Transfer: Orthopedics Addl Comments:: Septic arthritis of right knee, blood culture positive Attending Provider on DC: Vannesa Reich DO Discharging Provider: Khadar Alas MD Anticipated date of discharge: 08/13/24 DS: Diagnosis Problem List Completed Was Problem List Reviewed/Reconciled?: Yes Hospital Course Hospital Course Hospital course: A 69-year-old female with a past medical history of COPD on 4 L oxygen, using Bipap at night, severe pulmonary hypertension, hypothyroidism, atrial fibrillation, CHF, history of DVT, restless leg syndrome presented to the hospital with chief complaints of severe pain in the right knee since 1 day. Patient was admitted for pain management. During hospital stay patient had imaging studies which showed advanced tricompartmental osteoarthritis with effusion. In the ER knee joint was aspirated but not enough fluid for synovial fluid analysis. Patient has had Tmax of 100.3 and unable to move right knee joint which is warm and edematous Blood cultures grew preliminarily gram- positive cocci. Will need to transfer for orthopedic surgery as there is no coverage for orthopedics currently for further work up of septic arthrtitis. Patient remains on IV vancomycin. At this time patient is medically stable and agreeable for transfer. Patient will require orthopedic surgery services for management of septic joint. Problem list: # Suspected Septic arthritis #Right knee pain #COPD diagnosed severe pulmonary hypertension #CHF #Hypothyroidism #History of DVT and atrial fibrillation Case discussed with my attending Dr. Rachana Alas MD PGY-1 Status at Discharge Functional status at discharge: bed bound Overall status at discharge: patient is not back to baseline Time Spent with Patient Time attestation: Total time spent providing and/or coordinating discharge services: Time spent: Greater than 30 minutes Exam Vital Signs Temp Pulse Resp BP Pulse Ox O2 Del Method O2 Flow Rate 97 F 62 18 124/65 96 Oxy Mask 6 08/13/24 12:00 08/13/24 14:06 08/13/24 14:06 08/13/24 12:00 08/13/24 14:06 08/13/24 12:00 08/13/24 14:06 Narrative Exam Physical Exam GENERAL: NAD, AAOx3 HEENT: Moist mucosa. Eyes open, symmetrical, & clear CARDIO: Heart RRR, no obvious murmurs PULM: No noted coughing/dyspnea CTA B/L, no R/W/R GI: Abdomen soft, nondistended, no pain on palpation. BSx4 SKIN/MSK/EXT: Noted severe pain in the knee joint. Also noted bilateral erythema with asymmetry of both lower extremity, left lower extremity appears more swollen with chronic skin changes. Pedal pulses present B/L NEURO: AAOx3, no focal neuro deficits, able to move all 4 extremities Discharge Plan Plan Patient Disposition: er Acute Care Fac Service Needed for Transfer: Orthopedics Care Plan Goals: Patient scheduled to be transferred to tertiary care center for emergent orthopedic intervention. Prescriptions/Referrals Prescriptions/Med Rec: No Action spironolactone 50 mg Tablet 50 mg PO QDAY trazodone 50 mg tablet 50 mg PO HS ropinirole 3 mg tablet 6 mg PO HS pantoprazole 40 mg tablet,delayed release (DR/EC) 40 mg PO QDAY Patient Comments: TAKE 1 TABLET BY MOUTH ONCE DAILY FOR 90 DAYS potassium chloride 10 mEq Capsule, Extended Release 10 meq PO BID ambrisentan [Letairis] 10 mg Tablet 10 mg PO HS albuterol sulfate 90 mcg/actuation Hfa Aerosol Inhaler 2 puff Inhalation Q4HR PRN (Reason: Shortness Of Breath Or Wheezing) Qty: 0 0RF tadalafil (pulm. hypertension) [Adcirca] 20 mg Tablet 40 mg PO QDAY Trelegy Ellipta 100-62.5-25 mcg blister with device 1 inh inhalation Q24H midodrine 10 mg tablet 10 mg PO TID PRN (Reason: SBP) Patient Comments: SBP < 90 gabapentin 100 mg Capsule 100 mg PO QDAY levothyroxine [Euthyrox] 100 mcg Tablet 100 mcg PO QDAY Uptravi 200 mcg tablet 1,600 mcg PO BID Rx Instructions: Take 200mcg by mouth 2 times a day for 1 week Then increase by 200mcg 2 times a day at weekly intervals to the highest tolerated dose up to 1600mcg 2 time a day Eliquis DVT-PE Treat 30D Start 5 mg (74 tabs) tablets,dose pack 5 mg PO BID Qty: 74 0RF bumetanide 1 mg tablet 1 mg PO BID Qty: 60 0RF ondansetron 4 mg tablet,disintegrating 4 mg PO Q8H PRN (Reason: nausea and vomiting) Qty: 30 0RF Referrals: Quan Stephen MD [Primary Care Provider] - Patient/Caregiver Discharge Instructions Print Language: Thai Stand Alone Forms: Kayleen Award Info., Patient Portal Info Letter Quality Discharge Quality Measures VTE prophylaxis
--- NOTE | 2024-08-13 14:47 | PC.CC ---
Addendum entered by Adrian Husain RN 08/14/24 11:22: 1115- Spoke with [facility] NELLY Hale, she informed me that her Orthopedic Dr. Minor had instructed our hospitalist Dr. Reich to reach out on Wednesday if we were still in need of transfer as patient had recently taken Eliquis and he would not be able to do anything for the patient at this time and that Dr. Reich agreed to contact him if transfer was still needed on Wednesday and she would be cancelling a transfer request at that time. Call to Dr. Reich who confirmed this to be correct, will cancel transfer at this time. Addendum entered by Adrian Husain RN 08/14/24 07:39: 0737- [facility] NELLY Valdez stated patient was declined, review of patient's imaging studies and reports did not show enough evidence of a need for a washout per her orthopedic surgeon. Addendum entered by Zoie Solorzano RN 08/13/24 19:17: 1905: Darcy nichols/ [facility] CUELLO called back and stated Ortho Dr. Param Cornell reviewed and has declined because he is at capacity. She rec: if no placement by Tuesday 08/15, to reach out to [facility] to review.? [facility] and [facility] are reviewing Addendum entered by Zoie Solorzano RN 08/13/24 19:05: packet with clinicals and 1 CD made, given to charge nurse Gretchen. 1851: Received call from Darcy CUELLO, information provided. She will forward to the orthopedic oncall to review. Addendum entered by Zoie Solorzano RN 08/13/24 17:21: 1717: received call from Kiara nichols/ [facility], she stated ortho surgeon declined due to saturation and will be able to see the patient in a reasonable timeframe. 171: received call from Lawanda at , she is reviewing, requesting blood culture results. will fax information. Addendum entered by Zoie Solorzano RN 08/13/24 16:51: 1613: called [facility], spoke to Kiara, she stated she will review and reach out to Dr. Reich for further information. Dr. Reich's contact info provided. 1604: [facility] per Marley, she has not reviewed the clinical at this time but will review. Addendum entered by Zoie Solorzano RN 08/13/24 15:07: 1504: called and spoke to Lawanda at [facility], she confirmed receipt of clinicals. She will call me back after their review. Addendum entered by Zoie Solorzano RN 08/13/24 14:58: 1452: spoke to lawanda at [facility], provided information, sent images through [employer]. She stated she will wait to receive the clinicals and images to review and will call me back. 1450: [facility], left message to return my call. Original Note: 1440: [facility] awaiting [facility]. 1354: Received transfer order.
[2024-08-13] MEDS: VANCOMYCIN/NS 750 MG IVPB 750 MG/150 ML BAG 120 MG IV (15:24)
[2024-08-13] MEDS: rOPINIRole HCL 1 MG TABLET 6 MG PO (21:06)
[2024-08-13] MEDS: BUMETANIDE 0.5 MG TABLET 1 MG PO (21:06)
[2024-08-13] MEDS: traZODone HCL 50 MG TABLET PO (21:06)
[2024-08-14] VITALS (16 sets, daily range): BP systolic 96–122; BP diastolic 47–64; PULSE 60–97; RESP 18–24; TEMP 36.2–36.9; O2SAT 90–96
--- NOTE | 2024-08-14 | XR_ITS ---
Exam: MRI knee without contrast, right Date and time of exam: 25 1041 hours INDICATIONS: Severe right knee pain today, no injury Technique: Multiple axial, coronal, and sagittal sections on the knee have been obtained. T2-Weighted sagittal, fat-suppressed images, TR 3,500, TE 62, T2 weighted coronal fat-saturated images, TR 3,500, TE 62 Proton density sagittal sections, TR 1800, TE 31. T-1 weighted coronal images, TR 524, TE 13.0 Findings: Medial meniscus anterior horn abnormal, replaced by isointense signal. Medial meniscus, body abnormal, severe truncation inner margin. Posterior horn medial meniscus truncation inner margin, large horizontal linear tear. Lateral meniscus anterior horn small vertical tear inferior articular surface Lateral meniscus, body is intact Posterior horn lateral meniscus horizontal linear tear communicating inner margin of Anterior cruciate ligament moderately attenuated. Posterior cruciate ligament moderately attenuated Knee effusion is large. Numerous ossified joint bodies, the largest anterior joint space 9 mm Quadriceps and patellar tendons appear intact. There is no evidence of tendinosis. Inflammatory change or fracture of Hoffa's fat pad is not seen. Medial patellar facet demonstrates moderate thinning. Full-thickness fissure defect medial patellar facet axial image 17 Lateral patellar facet cartilage demonstrates moderate thinning. Trochlear cartilage demonstrates moderate thinning. Marrow signal increased about the medial joint space. Medial collateral ligament appears intact. No meniscocapsular separation is seen. Illiotibial band and fibular collateral ligament are intact. Biceps femoris tendons appear intact. Medial femoral condylar articular cartilage demonstrates severe thinning. Lateral femoral condylar articular cartilage demonstratesmild thinning. Tibial plateau cartilage demonstrates severe medial thinning. Impression: Extensive medial and lateral meniscus tears Full-thickness fissure defect medial patellar facet Moderate attenuation anterior posterior cruciate ligaments Severe thinning cartilage medial joint space
[2024-08-14] MEDS: HYDROcodone/APAP 5/325 TABLET 1 TAB PO ×2 (00:20→08:09)
[2024-08-14] MEDS: MIDODRINE 5 MG TABLET 10 MG PO (00:20)
[2024-08-14] MEDS: ACETAMINOPHEN 325 MG TABLET 650 MG PO (04:06)
[2024-08-14] MEDS: LEVOTHYROXINE SODIUM 100 MCG TABLET PO (05:09)
[2024-08-14 06:38] LABS: Basophils # (Auto) 0.1 Thou/mm3 (0.0-0.2); Basophils % (Auto) 1 % (0-2.5); Eosinophils # (Auto) 0.2 Thou/mm3 (0.0-0.5); Eosinophils % (Auto) 2 % (0-10); Hemoglobin 10.1 g/dL (12.0-16.0); Immature Granulocytes % (Auto) 0 % (0-0); Immature Granulocytes Auto 0.04 Thou/mm3 (0.00-0.00); Lymphocytes # (Auto) 0.9 Thou/mm3 (1.0-4.8); Lymphocytes % (Auto) 9 % (10-50); Mean Corpuscular HGB Conc 31.6 g/dl (31.0-37.0); Mean Corpuscular Hemoglobin 25.5 pg (25.0-35.0); Mean Corpuscular Volume 81 fL (80-100); Monocytes # (Auto) 1.2 Thou/mm3 (0.0-0.8); Monocytes % (Auto) 11 % (0-12); Neutrophils % (Auto) 77 % (37-80); Nucleated Red Blood Cell % 0 /100 WBC (0); Platelet Count 221 Thou/mm3 (140-440); RDW Standard Deviation 46.3 fL (36.4-46.3); Red Blood Count 3.96 Miln/mm3 (4.00-5.20); White Blood Count 10.4 Thou/mm3 (3.6-11.0)
[2024-08-14 06:42] LABS: Anion Gap 7 (7-16); BUN/Creatinine Ratio 16 Ratio (12-20); Blood Urea Nitrogen 16 mg/dL (9-23); Carbon Dioxide 25.6 mMol/L (20.0-31.0); Chloride 103 mMol/L (98-107); Estimated Creatinine Clearance 53.7 mL/min (>60); Glucose 113 mg/dL (74-106); Osmolality,Calculated 274 (275-295); Potassium 3.7 mMol/L (3.4-5.1); Sodium 136 mMol/L (136-145); eGFR > 60 See Note
[2024-08-14] MEDS: ALBUTEROL/IPRATROPIUM (Duoneb) RT SOL 3 ML NEBU INH ×3 (07:26→22:00)
[2024-08-14] MEDS: BUMETANIDE 0.5 MG TABLET 1 MG PO ×2 (08:12→20:56)
[2024-08-14] MEDS: PANTOPRAZOLE 40 MG TABLET PO (08:16)
[2024-08-14] MEDS: GABAPENTIN 100 MG CAPSULE PO (08:16)
[2024-08-14] MEDS: SELEXIPAG 1600 MCG PO ×2 (08:21→20:57)
[2024-08-14] MEDS: TADALAFIL 20 MG PO (08:23)
[2024-08-14 09:00] LABS: Magnesium 1.8 mg/dL (1.6-2.6); Phosphorous 3.2 mg/dL (2.4-5.1)
[2024-08-14 09:26] LABS: Sed Rate (ESR) 22 mm/hr (0-30)
[2024-08-14 10:11] LABS: Uric Acid 6.2 mg/dL (3.1-7.8)
--- NOTE | 2024-08-14 11:22 | XR_ITS ---
Examination: Ultrasound soft tissue right knee TECHNIQUE: Cooney scale sonographic images soft tissue right knee INDICATIONS: Right knee swelling and pain beginning 2 days ago Date and time: August 14, 2024 1226 hours FINDINGS: Fluid present anterior knee 7.4 x 1.4 x 6.4 cm IMPRESSION: Prominent knee effusion
--- NOTE | 2024-08-14 11:34 | ESPR_ITS ---
Documentation for date of: 08/14/24 Subjective Subjective Interval history: 08/14/2024: No acute overnight events to report. Patient seen and examined in hospital bed reporting persistent right knee pain; however, patient's right knee edema has improved since admission and the knee joint does not appear erythematous. Gram stain and culture from knee joint is negative for any bacteria. MRI of the knee shows Extensive medial and lateral meniscus tears, full-thickness fissure the medial patellar facet, moderate attenuation of the anterior PCL and severe thinning cartilage of the medial joint space. Extremity ultrasound shows a fluid present in the anterior knee 7.4 x 1.4 x 6.4 cm. Orthopedic surgery to assess the patient on 08/15; in the meantime we will continue multimodal pain management and monitor for any acute changes. Patient continues to be on IV vancomycin and repeat blood cultures have been sent for GPC noted in blood cultures. Exam Vital Signs Temp Pulse Resp BP Pulse Ox O2 Del Method O2 Flow Rate 97.5 F 69 18 102/54 L 90 L Nasal Cannula 6 08/14/24 08:00 08/14/24 08:12 08/14/24 08:00 08/14/24 08:12 08/14/24 08:00 08/14/24 08:00 08/14/24 08:00 Narrative Exam Physical Exam: GENERAL: Awake, answering questions appropriately, appears stated age HEENT: Moist mucosa. Eyes open, symmetrical, & clear CARDIO: Heart RRR, no obvious murmurs PULM: No noted coughing/dyspnea CTA B/L, no R/W/R GI: Abdomen soft, nondistended, no pain on palpation. BSx4 SKIN/MSK/EXT: Noted moderate pain in the knee joint. Chronic venous stasis noted on bilateral lower extremities. Pedal pulses present B/L NEURO: AAOx3, no focal neuro deficits, able to move all 4 extremities Objective Labs 08/15/24 05:11 08/15/24 05:11 Labs: Laboratory Results - last 24 hr 08/13/24 08/14/24 13:36 06:02 WBC 10.4 RBC 3.96 L Hgb 10.1 L Hct 32.0 L MCV 81 MCH 25.5 MCHC 31.6 RDW Std Deviation 46.3 Plt Count 221 Neut % (Auto) 77 Lymph % (Auto) 9 L [place] % (Auto) 11 Eos % (Auto) 2 Baso % (Auto) 1 Neut # (Auto) 8.0 H Lymph # (Auto) 0.9 L [place] # (Auto) 1.2 H Eos # (Auto) 0.2 Baso # (Auto) 0.1 Immature Gran # (Auto) 0.04 H Absolute Nucleated RBC 0.00 Immature Gran % 0 Nucleated RBC % 0 ESR 22 Puncture Site Site Not Noted ABG pH 7.40 ABG pCO2 40 ABG pO2 54 L* ABG HCO3 25 ABG O2 Saturation 86 L ABG Base Excess 0 Oxygen Liter Flow 7 FiO2 21 Sodium 136 Potassium 3.7 D Chloride 103 Carbon Dioxide 25.6 Anion Gap 7 BUN 16 Creatinine 1.0 Estim Creat Clear Calc 53.7 L eGFR > 60 BUN/Creatinine Ratio 16 Glucose 113 H Calculated Osmolality 274 L Uric Acid 6.2 Calcium 8.0 L Phosphorus 3.2 Magnesium 1.8 ABG Interpretation ABG results: 08/13/24 13:36 ABG pH 7.40 ABG pCO2 40 ABG pO2 54 L* ABG HCO3 25 ABG O2 Saturation 86 L ABG Base Excess 0 Quality Measures Quality Measures VTE prophylaxis Advance care planning discussed with:: patient Assessment & Plan Assessment Current Active Medications: Generic Name Dose Route Start Last Admin Trade Name Freq PRN Reason Stop Dose Admin Acetaminophen 650 mg 08/13/24 05:31 08/14/24 04:06 Acetaminophen 325 Mg Tablet PO 09/12/24 05:30 650 mg Q6H PRN Administration Temp>100.3 or mild pain 1-3 Hydrocodone Bitart/Acetaminophen 1 tab 08/14/24 09:59 Hydrocodone/Apap 5/325 Tablet PO 08/19/24 09:58 Q4HR PRN PAIN SCALE 4-6 (Moderate Albuterol/Ipratropium 3 ml 08/13/24 10:30 08/14/24 07:26 Albuterol/Ipratropium (Duoneb) Rt Shell 3 Ml Nebu INH 09/12/24 10:29 3 ml Q8HRRT KARLY Administration Bumetanide 1 mg 08/13/24 09:00 08/14/24 08:12 Bumetanide 0.5 Mg Tablet PO 09/12/24 08:59 1 mg BID KARLY Administration Tadalafil (Adcirca) 0 ea 08/13/24 12:00 08/14/24 08:23 20 Mg Once Daily PO 09/12/24 11:59 2 tablet DAILY KARLY Administration (Selexipag [Uptravi] 0 ea 08/13/24 12:15 08/14/24 08:21 1600 Mcg Tablet) PO 09/12/24 12:14 1 tablet BID KARLY Administration Gabapentin 100 mg 08/13/24 09:00 08/14/24 08:16 Gabapentin 100 Mg Capsule PO 09/12/24 08:59 100 mg QDAY KARLY Administration Vancomycin HCl 250 mls @ 120 mls/hr 08/14/24 10:00 Vancomycin/Water 1250 Mg Ivpb IV 08/21/24 09:59 Q24H KARLY Levothyroxine Sodium 100 mcg 08/13/24 07:00 08/14/24 05:09 Levothyroxine Sodium 100 Mcg Tablet PO 09/12/24 06:59 100 mcg ACBR KARLY Administration Lidocaine 1 patch 08/14/24 09:57 Lidocaine 5% 1 Patch TOP 09/13/24 09:56 UD PRN RT Knee pain Lorazepam 0.5 mg 08/14/24 11:24 Lorazepam 0.5 Mg Tablet PO 08/16/24 11:23 X1 PRN Anxiety before MRI Midodrine 10 mg 08/13/24 21:22 08/14/24 00:20 Midodrine 5 Mg Tablet PO 09/12/24 21:21 10 mg TID PRN Administration SBP <110 Morphine Sulfate 2 mg 08/14/24 09:59 Morphine Sulf Inj 10 Mg/Ml Vial IVP 08/19/24 09:58 Q4HR PRN Pain 7-10 Ondansetron HCl 4 mg 08/13/24 05:31 Ondansetron Inj 2 Mg/Ml Inj 2 Ml IVP 09/12/24 05:30 Q6H PRN NAUSEA OR VOMITING Protocol Pantoprazole Sodium 40 mg 08/13/24 09:00 08/14/24 08:16 Pantoprazole 40 Mg Tablet PO 09/12/24 08:59 40 mg QDAY KARLY Administration Pharmacy Consult 1 each 08/13/24 13:30 Vancomycin Pharmacy To Dose 1 Each Each IV 09/12/24 13:29 QDAY PRN PROTOCOL Ropinirole HCl 6 mg 08/13/24 21:00 08/13/24 21:06 Ropinirole Hcl 1 Mg Tablet PO 09/12/24 20:59 6 mg HS KARLY Administration Sennosides 1 tab 08/14/24 11:30 Senna Tablet PO 09/13/24 11:29 QDAY KARLY Protocol Trazodone HCl 50 mg 08/13/24 21:00 08/13/24 21:06 Trazodone Hcl 50 Mg Tablet PO 09/12/24 20:59 50 mg HS KARLY Administration Plan 69-year-old female with a past medical history of COPD on 4 L oxygen, severe pulmonary hypertension, hypothyroidism, atrial fibrillation, CHF, history of DVT, restless leg syndrome presented to the hospital with chief complaints of severe pain in the right knee since 1 day and admitted for pain management #Medial and lateral meniscus tears #Septic arthritis, ruled out Presented to the hospital with chief complaints of severe right knee pain; denied trauma, fever, recent travel On physical examination, noted to have severe tenderness, erythema, localized rise of temperature around knee joint Elevated ESR and CRP, downtrending Knee x-ray showed advanced tricompartmental osteoarthritis with effusion Venous duplex negative for DVT In the ED, knee joint was aspirated but the fluid was not sufficient to do a synovial fluid analysis Synovial fluid shows no organisms Blood cultures were positive for GPC, likely contaminant but we will resend blood cultures MRI of the knee shows Extensive medial and lateral meniscus tears. Full- thickness fissure defect medial patellar facet. Moderate attenuation anterior posterior cruciate ligaments. Severe thinning cartilage medial joint space Ultrasound extremity shows effusion noted to be 7.4 x 1.4 x 6.4 cm Plan: Multimodal pain management Orthopedics consulted, appreciate recommendations Cardiology consulted for cardiac clearance if surgical management is required Follow-up on repeat blood cultures #COPD on 4 L oxygen #Severe pulmonary hypertension #CHF Patient reported that she is using 4 L oxygen at home Home medication reconciliation completed Patient is using Bipap HS at home ECHO 08/11 showed: Normal LV size and function. Flattened septal due to RV pressure and volume overload. Moderate RV dialted. Mild RV dysfunction. Estiamted RVSP 102mmHg. suggestive of severe pulmonary hypertension Moderate RA dilatation. Moderate to severe TR with posterior eccentric jet. Trace MR, PI. IVC dilated.There minimal posterior pericardial effusion. No evidence of cardiac tamponade. Plan: Continue supplemental oxygenation BiPAP at bedtime Midodrine added to make room for diuretics (Bumex 1 mg p.o. twice daily) Patient's tadalafil 40 mg p.o. daily and open RV 600 mcg p.o. twice daily for PAH on board #Hypothyroidism Patient is using 100 mcg levothyroxine at home Plan: Continue home levothyroxine #History of unprovoked DVT/A-fib Patient is on Eliquis 5 Mg p.o. twice daily Bilateral venous Doppler did not show any evidence of DVT Plan: Holding Eliquis, will restart when appropriate #Iron deficiency anemia Patient presenting with hemoglobin 10.1 with MCV 81 Differentials include iron deficiency anemia, anemia of chronic disease, vitamin deficiency and less likely to be myelosuppression, hematologic malignancy or hemolysis Past iron panel from June 2024 shows iron deficiency anemia Plan: Replete iron stores Follow-up outpatient with PCP Hospital Maintenance: Dispo: Pending Ortho recommendations regarding meniscal tears DVT prophylaxis: Not needed at this time GI prophylaxis: Not needed Diet: Regular Bowel: Senna and MiraLAX Lines: PIV Code: Full Patient seen and assessed with attending Dr. Rachana Lujan, PGY-1 Attending Provider Attestation/Addendum Vannesa Eaton DO, attest that I was physically present for the cardenas portions of the service and evaluated the patient with the resident and I reviewed and discussed the case with the resident and agree with the resident's findings and plans of care as documented above Patient seen and eval this a.m. She continues to have some pain in her right knee, but edema appears to have improved. She appears to have some increased range of motion, but limited to flexion of about 30 degrees due to pain. He continues to be tender to palpation. Patient was started on midodrine last night and respiratory status improved after receiving her home diuretics. Pending cardio consult for cardiac clearance in the event that patient may need any interventions. However, Gram stain and culture of knee aspirate appears to be negative. Likelihood of septic arthritis is less. Patient remains off Eliquis in the event that she may need another aspiration. MRI of knee is pending. Continue with current management. Will repeat blood cultures as she is noted to have GPC's in 2 out of 2 blood cultures on presentation. Patient is otherwise afebrile.
[2024-08-14] MEDS: SENNA TABLET 1 TAB PO (12:09)
[2024-08-14] MEDS: VANCOMYCIN/WATER 1250 MG IVPB 250 ML 120 MG IV (12:09)
[2024-08-14] MEDS: POLYETHYLENE GLYCOL 17 GM PACKET PO (12:09)
[2024-08-14] MEDS: MORPHINE SULF INJ 10 MG/ML VIAL 2 MG IVP ×3 (12:44→21:30)
--- NOTE | 2024-08-14 14:56 | PC.SS ---
rounding note: ortho surgery consult Wednesday
[2024-08-14] MEDS: LIDOCAINE 5% 1 PATCH TOP (16:51)
[2024-08-14] MEDS: rOPINIRole HCL 1 MG TABLET 6 MG PO (20:56)
[2024-08-14] MEDS: traZODone HCL 50 MG TABLET PO (20:56)
[2024-08-15] VITALS (19 sets, daily range): BP systolic 102–149; BP diastolic 52–82; PULSE 53–83; RESP 15–25; TEMP 36.1–36.6; O2SAT 88–99
--- NOTE | 2024-08-15 | XR_ITS ---
Examination: Fluoroscopically guided right knee joint aspiration Right knee 2 spot fluoroscopic views Fluoroscopy Date and time: August 15, 2024 0942 hours INDICATIONS: Right knee swelling and pain, this week, severe pain, right knee effusion on MR study August 14, 2024 Informed consent provided. Technique: A timeout was completed verifying correct patient, procedure, site, positioning. The patient was placed in supine position appropriate for the steroid injection The patient's site was prepped and draped in sterile fashion 5 cc 1% lidocaine administered locally for anesthesia. Sterile drape applied, maximum barrier sterile technique. Utilizing fluoroscopic guidance aspiration for cc yellowish fluid from the joint The patient was in satisfactory and stable condition on completion of the procedure Attending radiologist was present for the entire procedure Estimated blood loss 0 cc. Impression: Successful fluoroscopically guided right knee joint aspiration with imaging guidance Fluoroscopy 0.1 minute radiation dose 0.76 milligray 2 spot fluoroscopic knee films .
[2024-08-15] MEDS: MIDODRINE 5 MG TABLET 10 MG PO (00:17)
[2024-08-15] MEDS: ONDANSETRON INJ 2 MG/ML INJ 2 ML 4 MG IVP ×2 (03:36→12:02)
[2024-08-15] MEDS: LACTULOSE SYRUP 20 GM/30 ML UDC 10 GM PO (04:26)
[2024-08-15] MEDS: POLYETHYLENE GLYCOL 17 GM PACKET PO (04:26)
[2024-08-15] MEDS: SIMETHICONE 80 MG CHEW PO (04:26)
--- NOTE | 2024-08-15 05:26 | EKG_ITS ---
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
[2024-08-15] MEDS: SCOPOLAMINE 1 MG TDSY TOP (05:47)
[2024-08-15 05:55] LABS: Basophils % (Auto) 0 % (0-2.5); Eosinophils % (Auto) 0 % (0-10); Hematocrit 37.6 % (36.0-46.0); Hemoglobin 11.8 g/dL (12.0-16.0); Immature Granulocytes % (Auto) 1 % (0-0); Immature Granulocytes Auto 0.07 Thou/mm3 (0.00-0.00); Lymphocytes # (Auto) 0.5 Thou/mm3 (1.0-4.8); Lymphocytes % (Auto) 5 % (10-50); Mean Corpuscular HGB Conc 31.4 g/dl (31.0-37.0); Mean Corpuscular Hemoglobin 25.2 pg (25.0-35.0); Mean Corpuscular Volume 80 fL (80-100); Monocytes # (Auto) 0.8 Thou/mm3 (0.0-0.8); Monocytes % (Auto) 7 % (0-12); Neutrophils # (Auto) 9.3 Thou/mm3 (1.8-7.7); Neutrophils % (Auto) 87 % (37-80); Nucleated Red Blood Cell % 0 /100 WBC (0); Platelet Count 247 Thou/mm3 (140-440); RDW Standard Deviation 44.7 fL (36.4-46.3); Red Blood Count 4.69 Miln/mm3 (4.00-5.20); White Blood Count 10.7 Thou/mm3 (3.6-11.0)
[2024-08-15 06:31] LABS: Anion Gap 10 (7-16); BUN/Creatinine Ratio 14 Ratio (12-20); Blood Urea Nitrogen 14 mg/dL (9-23); Calcium 9.7 mg/dL (8.3-10.6); Carbon Dioxide 25.6 mMol/L (20.0-31.0); Chloride 97 mMol/L (98-107); Estimated Creatinine Clearance 53.7 mL/min (>60); Glucose 154 mg/dL (74-106); Osmolality,Calculated 269 (275-295); Potassium 3.6 mMol/L (3.4-5.1); Sodium 133 mMol/L (136-145); eGFR > 60 See Note
--- NOTE | 2024-08-15 07:44 | PC.CC ---
Addendum entered by Elaina José RN 08/15/24 11:36: [address] Lujan that ortho coverage is available and there is no need for transfer. Addendum entered by Elaina José RN 08/15/24 10:01: 0911 Received a call from Dr. Lujan that Ortho evaluated the patient and recommended IR-guided drainage of the right knee. Dr. Lujan stated he will inform me after the drainage procedure if the patient will still require transfer later this afternoon. Original Note: 0744: Spoke with Dr. Lujan. He informed me that the patient will be seen by orthopedics today. If a transfer is still required after that, Dr. Lujan will contact me directly. A direct callback number was provided.
[2024-08-15] MEDS: MORPHINE SULF INJ 10 MG/ML VIAL 2 MG IVP ×3 (07:50→20:43)
[2024-08-15] MEDS: BUMETANIDE 0.5 MG TABLET 1 MG PO (08:00)
[2024-08-15] MEDS: GABAPENTIN 100 MG CAPSULE PO (08:00)
[2024-08-15] MEDS: SELEXIPAG 1600 MCG PO (08:00)
[2024-08-15] MEDS: TADALAFIL 20 MG PO (08:00)
[2024-08-15 08:05] LABS: Synovial Fluid, Crystals* See Sep Rpt
--- NOTE | 2024-08-15 09:29 | PD.RESPRO ---
Documentation for date of: 08/15/24 Subjective Subjective Interval history: 08/15/2024: Overnight patient had vomiting episodes and felt nauseous which subsided after vomiting; patient has not had a bowel movement as such bowel regimen was increased and repeat EKG showed QTc of 401. Patient seen and examined in hospital bed reporting persistent right knee pain; she is able to flex it slightly but there is positive valgus stress test. Orthopedic consultation recommends obtaining cell counts and as such repeat IR guided drainage of the effusion will be completed. Dr Garrison, cardiology, has been consulted for cardiac clearance and echo is currently ordered. Will continue to monitor for any acute changes. If the patient does not have any signs of septic arthritis from cell count then she will not require transfer at this time. Update: Patient has septic arthritis as confirmed by cell count from IR-guided drainage of knee effusion. Patient will be NPO for washout procedure with Dr. Ramsey (ortho) and will continue IV antibiotics. Patient also having increased nausea/vomiting; NGT placed and KUB is suspicious for possible SBO - although patient has been passing flatus since admission. Patient NGT on low-intermittent suction with nearly 1100cc of residuals. Exam Vital Signs Temp Pulse Resp BP Pulse Ox O2 Del Method O2 Flow Rate 97.8 F 83 20 124/79 92 L Nasal Cannula 8 08/15/24 08:00 08/15/24 08:00 08/15/24 08:00 08/15/24 08:00 08/15/24 08:00 08/15/24 08:00 08/15/24 08:00 Narrative Exam Physical Exam: GENERAL: Awake, answering questions appropriately, appears stated age HEENT: Moist mucosa. Eyes open, symmetrical, & clear CARDIO: Heart RRR, no obvious murmurs PULM: No noted coughing/dyspnea CTA B/L, no R/W/R GI: Abdomen soft, nondistended, no pain on palpation. BSx4 SKIN/MSK/EXT: Noted moderate pain in the knee joint. Chronic venous stasis noted on bilateral lower extremities. Pedal pulses present B/L NEURO: AAOx3, no focal neuro deficits, able to move all 4 extremities Objective Labs 08/16/24 05:07 08/16/24 05:07 Labs: Laboratory Results - last 24 hr 08/14/24 08/15/24 06:02 05:11 WBC 10.7 RBC 4.69 Hgb 11.8 L Hct 37.6 MCV 80 MCH 25.2 MCHC 31.4 RDW Std Deviation 44.7 Plt Count 247 Neut % (Auto) 87 H Lymph % (Auto) 5 L [place] % (Auto) 7 Eos % (Auto) 0 Baso % (Auto) 0 Neut # (Auto) 9.3 H Lymph # (Auto) 0.5 L [place] # (Auto) 0.8 Eos # (Auto) 0.0 Baso # (Auto) 0.0 Immature Gran # (Auto) 0.07 H Absolute Nucleated RBC 0.00 Immature Gran % 1 H Nucleated RBC % 0 Sodium 133 L Potassium 3.6 Chloride 97 L Carbon Dioxide 25.6 Anion Gap 10 BUN 14 Creatinine 1.0 Estim Creat Clear Calc 53.7 L eGFR > 60 BUN/Creatinine Ratio 14 Glucose 154 H Calculated Osmolality 269 L Uric Acid 6.2 Calcium 9.7 D ABG Interpretation ABG results: 08/13/24 13:36 ABG pH 7.40 ABG pCO2 40 ABG pO2 54 L* ABG HCO3 25 ABG O2 Saturation 86 L ABG Base Excess 0 Quality Measures Quality Measures VTE prophylaxis Advance care planning discussed with:: patient Assessment & Plan Assessment Current Active Medications: Generic Name Dose Route Start Last Admin Trade Name Freq PRN Reason Stop Dose Admin Acetaminophen 650 mg 08/13/24 05:31 08/14/24 04:06 Acetaminophen 325 Mg Tablet PO 09/12/24 05:30 650 mg Q6H PRN Administration Temp>100.3 or mild pain 1-3 Hydrocodone Bitart/Acetaminophen 1 tab 08/14/24 09:59 Hydrocodone/Apap 5/325 Tablet PO 08/19/24 09:58 Q4HR PRN PAIN SCALE 4-6 (Moderate Albuterol/Ipratropium 3 ml 08/13/24 10:30 08/14/24 22:00 Albuterol/Ipratropium (Duoneb) Rt Shell 3 Ml Nebu INH 09/12/24 10:29 3 ml Q8HRRT KARLY Administration Bumetanide 1 mg 08/13/24 09:00 08/15/24 08:00 Bumetanide 0.5 Mg Tablet PO 09/12/24 08:59 1 mg BID KARLY Administration Tadalafil (Adcirca) 0 ea 08/13/24 12:00 08/15/24 08:00 20 Mg Once Daily PO 09/12/24 11:59 2 tablet DAILY KARLY Administration (Selexipag [Uptravi] 0 ea 08/13/24 12:15 08/15/24 08:00 1600 Mcg Tablet) PO 09/12/24 12:14 1 tablet BID KARLY Administration Gabapentin 100 mg 08/13/24 09:00 08/15/24 08:00 Gabapentin 100 Mg Capsule PO 09/12/24 08:59 100 mg QDAY KARLY Administration Vancomycin HCl 250 mls @ 120 mls/hr 08/14/24 10:00 08/14/24 12:09 Vancomycin/Water 1250 Mg Ivpb IV 08/21/24 09:59 120 mls/hr Q24H KARLY Administration Lactulose 10 gm 08/15/24 03:45 08/15/24 04:26 Lactulose Syrup 20 Gm/30 Ml Udc PO 09/14/24 03:44 10 gm DAILY KARLY Administration Protocol Levothyroxine Sodium 100 mcg 08/13/24 07:00 08/15/24 05:26 Levothyroxine Sodium 100 Mcg Tablet PO 09/12/24 06:59 Not Given ACBR KARLY Lidocaine 1 patch 08/14/24 09:57 08/14/24 16:51 Lidocaine 5% 1 Patch TOP 09/13/24 09:56 1 patch UD PRN Administration RT Knee pain Lorazepam 0.5 mg 08/14/24 11:24 Lorazepam 0.5 Mg Tablet PO 08/16/24 11:23 X1 PRN Anxiety before MRI Midodrine 10 mg 08/13/24 21:22 08/15/24 00:17 Midodrine 5 Mg Tablet PO 09/12/24 21:21 10 mg TID PRN Administration SBP <110 Morphine Sulfate 2 mg 08/14/24 09:59 08/15/24 07:50 Morphine Sulf Inj 10 Mg/Ml Vial IVP 08/19/24 09:58 2 mg Q4HR PRN Administration Pain 7-10 Ondansetron HCl 4 mg 08/13/24 05:31 08/15/24 03:36 Ondansetron Inj 2 Mg/Ml Inj 2 Ml IVP 09/12/24 05:30 4 mg Q6H PRN Administration NAUSEA OR VOMITING Protocol Pharmacy Consult 1 each 08/13/24 13:30 Vancomycin Pharmacy To Dose 1 Each Each IV 09/12/24 13:29 QDAY PRN PROTOCOL Polyethylene Glycol 17 gm 08/15/24 03:45 08/15/24 04:26 Polyethylene Glycol 17 Gm Packet PO 09/14/24 03:44 17 gm QDAY KARLY Administration Ropinirole HCl 6 mg 08/13/24 21:00 08/14/24 20:56 Ropinirole Hcl 1 Mg Tablet PO 09/12/24 20:59 6 mg HS KARLY Administration Sennosides 1 tab 08/14/24 11:30 08/15/24 08:01 Senna Tablet PO 09/13/24 11:29 Not Given QDAY KARLY Protocol Trazodone HCl 50 mg 08/13/24 21:00 08/14/24 20:56 Trazodone Hcl 50 Mg Tablet PO 09/12/24 20:59 50 mg HS KARLY Administration Plan 69-year-old female with a past medical history of COPD on 4 L oxygen, severe pulmonary hypertension, hypothyroidism, atrial fibrillation, CHF, history of DVT, restless leg syndrome presented to the hospital with chief complaints of severe pain in the right knee since 1 day and admitted for pain management #Medial and lateral meniscus tears #Septic arthritis Presented to the hospital with chief complaints of severe right knee pain; denied trauma, fever, recent travel On physical examination, noted to have severe tenderness, erythema, localized rise of temperature around knee joint Elevated ESR and CRP, downtrending Knee x-ray showed advanced tricompartmental osteoarthritis with effusion Venous duplex negative for DVT In the ED, knee joint was aspirated but the fluid was not sufficient to do a synovial fluid analysis 1st synovial fluid sample showed no organisms Blood cultures were positive for GPC, likely contaminant but we will resend blood cultures MRI of the knee shows Extensive medial and lateral meniscus tears. Full-thickness fissure defect medial patellar facet. Moderate attenuation anterior posterior cruciate ligaments. Severe thinning cartilage medial joint space Ultrasound extremity shows effusion noted to be 7.4 x 1.4 x 6.4 cm Repeat IR guided drainage of right knee effusion shows septic arthritis with elevated WBC count Plan: Dr. Ramsey (ortho) will do washout procedure Pending 2nd synovial fluid culture Continue IV Vanc; will switch depending on cultures Multimodal pain management Orthopedics consulted, appreciate recommendations Cardiology consulted for cardiac clearance if surgical management is required Follow-up on repeat blood cultures #SBO vs. Ileus Patient has been having nausea/vomiting Patient is passing flatus all throughout admission but has not had a BM yet On multimodal pain management include opioid medications which can attribute to ileus NGT in with ~1100cc of residuls removed KUB shows possible SBO Plan: Continue NGT on low intermittent suction Will reassess after surgery with orthopedic surgeon #COPD on 4 L oxygen #Severe pulmonary hypertension #CHF Patient reported that she is using 4 L oxygen at home Home medication reconciliation completed Patient is using Bipap HS at home ECHO 08/11 showed: Normal LV size and function. Flattened septal due to RV pressure and volume overload. Moderate RV dialted. Mild RV dysfunction. Estiamted RVSP 102mmHg. suggestive of severe pulmonary hypertension Moderate RA dilatation. Moderate to severe TR with posterior eccentric jet. Trace MR, PI. IVC dilated.There minimal posterior pericardial effusion. No evidence of cardiac tamponade. Plan: Continue supplemental oxygenation BiPAP at bedtime Midodrine added to make room for diuretics Switched from PO Bumex to IV 1mg BIDD Patient's tadalafil 40 mg p.o. daily and open RV 600 mcg p.o. twice daily for PAH on board #Hypothyroidism Patient is using 100 mcg levothyroxine at home Plan: Continue home levothyroxine #History of unprovoked DVT/A-fib Patient is on Eliquis 5 Mg p.o. twice daily Bilateral venous Doppler did not show any evidence of DVT Plan: Holding Eliquis, will restart when appropriate #Iron deficiency anemia Patient presenting with hemoglobin 10.1 with MCV 81 Differentials include iron deficiency anemia, anemia of chronic disease, vitamin deficiency and less likely to be myelosuppression, hematologic malignancy or hemolysis Past iron panel from June 2024 shows iron deficiency anemia Plan: Replete iron stores Follow-up outpatient with PCP Hospital Maintenance: Dispo: Pending Ortho recommendations regarding meniscal tears DVT prophylaxis: Not needed at this time GI prophylaxis: Not needed Diet: Regular Bowel: Senna and MiraLAX Lines: PIV Code: Full Patient seen and assessed with attending Dr. Rachana Lujan, PGY-1 Attending Provider Attestation/Addendum Vannesa Eaton DO, attest that I was physically present for the cardenas portions of the service and evaluated the patient with the resident and I reviewed and discussed the case with the resident and agree with the resident's findings and plans of care as documented above Patient seen and eval this a.m. Patient states that she has not had nausea and vomiting throughout the night. Her abdomen appears distended, but patient states that it appears much improved. She states that she has been passing gas, but has not had a bowel movement for 4 days. Patient complained of some burning chest pain due to the vomiting. Chest x-ray and KUB showed evidence of dilated small bowel. Suspect that patient may have a bowel ileus as she is able to pass gas, less likely obstruction. NG tube placed and 1100cc of brown fluid removed. Case was discussed with orthopedic surgeon on-call who will be taking patient to surgery emergently as patient underwent IR guided aspiration of right knee that shows evidence of septic arthritis. Cardiology was also at bedside and has cleared patient for surgery.
--- NOTE | 2024-08-15 09:56 | ECHO_ITS ---
Transthoracic Echo Report Ht (in): 59 Wt (lb): 205 Exam Location: Echo Lab Status: Inpatient Oil Laboratory Analyst: Roberta Baumann Indications: Procedure Performed: BP: 105 / 53 HR: 76 Technical Quality: Very technically difficult study MEASUREMENTS (Male / Female) Normal Values 2D ECHO LV Diastolic Diameter PLAX 4.3 cm 4.2 - 5.9 / 3.9 - 5.3 cm LV Systolic Diameter PLAX 3.0 cm IVS Diastolic Thickness 0.8 cm 0.6 - 1.0 / 0.6 - 0.9 cm LVPW Diastolic Thickness 1.0 cm 0.6 - 1.0 / 0.6 - 0.9 cm LV Relative Wall Thickness 0.4 LVOT Diameter 1.6 cm LA Volume Index 18.6 cm?/m? 16 - 28 cm?/m? M-MODE Aortic Root Diameter MM 2.2 cm LA Systolic Diameter MM 3.9 cm LA Ao Ratio MM 1.8 AV Cusp Separation MM 1.6 cm DOPPLER AV Peak Velocity 222.0 cm/s AV Peak Gradient 19.7 mmHg AV Mean Gradient 11.5 mmHg AV Velocity Time Integral 62.3 cm LVOT Peak Velocity 99.8 cm/s LVOT Peak Gradient 4.0 mmHg LVOT Velocity Time Integral 25.1 cm LVOT Cardiac Index 1895.8 cm?/min?m? AV Area Cont Eq vti 0.8 cm? AV Area Cont Eq pk 0.9 cm? MV Area PHT 2.7 cm? Mitral E Point Velocity 60.1 cm/s Mitral A Point Velocity 91.7 cm/s Mitral E to A Ratio 0.7 LV E' Lateral Velocity 8.6 cm/s Mitral E to LV E' Lateral Ratio 7.0 LV E' Septal Velocity 6.6 cm/s Mitral E to LV E' Septal Ratio 9.1 TR Peak Velocity 366.7 cm/s TR Peak Gradient 53.8 mmHg PV Peak Velocity 122.0 cm/s PV Peak Gradient 6.0 mmHg FINDINGS Left Ventricle Normal left ventricular size, wall thickness, systolic function with no obvious regional wall motion abnormalities. The ejection fraction is visually estimated at 55-60 %. IVS flattened in systole and diastole consisitent with right ventricular pressure and volume overload. Right Ventricle The right ventricular size is moderately increased with normal systolic function. The estimated right ventricular systolic pressure, 106 mmHg. RAP 5. Left Atrium The left atrium is normal by two-dimensional, color flow and Doppler imaging with no structural abnormalities, no thrombus formation present. Right Atrium The right atrial cavity size is severely increased. Atrial Septum The interatrial septum appears normal with no evidence of a shunt. Aorta The aorta is normal by two-dimensional, color flow and Doppler interrogation. Mitral Valve The mitral valve is normal by two-dimensional, color flow and Doppler interrogation. Mild mitral regurgitation. Aortic Valve The aortic valve is trileaflet and sclerotic with mild aortic stenosis by two- dimensional, color flow and Doppler interrogation. There is no significant aortic valve regurgitation. Tricuspid Valve The tricuspid valve is normal by two-dimensional, color flow and Doppler interrogation. There is moderate tricuspid regurgitation. Pulmonic Valve The pulmonic valve is not well visualized. There is no significant pulmonic valve regurgitation. Vessels The pulmonary artery appears normal. The inferior vena cava pulmonary and hepatic veins appear normal. Pericardium The pericardium is normal by two-dimensional imaging. There is no significant pericardial effusion. CONCLUSIONS Indication: Cardiac clearance Hx of severe PAH Normal LV size and wall thickness. Estimated EF 55-60 %. IVS flattened in systole and diastole consisitent with right ventricular pressure and volume overload. The RV size is moderately increased with normal systolic function. The estimated RVSP, 106 mmHg. RAP 5. RA cavity size is severely increased. Mild MR. Mild & Moderate TR. Mushtaq Garrison (Electronically Signed) Final Date: 16 Aug 2024 14:54
[2024-08-15] MEDS: VANCOMYCIN/WATER 1250 MG IVPB 250 ML 120 MG IV (10:41)
[2024-08-15 10:45] LABS: Synovial Fluid, Crystals* See Sep Rpt
--- NOTE | 2024-08-15 11:17 | PC.SS ---
Addendum entered by Mary Granado 08/15/24 15:18: SS met with patient who is alert/oriented. Patient was able to verify demographics. Patient states she resides with her and son, Clayton. Patient states she's independent with ADL's. She uses a walker, wheelchair and has a shower chair. Patient states she follows with a [employer] [facility] in [place] Dr. Mayo. She uses a CPAP machine, which she brought in the hospital as well. Patient is on 02 at 4L at home. Patient PCP: Dr. Stephen. Lat appt was last week. Alt medical decision maker is her . Patient pending surgery. Discussion was held about a possible higher level of care transfer as well. Patient aware. SS will follow up with patient for further d/c planning. Original Note: SS attempted to see patient but not present in room. Patient went down for procedure. SS will follow up for an initial assessment.
[2024-08-15 11:37] LABS: Synovial Fluid WBC 54462 /cmm
[2024-08-15 11:52] LABS: Synovial Fld, Specific Gravity 1.015
--- NOTE | 2024-08-15 11:59 | XR_ITS ---
Examination: AP chest single view Technique one AP portable upright chest single view Date and time: August 15, 2024 12:11 PM Comparison August 13, 2024 INDICATIONS: Shortness of breath today. FINDINGS: Mild prominence left ventricle Moderate vascular congestion Early pneumonia both bases Prominent osteopenia IMPRESSION: Early pneumonia both bases
--- NOTE | 2024-08-15 11:59 | XR_ITS ---
Examination: Abdomen AP single view Technique: AP portable supine abdomen, single view Exam date and time: August 15, 2024 1206 hours INDICATIONS: Abdominal distention today. FINDINGS: Moderately air distended stomach Significant air distended small bowel loops No free air IMPRESSION: Suspicious for small bowel obstruction, consider CT abdomen pelvis post intravenous contrast follow-up
[2024-08-15 12:04] LABS: Source,Synovial Fluid Knee; Synovial Fluid Appearance Hazy; Synovial Fluid Color Yellow; Synovial Fluid RBC 7000 /cmm
[2024-08-15 12:05] LABS: Synovial Fluid Mononuclear 4 %; Synovial Fluid Polynuclear 96 %
--- NOTE | 2024-08-15 12:12 | EKG_ITS ---
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
--- NOTE | 2024-08-15 12:17 | PD.RESEVENT ---
Documentation for date of: 08/15/24 Event Note Event Note: 08/15/2024: Rapid response called at 12:10pm for 69-year-old female with septic arthritis having extensive nausea and vomiting episodes. Patient seen and assessed with airway/breathing/circulation intact. Patient is currently on 8 L oxy mask saturating 96+ with blood pressure 112/52, heart rate 73. Ordered KUB, lactic acid, troponin and EKG for the patient as she was also reporting some abdominal pain. Patient's lactic acid, troponin and EKG are largely negative. KUB does show signs of SBO and as a result NG tube was placed and with nearly 1100 cc of residual removed. Patient will have washout procedure with Dr. Ramsey later this afternoon. Will reassess the patient and continue monitoring for any acute changes. Eb Lujan, PGY-1
[2024-08-15] MEDS: PANTOPRAZOLE INJ 40 MG VIAL IVP (12:18)
[2024-08-15 12:33] LABS: Lactate (Lactic Acid) 1.1 mMol/L (0.4-2.0)
[2024-08-15 12:51] LABS: Troponin I < 0.020 ng/mL (0.0-0.045)
--- NOTE | 2024-08-15 13:06 | PD.ORTHCON ---
HPI Consult details Reason for consultation narrative: Right knee pain History of present illness: Patient is a 69-year-old female with right knee pain that started 1 week ago. She is on Eliquis and has extensive medical history including COPD. She has a history of recurrent cellulitis of both her legs. She reported significant right knee pain 1 week ago. She was admitted in the hospital 4 days ago but there was no orthopedic surgeon on-call. I was called today as she cannot be transferred to another hospital with an orthopedic surgeon and I am now on-call starting today. She had elevated ESR and CRP values and was aspirated with interventional radiology. She was found to have an elevated white cell count over 50,000. She is on antibiotics Meds Home Medications and Allergies Home Medications ?Medication ?Instructions ?Recorded ?Confirmed ?Type spironolactone 50 mg tablet 50 mg PO QDAY 11/26/17 08/13/24 History Held on 07/20/24. Instructions: Hold until you see your PCP due to concern for low blood pressure ambrisentan 10 mg tablet (Letairis) 10 mg PO HS 05/10/19 08/13/24 History pantoprazole 40 mg tablet,delayed 40 mg PO QDAY 12/05/19 08/13/24 History release ropinirole 3 mg tablet 6 mg PO HS 12/05/19 08/13/24 History trazodone 50 mg tablet 50 mg PO HS 12/05/19 08/13/24 History tadalafil (pulm. hypertension) 20 40 mg PO QDAY 01/25/20 08/13/24 History mg tablet (pulmonary hypertension) (Adcirca) potassium chloride 10 mEq 10 meq PO BID 05/13/20 08/13/24 History capsule,extended release gabapentin 100 mg capsule 100 mg PO QDAY 01/09/22 08/13/24 History levothyroxine 100 mcg tablet 100 mcg PO QDAY 01/09/22 08/13/24 History (Euthyrox) selexipag 200 mcg tablet (Uptravi) 1,600 mcg PO BID 08/13/23 08/13/24 History fluticasone fur. 100 mcg-umeclid 1 inh inhalation Q24H 07/15/24 08/13/24 History 62.5 mcg-vilant 25 mcg inhalat.powder (Trelegy Ellipta) midodrine 10 mg tablet 10 mg PO TID PRN SBP 07/15/24 08/13/24 History Allergies Allergy/AdvReac Type Severity Reaction Status Date / Time erythromycin base Allergy Severe SWELLING Verified 08/12/23 07:45 Exam Vital Signs Temp Pulse Resp BP Pulse Ox O2 Del Method O2 Flow Rate 97.6 F 63 18 149/82 H 94 L Nasal Cannula 8 08/15/24 12:00 08/15/24 12:00 08/15/24 12:00 08/15/24 12:00 08/15/24 12:00 08/15/24 12:00 08/15/24 12:00 Additional findings Additional findings: Patient is in no acute distress and is cooperative with the examination today. Breathing is nonlabored. Patient has a normal mood and affect. The patient has a gait that is nonantalgic Bilateral extremities were evaluated and demonstrates sensation intact to light touch. Palpable pedal pulses are present. No significant edema is present. Bilateral hips were examined. The patient has no pain with log roll of the hips. Internal rotation to 30 degrees and external rotation to 30 degrees is painless. Negative FADIR. Left knee was examined today. The left knee is in reasonable alignment. Range of motion from 0-120 degrees. Knee is stable to varus and valgus as well as AP translation with <5mm. Patient has a negative McMurrays. There is no pain with patellofemoral compression and no crepitus noted. The knee is nontender to palpation. Right knee demonstrates an effusion. She is tender to palpation with any range of motion. She is tender to palpation medially and laterally and diffusely. X-rays of the right knee demonstrate significant arthritis and degenerative changes Results - Ortho Labs 08/15/24 05:11 08/15/24 05:11 Labs: Short CBC 08/15/24 Range/Units 05:11 WBC 10.7 (3.6-11.0) Thou/mm3 Hgb 11.8 L (12.0-16.0) g/dL Hct 37.6 (36.0-46.0) % Plt Count 247 (140-440) Thou/mm3 BMP 08/15/24 05:11 Sodium 133 L Potassium 3.6 Chloride 97 L Carbon Dioxide 25.6 BUN 14 Creatinine 1.0 Glucose 154 H Calcium 9.7 D Cardiac Enzymes 05/27/25 Range/Units 12:19 Troponin I < 0.020 (0.0-0.045) ng/mL Patient have a synovial White cell count of 54,000 with a 96% differential ABG Interpretation ABG results: 08/13/24 13:36 ABG pH 7.40 ABG pCO2 40 ABG pO2 54 L* ABG HCO3 25 ABG O2 Saturation 86 L ABG Base Excess 0 Assessment & Plan Problem List (1) Septic arthritis: Status: Acute Assessment and plan: Patient is a 69-year-old female with a septic arthritis of the right knee. She has pain with micromotion and has elevated synovial white cell count as well as differential. We do not know the organism currently. She has been on antibiotics which may affect the culture yield. We discussed nonoperative as well as operative options. I discussed with her that given that she has an active infection I would recommend an irrigation debridement. We discussed we can do this arthroscopic or open and I probably would recommend arthroscopic given her medical comorbidities. We discussed the risk of surgery including medical complications, and Persistent infection. I discussed she will need antibiotic therapyPostoperatively as well and that she is at high risk for persistent infection as mentioned previously. .We also discussed that she has significant medical comorbidities which may affect her mortality and morbidity risk. She understands and would like to proceed with surgery I also discussed with her that this is typically an emergent surgery and is usually done right away. She has been in the hospital for 4 Days which is not ideal. She should have been transferred right away as we did not have an orthopedic surgeon on-call for the last 6 days
--- NOTE | 2024-08-15 13:23 | XR_ITS ---
Examination: Abdomen AP single view Technique: AP portable supine abdomen, single view Exam date and time: August 15, 2024 1333 hours INDICATIONS: Post orogastric tube placement FINDINGS: Orogastric tube in the stomach satisfactory position Air distended small bowel loops IMPRESSION: Orogastric tube in stomach satisfactory position
[2024-08-15] MEDS: ALBUTEROL/IPRATROPIUM (Duoneb) RT SOL 3 ML NEBU INH ×2 (14:15→23:32)
--- NOTE | 2024-08-15 16:09 | PD.SUROPNT ---
Date of Procedure 08/15/24 Pre Op Diagnosis Right septic knee arthritis Post Op Diagnosis Right septic knee arthritis Procedure Right knee arthroscopic irrigation debridement Findings Purulence Procedure Description Indications: Patient is a 61-year-old female with right septic knee arthritis. She had an aspiration performed today and was found to have a synovial white cell count of over 56,000 and a differential of 96%. We thus discussed arthroscopic irrigation debridement versus open irrigation debridement is a reasonable option. She has extensive medical comorbidities and we discussed that she is at high risk of medical complications. Procedure detail: The patient was brought to the operating room. We verified that the right side was the correct side. We confirmed that the sign with his consent was placed in the chart. We first made a lateral incision and inserted the trocar. Significant pus was extracted from this. We first performed a diagnostic arthroscopy. We then made a medial portal. We also had a superior lateral outflow portal. we then used a shaver to debride medial and lateral meniscus tears using a shaver. We did wash out the knee with over 9 L of saline and performed a synovectomy of any devitalized tissue. We ensured that there was good hemostasis given that the patient will be back on Eliquis. We closed the patient with 3-0 nylon's using a sports stitch and placed a compression dressing. Postoperative plan: Follow cultures Weightbearing as tolerated Compression dressing and monitor dressing Continue antibiotics Infectious disease consult Patient may resume DVT prophylaxis Anesthesia MAC Implants none Pathology / specimen None Pathology comment: none Estimated Blood Loss 5 Condition Stable Disposition floor Surgeon Roque Ramsey MD Surgical Staff Operation Date: 08/15/24 15:30 <No data on this case meets the specified criteria>
--- NOTE | 2024-08-15 16:20 | SUR.PHASEI ---
1620: Pt. AAOx4, vitals stable, breathing unlabored, no complaint of pain or nausea, dressing to right knee CDI, no active bleed noted, pt. able to move bilateral legs, cap refill to bilateral feet less than 3 seconds, bilateral dorsalis pedis pulses strong and regular, report received from Stoney VILLEGAS and MD Harper.
--- NOTE | 2024-08-15 16:27 | ESCONSULT_ITS ---
RE: RAYNA LANDEROS : 1955 DATE OF CONSULTATION: 08/15/2024 REFERRING PHYSICIAN: Hospitalist. PERTINENT HISTORY OF PRESENT ILLNESS: Ms. Rayna Landeros is a 69-year-old female who is known to have a history of multiple problems of severe chronic obstructive pulmonary disease with severe pulmonary hypertension and the patient is being followed by a pulmonary hypertension specialist in [place]. The patient is also known to have a history of paroxysmal atrial fibrillation, history of hypothyroidism, history of chronic hypertension as well as chronic right heart failure. The patient was in her usual state of health up until on the day before admission. The patient started having symptoms of sudden onset of right knee pain. The patient was brought in over to the emergency room and was subsequently hospitalized. The patient presently is being considered for possible right knee surgery. The patient is also having symptoms of retrosternal burning sensation of the chest, though the patient denies any complaint of diaphoresis, denies any complaint of . The patient is not having any symptoms of skipped beats or palpitation. PAST MEDICAL HISTORY: Significant for history of chronic hypertension for the last 12-13 years, history of chronic obstructive pulmonary disease for the last 14-15 years, history of paroxysmal atrial fibrillation for the last several years and the patient did have a history of electrical cardioversion of atrial fibrillation about 8-1/2 years ago, history of hysterectomy as well as appendectomy in 1981, history of cholecystectomy in 1976, history of hypothyroidism for the last several years, history of pulmonary hypertension and right heart failure for the last several years. PERSONAL HISTORY: The patient is nonsmoker, nonalcoholic. FAMILY HISTORY: The patient's mother at age 42 from cerebrovascular accident. Father also had a history of cerebrovascular accident. PERTINENT PHYSICAL FINDINGS: VITAL SIGNS: The patient's blood pressure is 149/82, pulse rate is 63, respiratory rate is 18, temperature is 97.6, oximetry saturation 94% on oxygen at 8 liters per minute. HEAD AND NECK: JVP is elevated. Carotid pulsations are felt well on both sides. Radiation of the heart murmur from base of the heart to carotid is heard. HEART: PMI is neither palpable nor visible. Grade 2/6 ejection systolic murmur best heard at the base with radiation over toward the carotids is noted. LUNGS: Decreased breath sounds at the bases. No active wheezing is heard. ABDOMEN: Soft. No organomegaly. EXTREMITIES: No pedal edema is noted. Peripheral pulses in the feet are palpable. The right knee though is warm and tender as well as swollen. NEUROLOGIC: Unremarkable. No focal localizing neuro deficit is appreciated. DIAGNOSTIC DATA: The patient's electrocardiogram right now a few minutes ago showed normal sinus rhythm with right ventricular hypertrophy and nonspecific ST-T changes as well as right axis deviation, though no significant changes noted from previous EKGs. The patient's chest x-ray done earlier today was reported to show mild left ventricular prominence and possible early pneumonia on both bases. LABORATORY DATA: The patient's lab work showed WBC count today is 10,700, hemoglobin is 11.8 with hematocrit of 37.6. The BUN today is 14, creatinine 1, potassium level is 3.6. The troponin level is pending. CLINICAL IMPRESSION: 1. Acute right knee arthritis with the possibility of septic arthritis. 2. Chronic obstructive pulmonary disease with right heart failure as per history. 3. Pulmonary hypertension as per history. 4. Paroxysmal atrial fibrillation, though presently the patient is in sinus rhythm. 5. Hypothyroidism as per history. SUGGESTIONS: I agree with present plan of management of the patient with continuation of the patient on IV antibiotic therapy, continuing the patient on bronchodilator inhaler medication, continuing the patient on diuretic therapy. The cardiac echo Doppler study has been ordered and will be reviewed once done. I will follow the patient with you and I highly thank you very much for letting me participate in the care of the patient. DT: 12:51:06 TT: 14:55:00 Ref: [id number] - TID: [id number]
--- NOTE | 2024-08-15 16:51 | SUR.PHASEI ---
1651: Pt. AAOx4, vitals stable, breathing unlabored, no complaint of pain or nausea, dressing to right knee CDI, no active bleed noted,bilateral dorsalis pedis pulses strong and regular, cap refill to bilateral feet less than 3 seconds, gave report to Eugenio RN prior to transfer to room 373.
--- NOTE | 2024-08-15 22:11 | PC.NURSE ---
okay to give a little bit of ice chips to pt per Dr. Grossman.
[2024-08-16] VITALS (11 sets, daily range): BP systolic 110–142; BP diastolic 61–87; PULSE 61–107; RESP 16–21; TEMP 36–37.2; O2SAT 91–96; BMI 41.3
[2024-08-16] MEDS: MORPHINE SULF INJ 10 MG/ML VIAL 2 MG IVP ×2 (01:28→12:36)
[2024-08-16] MEDS: BUMETANIDE INJ 0.25 MG/ML VIAL 4 ML 1 MG IVP ×2 (05:34→18:10)
[2024-08-16 06:01] LABS: Basophils % (Auto) 0 % (0-2.5); Eosinophils % (Auto) 0 % (0-10); Hematocrit 37.9 % (36.0-46.0); Hemoglobin 12.1 g/dL (12.0-16.0); Immature Granulocytes % (Auto) 0 % (0-0); Immature Granulocytes Auto 0.03 Thou/mm3 (0.00-0.00); Lymphocytes # (Auto) 0.6 Thou/mm3 (1.0-4.8); Lymphocytes % (Auto) 6 % (10-50); Mean Corpuscular HGB Conc 31.9 g/dl (31.0-37.0); Mean Corpuscular Hemoglobin 25.2 pg (25.0-35.0); Mean Corpuscular Volume 79 fL (80-100); Monocytes # (Auto) 0.9 Thou/mm3 (0.0-0.8); Monocytes % (Auto) 11 % (0-12); Neutrophils # (Auto) 7.3 Thou/mm3 (1.8-7.7); Neutrophils % (Auto) 82 % (37-80); Nucleated Red Blood Cell % 0 /100 WBC (0); Platelet Count 273 Thou/mm3 (140-440); RDW Standard Deviation 44.8 fL (36.4-46.3); White Blood Count 8.8 Thou/mm3 (3.6-11.0)
[2024-08-16 06:23] LABS: Anion Gap 12 (7-16); BUN/Creatinine Ratio 18 Ratio (12-20); Blood Urea Nitrogen 21 mg/dL (9-23); Calcium 10.4 mg/dL (8.3-10.6); Chloride 95 mMol/L (98-107); Creatinine (Component) 1.2 mg/dL (0.6-1.3); Estimated Creatinine Clearance 44.7 mL/min (>60); Glucose 115 mg/dL (74-106); Osmolality,Calculated 275 (275-295); Potassium 3.1 mMol/L (3.4-5.1); Sodium 136 mMol/L (136-145); eGFR 49 See Note
[2024-08-16] MEDS: ONDANSETRON INJ 2 MG/ML INJ 2 ML 4 MG IVP (06:31)
[2024-08-16] MEDS: ALBUTEROL/IPRATROPIUM (Duoneb) RT SOL 3 ML NEBU INH ×3 (06:34→23:56)
[2024-08-16 09:14] LABS: Vancomycin,Trough 14.5 mcg/mL (5.0-10.0)
[2024-08-16] MEDS: VANCOMYCIN/WATER 1250 MG IVPB 250 ML 120 MG IV (10:18)
[2024-08-16] MEDS: MUPIROCIN OINT 2% 15 GM TUBE 2 GM TOP (10:25)
[2024-08-16] MEDS: METOCLOPRAMIDE INJ 5 MG/ML VIAL 2 ML 10 MG IVP (11:53)
[2024-08-16] MEDS: LIDOCAINE 5% 1 PATCH TOP (12:44)
--- NOTE | 2024-08-16 13:04 | ESPR_ITS ---
<Statement entered by Landon Billingsley MD - 08/16/24 17:37> LPatient examined and case discussed with the team including attending physician. Note reviewed, I agree with the care plan as documented. s/p Day [address] Ramsey. On Iv antibiotics, will follow up culture results. Please refer to the note above for further details. - Landon Billingsley MD, PGY 2 Disclaimer: The document may contain phonetic/typographic errors due to voice recognition software. These errors are purely due to imperfections in the software program and should not be misconstrued in any way to compromise the substance of the patient's medical care during this visit. Documentation for date of: 08/16/24 Subjective Subjective Interval history: 08/16/2024: No acute overnight events to report. Patient is status post knee arthroscopy and washout for septic arthritis with extensive purulent discharge noted during the procedure. Patient seen and examined in hospital bed reporting improvement in presenting symptoms and states that her right knee pain has largely improved. Patient continues to be on NG tube on low intermittent suction which was clamped with IV Reglan scheduled. Suspicion is that the patient is having ileus versus SBO as the patient notes that she has been having persistent flatus since admission. Will continue IV antibiotics and repeat blood cultures; patient will require PICC line placement once blood cultures are negative. Infectious diseases consulted, appreciate recommendations. Expect discharge within the next 24 to 48 hours. Exam Vital Signs Temp Pulse Resp BP Pulse Ox O2 Del Method O2 Flow Rate 97.7 F 84 18 110/87 H 91 L Oxy Mask 7 08/16/24 08:00 08/16/24 08:00 08/16/24 08:00 08/16/24 08:00 08/16/24 08:00 08/16/24 08:00 08/16/24 06:35 Narrative Exam Physical Exam: GENERAL: Awake, answering questions appropriately, appears stated age HEENT: Moist mucosa. Eyes open, symmetrical, & clear CARDIO: Heart RRR, no obvious murmurs PULM: No noted coughing/dyspnea CTA B/L, no R/W/R GI: Abdomen soft, nondistended, no pain on palpation. BSx4 SKIN/MSK/EXT: Noted mild pain in the knee joint. Chronic venous stasis noted on bilateral lower extremities. Pedal pulses present B/L NEURO: AAOx3, no focal neuro deficits, able to move all 4 extremities Objective Labs 08/17/24 04:46 08/17/24 04:46 Labs: Laboratory Results - last 24 hr 08/16/24 08/16/24 05:07 08:41 WBC 8.8 RBC 4.80 Hgb 12.1 Hct 37.9 MCV 79 L MCH 25.2 MCHC 31.9 RDW Std Deviation 44.8 Plt Count 273 Neut % (Auto) 82 H Lymph % (Auto) 6 L Crosby % (Auto) 11 Eos % (Auto) 0 Baso % (Auto) 0 Neut # (Auto) 7.3 Lymph # (Auto) 0.6 L Crosby # (Auto) 0.9 H Eos # (Auto) 0.0 Baso # (Auto) 0.0 Immature Gran # (Auto) 0.03 H Absolute Nucleated RBC 0.00 Immature Gran % 0 Nucleated RBC % 0 Sodium 136 Potassium 3.1 L D Chloride 95 L Carbon Dioxide 29.0 Anion Gap 12 BUN 21 Creatinine 1.2 Estim Creat Clear Calc 44.7 L eGFR 49 L BUN/Creatinine Ratio 18 Glucose 115 H Calculated Osmolality 275 Calcium 10.4 Vancomycin Trough 14.5 H ABG Interpretation ABG results: 08/13/24 13:36 ABG pH 7.40 ABG pCO2 40 ABG pO2 54 L* ABG HCO3 25 ABG O2 Saturation 86 L ABG Base Excess 0 Quality Measures Quality Measures VTE prophylaxis Advance care planning discussed with:: patient Assessment & Plan Assessment Current Active Medications: Generic Name Dose Route Start Last Admin Trade Name Freq PRN Reason Stop Dose Admin Acetaminophen 650 mg 08/13/24 05:31 08/14/24 04:06 Acetaminophen 325 Mg Tablet PO 09/12/24 05:30 650 mg Q6H PRN Administration Temp>100.3 or mild pain 1-3 Hydrocodone Bitart/Acetaminophen 1 tab 08/14/24 09:59 Hydrocodone/Apap 5/325 Tablet PO 08/19/24 09:58 Q4HR PRN PAIN SCALE 4-6 (Moderate Albuterol/Ipratropium 3 ml 08/13/24 10:30 08/16/24 06:34 Albuterol/Ipratropium (Duoneb) Rt Shell 3 Ml Nebu INH 09/12/24 10:29 3 ml Q8HRRT KARLY Administration Apixaban 5 mg 08/16/24 09:00 08/16/24 09:26 Apixaban 2.5 Mg Tablet PO 09/06/24 08:59 Not Given BID KARLY Bumetanide 1 mg 08/15/24 18:00 08/16/24 05:34 Bumetanide Inj 0.25 Mg/Ml Vial 4 Ml IVP 09/14/24 17:59 1 mg BIDD KARLY Administration Tadalafil (Adcirca) 0 ea 08/13/24 12:00 08/16/24 09:28 20 Mg Once Daily PO 09/12/24 11:59 Not Given DAILY KARLY (Selexipag [Uptravi] 0 ea 08/13/24 12:15 08/16/24 09:28 1600 Mcg Tablet) PO 09/12/24 12:14 Not Given BID KARLY Gabapentin 100 mg 08/13/24 09:00 08/16/24 09:26 Gabapentin 100 Mg Capsule PO 09/12/24 08:59 Not Given QDAY KARLY Vancomycin HCl 250 mls @ 120 mls/hr 08/14/24 10:00 08/16/24 10:18 Vancomycin/Water 1250 Mg Ivpb IV 08/21/24 09:59 120 mls/hr Q24H KARLY Administration Lactulose 10 gm 08/15/24 03:45 08/16/24 09:26 Lactulose Syrup 20 Gm/30 Ml Udc PO 09/14/24 03:44 Not Given DAILY KARLY Protocol Levothyroxine Sodium 100 mcg 08/13/24 07:00 08/16/24 05:33 Levothyroxine Sodium 100 Mcg Tablet PO 09/12/24 06:59 Not Given ACBR KARLY Lidocaine 1 patch 08/14/24 09:57 08/16/24 12:44 Lidocaine 5% 1 Patch TOP 09/13/24 09:56 1 patch UD PRN Administration RT Knee pain Metoclopramide HCl 10 mg 08/16/24 10:35 08/16/24 11:57 Metoclopramide Inj 5 Mg/Ml Vial 2 Ml IVP 09/15/24 10:34 Not Given Q6HR KARLY Protocol Midodrine 10 mg 08/13/24 21:22 08/15/24 00:17 Midodrine 5 Mg Tablet PO 09/12/24 21:21 10 mg TID PRN Administration SBP <110 Morphine Sulfate 2 mg 08/14/24 09:59 08/16/24 12:36 Morphine Sulf Inj 10 Mg/Ml Vial IVP 08/19/24 09:58 2 mg Q4HR PRN Administration Pain 7-10 Ondansetron HCl 4 mg 08/13/24 05:31 08/16/24 06:31 Ondansetron Inj 2 Mg/Ml Inj 2 Ml IVP 09/12/24 05:30 4 mg Q6H PRN Administration NAUSEA OR VOMITING Protocol Pharmacy Consult 1 each 08/13/24 13:30 Vancomycin Pharmacy To Dose 1 Each Each IV 09/12/24 13:29 QDAY PRN PROTOCOL Polyethylene Glycol 17 gm 08/15/24 03:45 08/16/24 09:27 Polyethylene Glycol 17 Gm Packet PO 09/14/24 03:44 Not Given QDAY KARLY Ropinirole HCl 6 mg 08/13/24 21:00 08/15/24 20:20 Ropinirole Hcl 1 Mg Tablet PO 09/12/24 20:59 Not Given HS KARLY Sennosides 1 tab 08/14/24 11:30 08/16/24 09:27 Senna Tablet PO 09/13/24 11:29 Not Given QDAY KARLY Protocol Trazodone HCl 50 mg 08/13/24 21:00 08/15/24 20:21 Trazodone Hcl 50 Mg Tablet PO 09/12/24 20:59 Not Given HS KARLY Plan 69-year-old female with a past medical history of COPD on 4 L oxygen, severe pulmonary hypertension, hypothyroidism, atrial fibrillation, CHF, history of DVT, restless leg syndrome presented to the hospital with chief complaints of severe pain in the right knee since 1 day and admitted for pain management #Medial and lateral meniscus tears #Septic arthritis Presented to the hospital with chief complaints of severe right knee pain; denied trauma, fever, recent travel On physical examination, noted to have severe tenderness, erythema, localized rise of temperature around knee joint Elevated ESR and CRP, downtrending Knee x-ray showed advanced tricompartmental osteoarthritis with effusion Venous duplex negative for DVT In the ED, knee joint was aspirated but the fluid was not sufficient to do a synovial fluid analysis 1st synovial fluid sample showed no organisms Blood cultures were positive for GPC, likely contaminant but we will resend blood cultures MRI of the knee shows Extensive medial and lateral meniscus tears. Full- thickness fissure defect medial patellar facet. Moderate attenuation anterior posterior cruciate ligaments. Severe thinning cartilage medial joint space Ultrasound extremity shows effusion noted to be 7.4 x 1.4 x 6.4 cm Repeat IR guided drainage of right knee effusion shows septic arthritis with elevated WBC count Status post washout with Dr. Ramsey, orthopedic surgery Synovial fluid showed no organisms but the patient has been treated with IV antibiotics Plan: Infectious disease consulted, appreciate recommendations Continue IV antibiotics; switched to Ceftriaxone 2g IV Patient will require PICC line placement once blood cultures are negative Multimodal pain management Orthopedics consulted, appreciate recommendations Follow-up on repeat blood cultures #Ileus Patient has been having nausea/vomiting Patient is passing flatus all throughout admission but has not had a BM yet, low likelihood for SBO On multimodal pain management include opioid medications which can attribute to ileus NGT in with ~1100cc of residuls removed KUB shows possible SBO but less likely clinically as stated above Patient has extensive residuals noted from container Plan: Clamp NG tube IV Reglan 10 mg every 6 hours #COPD on 4 L oxygen #Severe pulmonary hypertension #CHF Patient reported that she is using 4 L oxygen at home Home medication reconciliation completed Patient is using Bipap HS at home ECHO 08/11 showed: Normal LV size and function. Flattened septal due to RV pressure and volume overload. Moderate RV dialted. Mild RV dysfunction. Estiamted RVSP 102mmHg. suggestive of severe pulmonary hypertension Moderate RA dilatation. Moderate to severe TR with posterior eccentric jet. Trace MR, PI. IVC dilated.There minimal posterior pericardial effusion. No evidence of cardiac tamponade. Plan: Continue supplemental oxygenation BiPAP at bedtime Midodrine added to make room for diuretics Continue Bumex IV 1mg BIDD Patient's tadalafil 40 mg p.o. daily and Uptravi 600 mcg p.o. twice daily for PAH on board #Hypothyroidism Patient is using 100 mcg levothyroxine at home Plan: Continue home levothyroxine #History of unprovoked DVT/A-fib Patient is on Eliquis 5 Mg p.o. twice daily Bilateral venous Doppler did not show any evidence of DVT Plan: Per orthopedic surgery, will restart Eliquis home dose #Iron deficiency anemia Patient presenting with hemoglobin 10.1 with MCV 81 Differentials include iron deficiency anemia, anemia of chronic disease, vitamin deficiency and less likely to be myelosuppression, hematologic malignancy or hemolysis Past iron panel from June 2024 shows iron deficiency anemia Plan: Replete iron stores Follow-up outpatient with PCP Hospital Maintenance: Dispo: Pending Ortho recommendations regarding meniscal tears DVT prophylaxis: Eliquis 5 mg p.o. twice daily GI prophylaxis: Not needed Diet: Full Liquid, advancing Bowel: Senna and MiraLAX Lines: PIV, NG tube Code: Full Patient seen and assessed with attending Dr. Rachana Lujan, PGY-1 Attending Provider Attestation/Addendum Uma, Vannesa Reich, , attest that I was physically present for the cardenas portions of the service and evaluated the patient with the resident and I reviewed and discussed the case with the resident and agree with the resident's findings and plans of care as documented above Patient seen and eval this a.m. She states that she is feeling better today, but continues to have some pain in her knee she is postop day 1 status post right knee arthroscopic irrigation and debridement during which significant pus was extracted and surgery. ID has been consulted and recommends continuation of IV antibiotics versus 4 weeks. Case discussed with cardiology. Patient has severe pulmonary hypertension with pressure of 106mmHg. Mild aortic stenosis. No vegetations noted on echo. Blood cultures positive for strep [facility] [facility], pending repeat cultures to determine length of antibiotic duration. Patient continued to have nausea and vomiting after clamping NG tube. Patient had 500 mL brown malodorous output once placed back on low intermittent suction. Patient endorses passing gas but no bowel movement suspect ileus. Repeat KUB was done showing suspicious for small bowel obstruction. Imaging was reviewed with surgeon and surgery was consulted. Recommend continuing with NG tube with low intermittent suction and plan for Gastrografin small bowel follow-through in a.m. Will place patient n.p.o. will hold Reglan at this time due to concern for worsening obstruction.
--- NOTE | 2024-08-16 13:44 | ESPR_ITS ---
Subjective Subjective Interval history: heavy set 69 y/o lady. bmi of 41.4 noted. <5 ft tall and >200 lbs Exam Vital Signs Temp Pulse Resp BP Pulse Ox O2 Del Method O2 Flow Rate 98.9 F 82 18 134/70 H 91 L Oxy Mask 7 08/16/24 12:00 08/16/24 12:00 08/16/24 12:00 08/16/24 12:00 08/16/24 12:00 08/16/24 12:00 08/16/24 06:35 Narrative Exam on O2 at home for 12 yrs. has rasheed stated. and other problems as listed Objective - Internal Medicine Labs 08/16/24 05:07 08/16/24 05:07 Labs: Laboratory Results - last 24 hr 08/13/24 08/15/24 08/16/24 04:08 10:16 05:07 WBC 8.8 RBC 4.80 Hgb 12.1 Hct 37.9 MCV 79 L MCH 25.2 MCHC 31.9 RDW Std Deviation 44.8 Plt Count 273 Neut % (Auto) 82 H Lymph % (Auto) 6 L Douglas % (Auto) 11 Eos % (Auto) 0 Baso % (Auto) 0 Neut # (Auto) 7.3 Lymph # (Auto) 0.6 L Douglas # (Auto) 0.9 H Eos # (Auto) 0.0 Baso # (Auto) 0.0 Immature Gran # (Auto) 0.03 H Absolute Nucleated RBC 0.00 Immature Gran % 0 Nucleated RBC % 0 Sodium 136 Potassium 3.1 L D Chloride 95 L Carbon Dioxide 29.0 Anion Gap 12 BUN 21 Creatinine 1.2 Estim Creat Clear Calc 44.7 L eGFR 49 L BUN/Creatinine Ratio 18 Glucose 115 H Calculated Osmolality 275 Calcium 10.4 Synovial Crystals See Nov Rpt See Nov Rpt Vancomycin Trough 08/16/24 08:41 WBC RBC Hgb Hct MCV MCH MCHC RDW Std Deviation Plt Count Neut % (Auto) Lymph % (Auto) Douglas % (Auto) Eos % (Auto) Baso % (Auto) Neut # (Auto) Lymph # (Auto) Douglas # (Auto) Eos # (Auto) Baso # (Auto) Immature Gran # (Auto) Absolute Nucleated RBC Immature Gran % Nucleated RBC % Sodium Potassium Chloride Carbon Dioxide Anion Gap BUN Creatinine Estim Creat Clear Calc eGFR BUN/Creatinine Ratio Glucose Calculated Osmolality Calcium Synovial Crystals Vancomycin Trough 14.5 H ABG Interpretation ABG results: 08/13/24 13:36 ABG pH 7.40 ABG pCO2 40 ABG pO2 54 L* ABG HCO3 25 ABG O2 Saturation 86 L ABG Base Excess 0 Assessment & Plan A&P Narrative septic arthritis rt knee bacteremia with gpc that turns out to be a strep species. echo neg. O2 need, chronic. has dx of pulm htn rasheed hypothyroid. per meds usual rx for septic arthritis is 4 weeks. so thru 09/11. f/u labs weekly (cbc, renal panel, esr) and remove line at end of rx will see again prn. surgical cx are neg, so will get some additional serologies but may be from pre treatment Time Spent With Patient Time: Total time spent is greater than 50% in coordination of care (as documented) at patient's floor/unit and/or counseling patient:
--- NOTE | 2024-08-16 14:23 | PC.SS ---
rounding: Patient pending picc line. Will need i.v. antibiotics for 3-4 weeks.Patient preference is [facility].
[2024-08-16] MEDS: cefTRIAXone 2 GM in SODIUM CHLORIDE 0.9% (Popper) 50 ML IV (14:43)
[2024-08-16] MEDS: GABAPENTIN 100 MG CAPSULE PO (14:44)
[2024-08-16] MEDS: APIXABAN 2.5 MG TABLET 5 MG PO (14:44)
[2024-08-16] MEDS: TADALAFIL 20 MG PO (14:49)
[2024-08-16] MEDS: SELEXIPAG 1600 MCG PO (14:50)
[2024-08-16] MEDS: LACTULOSE SYRUP 20 GM/30 ML UDC 10 GM PO (14:51)
[2024-08-16] MEDS: SENNA TABLET 1 TAB PO (14:51)
[2024-08-16] MEDS: POLYETHYLENE GLYCOL 17 GM PACKET PO (14:51)
--- NOTE | 2024-08-16 16:33 | ESPR_ITS ---
RE: RAYNA LANDEROS : 1955 DATE OF SERVICE: 08/16/2024 SUBJECTIVE: Ms. Ashley Landeros is resting comfortably in bed. The patient is not having any symptoms of chest pain. Denies any complaint of shortness of breath. Denies any complaint of skipped beats or palpitations. The patient had right knee surgery done yesterday with purulent fluid aspirated from the right knee. PHYSICAL EXAMINATION: Vital Signs: Today the patient's temperature is 98.9, pulse rate is 95 per minutes and regular, blood pressure is 134/70, respiratory rate is 18, the oximetry saturation on 6 liters of oxygen is 93%. Heart: Ejection systolic murmur unchanged from yesterday. Lungs: Decreased breath sounds at the bases. Extremities: No pedal edema is noted. LABORATORY DATA: Lab work today showed WBC count is down to normal and is 8,800, hemoglobin is 12.1 with a hematocrit of 37.9. The patient's BUN today is 21, creatinine 1.2, potassium level is 3.1. The glucose is 115. The troponin level yesterday was less than 0.02 and the patient is not having any more symptoms of chest pain. Heart rhythm is staying in normal sinus rhythm. The cardiac echo Doppler study done yesterday did show normal left ventricular systolic function with a left ventricular ejection fraction of 55% to 60%. Mild aortic stenosis is noted. Moderate tricuspid regurgitation and mild mitral regurgitation is noted. The right ventricular calculated pressure is extremely high and is 106 mm suggestive of severe pulmonary hypertension. PLAN: Plan to continue the patient on intravenous antibiotic therapy as well as all present medications and general supportive care. The anticoagulant therapy will also be started back. Discharge planning is as per the hospitalist and the patient will be seen for cardiac followup visit as outpatient. DT: 15:20:13 TT: 16:32:00 Ref: [id number] - TID: [id number]
--- NOTE | 2024-08-16 16:55 | XR_ITS ---
Examination: Abdomen AP single view Technique: AP portable supine abdomen, single view Exam date and time: August 16, 2024, 1700 hours INDICATIONS: Nausea vomiting abdominal distention today FINDINGS: Orogastric tube tip proximal stomach Multiple significantly air distended small bowel loops No free air IMPRESSION: Small bowel obstruction pattern Advance the orogastric tube 4 cm
--- NOTE | 2024-08-16 16:58 | PC.NURSE ---
Pt complaining of Nausea and vomiting. Called Dr. Lujan. said to place patient back on low suction via NG tube. 1000 out immediately
[2024-08-16] MEDS: FAMOTIDINE INJ 10 MG/ML VIAL 2 ML IVP (18:09)
[2024-08-16] MEDS: POTASSIUM CHL 10 mEq IVPB 10 MEQ/100 ML BAG 50 MEQ IV ×3 (18:10→22:14)
--- NOTE | 2024-08-16 18:29 | PD.SURCONS ---
HPI Consult details Consult date: 08/16/24 Reason for consultation narrative: The patient was seen in consultation because of abdominal distention and vomiting History of present illness: History of present illness revealed that the patient was admitted to the hospital few days ago because of the septic arthritis. Patient underwent arthroscopic drainage and washout of the knee. Patient has developed some abdominal distention during the postoperativeperiod. She does not have any pain but she told me that she always have a large abdomen. Patient gives history of open cholecystectomy back in 70s with right paramedian incision. Her last bowel movement was about 4 days ago but she is passing flatus. Patient does not have a history of any chronic abdominal pain or distention Past Medical History Past Medical History NEUROLOGIC: Positive Neurological Disorders; Negative Cerebrovascular Accident, Transient Ischemic Attacks (TIA), Dementia, Alzheimer's Disease, Parkinson's Disease, Brain Tumor, Meningitis, Seizures, Epilepsy, Multiple Sclerosis, Cerebral Palsy, Amyotrophic Lateral Sclerosis (ALS/Anna Gehrig's), Guillain-[place] Syndrome, Spina Bifida, Paralysis, Peripheral Neuropathy, Welsh's Palsy, Subdural Hematoma, Migraine, Head Trauma, Spinal Cord Injury or Traumatic Brain Injury CARDIAC: Positive Cardiac Disorders, Cardiac Arrhythmia, Atrial Fibrillation (Eliquis), Heart Murmur, Peripheral Vascular Disease, Congestive Heart Failure, Edema, Cellulitis, Deep Vein Thrombosis, Hypertension, Hypotension and Varicose Veins; Negative Myocardial Infarction, Angina, Coronary Artery Disease, Atherosclerotic Heart Disease, Hypercholesterolemia, Aneurysm, Congenital Heart Disease, Valvular Heart Disease, Rheumatic Fever or Cardiomyopathy RESPIRATORY: Positive Respiratory Disorders (hx pulmonary htn), Chronic Obstructive Pulmonary Disease (COPD), Asthma, Pneumonia, Pulmonary Edema, Sleep Apnea, CPAP Dependent and Smoking Exposure; Negative Pulmonary Fibrosis, Tuberculosis or Pulmonary Embolism GASTROINTESTINAL: Positive Gastrointestinal Disorders and Obesity; Negative Cirrhosis, Pancreatitis, Celiac Disease, Gall Bladder Disease, Gastrointestinal Bleed, Esophageal Varices, Mcclure's Esophagus, Colitis, Ulcerative Colitis, Diverticulitis, Diverticulosis, Ulcer, Colorectal Cancer, Irritable Bowel, Crohn's Disease, Obstructive Bowel, Hiatal Hernia, Hemorrhoids or Gastroesophageal Reflux Disease GENITOURINARY: Negative Genitourinary Disorders, Renal Disease, Kidney Stones, Polycystic Kidney Disease, Neurogenic Bladder, Inguinal Hernia, Dialysis, Prostate Cancer or Benign Prostatic Hyperplasia REPRODUCTIVE: Positive Previous Pregnancies; Negative Breast Cancer, Endometriosis, Genital Herpes, Gonorrhea, Pelvic Inflammatory Disease, Syphilis, Testicular Cancer or Uterine Prolapse MUSCULOSKELETAL: Positive Musculoskeletal Disorders and Arthritis; Negative Muscular Dystrophy, Myasthenia Gravis, Marfan's Syndrome, Bone Cancer, Rheumatoid Arthritis, Osteoporosis, Degenerative Disk Disease, Gout, Scoliosis, Carpal Tunnel Syndrome, Fibromyalgia, Fractures, Degenerative Joint Disease, Osteomyelitis or Poliovirus ENT: Negative Cataracts, Glaucoma, Blind, Retinal Detachment, Macular Degeneration, Ear Infection, Deafness, Head Trauma or Eye Prosthesis ENDOCRINE: Positive Endocrine Disorders, Hyperthyroidism and Hypothyroidism; Negative Diabetes Mellitus Type 1, Diabetes Mellitus Type 2, Hypoglycemia, [place]'s Syndrome, Mason's Disease, Parathyroid Disease, Pituitary Disease, Systemic Lupus Erythematosus, Syndrome of Inappropriate Antidiuretic Hormone (SIADH), Adrenal Disease or Graves' Disease HEMATOLOGIC: Negative Blood Disorders, Anemia, Leukemia, Hemophilia, Thalassemia, Sickle Cell Disease or Clotting Problems PSYCHO/SOCIAL: Positive Anxiety; Negative Psychiatric Problems, Schizophrenia, Recreational Drug Use, Bipolar Disorder, Depression, Behavior Problems, Self-Mutilation, Attention Deficit Disorder, Attention Deficit Hyperactivity Disorder, Depression, Post Traumatic Stress Disorder or Eating Disorder OTHER HISTORY: Positive Hospitalization, Shingles, Falls, MRSA, Chicken Pox, Measles and Mumps; Negative Autoimmune Disease, Down Syndrome, Autism, Developmental Delay, Blood Transfusions, Blood Transfusion Reaction, Anesthesia Reactions, Organ Transplant, Chemotherapy, Radiation Therapy, Hyperbaric Therapy, VRSA, Vancomycin-Resistant Enterococci, Cancer, Breast Cancer, Cervical Cancer, Colorectal Cancer, Lung Cancer, Ovarian Cancer, Prostate Cancer or Testicular Cancer Family History FAMILY HISTORY: Positive Family Respiratory Disorders, Family Cardiac Disorders, Family Gastrointestinal Problems and Family Surgery (heart surgery); Negative Family Psychiatric Problems, Family Cancer or Family Anesthesia Reaction Surgical History SURGICAL: Positive Hysterectomy; Negative Cardiac Surgery, Open Heart Surgery, Coronary Artery Bypass Graft, Valve Replacement, Vascular Surgery, Coronary Stent, Cardiac Catheterization, Pacemaker, Angiogram, Auto Implanted Cardiovert Defib, Carotid Endarterectomy, Endocrine Surgery, Thyroidectomy, Ear Surgery, Tympanostomy Tube, Eye Surgery, Nose Surgery, Oral Surgery, Tonsillectomy, Adenoidectomy, Cochlear Implant, Corneal Transplant, Throat Surgery, Abdominal Surgery, Tracheostomy, Gastric Bypass Surgery, Gastrostomy, Bowel Surgery, Nephrectomy, Transurethral Resection, Joint Replacement, Amputation, Open Reduction Internal Fixation, Arthroscopy, Neurologic Surgery, Brain Shunt, Mastectomy, Lumpectomy, Tubal Ligation, Section, Vasectomy or Organ Transplant Social History SMOKING STATUS: Never smoker SECOND HAND EXPOSURE: Yes (12 years working at [employer]) SUBSTANCE USE: does not use Meds Home Medications and Allergies Home Medications ?Medication ?Instructions ?Recorded ?Confirmed ?Type spironolactone 50 mg tablet 50 mg PO QDAY 11/26/17 08/13/24 History Held on 07/20/24. Instructions: Hold until you see your PCP due to concern for low blood pressure ambrisentan 10 mg tablet (Letairis) 10 mg PO HS 05/10/19 08/13/24 History pantoprazole 40 mg tablet,delayed 40 mg PO QDAY 12/05/19 08/13/24 History release ropinirole 3 mg tablet 6 mg PO HS 12/05/19 08/13/24 History trazodone 50 mg tablet 50 mg PO HS 12/05/19 08/13/24 History tadalafil (pulm. hypertension) 20 40 mg PO QDAY 01/25/20 08/13/24 History mg tablet (pulmonary hypertension) (Adcirca) potassium chloride 10 mEq 10 meq PO BID 05/13/20 08/13/24 History capsule,extended release gabapentin 100 mg capsule 100 mg PO QDAY 01/09/22 08/13/24 History levothyroxine 100 mcg tablet 100 mcg PO QDAY 01/09/22 08/13/24 History (Euthyrox) selexipag 200 mcg tablet (Uptravi) 1,600 mcg PO BID 08/13/23 08/13/24 History fluticasone fur. 100 mcg-umeclid 1 inh inhalation Q24H 07/15/24 08/13/24 History 62.5 mcg-vilant 25 mcg inhalat.powder (Trelegy Ellipta) midodrine 10 mg tablet 10 mg PO TID PRN SBP 07/15/24 08/13/24 History Allergies Allergy/AdvReac Type Severity Reaction Status Date / Time erythromycin base Allergy Severe SWELLING Verified 08/12/23 07:45 Exam Vital Signs Temp Pulse Resp BP Pulse Ox O2 Del Method O2 Flow Rate 98.3 F 77 16 127/80 91 L Oxy Mask 6 08/16/24 16:00 08/16/24 18:10 08/16/24 16:00 08/16/24 18:10 08/16/24 16:00 08/16/24 16:00 05/28/25 14:08 Narrative Exam Physical examination revealed a slightly obese female who is 4 foot 11 inches tall weighing 205 pounds with BMI of 41.4. Her vital signs are normal Routine Abdominal Exam Comments: Examination abdomen shows a definite distention but not tender. There is a right paramedian incision from the previous surgery. Auscultation revealed no bowel sounds at all. Percussion reveals tympanic suggesting distended small bowel Results Results: Laboratory Laboratory Narrative: Patient's laboratory results are within normal limits Results: Imaging Imaging narrative: Plain film of the abdomen showed dilated loops of small bowel with paucity of gas in the colon Assessment & Plan Additional Assessment Additional comments: Impression: The patient's clinical picture is consistent with postoperative ileus. Plan Plan: Will continue NG suction and if necessary get a Gastrografin small bowel series tomorrow to see if it causes the emptying of the small bowel. Thank you very much
[2024-08-17] VITALS (10 sets, daily range): BP systolic 116–130; BP diastolic 64–78; PULSE 76–106; RESP 18–23; TEMP 35.6–36.3; O2SAT 90–98
[2024-08-17] MEDS: POTASSIUM CHL 10 mEq IVPB 10 MEQ/100 ML BAG 50 MEQ IV (00:38)
[2024-08-17] MEDS: MORPHINE SULF INJ 10 MG/ML VIAL 2 MG IVP ×2 (02:01→15:40)
[2024-08-17] MEDS: BUMETANIDE INJ 0.25 MG/ML VIAL 4 ML 1 MG IVP (05:24)
[2024-08-17 06:10] LABS: Basophils # (Auto) 0.1 Thou/mm3 (0.0-0.2); Basophils % (Auto) 1 % (0-2.5); Eosinophils % (Auto) 0 % (0-10); Hemoglobin 12.8 g/dL (12.0-16.0); Immature Granulocytes % (Auto) 0 % (0-0); Immature Granulocytes Auto 0.03 Thou/mm3 (0.00-0.00); Lymphocytes # (Auto) 0.5 Thou/mm3 (1.0-4.8); Lymphocytes % (Auto) 5 % (10-50); Mean Corpuscular HGB Conc 31.2 g/dl (31.0-37.0); Mean Corpuscular Hemoglobin 25.1 pg (25.0-35.0); Mean Corpuscular Volume 80 fL (80-100); Monocytes # (Auto) 1.3 Thou/mm3 (0.0-0.8); Monocytes % (Auto) 14 % (0-12); Neutrophils # (Auto) 7.4 Thou/mm3 (1.8-7.7); Neutrophils % (Auto) 80 % (37-80); Nucleated Red Blood Cell % 0 /100 WBC (0); Platelet Count 310 Thou/mm3 (140-440); RDW Standard Deviation 45.8 fL (36.4-46.3); White Blood Count 9.3 Thou/mm3 (3.6-11.0)
[2024-08-17 06:24] LABS: Alanine Aminotransferase < 7 U/L (10-49); Albumin/Globulin Ratio 1.6 (1.2-2.2); Alkaline Phosphatase 91 U/L (46-116); Anion Gap 13 (7-16); Aspartate Amino Transferase 21 U/L (0-34); BUN/Creatinine Ratio 21 Ratio (12-20); Bilirubin,Total 1.1 mg/dL (0.3-1.2); Blood Urea Nitrogen 31 mg/dL (9-23); Calcium 8.9 mg/dL (8.3-10.6); Calcium (Corrected) 8.9 mg/dL (8.5-10.1); Carbon Dioxide 24.7 mMol/L (20.0-31.0); Chloride 101 mMol/L (98-107); Creatinine (Component) 1.5 mg/dL (0.6-1.3); Estimated Creatinine Clearance 35.8 mL/min (>60); Globulin 2.5 gm/dL (2.3-3.5); Glucose 158 mg/dL (74-106); Osmolality,Calculated 287 (275-295); Potassium 3.9 mMol/L (3.4-5.1); Sodium 139 mMol/L (136-145); Total Protein 6.5 gm/dL (5.7-8.2); eGFR 38 See Note
--- NOTE | 2024-08-17 06:37 | PC.NURSE ---
pt asked for an enema and stated that day shift told her that they would give her enemas so she could poop, MD Grossman was made aware about pt's statement. Per MD, no enemas for now while pt has NG tube in.
[2024-08-17] MEDS: ALBUTEROL/IPRATROPIUM (Duoneb) RT SOL 3 ML NEBU INH ×3 (06:41→22:10)
[2024-08-17 06:51] LABS: Hepatitis C Antibody Non Reactive (Non React)
--- NOTE | 2024-08-17 09:53 | CONPN_ITS ---
Subjective Subjective Brief History: Patient is a 69-year-old female with right knee pain that started 1 week ago. She is on Eliquis and has extensive medical history including COPD. She has a history of recurrent cellulitis of both her legs. She reported significant right knee pain 1 week ago. She was admitted in the hospital 4 days ago but there was no orthopedic surgeon on-call. I was called today as she cannot be transferred to another hospital with an orthopedic surgeon and I am now on-call starting today. She had elevated ESR and CRP values and was aspirated with interventional radiology. She was found to have an elevated white cell count over 50,000. She is on antibiotics Narrative: Patient is postop day 1 from a knee irrigation debridement. She is doing well. She reports the pain is significantly more controlled. She reports that She is very happy with the pain relief. Exam Vital Signs Temp Pulse Resp BP Pulse Ox O2 Del Method O2 Flow Rate 96.9 F 76 18 118/73 91 L Oxy Mask 10 08/17/24 08:00 08/17/24 08:00 08/17/24 08:00 08/17/24 08:00 08/17/24 08:00 08/17/24 08:00 08/17/24 06:42 Additional findings Additional findings: Patient is in no acute distress and is cooperative with the examination today. Patient has a normal mood and affect. Breathing is nonlabored. In no respiratory distress. Bilateral extremities were evaluated and demonstrates sensation intact to light touch. Palpable pedal pulses are present. No significant edema is present.Dressing is clean dry and intact. Objective - Ortho Labs 08/17/24 04:46 08/17/24 04:46 Labs: Laboratory Results - last 24 hr 08/13/24 08/15/24 08/17/24 04:08 10:16 04:46 WBC 9.3 RBC 5.10 Hgb 12.8 Hct 41.0 MCV 80 MCH 25.1 MCHC 31.2 RDW Std Deviation 45.8 Plt Count 310 D Neut % (Auto) 80 Lymph % (Auto) 5 L [place] % (Auto) 14 H Eos % (Auto) 0 Baso % (Auto) 1 Neut # (Auto) 7.4 Lymph # (Auto) 0.5 L [place] # (Auto) 1.3 H Eos # (Auto) 0.0 Baso # (Auto) 0.1 Immature Gran # (Auto) 0.03 H Absolute Nucleated RBC 0.00 Immature Gran % 0 Nucleated RBC % 0 Sodium 139 Potassium 3.9 D Chloride 101 Carbon Dioxide 24.7 Anion Gap 13 BUN 31 H Creatinine 1.5 H Estim Creat Clear Calc 35.8 L eGFR 38 L BUN/Creatinine Ratio 21 H Glucose 158 H Calculated Osmolality 287 Calcium 8.9 D Corrected Calcium 8.9 Total Bilirubin 1.1 AST 21 ALT < 7 L Alkaline Phosphatase 91 Total Protein 6.5 Albumin 4.0 Globulin 2.5 Albumin/Globulin Ratio 1.6 Synovial Crystals See Sep Rpt See Sep Rpt Hepatitis C Antibody Non Reactive ABG Interpretation ABG results: 08/13/24 13:36 ABG pH 7.40 ABG pCO2 40 ABG pO2 54 L* ABG HCO3 25 ABG O2 Saturation 86 L ABG Base Excess 0 Assessment & Plan Diagnosis (1) Septic arthritis: Status: Acute Assessment Additional comments: Patient is a 61-year-old female with septic knee arthritis who is status post irrigation debridement. She is doing well. She reports the pain is controlled. We would like to await the culture results and narrow her antibiotics. She will need a PICC line and IV antibiotics. Documentation for date of: 08/16/24
[2024-08-17] MEDS: cefTRIAXone/D5w 2gm 2 GM/50 ML BAG IV (09:55)
--- NOTE | 2024-08-17 09:56 | ESPR_ITS ---
RE: RAYNA LANDEROS : 1955 DATE OF SERVICE: 08/17/2024 S: Mrs. Landeros is resting fairly comfortably in bed though is still requiring oxygen by face mask. The patient is not having any symptoms of fever or chills. Denies any complaints of chest pain. Denies any complaints of skipped beats or palpitations. The symptoms of right knee pain are also better. O: Vital Signs: The patient's blood pressure today is 118/73, pulse rate is 76, respirations are 18, temperature is 96.9, and oximetry saturation is 91%. Heart: Short ejection systolic murmur best heard at the base. Lungs: Decreased breath sounds at the bases. Extremities: No pedal edema is noted. LABORATORY DATA: Today showed WBC count is 9300, hemoglobin 12.8 with a hematocrit of 41.0. BUN today is 31, creatinine 1.5, potassium level is better than yesterday and is 3.9. P: The patient is for possible PICC line placement for IV antibiotics today and is also being considered for GI workup. Cardiac status at the present time is stable and present medication will be continued. Discharge planning is as per the hospitalist. DT: 09:44:22 TT: 09:55:00 Ref: [id number] - TID: [id number]
[2024-08-17] MEDS: FAMOTIDINE INJ 10 MG/ML VIAL 2 ML IVP ×2 (10:09→21:45)
--- NOTE | 2024-08-17 10:51 | XR_ITS ---
Examination: Small bowel series with KUBs Fluoroscopy AP abdomen 2 views Date and time: August 17, 2024 1304 hours INDICATIONS: Abdominal distention this week, air distended small bowel loops on abdomen study August 15, 2024 TECHNIQUE AND FINDINGS: 120 cc Gastrografin administered through the orogastric tube with immediate and 20 minute films obtained Contrast in the stomach Air distended small bowel loops IMPRESSION: Air distended small bowel loops Recommend follow-up abdomen films 3:00 PM, 5:00 PM, 7:00 PM
[2024-08-17 11:55] LABS: Chlamydia trachomatis PCR Negative (Not Detect); Neisseria Gonorrhoeae DNA PCR Negative (Not Detect); Trichomonas Negative (Negative)
--- NOTE | 2024-08-17 13:11 | ESPR_ITS ---
<Statement entered by Landon Billingsley MD - 08/17/24 15:24> Patient examined and case discussed with the team including attending physician. Note reviewed, I agree with the care plan as documented. Ms Ly is a 69-year-old female with a past medical history of COPD on 4 L oxygen, severe pulmonary hypertension, hypothyroidism, atrial fibrillation, CHF, history of DVT, restless leg syndrome presented to the hospital with chief complaints of severe pain in the right knee since 1 day and admitted for pain management. Elevated ESR and CRP, downtrending. Knee x-ray showed advanced tricompartmental osteoarthritis with effusion and venous duplex negative for DVT. The aspirated but the fluid was not sufficient to do a synovial fluid analysis. Blood cultures were positive for GPC, likely contaminant. MRI of the knee shows Extensive medial and lateral meniscus tears. Full-thickness fissure defect medial patellar facet. Moderate attenuation anterior posterior cruciate ligaments. Severe thinning cartilage, medial joint space. Ultrasound shows effusion noted to be 7.4 x 1.4 x 6.4 cm. Repeat IR guided drainage of right knee effusion shows septic arthritis with elevated WBC count. Patient is also on Eliquis 5 Mg for DVT. Bilateral venous Doppler did not show any evidence of DVT Status post washout with Dr. Ramsey, orthopedic surgery. Synovial fluid showed no organisms but the patient has been treated with IV antibiotics. KUB shows possible SBO. Patient is using Bipap HS at home. Plan: Infectious disease consulted, will continue Ceftriaxone 2g IV. Patient may require PICC line placement once repeat blood cultures are negative. Orthopedics consulted, appreciate recommendations. Continue Bumex IV, tadalafil 40 mg p.o. daily and Uptravi 600 mcg p.o. twice daily for PAH Please refer to the note below for further details. - Landon Billingsley MD, PGY 2 Disclaimer: The document may contain phonetic/typographic errors due to voice recognition software. These errors are purely due to imperfections in the software program. Documentation for date of: 08/17/24 Subjective Subjective Interval history: 08/17/2024: No acute overnight events to report. Patient seen and examined in hospital bed reporting improvement in presenting symptoms and denies having any concerning cardiac symptoms at this time. Patient's right knee pain is improving and she will continue working with physical therapy. Patient continues to have NG tube on low intermittent suction with a large amount of residuals noted in collecting apparatus. General surgery recommends pursuing Gastrografin studies which are currently ongoing. Patient's Eliquis for DVT has been switched to therapeutic Lovenox as she is currently NPO. Will continue to monitor blood cultures and order PICC line once results are negative. Exam Vital Signs Temp Pulse Resp BP Pulse Ox O2 Del Method O2 Flow Rate 96.9 F 76 18 118/73 91 L Oxy Mask 10 08/17/24 08:00 08/17/24 08:00 08/17/24 08:00 08/17/24 08:00 08/17/24 08:00 08/17/24 08:00 08/17/24 06:42 Narrative Exam Physical Exam: GENERAL: Awake, answering questions appropriately, appears stated age HEENT: Moist mucosa. Eyes open, symmetrical, & clear. NG tube in CARDIO: Heart RRR, no obvious murmurs PULM: No noted coughing/dyspnea CTA B/L, no R/W/R GI: Abdomen soft, nondistended, no pain on palpation. BSx4 SKIN/MSK/EXT: Chronic venous stasis noted on bilateral lower extremities. Pedal pulses present B/L NEURO: AAOx3, no focal neuro deficits, able to move all 4 extremities Objective Labs 08/17/24 04:46 08/17/24 04:46 Labs: Laboratory Results - last 24 hr 08/13/24 08/15/24 08/16/24 04:08 10:16 18:45 WBC RBC Hgb Hct MCV MCH MCHC RDW Std Deviation Plt Count Neut % (Auto) Lymph % (Auto) [place] % (Auto) Eos % (Auto) Baso % (Auto) Neut # (Auto) Lymph # (Auto) [place] # (Auto) Eos # (Auto) Baso # (Auto) Immature Gran # (Auto) Absolute Nucleated RBC Immature Gran % Nucleated RBC % Sodium Potassium Chloride Carbon Dioxide Anion Gap BUN Creatinine Estim Creat Clear Calc eGFR BUN/Creatinine Ratio Glucose Calculated Osmolality Calcium Corrected Calcium Total Bilirubin AST ALT Alkaline Phosphatase Total Protein Albumin Globulin Albumin/Globulin Ratio Synovial Crystals See Sep Rpt See Sep Rpt Chlam trachomat DNA PCR Negative Hepatitis C Antibody N.gonorrhoeae DNA (PCR) Negative Trichomonas DNA Probe Negative 08/17/24 04:46 WBC 9.3 RBC 5.10 Hgb 12.8 Hct 41.0 MCV 80 MCH 25.1 MCHC 31.2 RDW Std Deviation 45.8 Plt Count 310 D Neut % (Auto) 80 Lymph % (Auto) 5 L [place] % (Auto) 14 H Eos % (Auto) 0 Baso % (Auto) 1 Neut # (Auto) 7.4 Lymph # (Auto) 0.5 L [place] # (Auto) 1.3 H Eos # (Auto) 0.0 Baso # (Auto) 0.1 Immature Gran # (Auto) 0.03 H Absolute Nucleated RBC 0.00 Immature Gran % 0 Nucleated RBC % 0 Sodium 139 Potassium 3.9 D Chloride 101 Carbon Dioxide 24.7 Anion Gap 13 BUN 31 H Creatinine 1.5 H Estim Creat Clear Calc 35.8 L eGFR 38 L BUN/Creatinine Ratio 21 H Glucose 158 H Calculated Osmolality 287 Calcium 8.9 D Corrected Calcium 8.9 Total Bilirubin 1.1 AST 21 ALT < 7 L Alkaline Phosphatase 91 Total Protein 6.5 Albumin 4.0 Globulin 2.5 Albumin/Globulin Ratio 1.6 Synovial Crystals Chlam trachomat DNA PCR Hepatitis C Antibody Non Reactive N.gonorrhoeae DNA (PCR) Trichomonas DNA Probe ABG Interpretation ABG results: 08/13/24 13:36 ABG pH 7.40 ABG pCO2 40 ABG pO2 54 L* ABG HCO3 25 ABG O2 Saturation 86 L ABG Base Excess 0 Quality Measures Quality Measures VTE prophylaxis Advance care planning discussed with:: patient Assessment & Plan Assessment Current Active Medications: Generic Name Dose Route Start Last Admin Trade Name Freq PRN Reason Stop Dose Admin Acetaminophen 650 mg 08/13/24 05:31 08/14/24 04:06 Acetaminophen 325 Mg Tablet PO 09/12/24 05:30 650 mg Q6H PRN Administration Temp>100.3 or mild pain 1-3 Hydrocodone Bitart/Acetaminophen 1 tab 08/14/24 09:59 Hydrocodone/Apap 5/325 Tablet PO 08/19/24 09:58 Q4HR PRN PAIN SCALE 4-6 (Moderate Albuterol/Ipratropium 3 ml 08/13/24 10:30 08/17/24 06:41 Albuterol/Ipratropium (Duoneb) Rt Shell 3 Ml Nebu INH 09/12/24 10:29 3 ml Q8HRRT KARLY Administration Bumetanide 1 mg 08/15/24 18:00 08/17/24 05:24 Bumetanide Inj 0.25 Mg/Ml Vial 4 Ml IVP 09/14/24 17:59 1 mg BIDD KARLY Administration Tadalafil (Adcirca) 0 ea 08/13/24 12:00 08/17/24 10:02 20 Mg Once Daily PO 09/12/24 11:59 Not Given DAILY KARLY (Selexipag [Uptravi] 0 ea 08/13/24 12:15 08/17/24 10:02 1600 Mcg Tablet) PO 09/12/24 12:14 Not Given BID KARLY Enoxaparin Sodium 100 mg 08/17/24 11:00 Enoxaparin Sod Inj 100 Mg/Ml Syringe SC 08/31/24 10:59 BID KARLY Famotidine 10 mg 08/16/24 17:00 08/17/24 10:09 Famotidine Inj 10 Mg/Ml Vial 2 Ml IVP 09/15/24 16:59 10 mg BID KARLY Administration Gabapentin 100 mg 08/13/24 09:00 08/17/24 10:02 Gabapentin 100 Mg Capsule PO 09/12/24 08:59 Not Given QDAY KARLY Ceftriaxone Sodium/Dextrose 2 gm in 50 mls @ 100 mls/hr 08/17/24 09:00 08/17/24 09:55 Rocephin/D5w 2gm IV 08/23/24 13:42 100 mls/hr QDAY KARLY Administration Lactulose 10 gm 08/15/24 03:45 08/17/24 10:02 Lactulose Syrup 20 Gm/30 Ml Udc PO 09/14/24 03:44 Not Given DAILY KARLY Protocol Levothyroxine Sodium 100 mcg 08/13/24 07:00 08/17/24 05:24 Levothyroxine Sodium 100 Mcg Tablet PO 09/12/24 06:59 Not Given ACBR KARLY Lidocaine 1 patch 08/14/24 09:57 08/16/24 12:44 Lidocaine 5% 1 Patch TOP 09/13/24 09:56 1 patch UD PRN Administration RT Knee pain Metoclopramide HCl 10 mg 08/16/24 10:35 08/16/24 11:57 Metoclopramide Inj 5 Mg/Ml Vial 2 Ml IVP 09/15/24 10:34 Not Given Q6HR KARLY Protocol Midodrine 10 mg 08/13/24 21:22 08/15/24 00:17 Midodrine 5 Mg Tablet PO 09/12/24 21:21 10 mg TID PRN Administration SBP <110 Morphine Sulfate 2 mg 08/14/24 09:59 08/17/24 02:01 Morphine Sulf Inj 10 Mg/Ml Vial IVP 08/19/24 09:58 2 mg Q4HR PRN Administration Pain 7-10 Ondansetron HCl 4 mg 08/13/24 05:31 08/16/24 06:31 Ondansetron Inj 2 Mg/Ml Inj 2 Ml IVP 09/12/24 05:30 4 mg Q6H PRN Administration NAUSEA OR VOMITING Protocol Polyethylene Glycol 17 gm 08/15/24 03:45 08/17/24 10:02 Polyethylene Glycol 17 Gm Packet PO 09/14/24 03:44 Not Given QDAY KARLY Ropinirole HCl 6 mg 08/13/24 21:00 08/16/24 20:35 Ropinirole Hcl 1 Mg Tablet PO 09/12/24 20:59 Not Given HS [facility] Sennosides 1 tab 08/14/24 11:30 08/17/24 10:02 Senna Tablet PO 09/13/24 11:29 Not Given QDAY KARLY Protocol Trazodone HCl 50 mg 08/13/24 21:00 08/16/24 20:35 Trazodone Hcl 50 Mg Tablet PO 09/12/24 20:59 Not Given HS KARLY Plan 69-year-old female with a past medical history of COPD on 4 L oxygen, severe pulmonary hypertension, hypothyroidism, atrial fibrillation, CHF, history of DVT, restless leg syndrome presented to the hospital with chief complaints of severe pain in the right knee since 1 day and admitted for pain management #Septic arthritis #Medial and lateral meniscus tears Presented to the hospital with chief complaints of severe right knee pain; denied trauma, fever, recent travel On physical examination, noted to have severe tenderness, erythema, localized rise of temperature around knee joint Elevated ESR and CRP, downtrending Knee x-ray showed advanced tricompartmental osteoarthritis with effusion Venous duplex negative for DVT In the ED, knee joint was aspirated but the fluid was not sufficient to do a synovial fluid analysis 1st synovial fluid sample showed no organisms Blood cultures were positive for GPC, likely contaminant but we will resend blood cultures MRI of the knee shows Extensive medial and lateral meniscus tears. Full- thickness fissure defect medial patellar facet. Moderate attenuation anterior posterior cruciate ligaments. Severe thinning cartilage medial joint space Ultrasound extremity shows effusion noted to be 7.4 x 1.4 x 6.4 cm Repeat IR guided drainage of right knee effusion shows septic arthritis with elevated WBC count Status post washout with Dr. Ramsey, orthopedic surgery Synovial fluid showed no organisms but the patient has been treated with IV antibiotics Plan: Infectious disease consulted, appreciate recommendations Continue Ceftriaxone 2g IV Patient will require PICC line placement once blood cultures are negative Multimodal pain management Orthopedics consulted, appreciate recommendations Follow-up on repeat blood cultures #Ileus #SBO? Patient has been having nausea/vomiting Patient is passing flatus all throughout admission but has not had a BM yet, low likelihood for SBO On multimodal pain management include opioid medications which can attribute to ileus NGT in with ~1100cc of residuls removed KUB shows possible SBO but less likely clinically as stated above Patient has extensive residuals noted from container Plan: Small bowel series initiated General Surgery, Dr. Duque, consulted appreciate recommendations #COPD on 4 L oxygen #Severe pulmonary hypertension #CHF Patient reported that she is using 4 L oxygen at home Home medication reconciliation completed Patient is using Bipap HS at home ECHO 08/11 showed: Normal LV size and function. Flattened septal due to RV pressure and volume overload. Moderate RV dialted. Mild RV dysfunction. Estiamted RVSP 102mmHg. suggestive of severe pulmonary hypertension Moderate RA dilatation. Moderate to severe TR with posterior eccentric jet. Trace MR, PI. IVC dilated.There minimal posterior pericardial effusion. No evidence of cardiac tamponade. Plan: Continue supplemental oxygenation BiPAP at bedtime Midodrine added to make room for diuretics Continue Bumex IV 1mg BIDD Patient's tadalafil 40 mg p.o. daily and Uptravi 600 mcg p.o. twice daily for PAH on board #Hypothyroidism Patient is using 100 mcg levothyroxine at home Plan: Continue home levothyroxine #History of unprovoked DVT/A-fib Patient is on Eliquis 5 Mg p.o. twice daily Bilateral venous Doppler did not show any evidence of DVT Plan: Per orthopedic surgery, can continue anticoagulation Since the patient is n.p.o. we will switch Eliquis to therapeutic Lovenox #Iron deficiency anemia Patient presenting with hemoglobin 10.1 with MCV 81 Differentials include iron deficiency anemia, anemia of chronic disease, vitamin deficiency and less likely to be myelosuppression, hematologic malignancy or hemolysis Past iron panel from June 2024 shows iron deficiency anemia Plan: Replete iron stores Follow-up outpatient with PCP Hospital Maintenance: Dispo: Pending negative blood cultures for PICC line placement, Gastrografin SBO DVT prophylaxis: Lovenox therapeutic dose initiated GI prophylaxis: Not needed Diet: N.p.o. small bowel series Bowel: Not needed Lines: PIV, NG tube Code: Full Patient seen and assessed with attending Dr. Reich and senior resident Dr. Jose Cruz Lujan, PGY-1 Attending Provider Attestation/Addendum Uma, Vannesa Reich, DO, attest that I was physically present for the cardenas portions of the service and evaluated the patient with the resident and I reviewed and discussed the case with the resident and agree with the resident's findings and plans of care as documented above Patient seen and evaluated this a.m. Case discussed with surgeon. Continue with Gastrografin follow-through. Small bowel obstruction remains on KUB, but patient states that she is able to pass gas. Patient complains of dry mouth. She remains on oxymask. Patient has no other complaints at this time. Continue with current management. Patient will need PICC line on discharge for IV antibiotics. Pending final cultures and sensitivities of blood cultures. Gram stain synovial fluid obtained perioperatively are negative.
--- NOTE | 2024-08-17 13:22 | ESCONSULT_ITS ---
RE: RAYNA LANDEROS : 1955 DATE OF CONSULTATION: 08/16/2024 REFERRING PHYSICIAN: Dr. Cheko Ellis, hospitalist. REASON FOR CONSULTATION: Hypoxemia. HISTORY OF PRESENT ILLNESS: The patient is an unfortunate 69-year-old woman who apparently lives in an apartment in [place]. She lives with her son and her . She has been on oxygen for 12 years. She previously had pulmonary hypertension at baseline. She is on some medications for that. She has chronic dyspnea . ALLERGIES: ALLERGIC TO ERYTHROMYCIN. IMMUNIZATIONS: Her last tetanus status is several years ago. She does take flu shot every year. She had three COVID vaccines and does not recall pneumococcal vaccination. FAMILY HISTORY: Generally negative. SOCIAL HISTORY: She lives with her and son and is a lifelong nonsmoker. PHYSICAL EXAMINATION: GENERAL: The patient is a pleasant woman who is on fair amount of oxygen. HEENT: Benign. HEART: Benign. LUNGS: Benign. ABDOMEN: Benign. The patient is on oxygen but is unsure if it is similar to her prior values or not. We are not sure what her prior oxygen levels were, but it looks like she is on fair amount of oxygen. ASSESSMENT: 1. Hypoxemia with respiratory failure. 2. Pulmonary hypertension by records. 3. Other problems as noted. RECOMMENDATIONS: The patient can have antibiotics, but I will probably check her again on Wednesday if not remotely before then. Her overall prognosis is guarded because of her pulmonary hypertension. If that worsens, we may need to address her goals of care and make sure that we are meeting those and are appropriate. Otherwise, I will check on her again Wednesday in person. DT: 16:57:16 TT: 20:36:00 Ref: [id number] - TID: [id number] MTDD
--- NOTE | 2024-08-17 15:00 | XR_ITS ---
Examination: Abdomen AP single view Technique: AP portable supine abdomen, single view Exam date and time: August 17, 2024 1455 hours INDICATIONS: Abdominal distention this week 3 hour delayed film post small bowel series FINDINGS: Contrast in distended small bowel loops IMPRESSION: Small bowel obstruction pattern, additional delayed films will be obtained
--- NOTE | 2024-08-17 17:00 | XR_ITS ---
Examination: Abdomen AP single view Technique: AP portable supine abdomen, single view Exam date and time: August 17, 2024 1647 hours INDICATIONS: Abdominal distention is 3, 5 hour delayed film post small bowel series FINDINGS: Significantly contrast distended small bowel loops IMPRESSION: Small bowel obstruction pattern. Additional delayed films will be obtained. Recommend follow-up abdomen films 7:00, 9:00, 11:00 PM
--- NOTE | 2024-08-17 19:00 | XR_ITS ---
Examination: Abdomen AP single view Technique: AP portable supine abdomen, single view Exam date and time: 12/18/2024 1842 hours INDICATIONS: Abdominal pain and distention this week, 7 hour delayed film post small bowel series today FINDINGS: Contrast in significantly distended small bowel loops There does appear to be mild contrast in the colon IMPRESSION: High-grade but incomplete small bowel obstruction Multiple additional films will be obtained
--- NOTE | 2024-08-17 21:00 | XR_ITS ---
Examination: Abdomen AP single view Technique: AP portable supine abdomen, single view Exam date and time: 09/17/2024 2134 hours INDICATIONS: Abdominal distention this week, 9 hour delayed film for small bowel series FINDINGS: Contrast in distended small bowel loops IMPRESSION: Small bowel obstruction pattern, recommend follow-up films 1:00 AM, 4:00 AM
[2024-08-17] MEDS: ENOXAPARIN SOD INJ 100 MG/ML SYRINGE SC (21:39)
[2024-08-17] MEDS: ONDANSETRON INJ 2 MG/ML INJ 2 ML 4 MG IVP (23:50)
[2024-08-18] VITALS (67 sets, daily range): BP systolic 0–147; BP diastolic 0–92; PULSE 80–150; RESP 0–26; TEMP 36.3–36.7; O2SAT 70–95
[2024-08-18] MEDS: MORPHINE SULF INJ 10 MG/ML VIAL 2 MG IVP (00:59)
--- NOTE | 2024-08-18 01:00 | XR_ITS ---
Examination: Abdomen AP single view Technique: AP portable supine abdomen, single view Exam date and time: August 18, 2024 at 0052 hours INDICATIONS: Abdominal pain and distention this week, 13 hour delayed film post multiple bowel surgeries FINDINGS: Contrast remains in distended small bowel loops IMPRESSION: High-grade small bowel obstruction pattern
--- NOTE | 2024-08-18 04:00 | XR_ITS ---
Examination: Abdomen AP single view Technique: AP portable supine abdomen, single view Exam date and time: July 22, 2024 0418 hours INDICATIONS: Abdominal pain and vomiting since yesterday, 16 hour delayed film for small bowel series FINDINGS: Distended small bowel loops remain in the central abdomen. IMPRESSION: Significant small bowel obstruction pattern
[2024-08-18 05:06] LABS: Basophils # (Auto) 0.1 Thou/mm3 (0.0-0.2); Basophils % (Auto) 0 % (0-2.5); Eosinophils % (Auto) 0 % (0-10); Hemoglobin 12.1 g/dL (12.0-16.0); Immature Granulocytes % (Auto) 0 % (0-0); Immature Granulocytes Auto 0.05 Thou/mm3 (0.00-0.00); Lymphocytes # (Auto) 0.7 Thou/mm3 (1.0-4.8); Lymphocytes % (Auto) 6 % (10-50); Mean Corpuscular HGB Conc 31.8 g/dl (31.0-37.0); Mean Corpuscular Hemoglobin 25.1 pg (25.0-35.0); Mean Corpuscular Volume 79 fL (80-100); Monocytes # (Auto) 1.5 Thou/mm3 (0.0-0.8); Monocytes % (Auto) 13 % (0-12); Neutrophils # (Auto) 9.5 Thou/mm3 (1.8-7.7); Neutrophils % (Auto) 81 % (37-80); Nucleated Red Blood Cell % 0 /100 WBC (0); Platelet Count 306 Thou/mm3 (140-440); RDW Standard Deviation 45.8 fL (36.4-46.3); Red Blood Count 4.82 Miln/mm3 (4.00-5.20); White Blood Count 11.8 Thou/mm3 (3.6-11.0)
[2024-08-18 06:18] LABS: Alanine Aminotransferase 11 U/L (10-49); Albumin, Serum 4.2 gm/dL (3.4-4.8); Albumin/Globulin Ratio 1.7 (1.2-2.2); Alkaline Phosphatase 98 U/L (46-116); Anion Gap 15 (7-16); Aspartate Amino Transferase 24 U/L (0-34); BUN/Creatinine Ratio 25 Ratio (12-20); Bilirubin,Total 1.1 mg/dL (0.3-1.2); Blood Urea Nitrogen 50 mg/dL (9-23); Calcium 9.2 mg/dL (8.3-10.6); Calcium (Corrected) 9.2 mg/dL (8.5-10.1); Carbon Dioxide 26.2 mMol/L (20.0-31.0); Chloride 99 mMol/L (98-107); Estimated Creatinine Clearance 26.8 mL/min (>60); Globulin 2.5 gm/dL (2.3-3.5); Glucose 147 mg/dL (74-106); Osmolality,Calculated 295 (275-295); Potassium 3.6 mMol/L (3.4-5.1); Sodium 140 mMol/L (136-145); Total Protein 6.7 gm/dL (5.7-8.2); eGFR 27 See Note
[2024-08-18] MEDS: BUMETANIDE INJ 0.25 MG/ML VIAL 4 ML 1 MG IVP (06:20)
--- NOTE | 2024-08-18 06:22 | PC.NURSE ---
okay to give ice chips per DR. Carty.
[2024-08-18] MEDS: ALBUTEROL/IPRATROPIUM (Duoneb) RT SOL 3 ML NEBU INH ×2 (07:45→14:35)
--- NOTE | 2024-08-18 07:57 | XR_ITS ---
Examination: Abdomen AP single view Technique: AP portable supine abdomen, single view Exam date and time: 11/18/2024 0809 hours INDICATIONS: Abdominal pain and distention this week, 20 hour delayed film post small bowel series today FINDINGS: Air and contrast distended small bowel loops although contrast is present in the colon IMPRESSION: Small bowel obstruction pattern although incomplete
--- NOTE | 2024-08-18 08:29 | PD.ORTHCONPN ---
Subjective Subjective Brief History: Patient is a 69-year-old female with right knee pain that started 1 week ago. She is on Eliquis and has extensive medical history including COPD. She has a history of recurrent cellulitis of both her legs. She reported significant right knee pain 1 week ago. She was admitted in the hospital 4 days ago but there was no orthopedic surgeon on-call. I was called today as she cannot be transferred to another hospital with an orthopedic surgeon and I am now on-call starting today. She had elevated ESR and CRP values and was aspirated with interventional radiology. She was found to have an elevated white cell count over 50,000. She is on antibiotics Narrative: She reports her knee is doing well. She now had a small bowel obstruction and general surgery is taking care of it. Infectious disease is narrowing her antibiotics Exam Vital Signs Temp Pulse Resp BP Pulse Ox O2 Del Method O2 Flow Rate 97.3 F 88 19 133/79 H 94 L Oxy Mask 5 08/18/24 08:00 08/18/24 08:00 08/18/24 08:00 08/18/24 08:00 08/18/24 08:00 08/18/24 08:00 08/18/24 08:00 Additional findings Additional findings: Patient is in no acute distress and is cooperative with the examination today. Patient has a normal mood and affect. Breathing is nonlabored. In no respiratory distress. Bilateral extremities were evaluated and demonstrates sensation intact to light touch. Palpable pedal pulses are present. No significant edema is present.Dressing is clean dry and intact. Objective - Ortho Labs 08/18/24 04:14 08/18/24 04:14 Labs: Laboratory Results - last 24 hr 08/16/24 08/18/24 18:45 04:14 WBC 11.8 H RBC 4.82 Hgb 12.1 Hct 38.0 MCV 79 L MCH 25.1 MCHC 31.8 RDW Std Deviation 45.8 Plt Count 306 Neut % (Auto) 81 H Lymph % (Auto) 6 L [place] % (Auto) 13 H Eos % (Auto) 0 Baso % (Auto) 0 Neut # (Auto) 9.5 H Lymph # (Auto) 0.7 L [place] # (Auto) 1.5 H Eos # (Auto) 0.0 Baso # (Auto) 0.1 Immature Gran # (Auto) 0.05 H Absolute Nucleated RBC 0.00 Immature Gran % 0 Nucleated RBC % 0 Sodium 140 Potassium 3.6 Chloride 99 Carbon Dioxide 26.2 Anion Gap 15 BUN 50 H Creatinine 2.0 H D Estim Creat Clear Calc 26.8 L eGFR 27 L BUN/Creatinine Ratio 25 H Glucose 147 H Calculated Osmolality 295 Calcium 9.2 Corrected Calcium 9.2 Total Bilirubin 1.1 AST 24 ALT 11 Alkaline Phosphatase 98 Total Protein 6.7 Albumin 4.2 Globulin 2.5 Albumin/Globulin Ratio 1.7 Chlam trachomat DNA PCR Negative N.gonorrhoeae DNA (PCR) Negative Trichomonas DNA Probe Negative ABG Interpretation ABG results: 08/13/24 13:36 ABG pH 7.40 ABG pCO2 40 ABG pO2 54 L* ABG HCO3 25 ABG O2 Saturation 86 L ABG Base Excess 0 Assessment & Plan Diagnosis (1) Septic arthritis: Status: Acute Assessment Additional comments: Patient is a 61-year-old female with septic knee arthritis who is status post irrigation debridement. She is doing well. She reports the pain is controlled. She will get a PICC and will be discharged once her small bowel obstruction resolves Documentation for date of: 08/18/24
[2024-08-18] MEDS: ENOXAPARIN SOD INJ 100 MG/ML SYRINGE SC (08:49)
[2024-08-18] MEDS: cefTRIAXone/D5w 2gm 2 GM/50 ML BAG IV (08:49)
[2024-08-18] MEDS: FAMOTIDINE INJ 10 MG/ML VIAL 2 ML IVP ×2 (08:49→20:41)
[2024-08-18] MEDS: SELEXIPAG 1600 MCG PO (11:44)
[2024-08-18] MEDS: TADALAFIL 20 MG PO (11:44)
--- NOTE | 2024-08-18 13:15 | ESPR_ITS ---
<Statement entered by Landon Billingsley MD - 08/18/24 18:06> Patient examined and case discussed with the team including attending physician. Note reviewed, I agree with the care plan as documented. Ms Ly is a 69-year-old female admitted for RT knee septic arthritis. Knee x-ray showed advanced tricompartmental osteoarthritis with effusion and venous duplex negative for DVT. Ultrasound shows effusion noted to be 7.4 x 1.4 x 6.4 cm, aspirated not sufficient for fluid analysis. Blood cultures initially positive for GPC, likely contaminant. MRI showed extensive medial and lateral meniscus tears. Full-thickness fissure defect medial patellar facet. Moderate attenuation anterior posterior cruciate ligaments. Severe thinning cartilage, medial joint space. F/u IR guided drainage of right knee effusion shows septic arthritis with elevated WBC count. Patient is also on Eliquis 5 Mg for DVT, concern for hematoma. Consulted orthopedics, status post washout with Dr. Ramsey on 08/15. Synovial fluid sterile but the patient has been treated with IV antibiotics. Post op Day 1 KUB: SBO. General surgery consulted, recommended NGT and f/u Gastrograffin XR small bowel series on 08/17. 08/18 : AZALEA worsening 1.2 ->2.1 likely dehydration given no oral intake + daily diuretics; No resolution of SBO w/ contrast. General surgery recommends surgical intervention, patient NPO overnight. Plan: Will HOLD Bumex given worsening AZALEA, 250cc maintenance IVF x1 bag given. S /p successful enterolysis and release of obstruction due to adhesions 08/18/2024. Will follow up with surgery recommendations. Anticipate DC in 24-48 hours. Please refer to the note below for further details. - Landon Billingsley MD, PGY 2 Disclaimer: The document may contain phonetic/typographic errors due to voice recognition software. These errors are purely due to imperfections in the software program. Documentation for date of: 08/18/24 Subjective Subjective Interval history: 08/18/2024: No acute overnight events to report. Patient seen and examined in hospital bed reporting improvement in right knee pain and denies having any abdominal pain at this time. Patient small bowel series confirms presence of small bowel obstruction; however, upon clinical presentation the patient is passing flatus. General surgery consultation believes this is a high-grade partial obstruction. Plan is to go forward with surgery as the patient is symptomatic with p.o. intake. NG tube still in on low intermittent suction. Patient has signs of AZALEA secondary to prerenal azotemia, dehydration; monitor, gentle IV fluid rehydration set up. Patient's blood cultures no growth within 24 hours; moreover, not require 48 hours of no growth for PICC line to be placed. Discharge planning pending on blood cultures and with postop assessment. Exam Vital Signs Temp Pulse Resp BP Pulse Ox O2 Del Method O2 Flow Rate 97.4 F 90 18 138/70 H 94 L Nasal Cannula 5 08/18/24 12:00 08/18/24 12:00 08/18/24 12:00 08/18/24 12:00 08/18/24 12:00 08/18/24 12:00 08/18/24 12:00 Narrative Exam Physical Exam: GENERAL: Awake, answering questions appropriately, appears stated age HEENT: Moist mucosa. Eyes open, symmetrical, & clear. NG tube in CARDIO: Heart RRR, no obvious murmurs PULM: No noted coughing/dyspnea CTA B/L, no R/W/R GI: Abdomen soft, nondistended, no pain on palpation. SKIN/MSK/EXT: Chronic venous stasis noted on bilateral lower extremities. Pedal pulses present B/L NEURO: AAOx3, no focal neuro deficits, able to move all 4 extremities Objective Labs 08/18/24 04:14 08/18/24 12:58 Labs: Laboratory Results - last 24 hr 08/18/24 04:14 WBC 11.8 H RBC 4.82 Hgb 12.1 Hct 38.0 MCV 79 L MCH 25.1 MCHC 31.8 RDW Std Deviation 45.8 Plt Count 306 Neut % (Auto) 81 H Lymph % (Auto) 6 L Toole % (Auto) 13 H Eos % (Auto) 0 Baso % (Auto) 0 Neut # (Auto) 9.5 H Lymph # (Auto) 0.7 L Toole # (Auto) 1.5 H Eos # (Auto) 0.0 Baso # (Auto) 0.1 Immature Gran # (Auto) 0.05 H Absolute Nucleated RBC 0.00 Immature Gran % 0 Nucleated RBC % 0 Sodium 140 Potassium 3.6 Chloride 99 Carbon Dioxide 26.2 Anion Gap 15 BUN 50 H Creatinine 2.0 H D Estim Creat Clear Calc 26.8 L eGFR 27 L BUN/Creatinine Ratio 25 H Glucose 147 H Calculated Osmolality 295 Calcium 9.2 Corrected Calcium 9.2 Total Bilirubin 1.1 AST 24 ALT 11 Alkaline Phosphatase 98 Total Protein 6.7 Albumin 4.2 Globulin 2.5 Albumin/Globulin Ratio 1.7 ABG Interpretation ABG results: 08/13/24 13:36 ABG pH 7.40 ABG pCO2 40 ABG pO2 54 L* ABG HCO3 25 ABG O2 Saturation 86 L ABG Base Excess 0 Quality Measures Quality Measures VTE prophylaxis Advance care planning discussed with:: patient Assessment & Plan Assessment Current Active Medications: Generic Name Dose Route Start Last Admin Trade Name Freq PRN Reason Stop Dose Admin Acetaminophen 650 mg 08/13/24 05:31 08/14/24 04:06 Acetaminophen 325 Mg Tablet PO 09/12/24 05:30 650 mg Q6H PRN Administration Temp>100.3 or mild pain 1-3 Hydrocodone Bitart/Acetaminophen 1 tab 08/14/24 09:59 Hydrocodone/Apap 5/325 Tablet PO 08/19/24 09:58 Q4HR PRN PAIN SCALE 4-6 (Moderate Albuterol/Ipratropium 3 ml 08/13/24 10:30 08/18/24 07:45 Albuterol/Ipratropium (Duoneb) Rt Shell 3 Ml Nebu INH 09/12/24 10:29 3 ml Q8HRRT KARLY Administration Bumetanide 1 mg 08/15/24 18:00 08/18/24 07:25 Bumetanide Inj 0.25 Mg/Ml Vial 4 Ml IVP 09/14/24 17:59 Not Given BIDD KARLY Tadalafil (Adcirca) 0 ea 08/13/24 12:00 08/18/24 11:44 20 Mg Once Daily PO 09/12/24 11:59 40 tablet DAILY KARLY Administration (Selexipag [Uptravi] 0 ea 08/13/24 12:15 08/18/24 11:44 1600 Mcg Tablet) PO 09/12/24 12:14 1 tablet BID KARLY Administration Enoxaparin Sodium 100 mg 08/17/24 11:00 08/18/24 08:49 Enoxaparin Sod Inj 100 Mg/Ml Syringe SC 08/31/24 10:59 100 mg BID KARLY Administration Famotidine 10 mg 08/16/24 17:00 08/18/24 08:49 Famotidine Inj 10 Mg/Ml Vial 2 Ml IVP 09/15/24 16:59 10 mg BID KARLY Administration Gabapentin 100 mg 08/13/24 09:00 08/18/24 08:18 Gabapentin 100 Mg Capsule PO 09/12/24 08:59 Not Given QDAY KARLY Ceftriaxone Sodium/Dextrose 2 gm in 50 mls @ 100 mls/hr 08/17/24 09:00 08/18/24 08:49 Rocephin/D5w 2gm IV 08/23/24 13:42 100 mls/hr QDAY KARLY Administration Lactulose 10 gm 08/15/24 03:45 08/18/24 08:18 Lactulose Syrup 20 Gm/30 Ml Udc PO 09/14/24 03:44 Not Given DAILY KARLY Protocol Levothyroxine Sodium 100 mcg 08/13/24 07:00 08/18/24 06:21 Levothyroxine Sodium 100 Mcg Tablet PO 09/12/24 06:59 Not Given ACBR KARLY Lidocaine 1 patch 08/14/24 09:57 08/16/24 12:44 Lidocaine 5% 1 Patch TOP 09/13/24 09:56 1 patch UD PRN Administration RT Knee pain Metoclopramide HCl 10 mg 08/16/24 10:35 08/16/24 11:57 Metoclopramide Inj 5 Mg/Ml Vial 2 Ml IVP 09/15/24 10:34 Not Given Q6HR [facility] Protocol Midodrine 10 mg 08/13/24 21:22 08/15/24 00:17 Midodrine 5 Mg Tablet PO 09/12/24 21:21 10 mg TID PRN Administration SBP <110 Morphine Sulfate 2 mg 08/14/24 09:59 08/18/24 00:59 Morphine Sulf Inj 10 Mg/Ml Vial IVP 08/19/24 09:58 2 mg Q4HR PRN Administration Pain 7-10 Ondansetron HCl 4 mg 08/13/24 05:31 08/17/24 23:50 Ondansetron Inj 2 Mg/Ml Inj 2 Ml IVP 09/12/24 05:30 4 mg Q6H PRN Administration NAUSEA OR VOMITING Protocol Polyethylene Glycol 17 gm 08/15/24 03:45 08/18/24 08:18 Polyethylene Glycol 17 Gm Packet PO 09/14/24 03:44 Not Given QDAY KARLY Ropinirole HCl 6 mg 08/13/24 21:00 08/17/24 21:06 Ropinirole Hcl 1 Mg Tablet PO 09/12/24 20:59 Not Given HS [facility] Sennosides 1 tab 08/14/24 11:30 08/18/24 08:18 Senna Tablet PO 09/13/24 11:29 Not Given QDAY [facility] Protocol Trazodone HCl 50 mg 08/13/24 21:00 08/17/24 21:06 Trazodone Hcl 50 Mg Tablet PO 09/12/24 20:59 Not Given HS KARLY Plan 69-year-old female with a past medical history of COPD on 4 L oxygen, severe pulmonary hypertension, hypothyroidism, atrial fibrillation, CHF, history of DVT, restless leg syndrome presented to the hospital with chief complaints of severe pain in the right knee since 1 day and admitted for pain management #Septic arthritis #Medial and lateral meniscus tears Presented to the hospital with chief complaints of severe right knee pain; denied trauma, fever, recent travel On physical examination, noted to have severe tenderness, erythema, localized rise of temperature around knee joint Elevated ESR and CRP, downtrending Knee x-ray showed advanced tricompartmental osteoarthritis with effusion Venous duplex negative for DVT In the ED, knee joint was aspirated but the fluid was not sufficient to do a synovial fluid analysis 1st synovial fluid sample showed no organisms Blood cultures were positive for GPC, likely contaminant but we will resend blood cultures MRI of the knee shows Extensive medial and lateral meniscus tears. Full- thickness fissure defect medial patellar facet. Moderate attenuation anterior posterior cruciate ligaments. Severe thinning cartilage medial joint space Ultrasound extremity shows effusion noted to be 7.4 x 1.4 x 6.4 cm Repeat IR guided drainage of right knee effusion shows septic arthritis with elevated WBC count Status post washout with Dr. Ramsey, orthopedic surgery Synovial fluid showed no organisms but the patient has been treated with IV antibiotics Plan: Infectious disease consulted, appreciate recommendations Continue Ceftriaxone 2g IV Patient will require PICC line placement once blood cultures are negative Multimodal pain management Orthopedics consulted, appreciate recommendations Follow-up on repeat blood cultures #High-grade partial SBO Patient has been having nausea/vomiting Patient is passing flatus all throughout admission but has not had a BM yet, low likelihood for SBO On multimodal pain management include opioid medications which can attribute to ileus NGT in with ~1100cc of residuls removed KUB shows possible SBO but less likely clinically as stated above Patient has extensive residuals noted from container Small bowel series initiated shows SBO Plan: General Surgery, Dr. Duque, consulted appreciate recommendations Patient tentatively scheduled for surgery on 08/18 #AZALEA Likely prerenal azotemia secondary to no p.o. intake for 2 days secondary to nonresolving high-grade partial SBO Patient's creatinine up trended from 1.0-1.2-1.5-2.0 now up to 2.1 Plan: Started 75 cc an hour of 500 cc normal saline (1 bag) Repeat renal panel at 2100 Avoid nephrotoxic agents Renally dose medications when appropriate Held diuretics #COPD on 4 L oxygen #Severe pulmonary hypertension #CHF Patient reported that she is using 4 L oxygen at home Home medication reconciliation completed Patient is using Bipap HS at home ECHO 08/11 showed: Normal LV size and function. Flattened septal due to RV pressure and volume overload. Moderate RV dialted. Mild RV dysfunction. Estiamted RVSP 102mmHg. suggestive of severe pulmonary hypertension Moderate RA dilatation. Moderate to severe TR with posterior eccentric jet. Trace MR, PI. IVC dilated.There minimal posterior pericardial effusion. No evidence of cardiac tamponade. Plan: Continue supplemental oxygenation BiPAP at bedtime Midodrine added to make room for diuretics Holding diuretics Patient's tadalafil 40 mg p.o. daily and Uptravi 600 mcg p.o. twice daily for PAH on board #Hypothyroidism Patient is using 100 mcg levothyroxine at home Plan: Continue home levothyroxine #History of unprovoked DVT/A-fib Patient is on Eliquis 5 Mg p.o. twice daily Bilateral venous Doppler did not show any evidence of DVT Plan: Per orthopedic surgery, can continue anticoagulation Since the patient is n.p.o. we will switch Eliquis to therapeutic Lovenox Will hold Lovenox in anticipation of surgery #Iron deficiency anemia Patient presenting with hemoglobin 10.1 with MCV 81 Differentials include iron deficiency anemia, anemia of chronic disease, vitamin deficiency and less likely to be myelosuppression, hematologic malignancy or hemolysis Past iron panel from June 2024 shows iron deficiency anemia Plan: Replete iron stores Follow-up outpatient with PCP Hospital Maintenance: Dispo: Pending negative blood cultures for PICC line placement, surgery for high-grade partial SBO DVT prophylaxis: Lovenox therapeutic dose initiated GI prophylaxis: Not needed Diet: N.p.o. small bowel series Bowel: Not needed Lines: PIV, NG tube Code: Full Patient seen and assessed with attending Dr. Cleary and senior resident Dr. Jose Cruz Lujan, PGY-1 Attending Provider Attestation/Addendum I attest that I was physically present for the evaluation, physical examination, lab and imaging review of the patient with the residents. I discussed the case with the residents and agree with the findings and plans of care as documented above. At bedside today, patient states her knee pain has been improving. She denies any abdominal pain but has significant drainage from her NG tube and continues to have significant abdominal distention on exam. Patient is also passing gas but states that the amount has decreased. Underwent Gastrografin small bowel series. Shows incomplete SBO. Discussed with general surgery, patient is planned for exploratory laparotomy. Patient also noted to have worsening kidney function with BUN/creatinine of 50/2.0 today, likely secondary to decreased fluid intake, SBO with NG suctioning. We will hold her Bumex, start her on careful gentle IV hydration as patient has severe pulmonary hypertension. Blood culture from 08/16/2024 growing GPC from 1 bottle. Cultures from yesterday have been negative for 24 hours. We will plan for PICC line placement if cultures are negative more than 48 hours. Patient will also need home health for IV antibiotics. General surgery, orthopedics, infectious disease and cardiology on board, appreciate recommendations. Tex Cleary MD
[2024-08-18 13:28] LABS: Albumin, Serum 4.2 gm/dL (3.4-4.8); Anion Gap 16 (7-16); BUN/Creatinine Ratio 27 Ratio (12-20); Blood Urea Nitrogen 56 mg/dL (9-23); Calcium 9.1 mg/dL (8.3-10.6); Calcium (Corrected) 9.1 mg/dL (8.5-10.1); Carbon Dioxide 26.3 mMol/L (20.0-31.0); Chloride 98 mMol/L (98-107); Creatinine (Component) 2.1 mg/dL (0.6-1.3); Estimated Creatinine Clearance 25.6 mL/min (>60); Glucose 126 mg/dL (74-106); Osmolality,Calculated 296 (275-295); Phosphorous 3.9 mg/dL (2.4-5.1); Potassium 3.8 mMol/L (3.4-5.1); Sodium 140 mMol/L (136-145); eGFR 25 See Note
[2024-08-18] MEDS: SODIUM CHLORIDE 0.9% 1000 ML 500 ML 75 ML IV (14:07)
--- NOTE | 2024-08-18 14:59 | ESPR_ITS ---
Documentation for date of: 08/18/24 Subjective Subjective Brief History: History of present illness revealed that the patient was admitted to the hospital few days ago because of the septic arthritis. Patient underwent arthroscopic drainage and washout of the knee. Patient has developed some abdominal distention during the postoperativeperiod. She does not have any pain but she told me that she always have a large abdomen. Patient gives history of open cholecystectomy back in 70s with right paramedian incision. Her last bowel movement was about 4 days ago but she is passing flatus. Patient does not have a history of any chronic abdominal pain or distention Narrative: The patient was seen today because she was still complaining of abdominal distention even though there is no pain. She felt very bloated because the NG tube was clamped. She might have passed a small amount of gas Exam Vital Signs Temp Pulse Resp BP Pulse Ox O2 Del Method O2 Flow Rate 97.4 F 80 18 138/70 H 90 L Nasal Cannula 5 08/18/24 12:00 08/18/24 14:35 08/18/24 14:35 08/18/24 12:00 08/18/24 14:35 08/18/24 12:00 08/18/24 14:35 Vital signs are normal Routine Abdominal Exam Comments: Abdominal examination shows persistent distention with the lack of bowel sounds Results Results: Laboratory Laboratory Narrative: Laboratory results show slightly increased WBC Results: Imaging Imaging narrative: Small bowel series failed to show complete resolution of small bowel distention. There may be some amount of Gastrografin entering into the colon but not adequate to correlate negative study. Assessment & Plan Assessment Additional comments: Impression: High-grade mechanical small bowel obstruction Plan Plan: I advised the patient to undergo exploratory laparotomy because of persistent distention and bowel obstruction on the x-ray. She was told that she is a high risk because of her underlying pulmonary hypertension but because of the emergency we have to take this risk. Risk of not operating well be continued swelling of the bowel and even ischemia. Patient and the were explained of this risk and they were advised for the expiration. The risk of the procedure includes wound infection hernia over the incision and intra- abdominal abscess etc. They agree. Procedures Procedures Right knee arthroscopic irrigation debridement
[2024-08-18 16:15] LABS: Magnesium 2.3 mg/dL (1.6-2.6)
--- NOTE | 2024-08-18 16:55 | PD.RESCONSUL ---
HPI Data of Consult Requesting Physician: Roque Ramsey MD Admitting Provider: Cheko Ellis MD Attending Provider: Roque Ramsey MD Primary Care Provider: Quan Stephen MD Consult Narrative Reason for consult: Aspiration event History of present illness: Patient is a 69-year-old female with past medical history of COPD on 4 L of home oxygen and BiPAP at night, severe pulmonary hypertension, hypothyroidism, atrial fibrillation, CHF, history of DVT, restless leg syndrome who initially presented on 08/13/2024 due to chief complaint of right knee pain for 1 day prior to admission. Patient was initially admitted for osteoarthritis of the knee as well as intractable nausea and vomiting. During her stay patient had UI DEVELOPER DESIGNER called due to persistent nausea and vomiting episodes despite antiemetics and pain control. Orthopedic performed arthroscopic irrigation and debridement of the right knee successfully on 08/15/2024. Synovial fluid obtained did not grow any organisms. Patient's hospital procedure thus far has been complicated by GPC bacteremia growing Streptococcus mitis in 1 out of the 2 bottles on 08/08/2024 and repeat 1 out of 2 growth on 08/14/2024. Repeat culture on 08/16/2024 continues to grow GPC in the aerobic bottle x 1 preliminarily. Blood cultures drawn yesterday 08/17/24 have been negative for 24 hours. Echocardiogram was performed on 08/15/2024 and was read as Estimated EF 55-60 %. IVS flattened in systole and diastole consisitent with right ventricular pressure and volume overload. The RV size is moderately increased with normal systolic function. The estimated RVSP, 106 mmHg. RAP 5. RA cavity size is severely increased. Mild MR. Mild & Moderate TR. Due to concerns of small bowel obstruction patient underwent small bowel series which showed high-grade mechanical obstruction and general surgery was consulted who did surgery today 08/18/2024. 08/18/2024 Patient was taken to the OR today around 1415 and was being prepared for anesthesia. Patient was initially in a saturation of 92% which is around what she was satting on 5 L nasal cannula on the floor. Of note patient has been satting in the low 90s on anywhere between 5 to 10 L of oxygen switching between oxime mask and nasal cannula during her stay thus far. Soon after intubation patient's status saturations dropped to the 70s on the 100% FiO2 after which breathing treatments was administered as well as 100 mg IV of hydrocortisone and patient was subsequently brought up to about 84 to 85% saturation. We do not have the medications that may be available for patients with severe pulmonary hypertension but as this was an emergency ex lap the procedure continued. Patient underwent ex lap which lasted about an hour. Given patient's severe conditions despite maximal ventilator support she was brought over to the ICU for further management where she arrived around 1730. Once patient arrived to the ICU she was hooked up to the ventilator and her saturations remain around 79-80% on 100% FiO2. Patient was tachycardic in the 130s and she was paralyzed with rocuronium as we attempted to better manage her respiratory system. Bedside ultrasound of her heart showed hyperdynamic heart which was poorly visualized however I did not see any obvious tamponade or effusions. We sedated the patient with propofol and fentanyl. A right femoral A-line was attempted however failed as had trouble with the wire coiling and proceeded to perform a right IJ central line instead for pressor support. We started patient on epinephrine and dobutamine as we attempted recruitment measures. Patient also received a dose of 1 mg of nitroglycerin nebulized for about 5 minutes with RT however patient remained saturating in the 70s. Family was made aware of patient's critical condition and around 2015 hrs. and handed over care to my colleague, Dr. Grimm, for the night. cc:: cc: Roque Ramsey MD Review of Systems Review of Systems ROS Unobtainable: due to endotracheal tube Exam Vital Signs Temp Pulse Resp BP Pulse Ox O2 Del Method O2 Flow Rate 97.4 F 80 18 138/70 H 90 L Nasal Cannula 5 08/18/24 12:00 08/18/24 14:35 08/18/24 14:35 08/18/24 12:00 08/18/24 14:35 08/18/24 12:00 08/18/24 14:35 Narrative Exam Constitutional: obese female that is intubated Head: Normocephalic/Atraumatic Eyes: Symmetrical lids and pupils are equal and reactive to light sluggishly with about 4 mm in pupil size bilaterally ENMT: Dry mucous Membranes, No trauma or injury. Neck: Supple to palpation, JVD was visible. Right IJ in place CVS: RRR, S1 and S2 present, no murmurs, rubs or gallops . RESP: CTAB, no SOB, no rales, rhonchi or wheezing. No respiratory Distress GI: Large and distended but soft. With decreased bowel sounds MSK: No obvious deformities. Skin: Warm to touch, Dry. There is various bruising's and hematomas from IV access in the upper extremities. There is mottling of the feet. Neuro: Deferred as patient is paralyzed and sedated Results Labs 08/19/24 04:47 08/19/24 04:47 Labs: Short CBC 08/18/24 Range/Units 04:14 WBC 11.8 H (3.6-11.0) Thou/mm3 Hgb 12.1 (12.0-16.0) g/dL Hct 38.0 (36.0-46.0) % Plt Count 306 (140-440) Thou/mm3 BMP 08/18/24 08/18/24 04:14 12:58 Sodium 140 140 Potassium 3.6 3.8 Chloride 99 98 Carbon Dioxide 26.2 26.3 BUN 50 H 56 H Creatinine 2.0 H D 2.1 H Glucose 147 H 126 H Calcium 9.2 9.1 Liver Function 08/18/24 08/18/24 Range/Units 04:14 12:58 Total Bilirubin 1.1 (0.3-1.2) mg/dL AST 24 (0-34) U/L ALT 11 (10-49) U/L Alkaline Phosphatase 98 (46-116) U/L Albumin 4.2 4.2 (3.4-4.8) gm/dL ABG Interpretation ABG results: 08/13/24 13:36 ABG pH 7.40 ABG pCO2 40 ABG pO2 54 L* ABG HCO3 25 ABG O2 Saturation 86 L ABG Base Excess 0 Quality Measures Quality Measures VTE prophylaxis Advance care planning discussed with:: spouse Medications Home Medications and Allergies Home Medications ?Medication ?Instructions ?Recorded ?Confirmed ?Type spironolactone 50 mg tablet 50 mg PO QDAY 11/26/17 08/13/24 History Held on 07/20/24. Instructions: Hold until you see your PCP due to concern for low blood pressure ambrisentan 10 mg tablet (Letairis) 10 mg PO HS 05/10/19 08/13/24 History pantoprazole 40 mg tablet,delayed 40 mg PO QDAY 12/05/19 08/13/24 History release ropinirole 3 mg tablet 6 mg PO HS 12/05/19 08/13/24 History trazodone 50 mg tablet 50 mg PO HS 12/05/19 08/13/24 History tadalafil (pulm. hypertension) 20 40 mg PO QDAY 01/25/20 08/13/24 History mg tablet (pulmonary hypertension) (Adcirca) potassium chloride 10 mEq 10 meq PO BID 05/13/20 08/13/24 History capsule,extended release gabapentin 100 mg capsule 100 mg PO QDAY 01/09/22 08/13/24 History levothyroxine 100 mcg tablet 100 mcg PO QDAY 01/09/22 08/13/24 History (Euthyrox) selexipag 200 mcg tablet (Uptravi) 1,600 mcg PO BID 08/13/23 08/13/24 History fluticasone fur. 100 mcg-umeclid 1 inh inhalation Q24H 07/15/24 08/13/24 History 62.5 mcg-vilant 25 mcg inhalat.powder (Trelegy Ellipta) midodrine 10 mg tablet 10 mg PO TID PRN SBP 07/15/24 08/13/24 History Allergies Allergy/AdvReac Type Severity Reaction Status Date / Time erythromycin base Allergy Severe SWELLING Verified 08/12/23 07:45 Visit Medications Acetaminophen (Acetaminophen 325 Mg Tablet) 650 mg PO Q6H PRN PRN Reason: Temp>100.3 or mild pain 1-3 Stop: 09/12/24 05:30 Last Admin: 08/14/24 04:06 Dose: 650 mg Hydrocodone Bitart/Acetaminophen (Hydrocodone/Apap 5/325 Tablet) 1 tab PO Q4HR PRN PRN Reason: PAIN SCALE 4-6 (Moderate Stop: 08/19/24 09:58 Albuterol/Ipratropium (Albuterol/Ipratropium (Duoneb) Rt Shell 3 Ml Nebu) 3 ml INH Q8HRRT [facility] Stop: 09/12/24 10:29 Last Admin: 08/18/24 14:35 Dose: 3 ml Bumetanide (Bumetanide Inj 0.25 Mg/Ml Vial 4 Ml) 1 mg IVP BIDD KARLY Stop: 09/14/24 17:59 Last Admin: 08/18/24 07:25 Dose: Not Given Tadalafil (Adcirca) (20 Mg Once Daily) 0 ea PO DAILY [facility] Stop: 09/12/24 11:59 Last Admin: 08/18/24 11:44 Dose: 40 tablet (Selexipag [Uptravi] (1600 Mcg Tablet)) 0 ea PO BID KARLY Stop: 09/12/24 12:14 Last Admin: 08/18/24 11:44 Dose: 1 tablet Enoxaparin Sodium (Enoxaparin Sod Inj 100 Mg/Ml Syringe) 100 mg SC BID [facility] Stop: 08/31/24 10:59 Last Admin: 08/18/24 08:49 Dose: 100 mg Famotidine (Famotidine Inj 10 Mg/Ml Vial 2 Ml) 10 mg IVP BID [facility] Stop: 09/15/24 16:59 Last Admin: 08/18/24 08:49 Dose: 10 mg Gabapentin (Gabapentin 100 Mg Capsule) 100 mg PO QDAY [facility] Stop: 09/12/24 08:59 Last Admin: 08/18/24 08:18 Dose: Not Given Ceftriaxone Sodium/Dextrose (Rocephin/D5w 2gm) 2 gm in 50 mls @ 100 mls/hr IV QDAY [facility] Stop: 08/23/24 13:42 Last Admin: 08/18/24 08:49 Dose: 100 mls/hr Sodium Chloride (Ns) 500 mls @ 75 mls/hr IV .Q6H40M ONE Stop: 08/18/24 20:32 Last Admin: 08/18/24 14:07 Dose: 75 mls/hr Magnesium Sulfate (Magnesium Sulfate Ivpb) 2 gm in 50 mls @ 25 mls/hr IV X1 ONE Stop: 08/18/24 17:46 Lactulose (Lactulose Syrup 20 Gm/30 Ml Udc) 10 gm PO DAILY [facility]; Protocol Stop: 09/14/24 03:44 Last Admin: 08/18/24 08:18 Dose: Not Given Levothyroxine Sodium (Levothyroxine Sodium 100 Mcg Tablet) 100 mcg PO ACBR KARLY Stop: 09/12/24 06:59 Last Admin: 08/18/24 06:21 Dose: Not Given Lidocaine (Lidocaine 5% 1 Patch) 1 patch TOP UD PRN PRN Reason: RT Knee pain Stop: 09/13/24 09:56 Last Admin: 08/16/24 12:44 Dose: 1 patch Metoclopramide HCl (Metoclopramide Inj 5 Mg/Ml Vial 2 Ml) 10 mg IVP Q6HR [facility]AR[facility]; Protocol Stop: 09/15/24 10:34 Last Admin: 08/16/24 11:57 Dose: Not Given Midodrine (Midodrine 5 Mg Tablet) 10 mg PO TID PRN PRN Reason: SBP <110 Stop: 09/12/24 21:21 Last Admin: 08/15/24 00:17 Dose: 10 mg Morphine Sulfate (Morphine Sulf Inj 10 Mg/Ml Vial) 2 mg IVP Q4HR PRN PRN Reason: Pain 7-10 Stop: 08/19/24 09:58 Last Admin: 08/18/24 00:59 Dose: 2 mg Ondansetron HCl (Ondansetron Inj 2 Mg/Ml Inj 2 Ml) 4 mg IVP Q6H PRN; Protocol PRN Reason: NAUSEA OR VOMITING Stop: 09/12/24 05:30 Last Admin: 08/17/24 23:50 Dose: 4 mg Polyethylene Glycol (Polyethylene Glycol 17 Gm Packet) 17 gm PO QDAY [facility] Stop: 09/14/24 03:44 Last Admin: 08/18/24 08:18 Dose: Not Given Ropinirole HCl (Ropinirole Hcl 1 Mg Tablet) 6 mg PO [facility] Stop: 09/12/24 20:59 Last Admin: 08/17/24 21:06 Dose: Not Given Sennosides (Senna Tablet) 1 tab PO QDAY [facility]; Protocol Stop: 09/13/24 11:29 Last Admin: 08/18/24 08:18 Dose: Not Given Trazodone HCl (Trazodone Hcl 50 Mg Tablet) 50 mg PO [facility] Stop: 09/12/24 20:59 Last Admin: 08/17/24 21:06 Dose: Not Given Discontinued Medications Hydrocodone Bitart/Acetaminophen (Hydrocodone/Apap 5/325 Tablet) 1 tab PO Q6HR PRN PRN Reason: Pain Scale 6-10 Stop: 08/18/24 05:30 Last Admin: 08/14/24 08:09 Dose: 1 tab Apixaban (Apixaban 2.5 Mg Tablet) 5 mg PO BID [facility] Stop: 09/03/24 08:59 Last Admin: 08/13/24 10:21 Dose: 5 mg Apixaban (Apixaban 2.5 Mg Tablet) 5 mg PO BID [facility] Stop: 09/06/24 08:59 Last Admin: 08/17/24 10:01 Dose: Not Given Apixaban (Apixaban 2.5 Mg Tablet) 5 mg PO X1 ONE Stop: 08/16/24 14:01 Last Admin: 08/16/24 14:44 Dose: 5 mg Bumetanide (Bumetanide 0.5 Mg Tablet) 1 mg PO BID [facility] Stop: 09/12/24 08:59 Last Admin: 08/15/24 08:00 Dose: 1 mg Tadalafil (Adcirca) (40 Mg Once Daily) 0 ea PO DAILY [facility] Stop: 09/12/24 11:59 Last Admin: 08/18/24 07:41 Dose: Not Given (Selexipag [Uptravi] (200 Mcg Tablet)) 0 ea PO BID [facility] Stop: 09/12/24 11:59 Last Admin: 08/18/24 07:41 Dose: Not Given Tadalafil (Adcirca) (20 Mg Once Daily) 0 ea PO X1 ONE Stop: 08/16/24 14:01 Last Admin: 08/16/24 14:49 Dose: 2 tablet (Selexipag [Uptravi] (1600 Mcg Tablet)) 0 ea PO X1 ONE Stop: 08/16/24 14:01 Last Admin: 08/16/24 14:50 Dose: 1 tablet Fentanyl Citrate (Fentanyl Cit Inj 50 Mcg/Ml Amp 2ml) 25 mcg IVP Q5M PRN PRN Reason: PAIN SCALE 1-3 (mild Stop: 08/15/24 18:13 Gabapentin (Gabapentin 100 Mg Capsule) 100 mg PO X1 ONE Stop: 08/16/24 14:01 Last Admin: 08/16/24 14:44 Dose: 100 mg Heparin Sodium (Porcine) (Heparin Sod Inj 5000 Unit/Ml Vial) 5,000 unit SC BID [facility] Stop: 08/27/24 08:59 Hydromorphone HCl (Hydromorphone Inj 2 Mg/Ml Vial) 0.4 mg IVP Q5M PRN PRN Reason: PAIN SCALE 7-10 (Severe Stop: 08/15/24 18:14 Vancomycin HCl 1,000 mg/ (Sodium Chloride) 250 mls @ 150 mls/hr IV X1 ONE Stop: 08/13/24 04:46 Last Infusion: 08/13/24 05:33 Dose: Infused Piperacillin/Tazobactam/Dextrose (Zosyn) 3.375 gm in 50 mls @ 100 mls/hr IV X1 ONE Stop: 08/13/24 04:15 Last Infusion: 08/13/24 06:07 Dose: Infused Sodium Chloride (Ns) 500 mls @ 999 mls/hr IV .Q31M ONE Stop: 08/13/24 05:19 Last Infusion: 08/13/24 05:34 Dose: Infused Vancomycin/Sodium Chloride (Vancomycin/Ns 750 Mg Ivpb) 750 mg in 150 mls @ 120 mls/hr IV X1 ONE Stop: 08/13/24 14:59 Last Admin: 08/13/24 15:24 Dose: 120 mls/hr Vancomycin HCl (Vancomycin/Water 1250 Mg Ivpb) 250 mls @ 120 mls/hr IV Q24H [facility] Stop: 08/21/24 09:59 Last Admin: 08/16/24 10:18 Dose: 120 mls/hr Ceftriaxone Sodium 2 gm/ (Sodium Chloride) 50 mls @ 100 mls/hr IV QDAY [facility] Stop: 08/23/24 13:42 Last Admin: 08/16/24 14:43 Dose: 100 mls/hr Potassium Chloride (Kcl Ivpb) 10 meq in 100 mls @ 50 mls/hr IV Q1H [facility] Stop: 08/16/24 21:14 Last Admin: 08/17/24 00:38 Dose: 50 mls/hr Lactulose (Lactulose Syrup 20 Gm/30 Ml Udc) 10 gm PO X1 ONE; Protocol Stop: 08/16/24 15:01 Last Admin: 08/16/24 14:51 Dose: 10 gm Lorazepam (Lorazepam 0.5 Mg Tablet) 0.5 mg PO X1 PRN PRN Reason: Anxiety before MRI Stop: 08/16/24 11:23 Morphine Sulfate (Morphine Sulf Inj 10 Mg/Ml Vial) 4 mg IVP X1 ONE Stop: 08/13/24 03:05 Last Admin: 08/13/24 03:26 Dose: 4 mg Morphine Sulfate (Morphine Sulf Inj 10 Mg/Ml Vial) 3 mg IVP Q5M PRN PRN Reason: PAIN SCALE 4-6 (Moderate Stop: 08/15/24 18:14 Mupirocin (Mupirocin Oint 2% 15 Gm Tube) 2 gm TOP QID [facility]ARLY Stop: 08/23/24 08:29 Last Admin: 08/16/24 10:25 Dose: 1 applicatio Non-Formulary Medication (Midodrine) 10 mg PO TID PRN PRN Reason: SBP Ondansetron HCl (Ondansetron Inj 2 Mg/Ml Inj 2 Ml) 4 mg IVP X1 ONE; Protocol Stop: 08/13/24 03:08 Last Admin: 08/13/24 03:26 Dose: 4 mg Ondansetron HCl (Ondansetron Inj 2 Mg/Ml Inj 2 Ml) 4 mg IVP X1 ONE Stop: 08/15/24 16:14 Last Admin: 08/18/24 07:37 Dose: Not Given Pantoprazole Sodium (Pantoprazole 40 Mg Tablet) 40 mg PO QDAY [facility] Stop: 09/12/24 08:59 Last Admin: 08/14/24 08:16 Dose: 40 mg Pantoprazole Sodium (Pantoprazole 40 Mg Tablet) 40 mg PO QDAY [facility] Stop: 09/14/24 11:59 Last Admin: 08/18/24 07:41 Dose: Not Given Pantoprazole Sodium (Pantoprazole Inj 40 Mg Vial) 40 mg IVP X1 ONE Stop: 08/15/24 12:13 Last Admin: 08/15/24 12:18 Dose: 40 mg (Selexipag [Uptravi] (200 Mcg Tablet)) 8 ea PO BID [facility] Stop: 09/12/24 08:59 Last Admin: 08/13/24 12:39 Dose: Not Given Pharmacy Consult (Vancomycin Pharmacy To Dose 1 Each Each) 1 each IV QDAY PRN PRN Reason: PROTOCOL Stop: 09/12/24 13:29 Polyethylene Glycol (Polyethylene Glycol 17 Gm Packet) 17 gm PO X1 ONE Stop: 08/14/24 11:24 Last Admin: 08/14/24 12:09 Dose: 17 gm Polyethylene Glycol (Polyethylene Glycol 17 Gm Packet) 17 gm PO X1 ONE Stop: 08/16/24 15:01 Last Admin: 08/16/24 14:51 Dose: 17 gm Scopolamine (Scopolamine 1 Mg Tdsy) 1 mg TOP X1 ONE Stop: 08/15/24 05:25 Last Admin: 08/15/24 05:47 Dose: 1 mg Sennosides (Senna Tablet) 1 tab PO X1 ONE; Protocol Stop: 08/16/24 15:01 Last Admin: 08/16/24 14:51 Dose: 1 tab Simethicone (Simethicone 80 Mg Chew) 80 mg PO X1 ONE Stop: 08/15/24 03:41 Last Admin: 08/15/24 04:26 Dose: 80 mg Assessment & Plan Plan 69-year-old female with past medical history of COPD on 4 L of home oxygen and BiPAP at night, severe pulmonary hypertension, hypothyroidism, atrial fibrillation, CHF, history of DVT, restless leg syndrome admitted to ICU for further management of her acute on chronic hypoxic and hypercapnic respiratory failure secondary to severe pulmonary hypertension Neuro Acute encephalopathy Sedated and mechanically ventilated Patient was paralyzed for ventilator compliance to compensate for her severe respiratory failure CVS Shock Suspecting likely obstructive vs cardiogenic with a component of distributive from sepsis Patient has severe pulmonary arterial hypertension with a right ventricular systolic pressure of 106 on last echocardiogram Feet are mottled. Patient started on dobutamine and epinephrine Will attempt to titrate down on the epinephrine as we titrate up on the dobutamine using SVO 2 Tachycardia Likely reactive compensated for severe pulmonary hypertension and decreased left-sided preload Will continue to optimize drips as tolerated HFpEF Patient's most recent echo revealed Estimated EF 55-60 %. IVS flattened in systole and diastole consisitent with right ventricular pressure and volume overload. The RV size is moderately increased with normal systolic function. The estimated RVSP, 106 mmHg. RAP 5. RA cavity size is severely increased. Mild MR. Mild & Moderate TR. Will continue to adjust medications Resp Acute on chronic hypoxic respiratory failure Secondary to pulmonary arterial hypertension from chronic COPD Patient's right ventricular systolic pressure is 106 Patient is currently ventilated and paralyzed Nebulized nitroglycerin treatment given without any improvement Will reassess every 3 hours Frequent VBG's and ABGs Will repeat ABGs frequently and adjust ventilator settings as tolerated given her severe pulmonary arterial hypertension Unfortunately we do not have any medications that can be infused for treatment of severe pulmonary hypertension History of COPD on 4 L O2 nasal cannula Continue DuoNebs as needed Patient received hydrocortisone 100 mg IV push during surgery GI SBO status post ex lap, postop day 0 Patient underwent ex lap today for relief of high-grade obstruction from adhesions. Surgery was successful and wound is dressed with no discharge or erythema Patient has an NG tube and collected about 800 cc of dark fluid Will continue NG tube and low intermittent suction and continue to monitor patient closely General Surgery is on board GI prophylaxis is protonix Renal AZALEA Likely prerenal from decreased volume status and worsening shock Patient was on Bumex during most of her stay and her creatinine jumped from 1.0 to 2.1 Will continue to optimize patient's fluid status Avoid nephrotoxic medication If renal function continues to worsen will have to consult nephrology for possible dialysis Endocrine Hypothyroidism Continues patient's home levothyroxine 100 mcg p.o. ACB ER ID/Skin Septic shock secondary to Streptococcus mitis GPC bacteremia growing Streptococcus mitis in 1 out of the 2 bottles on 08/08/2024 and repeat 1 out of 2 growth on 08/14/2024. Repeat culture on 08/16/2024 continues to grow GPC in the aerobic bottle x 1 preliminarily. Blood cultures drawn yesterday 08/17/24 have been negative for 24 hours. Patient currently on ceftriaxone MRSA nares + ID on board Septic arthritis Right knee aspiration revealed 54K WBC and 7000 RBC Micro did not grow any bacteria thus far however patient does have bacteremia with streptococcus mitis Hematology History of DVT unprovoked Patient was on home Eliquis and was transitioned to Lovenox 100 mg subcu twice daily during this stay Lovenox has been held for surgery Given her critical satus, will hold off on chemical prophylaxis and use SCDs Hospital Maintenance: FEN: N.p.o., Drips: Epinephrine, dobutamine DVT PPx: None, SCDs GI PPx: Famotidine IV lines: 3 peripheral IVs NRB right IJ central line Levy: In Code Status: Full code Dispo: Patient will remain in ICU for further management of her acute on chronic respiratory failure and severe pulmonary arterial hypertension. Prognosis is guarded I discussed patient's care with metal washing machine operator, Dr Jamal Padilla MD, PGY3
--- NOTE | 2024-08-18 17:20 | PC.NURSE ---
Called report to Piotr VILLEGAS. Pt currently in Surgery with transfer orders to ICU. All questions answered. Belongings transferred to room, pt home meds delivered to patient specific bin in ICU. Bed 254.
--- NOTE | 2024-08-18 17:24 | ESOP_ITS ---
Date of Procedure 08/18/24 Pre Op Diagnosis Small bowel obstruction Post Op Diagnosis Same and proximal ileal Procedure Enterolysis and release of obstruction Findings Patient was found to have significant dilatation of the proximal small bowel but the distal small bowel was normal and collapsed. Patient had adhesions in the mid area which was released and obstruction was relieved Procedure Description After the patient was brought to the operating room endotracheal anesthesia was given. There was a concern about whether she aspirated because her O2 saturation was very low. Then after bronchodilator treatment patient's O2 saturation reached 80s. Anesthesiologist felt the we could proceed with surgery and decompress the distended abdomen which would help her oxygenation. The abdomen was prepped with ChloraPrep solution and draped in a sterile manner. Timeout was performed. I made incision starting just above the umbilicus and down to the few inches below the umbilicus. Abdominal cavity was entered and patient was found to have normal distal small bowel with no dilatation. Upon extending the incision further up I was able to see the distended small bowel which was traced all the way down to the normal small bowel. Loop of bowel was stuck underneath the adhesion which is almost like an internal herniation. This was released and the omental adhesions were clamped with Vilma clamp and divided tied with 2-0 chromic. Then I ran the small bowel from ligament of Treitz all the way down to the ileocecal junction. The proximal distended bowel was milked down into the small bowel that was normal. I also found out omentum being attached to the pelvis as well as on the left lower quadrant. I divided the omentum from these adhesions to make sure it will not cause a compartment like obstruction. Then extensive irrigation was carried out with a warm saline the wound was closed with continuous 0 PDS taking half a centimeter bite in the fascia half a centimeter away from each suture. At the end the wound was irrigated and subcutaneous was closed with 3-0 plain. Then injected half percent Marcaine all over the incision the skin was closed with servando. Dressing was applied with Adaptic along 4 x 4 dressing. Patient tolerated procedure and left to ICU intubated because of the respiratory problem Anesthesia GETA Pathology / specimen None IVF Infused 700 Estimated Blood Loss 100 Condition Stable Disposition ICU Surgeon Brissa Hanna MD Surgical Staff Operation Date: 08/18/24 16:15 Case Staff Anesthesiologist: Meredith,Too A Anesthesiologist: Marcel Weiss RNmash processing operator: Olive Cuevas
--- NOTE | 2024-08-18 17:42 | XR_ITS ---
Examination: AP chest single view TECHNIQUE: AP portable semiupright chest single view Date and time: 12/19/2024 1757 hours INDICATIONS: Hypoxic respiratory failure FINDINGS: Comparison August 15, 2024 Bibasilar pneumonia consider aspiration pneumonia, at least mild pleural effusions Mild heart failure with enlarged left ventricle and prominent vascular congestion. Endotracheal tube tip 3.6 cm above Paz The orogastric tube is in the stomach in satisfactory position IMPRESSION: Mild heart failure. Bibasilar pneumonia, consider aspiration pneumonia
[2024-08-18] MEDS: fentaNYL 2,500 MCG/250 ML BAG 2,500 MCG/250 ML BAG 7.5 MCG IV (18:00)
[2024-08-18] MEDS: PROPOFOL 1,000 MG IVPB 1,000 MG/100 ML VIAL 11.172 MG IV (18:00)
[2024-08-18 18:08] LABS: Lactate (Lactic Acid) 1.9 mMol/L (0.4-2.0)
--- NOTE | 2024-08-18 18:09 | ESPR_ITS ---
Documentation for date of: 08/18/24 ANESTHESIA NOTE: This patient had GETA for ex lap for bowel obstruction. Her case was started and completed mostly by my colleague anesthesiologist and I took over, being on- call, towards the end of surgery. Initially, I got called by the primary anesthesiologist intra-op due to hypoxia. On my arrival, patient was intubated with 6.5 ETT, on vent, O2 sat 75% on 100% FiO2, peak airway pressure 37, abdomen appeared distended. The primary anesthesiologist reported he noted gastric content during intubation and he noted small gastric fluid upon suctioning ETT, thus assuming it was aspiration related hypoxia. He mentioned that her O2 sat on arrival to OR was 92%. She had diminished but clear breath sounds equal bilaterally without wheezing. Per my suggestion, we treated her with multiple Albuterol puffs via ETT, 2 gm Mg Sulfate SIVPB, 100 mg IV Hydrocortisone, head elevation, PEEP 5-8, and I placed her NGT to suction and immediately about 800 cc of dark gastric liquid came out. In few minutes, her O2 sat improved to 85%. Her other vitals were stable. Then I left and the primary anesthesiologist carried on with most of the case til I took over towards the end. Pre-op, this patient has significant hx including CHF, A fib, pulmonary HTN, COPD on home O2,and DVT. She presented with septic R knee for which she had washout earlier. Pre-op CXR reported pneumonia and echo reported significantly elevated RVSP with pulmonary HTN and TR with intact LVEF. Pre-op, she has had low O2 sat, 89-90s on the floor. Her med list shows she is on two pulmonary HTN medications, which she has not received recently, so when the surgeon mentioned about this case earlier today during our other scheduled case, I immediately spoke with her floor RN to administer her those two meds. I mentioned to the surgeon that we don't have all the medications sometimes needed in patients with pulmonary HTN but since it's emergency ex lap, he can proceed with what we can do, and likely patient would go to ICU post op. When I took over, her O2 sat was 84-85%, other vitals stable with BP supported by intermitent small IV Vasopressin boluses. Surgeon reported adhesions causing her bowel obstruction. Soon after, surgery ended and she was taken to ICU in stable but critical condition, intubated, sedated, with OR team and RT with PEEP valve and care transferred over to ICU team. Marcel Weiss MD Anesthesia Progress Note Progress Note Most recent Vital Signs: Last Vital Signs Temp 97.4 F 08/18/24 12:00 Pulse 80 08/18/24 14:35 Resp 18 08/18/24 14:35 BP 138/70 H 08/18/24 12:00 Pulse Ox 90 L 08/18/24 14:35 O2 Del Method Nasal Cannula 08/18/24 12:00 O2 Flow Rate 5 08/18/24 14:35
[2024-08-18 18:11] LABS: Basophils # (Auto) 0.1 Thou/mm3 (0.0-0.2); Basophils % (Auto) 1 % (0-2.5); Eosinophils % (Auto) 1 % (0-10); Hematocrit 36.4 % (36.0-46.0); Hemoglobin 11.5 g/dL (12.0-16.0); Immature Granulocytes % (Auto) 1 % (0-0); Immature Granulocytes Auto 0.07 Thou/mm3 (0.00-0.00); Lymphocytes # (Auto) 0.8 Thou/mm3 (1.0-4.8); Lymphocytes % (Auto) 11 % (10-50); Mean Corpuscular HGB Conc 31.6 g/dl (31.0-37.0); Mean Corpuscular Hemoglobin 25.2 pg (25.0-35.0); Mean Corpuscular Volume 80 fL (80-100); Monocytes # (Auto) 0.3 Thou/mm3 (0.0-0.8); Monocytes % (Auto) 5 % (0-12); Neutrophils # (Auto) 5.6 Thou/mm3 (1.8-7.7); Neutrophils % (Auto) 82 % (37-80); Nucleated Red Blood Cell % 0 /100 WBC (0); Platelet Count 317 Thou/mm3 (140-440); RDW Standard Deviation 46.1 fL (36.4-46.3); Red Blood Count 4.57 Miln/mm3 (4.00-5.20); White Blood Count 6.8 Thou/mm3 (3.6-11.0)
[2024-08-18 18:26] LABS: Base Excess -3 (-3-3); HCO3 28 mEq/L (20-26); Inspired Oxygen, FIO2 100 %; O2 Saturation 70 % (91-98); PCO2 80 mmHg (32.0-48.0)
[2024-08-18] MEDS: ROCURONIUM INJ 10 MG/ML VIAL 10 ML 100 MG IV (18:33)
[2024-08-18 18:42] LABS: Allen Test Performed/OK; Puncture Site Right Radial
[2024-08-18] MEDS: EPINEPHrine in NS 4 MG IVPB 4 MG/250 ML BAG 17.456 MG IV (18:42)
[2024-08-18 18:44] LABS: PO2 51 mmHg (83-108); pH, Arterial 7.15 (7.35-7.45)
[2024-08-18 18:45] LABS: Alanine Aminotransferase < 7 U/L (10-49); Albumin, Serum 3.3 gm/dL (3.4-4.8); Albumin/Globulin Ratio 1.5 (1.2-2.2); Alkaline Phosphatase 88 U/L (46-116); Anion Gap 14 (7-16); Aspartate Amino Transferase 22 U/L (0-34); BUN/Creatinine Ratio 26 Ratio (12-20); Bilirubin,Total 0.7 mg/dL (0.3-1.2); Blood Urea Nitrogen 47 mg/dL (9-23); Calcium 7.7 mg/dL (8.3-10.6); Calcium (Corrected) 8.3 mg/dL (8.5-10.1); Carbon Dioxide 23.2 mMol/L (20.0-31.0); Chloride 103 mMol/L (98-107); Creatinine (Component) 1.8 mg/dL (0.6-1.3); Estimated Creatinine Clearance 29.8 mL/min (>60); Globulin 2.2 gm/dL (2.3-3.5); Glucose 210 mg/dL (74-106); Magnesium 2.8 mg/dL (1.6-2.6); Osmolality,Calculated 297 (275-295); Phosphorous 4.8 mg/dL (2.4-5.1); Potassium 2.9 mMol/L (3.4-5.1); Sodium 140 mMol/L (136-145); Total Protein 5.5 gm/dL (5.7-8.2); eGFR 30 See Note
[2024-08-18] MEDS: DOBUTamine/D5w 500 MG IVPB 500 MG/250 ML BAG IV (18:49)
--- NOTE | 2024-08-18 18:54 | PC.CM ---
Patient needs abx. I [facility] because [facility] patients preference. Patient still needs PICC line placed.
[2024-08-18] MEDS: NITROGLYCERIN IV ×2 (19:30→21:45)
[2024-08-18] MEDS: DEXTROSE IV ×2 (19:30→21:45)
--- NOTE | 2024-08-18 19:42 | XR_ITS ---
Examination: AP chest single view Technique one AP portable semiupright chest single view Date and time: August 18, 2024 2004 hours Comparison August 18, 2024 1803 hours INDICATIONS: Post central line placement FINDINGS: Right central line tip SVC satisfactory position No pneumothorax Again noted prominent vascular congestion and bibasilar pneumonia Endotracheal tube tip 3.5 cm above willa. The orogastric tube is in the stomach in satisfactory position IMPRESSION: Interval right internal jugular central line tip SVC satisfactory position, no pneumothorax
--- NOTE | 2024-08-18 20:06 | PD.RESPROC ---
Procedures Procedure Date / Time 08/18/242005 Central Line Placement Right IJ: Indication(s): shock and poor, or inadequate peripheral venous access Informed consent obtained: procedure done urgently Time out done, and the following verified: correct patient, side and site, procedure and patient position Patient placed on monitor/pulse ox: Yes Hand Hygiene: scrub, soap & water and alcohol-based hand rub Max Sterile Barrier Techniques used: cap, mask, sterile gown, sterile gloves and sterile full body drape Central line prep: Povidone-Iodine 1%, Chlorhexidine scrub and sterile drapes applied Local anesthesia used: lidocaine 1% Amount of anesthesia used (mL): 5 Ultrasound used for placement: Yes Sterile Technique if Ultrasound used, including sterile gel: yes Central line lumen inserted: single and triple Post procedure: sutured in place, good blood return, all ports aspirated, flushed, capped and sterile dressing applied Post procedure x-ray: tip of catheter in good position and no pneumothorax seen Patient tolerated procedure: well and no complications EBL(ml): 1 Complications: none Procedure comment: Procedure was done at bedside and patient tolerated procedure well. There were no complications and tip of the catheter was visualized on x-ray without any pneumothorax.
--- NOTE | 2024-08-18 20:07 | PD.RESPROC ---
Procedures Procedure Date / Time 08/18/242006 Arterial Line Indication(s): frequent arterial line sampling, hypoxic resp failure and shock Informed consent obtained: procedure done urgently Time out done, and the following verified: correct patient, side and site, procedure and patient position Size (Gauge): 20 Technique used: guide wire technique Site: right Procedure comment: Procedure was done at bedside using sterile technique with ultrasound. Area was sterilized and access was visualized. I was able to poke the artery and get a bounding pulse back however I was unable to advance the wire and after multiple attempts I withdrew the needle and held pressure for at least 3 minutes. About 10 cc of blood was drawn during the procedure there was no excessive bleeding. Procedure was discontinued at that time
[2024-08-18] MEDS: DOBUTamine/D5w 500 MG IVPB 500 MG/250 ML BAG 5.586 MG IV (20:10)
[2024-08-18] MEDS: EPINEPHrine in NS 4 MG IVPB 4 MG/250 ML BAG 125.685 MG IV (20:32)
[2024-08-18 20:40] LABS: Base Excess, Venous -5 (-3-3); PCO2, Venous 37 mmHg (36-56); PO2, Venous 86 mmHg (15-58); pH, Venous 7.34 (7.33-7.66)
[2024-08-18 20:41] LABS: O2 Saturation, Venous 94 % (96-97)
[2024-08-18 20:43] LABS: Base Excess -6 (-3-3); HCO3 24 mEq/L (20-26); Inspired Oxygen, FIO2 21 %; O2 Saturation 71 % (91-98); PCO2 66 mmHg (32.0-48.0)
[2024-08-18 20:43] LABS: Base Excess, Venous -6 (-3-3); O2 Saturation, Venous 84 % (96-97); PCO2, Venous 57 mmHg (36-56); PO2, Venous 61 mmHg (15-58)
[2024-08-18 20:47] LABS: Allen Test Performed/OK; Puncture Site Left Radial
[2024-08-18 20:48] LABS: PO2 50 mmHg (83-108); pH, Arterial 7.17 (7.35-7.45)
[2024-08-18] MEDS: DOBUTamine/D5w 500 MG IVPB 500 MG/250 ML BAG 13.965 MG IV (21:35)
[2024-08-18 21:38] LABS: Anion Gap 19 (7-16); Calcium 8.1 mg/dL (8.3-10.6); Chloride 104 mMol/L (98-107); Potassium 3.1 mMol/L (3.4-5.1); Sodium 144 mMol/L (136-145)
[2024-08-18 21:48] LABS: Albumin, Serum 3.6 gm/dL (3.4-4.8); BUN/Creatinine Ratio 26 Ratio (12-20); Blood Urea Nitrogen 60 mg/dL (9-23); Calcium (Corrected) 8.4 mg/dL (8.5-10.1); Creatinine (Component) 2.3 mg/dL (0.6-1.3); Estimated Creatinine Clearance 23.3 mL/min (>60); Glucose 266 mg/dL (74-106); Osmolality,Calculated 312 (275-295); Phosphorous 6.4 mg/dL (2.4-5.1); eGFR 23 See Note
--- NOTE | 2024-08-18 21:58 | PC.RT ---
Did not give duoneb due to 's orders to give nitro via nebulizers
[2024-08-18] MEDS: POTASSIUM CHL 20 mEq IVPB 20 MEQ/100 ML BAG 50 MEQ IV (22:30)
[2024-08-18] MEDS: RINGERS LACTATED 500 ML 500 ML 75 ML IV (23:12)
[2024-08-19] VITALS (239 sets, daily range): BP systolic 2–168; BP diastolic 1–96; PULSE 83–163; RESP 0–30; TEMP 36.2–37.1; O2SAT 57–91; BMI 38.9
--- NOTE | 2024-08-19 | PC.NURSE ---
RT at bedside, pt manually bagged for approx 45mins
[2024-08-19] MEDS: EPINEPHrine in NS 4 MG IVPB 4 MG/250 ML BAG 104.738 MG IV ×3 (00:10→05:29)
[2024-08-19] MEDS: ROCURONIUM INJ 10 MG/ML VIAL 10 ML 50 MG IVP (00:37)
--- NOTE | 2024-08-19 01:30 | PC.NURSE ---
RT Bryan at bedside, manually bagging pt. Pt saturation at 75%
[2024-08-19] MEDS: PIPER/TAZO INJ 4.5 GM in SODIUM CHLORIDE 0.9% (POP) 100 ML IV ×2 (02:04→05:22)
[2024-08-19] MEDS: ALBUTEROL/IPRATROPIUM (Duoneb) RT SOL 3 ML NEBU INH ×2 (02:18→07:26)
[2024-08-19 04:40] LABS: Base Excess -6 (-3-3); HCO3 24 mEq/L (20-26); Inspired Oxygen, FIO2 100 %; O2 Saturation 67 % (91-98); PCO2 68 mmHg (32.0-48.0)
[2024-08-19 04:43] LABS: pH, Arterial 7.15 (7.35-7.45)
[2024-08-19 04:44] LABS: Allen Test Performed/OK; PO2 45 mmHg (83-108); Puncture Site Left Radial
[2024-08-19 05:19] LABS: Basophils # (Auto) 0.2 Thou/mm3 (0.0-0.2); Basophils % (Auto) 1 % (0-2.5); Eosinophils % (Auto) 0 % (0-10); Hematocrit 39.1 % (36.0-46.0); Hemoglobin 11.7 g/dL (12.0-16.0); Immature Granulocytes % (Auto) 1 % (0-0); Lymphocytes # (Auto) 0.4 Thou/mm3 (1.0-4.8); Lymphocytes % (Auto) 2 % (10-50); Mean Corpuscular HGB Conc 29.9 g/dl (31.0-37.0); Mean Corpuscular Hemoglobin 25.5 pg (25.0-35.0); Mean Corpuscular Volume 85 fL (80-100); Monocytes # (Auto) 1.5 Thou/mm3 (0.0-0.8); Monocytes % (Auto) 6 % (0-12); Neutrophils % (Auto) 90 % (37-80); Nucleated Red Blood Cell % 0 /100 WBC (0); Platelet Count 362 Thou/mm3 (140-440); RDW Standard Deviation 50.9 fL (36.4-46.3); Red Blood Count 4.58 Miln/mm3 (4.00-5.20); White Blood Count 24.4 Thou/mm3 (3.6-11.0)
[2024-08-19 05:46] LABS: Alanine Aminotransferase 14 U/L (10-49); Albumin, Serum 3.3 gm/dL (3.4-4.8); Albumin/Globulin Ratio 1.5 (1.2-2.2); Alkaline Phosphatase 85 U/L (46-116); Anion Gap 15 (7-16); Aspartate Amino Transferase 25 U/L (0-34); BUN/Creatinine Ratio 23 Ratio (12-20); Bilirubin,Total 0.7 mg/dL (0.3-1.2); Blood Urea Nitrogen 66 mg/dL (9-23); Calcium 7.5 mg/dL (8.3-10.6); Calcium (Corrected) 8.1 mg/dL (8.5-10.1); Carbon Dioxide 23.1 mMol/L (20.0-31.0); Chloride 106 mMol/L (98-107); Creatinine (Component) 2.9 mg/dL (0.6-1.3); Estimated Creatinine Clearance 18.5 mL/min (>60); Globulin 2.2 gm/dL (2.3-3.5); Glucose 251 mg/dL (74-106); Osmolality,Calculated 313 (275-295); Potassium 4.2 mMol/L (3.4-5.1); Sodium 144 mMol/L (136-145); Total Protein 5.5 gm/dL (5.7-8.2); eGFR 17 See Note
[2024-08-19 06:07] LABS: Lactate (Lactic Acid) 3.1 mMol/L (0.4-2.0)
--- NOTE | 2024-08-19 06:46 | XR_ITS ---
Examination: AP chest single view Technique one AP upright portable chest single view Date and time: August 19, 2024 0751 hrs. Comparison August 18, 2024 Indications: Shortness of breath today. Findings: Tracheal tube tip 3.5 cm above willa Heart failure with enlargement cardiac contour and prominent vascular congestion including central vascular engorgement. Bibasilar pneumonia Right internal jugular central line tip satisfactory position Orogastric tube in stomach Impression: Mild heart failure Bibasilar pneumonia
[2024-08-19] MEDS: VASOPRESSIN IN NS IVPB 20 UNIT/100 ML BAG 9 UNIT IV ×2 (07:15→16:52)
[2024-08-19] MEDS: EPINEPHrine in NS 4 MG IVPB 4 MG/250 ML BAG 160.598 MG IV (07:26)
[2024-08-19] MEDS: INSULIN LISPRO (AdmeLOG) 1 UNIT/0.01 ML UNIT SC ×3 (07:48→18:27)
[2024-08-19 07:58] LABS: Base Excess -7 (-3-3); HCO3 23 mEq/L (20-26); Inspired Oxygen, FIO2 100 %; O2 Saturation 53 % (91-98); PCO2 67 mmHg (32.0-48.0)
[2024-08-19 07:59] LABS: Allen Test Performed/OK; Puncture Site Right Radial
[2024-08-19 08:01] LABS: PO2 35 mmHg (83-108); pH, Arterial 7.14 (7.35-7.45)
[2024-08-19] MEDS: MIDAZOLAM INJ 1 MG/ML VIAL 2 ML 2 MG IVP (08:48)
[2024-08-19] MEDS: levETIRAcetam INJ 100 MG/ML VIAL 5ML 1000 MG IVP (08:48)
[2024-08-19] MEDS: PANTOPRAZOLE INJ 40 MG VIAL IVP (08:49)
[2024-08-19] MEDS: SODIUM BICARB INJ 8.4% 1 mEq/ML 50 ML VIAL 150 MEQ IV (08:49)
--- NOTE | 2024-08-19 08:57 | PC.CC ---
Addendum entered by Elaina José RN 08/19/24 09:05: [facility] responded on [employer] pt will have ~30-35$/day since only has Medicare . Need to check with pt if it is OK when patient is stable. Addendum entered by Elaina José RN 08/19/24 09:05: Spoke to Dr. Padilla, pt is in ICU, per Dr. Padilla not stable for discharge at this time. Updated [facility] via [employer]. Original Note: [facility] pt. Booked both.
[2024-08-19] MEDS: EPINEPHrine in NS 4 MG IVPB 4 MG/250 ML BAG 167.58 MG IV (08:59)
[2024-08-19 09:02] LABS: Reflex Lactate? Y
--- NOTE | 2024-08-19 09:06 | ESPR_ITS ---
<Statement entered by Sania Ramey MD - 08/19/24 13:21> TOTAL CC TIME: 65 MIN I saw and evaluated the patient. I reviewed the resident?s note and agree with findings and plan as documented in the resident?s note. Upon my evaluation, this patient had a high probability of imminent or life- threatening deterioration due to cardiogenic shock from severe pulmonary hypertension complicated by possible septic shock with streptococcal bacteremia due to septic joint which required my direct attention, intervention, and personal management. This time is exclusive of time spent on procedures, which are documented separately if performed. Mrs. Ly is an unfortunate 69-year-old female with very severe pulmonary hypertension. She is in critical shock and her hemodynamic status is continuing to get worse despite being on , epinephrine, dobutamine, vasopressin. Milrinone was added in the hopes of improving the severe pulmonary hypertension. Complicating her severe pulmonary hypertension is probable septic shock with the initial source being a septic joint which was aspirated by orthopedics. Antibiotics were narrowed to cover the gram-positive streptococci in the blood. Unfortunately we are unable to continue her home pulmonary hypertension medicines because they are unable to be crushed to be placed in an NG tube. We reviewed this with the pharmacist just to be sure. She is far too unstable to transfer to any tertiary center. Inhaled nitric oxide was attempted but failed to improve hemodynamics Urine output improved post milrinone but she likely has severe ATN given the prolonged hypotension, and high-dose pressors. We will monitor labs at least twice a day. Minute ventilation was increased and supplemental bicarbonate was pushed to try and improve critical acidemia. Spoke at great length to multiple family members including her , 2 daughters, and nephew niece and [id number]; they are aware of the grave prognosis. Goals of care were encouraged to be discussed. Documentation for date of: 08/19/24 Subjective Subjective Interval history: Patient is a 69-year-old female with past medical history of COPD on 4 L of home oxygen and BiPAP at night, severe pulmonary hypertension, hypothyroidism, atrial fibrillation, CHF, history of DVT, restless leg syndrome who initially presented on 08/13/2024 due to chief complaint of right knee pain for 1 day prior to admission. Patient was initially admitted for osteoarthritis of the knee as well as intractable nausea and vomiting. During her stay patient had OUTSOLE FLEXER called due to persistent nausea and vomiting episodes despite antiemetics and pain control. Orthopedic performed arthroscopic irrigation and debridement of the right knee successfully on 08/15/2024. Synovial fluid obtained did not grow any organisms. Patient's hospital procedure thus far has been complicated by GPC bacteremia growing Streptococcus mitis in 1 out of the 2 bottles on 08/08/2024 and repeat 1 out of 2 growth on 08/14/2024. Repeat culture on 08/16/2024 continues to grow GPC in the aerobic bottle x 1 preliminarily. Blood cultures drawn yesterday 08/17/24 have been negative for 24 hours. Echocardiogram was performed on 08/15/2024 and was read as Estimated EF 55-60 %. IVS flattened in systole and diastole consisitent with right ventricular pressure and volume overload. The RV size is moderately increased with normal systolic function. The estimated RVSP, 106 mmHg. RAP 5. RA cavity size is severely increased. Mild MR. Mild & Moderate TR. Due to concerns of small bowel obstruction patient underwent small bowel series which showed high-grade mechanical obstruction and general surgery was consulted who did surgery today 08/18/2024. 08/18/2024 Patient was taken to the OR today around 1415 and was being prepared for anesthesia. Patient was initially in a saturation of 92% which is around what she was satting on 5 L nasal cannula on the floor. Of note patient has been satting in the low 90s on anywhere between 5 to 10 L of oxygen switching between oxime mask and nasal cannula during her stay thus far. Soon after intubation patient's status saturations dropped to the 70s on the 100% FiO2 after which breathing treatments was administered as well as 100 mg IV of hydrocortisone and patient was subsequently brought up to about 84 to 85% saturation. We do not have the medications that may be available for patients with severe pulmonary hypertension but as this was an emergency ex lap the procedure continued. Patient underwent ex lap which lasted about an hour. Given patient's severe conditions despite maximal ventilator support she was brought over to the ICU for further management where she arrived around 1730. Once patient arrived to the ICU she was hooked up to the ventilator and her saturations remain around 79-80% on 100% FiO2. Patient was tachycardic in the 130s and she was paralyzed with rocuronium as we attempted to better manage her respiratory system. Bedside ultrasound of her heart showed hyperdynamic heart which was poorly visualized however I did not see any obvious tamponade or effusions. We sedated the patient with propofol and fentanyl. A right femoral A-line was attempted however failed as had trouble with the wire coiling and proceeded to perform a right IJ central line instead for pressor support. We started patient on epinephrine and dobutamine as we attempted recruitment measures. Patient also received a dose of 1 mg of nitroglycerin nebulized for about 5 minutes with RT however patient remained saturating in the 70s. Family was made aware of patient's critical condition and around 2015 hrs. and handed over care to my colleague, Dr. Grimm, for the night. 08/19/2024: Patient was seen and examined in the ICU today. Overnight patient did not improve in fact she has worsened as her pressor requirement has continued to increase with dobutamine at 5 and epinephrine at 0.48 with her oxygenation remaining in the low 80s high 70s despite maximal ventilator support with an FiO2 of 100%. The recruitment measures and the nebulized nitroglycerin did not improve her oxygenation. NG tube did not have any more output overnight despite low intermittent suction. We started vasopressin this morning and milrinone and attempts to wean off of epinephrine however her map continues to be borderline and her lactic acid is trending up to 4.7 from 1.9 yesterday. White count elevated to 24.4 and there were no overnight fevers. ABG at 7 this morning showed a pH of 7.14 with a CO2 of 67 and a PO2 of 35. Creatinine worsened from 2.1-2.9 and there has been no urine output overnight. Patient was unresponsive this morning with no gag reflex and sluggish response to pupillary reflex and no withdrawal from pain despite being off of sedation since 1 AM. She also did not receive any paralytics since 1 AM. Spoke to nephrology, Dr. Dickey about the possibility of needing hemodialysis however due to patient's critical and hemodynamically instability she likely will not tolerate hemodialysis. Prognosis is guarded. Will have further goals of care discussion with the family today. Exam Vital Signs Temp Pulse Resp BP Pulse Ox O2 Del Method O2 Flow Rate 98.7 F 136 H 27 H 89/54 L 84 L Mechanical Ventilation 54 08/19/24 04:00 08/19/24 07:30 08/19/24 07:30 08/19/24 07:30 08/19/24 07:30 08/19/24 05:00 08/19/24 07:00 FiO2 100 08/19/24 07:30 Narrative Exam Constitutional: obese female that is intubated Eyes: Symmetrical lids and pupils are equal and reactive to light sluggishly with about 4 mm in pupil size bilaterally ENMT: Dry mucous Membranes, No trauma or injury. Neck: Supple to palpation, JVD was visible. Right IJ in place CVS: RRR, S1 and S2 present, no murmurs, rubs or gallops . RESP: CTAB, no SOB, no rales, rhonchi or wheezing. No respiratory Distress GI: Large but soft and less distended today.. With decreased bowel sounds MSK: No obvious deformities. Skin: Warm to touch, Dry. There is various bruising's and hematomas from IV access in the upper extremities. There is mottling of the feet. Neuro: Is not awake and does not withdraw from noxious stimuli. Objective Labs 08/19/24 04:47 08/19/24 04:47 Labs: Laboratory Results - last 24 hr 08/18/24 08/18/24 08/18/24 12:58 18:01 18:17 WBC 6.8 D RBC 4.57 Hgb 11.5 L Hct 36.4 MCV 80 MCH 25.2 MCHC 31.6 RDW Std Deviation 46.1 Plt Count 317 Neut % (Auto) 82 H Lymph % (Auto) 11 [place] % (Auto) 5 Eos % (Auto) 1 Baso % (Auto) 1 Neut # (Auto) 5.6 Lymph # (Auto) 0.8 L [place] # (Auto) 0.3 Eos # (Auto) 0.0 Baso # (Auto) 0.1 Immature Gran # (Auto) 0.07 H Absolute Nucleated RBC 0.00 Immature Gran % 1 H Nucleated RBC % 0 Puncture Site Right Radial ABG pH 7.15 L* ABG pCO2 80 H* ABG pO2 51 L* ABG HCO3 28 H ABG O2 Saturation 70 L ABG Base Excess -3 VBG pH 7.34 VBG pCO2 37 VBG pO2 86 H VBG O2 Sat (Dewayne) 94 L VBG Base Excess -5 L FiO2 100 Sodium 140 140 Potassium 3.8 2.9 L D Chloride 98 103 Carbon Dioxide 26.3 23.2 Anion Gap 16 14 BUN 56 H 47 H Creatinine 2.1 H 1.8 H Estim Creat Clear Calc 25.6 L 29.8 L eGFR 25 L 30 L BUN/Creatinine Ratio 27 H 26 H Glucose 126 H 210 H D Calculated Osmolality 296 H 297 H Lactic Acid 1.9 Calcium 9.1 7.7 L Corrected Calcium 9.1 8.3 L Phosphorus 3.9 4.8 Magnesium 2.3 2.8 H Total Bilirubin 0.7 AST 22 ALT < 7 L Alkaline Phosphatase 88 Total Protein 5.5 L Albumin 4.2 3.3 L D Globulin 2.2 L Albumin/Globulin Ratio 1.5 08/18/24 08/18/24 08/19/24 20:30 20:35 04:30 WBC RBC Hgb Hct MCV MCH MCHC RDW Std Deviation Plt Count Neut % (Auto) Lymph % (Auto) [place] % (Auto) Eos % (Auto) Baso % (Auto) Neut # (Auto) Lymph # (Auto) [place] # (Auto) Eos # (Auto) Baso # (Auto) Immature Gran # (Auto) Absolute Nucleated RBC Immature Gran % Nucleated RBC % Puncture Site Left Radial Left Radial ABG pH 7.17 L* 7.15 L* ABG pCO2 66 H D 68 H ABG pO2 50 L* 45 L* ABG HCO3 24 24 ABG O2 Saturation 71 L 67 L ABG Base Excess -6 L -6 L VBG pH 7.20 L VBG pCO2 57 H D VBG pO2 61 H D VBG O2 Sat (Dewayne) 84 L VBG Base Excess -6 L FiO2 21 100 Sodium 144 Potassium 3.1 L Chloride 104 Carbon Dioxide 21.0 Anion Gap 19 H BUN 60 H Creatinine 2.3 H D Estim Creat Clear Calc 23.3 L eGFR 23 L BUN/Creatinine Ratio 26 H Glucose 266 H D Calculated Osmolality 312 H Lactic Acid Calcium 8.1 L Corrected Calcium 8.4 L Phosphorus 6.4 H Magnesium Total Bilirubin AST ALT Alkaline Phosphatase Total Protein Albumin 3.6 Globulin Albumin/Globulin Ratio 08/19/24 08/19/24 08/19/24 04:47 05:46 07:50 WBC 24.4 H D RBC 4.58 Hgb 11.7 L Hct 39.1 MCV 85 MCH 25.5 MCHC 29.9 L RDW Std Deviation 50.9 H Plt Count 362 D Neut % (Auto) 90 H Lymph % (Auto) 2 L [place] % (Auto) 6 Eos % (Auto) 0 Baso % (Auto) 1 Neut # (Auto) 22.0 H Lymph # (Auto) 0.4 L [place] # (Auto) 1.5 H Eos # (Auto) 0.0 Baso # (Auto) 0.2 Immature Gran # (Auto) 0.30 H Absolute Nucleated RBC 0.00 Immature Gran % 1 H Nucleated RBC % 0 Puncture Site Right Radial ABG pH 7.14 L* ABG pCO2 67 H ABG pO2 35 L* ABG HCO3 23 ABG O2 Saturation 53 L ABG Base Excess -7 L VBG pH VBG pCO2 VBG pO2 VBG O2 Sat (Dewayne) VBG Base Excess FiO2 100 Sodium 144 Potassium 4.2 D Chloride 106 Carbon Dioxide 23.1 Anion Gap 15 BUN 66 H Creatinine 2.9 H D Estim Creat Clear Calc 18.5 L eGFR 17 L BUN/Creatinine Ratio 23 H Glucose 251 H Calculated Osmolality 313 H Lactic Acid 3.1 H Calcium 7.5 L Corrected Calcium 8.1 L Phosphorus Magnesium Total Bilirubin 0.7 AST 25 ALT 14 Alkaline Phosphatase 85 Total Protein 5.5 L Albumin 3.3 L Globulin 2.2 L Albumin/Globulin Ratio 1.5 ABG Interpretation ABG results: 08/13/24 08/18/24 08/18/24 13:36 18:01 18:17 ABG pH 7.40 7.15 L* ABG pCO2 40 80 H* ABG pO2 54 L* 51 L* ABG HCO3 25 28 H ABG O2 Saturation 86 L 70 L ABG Base Excess 0 -3 VBG pH 7.34 VBG pCO2 37 VBG pO2 86 H VBG Base Excess -5 L 08/18/24 08/18/24 08/19/24 20:30 20:35 04:30 ABG pH 7.17 L* 7.15 L* ABG pCO2 66 H D 68 H ABG pO2 50 L* 45 L* ABG HCO3 24 24 ABG O2 Saturation 71 L 67 L ABG Base Excess -6 L -6 L VBG pH 7.20 L VBG pCO2 57 H D VBG pO2 61 H D VBG Base Excess -6 L 08/19/24 07:50 ABG pH 7.14 L* ABG pCO2 67 H ABG pO2 35 L* ABG HCO3 23 ABG O2 Saturation 53 L ABG Base Excess -7 L VBG pH VBG pCO2 VBG pO2 VBG Base Excess Quality Measures Quality Measures VTE prophylaxis Advance care planning discussed with:: spouse and child Assessment & Plan Assessment Current Active Medications: Generic Name Dose Route Start Last Admin Trade Name Freq PRN Reason Stop Dose Admin Acetaminophen 650 mg 08/13/24 05:31 08/14/24 04:06 Acetaminophen 325 Mg Tablet PO 09/12/24 05:30 650 mg Q6H PRN Administration Temp>100.3 or mild pain 1-3 Albuterol/Ipratropium 3 ml 08/19/24 03:00 08/19/24 07:26 Albuterol/Ipratropium (Duoneb) Rt Shell 3 Ml Nebu INH 09/18/24 02:59 3 ml Q4HRRT KARLY Administration Tadalafil (Adcirca) 0 ea 08/19/24 09:00 20 Mg Once Daily PO 09/18/24 08:59 DAILY KARLY (Selexipag [Uptravi] 0 ea 08/19/24 09:00 1600 Mcg Tablet) PO 09/18/24 08:59 BID KARLY Dextrose 25 ml 08/19/24 07:05 Dextrose 50%-Water Inj 50 Ml Syringe IV 09/18/24 07:04 Q15MIN PRN BG 50-70 responsive npo pt Dextrose 50 ml 08/19/24 07:05 Dextrose 50%-Water Inj 50 Ml Syringe IV 09/18/24 07:04 Q15MIN PRN BG <50 OR BG <70 & pt unresponsive Glucagon 1 mg 08/19/24 07:05 Glucagon Inj 1 Mg Vial IM Q15MIN PRN BG <70, and no IV access Hydrocortisone Sodium Succinate 50 mg 08/19/24 10:00 Hydrocortisone Sod Succ Inj 100 Mg Vial IV 09/18/24 09:59 Q4HR KARLY Fentanyl Citrate 2,500 mcg in 250 mls @ 2.5 mls/hr 08/18/24 17:27 08/19/24 01:00 Sublimaze Inj 2,500 Mcg/250 Ml Bag IV 08/23/24 17:26 0 mcg/hr .Q24H PRN 0 mls/hr PER PROTOCOL Titration Protocol 25 MCG/HR Propofol 1,000 mg in 100 mls @ 2.793 mls/hr 08/18/24 17:27 08/19/24 01:00 Diprivan Ivpb IV 09/17/24 17:26 0 mcg/kg/min .Q24H PRN 0 mls/hr PER PROTOCOL Titration Protocol 5 MCG/KG/MIN Epinephrine/Sodium Chloride 4 mg in 250 mls @ 17.456 mls/hr 08/18/24 18:38 08/19/24 08:00 Adrenalin/Ns 4 Mg Ivpb IV 09/17/24 18:37 0.48 mcg/kg/min .[id number] PRN 167.58 mls/hr per protocol Titration Protocol 0.05 MCG/KG/MIN Dobutamine HCl/Dextrose 500 mg in 250 mls @ 13.965 mls/hr 08/18/24 21:21 08/19/24 06:00 Dobutrex/D5w Ivpb IV 09/17/24 21:20 5 mcg/kg/min .[id number] KARLY 13.965 mls/hr Titration Protocol 5 MCG/KG/MIN Vasopressin/Sodium Chloride 20 unit in 100 mls @ 9 mls/hr 08/19/24 06:54 08/19/24 07:15 Vasostrict/Ns Ivpb IV 09/18/24 06:53 0.03 unit/min .[id number] PRN 9 mls/hr PER PROTOCOL Administration Protocol 0.03 UNIT/MIN Piperacillin Sod/Tazobactam 100 mls @ 25 mls/hr 08/19/24 21:00 Sod 4.5 gm/ Sodium Chloride IV 08/26/24 01:44 Q12HR KARLY Milrinone Lactate 20 mg/ 100 mls @ 6.585 mls/hr 08/19/24 09:00 Sodium Chloride IV 09/18/24 08:59 .[id number] KARLY 0.25 MCG/KG/MIN Ceftriaxone Sodium/Dextrose 2 gm in 50 mls @ 100 mls/hr 08/19/24 09:00 Rocephin/D5w 2gm IV 08/26/24 08:48 Q12HR KARLY Insulin Human Lispro 0 unit 08/19/24 07:10 08/19/24 07:48 Insulin Lispro (Admelog) 1 Unit/0.01 Ml Unit SC 09/18/24 07:09 2 unit Q6HR KARLY Administration Protocol Levetiracetam 1,000 mg 08/19/24 08:10 08/19/24 08:48 Levetiracetam Inj 100 Mg/Ml Vial 5ml IVP 09/18/24 08:09 1,000 mg Q12HR KARLY Administration Midodrine 10 mg 08/13/24 21:22 08/15/24 00:17 Midodrine 5 Mg Tablet PO 09/12/24 21:21 10 mg TID PRN Administration SBP <110 Morphine Sulfate 2 mg 08/14/24 09:59 08/18/24 00:59 Morphine Sulf Inj 10 Mg/Ml Vial IVP 08/19/24 09:58 2 mg Q4HR PRN Administration Pain 7-10 Ondansetron HCl 4 mg 08/13/24 05:08/17/24 23:50 Ondansetron Inj 2 Mg/Ml Inj 2 Ml IVP 09/12/24 05:30 4 mg Q6H PRN Administration NAUSEA OR VOMITING Protocol Pantoprazole Sodium 40 mg 08/19/24 09:00 08/19/24 08:49 Pantoprazole Inj 40 Mg Vial IVP 09/18/24 08:59 40 mg QDAY KARLY Administration Plan 69-year-old female with past medical history of COPD on 4 L of home oxygen and BiPAP at night, severe pulmonary hypertension, hypothyroidism, atrial fibrillation, CHF, history of DVT, restless leg syndrome admitted to ICU for further management of her acute on chronic hypoxic and hypercapnic respiratory failure secondary to severe pulmonary hypertension Neuro Acute encephalopathy Likely anoxic brain injury as patient has been off of sedation since 1 am this morning and off of paralytics. Patient is having myoclonic spasms. O2 has not been above 80% over night and has worsened to the high 70s this morning. CVS Shock Suspecting likely obstructive vs cardiogenic with a component of distributive from sepsis Patient has severe pulmonary arterial hypertension with a right ventricular systolic pressure of 106 on last echocardiogram Feet are mottled. Patient is maxed on on dobutamine and she was started on vasopressin, and milrinone today Despite this patient has continued to need emergency titration on the epinephrin and map has remained bortherline. Tachycardia Likely reactive compensated for severe pulmonary hypertension and decreased left-sided preload Will continue to optimize drips as tolerated HFpEF Patient's most recent echo revealed Estimated EF 55-60 %. IVS flattened in systole and diastole consisitent with right ventricular pressure and volume overload. The RV size is moderately increased with normal systolic function. The estimated RVSP, 106 mmHg. RAP 5. RA cavity size is severely increased. Mild MR. Mild & Moderate TR. Will continue to adjust medications Resp Acute on chronic hypoxic respiratory failure Secondary to pulmonary arterial hypertension Patient's right ventricular systolic pressure is 106 Started milrinone for better pulmonary vasodilation Will reassess every 3 hours Frequent VBG's and ABGs Will repeat ABGs frequently and adjust ventilator settings as tolerated given her severe pulmonary arterial hypertension Unfortunately we do not have any medications that can be infused for treatment of severe pulmonary hypertension History of COPD on 4 L O2 nasal cannula Continue DuoNebs as needed Patient received hydrocortisone 100 mg IV push during surgery Continued hydrocortisone 50mg Q6HR GI SBO status post ex lap, postop day 1 Patient underwent ex lap today for relief of high-grade obstruction from adhesions. Surgery was successful and wound is dressed with no discharge or erythema Patient has an NG tube and collected about 800 cc of dark fluid Will continue NG tube and low intermittent suction and continue to monitor patient closely. No gastric content collected overnight General Surgery is on board GI prophylaxis is protonix Renal AZALEA Likely prerenal from decreased volume status and worsening shock Patient was on Bumex during most of her stay and her creatinine jumped from 1.0 to 2.1 Will continue to optimize patient's fluid status Avoid nephrotoxic medication Nephrology, Dr Dickey consulted. Patient too unstable for dialysis Endocrine Hypothyroidism Continues patient's home levothyroxine 100 mcg p.o. ACB ER ID/Skin Septic shock secondary to Streptococcus mitis GPC bacteremia growing Streptococcus mitis in 1 out of the 2 bottles on 08/08/2024 and repeat 1 out of 2 growth on 08/14/2024. Repeat culture on 08/16/2024 continues to grow GPC in the aerobic bottle x 1 preliminarily. Blood cultures drawn yesterday 08/17/24 have been negative for 24 hours. Patient currently on ceftriaxone MRSA nares + Ceftriaxone 2gm twice a day ID on board Septic arthritis Right knee aspiration revealed 54K WBC and 7000 RBC Micro did not grow any bacteria thus far however patient does have bacteremia with streptococcus mitis Hematology History of DVT unprovoked Patient was on home Eliquis and was transitioned to Lovenox 100 mg subcu twice daily during this stay Lovenox has been held for surgery Given her critical satus, will hold off on chemical prophylaxis and use SCDs Hospital Maintenance: FEN: N.p.o., Drips: Epinephrine, dobutamine, vasopressin,milrinone DVT PPx: None, SCDs GI PPx: protonix IV lines: 3 peripheral IVs NRB right IJ central line Levy: In Code Status: Full code Dispo: Patient will remain in ICU for further management of her acute on chronic respiratory failure and severe pulmonary arterial hypertension. Prognosis is guarded I discussed patient's care with chimney repairer, Dr Karoline Padilla MD, [id number]
[2024-08-19 09:18] LABS: Base Excess, Venous -8 (-3-3); O2 Saturation, Venous 50 % (96-97); PCO2, Venous 52 mmHg (36-56); PO2, Venous 31 mmHg (15-58)
[2024-08-19] MEDS: MILRINONE LACT IV ×2 (09:18→16:37)
[2024-08-19] MEDS: SODIUM CHLORIDE 0.9% IV ×2 (09:18→16:37)
[2024-08-19] MEDS: HYDROCORTISONE SOD SUCC INJ 100 MG VIAL 50 MG IV ×3 (09:19→18:18)
[2024-08-19] MEDS: cefTRIAXone/D5w 2gm 2 GM/50 ML BAG IV (09:19)
[2024-08-19 09:23] LABS: Lactic Acid, 3 HR 4.7 mMol/L (0.4-2.0)
--- NOTE | 2024-08-19 09:31 | PD.NEPHCONS ---
History of Present Illness Data of Consult Consult date: 08/19/24 Requesting Physician: Sania Ramey MD Primary Care Provider: Quan Setphen MD Consult Narrative Reason for consult: AZALEA, metabolic acidosis History of present illness: Patient currently intubated and sedated. Chart review done. Got all information from ICU team. Ms. Ly is a 69-year-old female with a past medical history of COPD on 4 L oxygen, using Bipap at night, severe pulmonary hypertension (under Dr. Garrison), hypothyroidism, atrial fibrillation, CHF, history of DVT, restless leg syndrome presented to the hospital with chief complaints of severe pain in the right knee going on for the last couple of days and her walking has been very difficult. During her hospital course she had a right knee arthroscopy and fluid came back positive for septic arthritis. Patient was started on broad-spectrum antibiotics. Patient had knee washout with Dr. Gonzalez. 08/16/2024. Patient also developed ileus and yesterday she was taken to the OR and had small bowel enterolysis and release of bowel obstruction. Patient went into sepsis and needing 3 pressors and is currently on the ventilator. Minimal urinary output and a significant acidosis that nephrology consultation was requested today. Patient currently seen in ICU. Past medical history: COPD, severe pulmonary hypertension, hypothyroidism, atrial fibrillation, CHF, DVT, restless leg syndrome Past surgical history: Hysterectomy Social history: Denies smoking, alcohol, other illicit drug abuse Allergies: Erythromycin 08/19/2024 currently seen in ICU. On ventilator. 3 pressors and unresponsive. WBC 24.4, hemoglobin 11.7, platelets 362. ABG showing pH 7.14, [id number], PO235, HCO3 23 sodium 146, potassium 4.8, bicarbonate 16.9, BUN 64, creatinine 3.3, lactic acid 8.0, calcium 7.9, phosphorus 7.6, LFTs normal, albumin 3.0 blood cultures on 08/16 positive for gram-positive cocci. Chest x-ray bibasilar pneumonia. cc:: cc: Sania Ramey MD Review of Systems Review of Systems ROS Unobtainable: unobtainable due to medical condition and due to endotracheal tube Past Medical History Past Medical History NEUROLOGIC: Positive Neurological Disorders; Negative Cerebrovascular Accident, Transient Ischemic Attacks (TIA), Dementia, Alzheimer's Disease, Parkinson's Disease, Brain Tumor, Meningitis, Seizures, Epilepsy, Multiple Sclerosis, Cerebral Palsy, Amyotrophic Lateral Sclerosis (ALS/Anna Gehrig's), Guillain-Chandler Syndrome, Spina Bifida, Paralysis, Peripheral Neuropathy, Welsh's Palsy, Subdural Hematoma, Migraine, Head Trauma, Spinal Cord Injury or Traumatic Brain Injury CARDIAC: Positive Cardiac Disorders, Cardiac Arrhythmia, Atrial Fibrillation (Eliquis), Heart Murmur, Peripheral Vascular Disease, Congestive Heart Failure, Edema, Cellulitis, Deep Vein Thrombosis, Hypertension, Hypotension and Varicose Veins; Negative Myocardial Infarction, Angina, Coronary Artery Disease, Atherosclerotic Heart Disease, Hypercholesterolemia, Aneurysm, Congenital Heart Disease, Valvular Heart Disease, Rheumatic Fever or Cardiomyopathy RESPIRATORY: Positive Respiratory Disorders (hx pulmonary htn), Chronic Obstructive Pulmonary Disease (COPD), Asthma, Pneumonia, Pulmonary Edema, Sleep Apnea, CPAP Dependent and Smoking Exposure; Negative Pulmonary Fibrosis, Tuberculosis or Pulmonary Embolism GASTROINTESTINAL: Positive Gastrointestinal Disorders and Obesity; Negative Cirrhosis, Pancreatitis, Celiac Disease, Gall Bladder Disease, Gastrointestinal Bleed, Esophageal Varices, Mcclure's Esophagus, Colitis, Ulcerative Colitis, Diverticulitis, Diverticulosis, Ulcer, Colorectal Cancer, Irritable Bowel, Crohn's Disease, Obstructive Bowel, Hiatal Hernia, Hemorrhoids or Gastroesophageal Reflux Disease GENITOURINARY: Negative Genitourinary Disorders, Renal Disease, Kidney Stones, Polycystic Kidney Disease, Neurogenic Bladder, Inguinal Hernia, Dialysis, Prostate Cancer or Benign Prostatic Hyperplasia REPRODUCTIVE: Positive Previous Pregnancies; Negative Breast Cancer, Endometriosis, Genital Herpes, Gonorrhea, Pelvic Inflammatory Disease, Syphilis, Testicular Cancer or Uterine Prolapse MUSCULOSKELETAL: Positive Musculoskeletal Disorders and Arthritis; Negative Muscular Dystrophy, Myasthenia Gravis, Marfan's Syndrome, Bone Cancer, Rheumatoid Arthritis, Osteoporosis, Degenerative Disk Disease, Gout, Scoliosis, Carpal Tunnel Syndrome, Fibromyalgia, Fractures, Degenerative Joint Disease, Osteomyelitis or Poliovirus ENT: Negative Cataracts, Glaucoma, Blind, Retinal Detachment, Macular Degeneration, Ear Infection, Deafness, Head Trauma or Eye Prosthesis ENDOCRINE: Positive Endocrine Disorders, Hyperthyroidism and Hypothyroidism; Negative Diabetes Mellitus Type 1, Diabetes Mellitus Type 2, Hypoglycemia, Martin's Syndrome, Clarke's Disease, Parathyroid Disease, Pituitary Disease, Systemic Lupus Erythematosus, Syndrome of Inappropriate Antidiuretic Hormone (SIADH), Adrenal Disease or Graves' Disease HEMATOLOGIC: Negative Blood Disorders, Anemia, Leukemia, Hemophilia, Thalassemia, Sickle Cell Disease or Clotting Problems PSYCHO/SOCIAL: Positive Anxiety; Negative Psychiatric Problems, Schizophrenia, Recreational Drug Use, Bipolar Disorder, Depression, Behavior Problems, Self-Mutilation, Attention Deficit Disorder, Attention Deficit Hyperactivity Disorder, Depression, Post Traumatic Stress Disorder or Eating Disorder OTHER HISTORY: Positive Hospitalization, Shingles, Falls, MRSA, Chicken Pox, Measles and Mumps; Negative Autoimmune Disease, Down Syndrome, Autism, Developmental Delay, Blood Transfusions, Blood Transfusion Reaction, Anesthesia Reactions, Organ Transplant, Chemotherapy, Radiation Therapy, Hyperbaric Therapy, VRSA, Vancomycin-Resistant Enterococci, Cancer, Breast Cancer, Cervical Cancer, Colorectal Cancer, Lung Cancer, Ovarian Cancer, Prostate Cancer or Testicular Cancer Family History FAMILY HISTORY: Positive Family Respiratory Disorders, Family Cardiac Disorders, Family Gastrointestinal Problems and Family Surgery (heart surgery); Negative Family Psychiatric Problems, Family Cancer or Family Anesthesia Reaction Surgical History SURGICAL: Positive Hysterectomy; Negative Cardiac Surgery, Open Heart Surgery, Coronary Artery Bypass Graft, Valve Replacement, Vascular Surgery, Coronary Stent, Cardiac Catheterization, Pacemaker, Angiogram, Auto Implanted Cardiovert Defib, Carotid Endarterectomy, Endocrine Surgery, Thyroidectomy, Ear Surgery, Tympanostomy Tube, Eye Surgery, Nose Surgery, Oral Surgery, Tonsillectomy, Adenoidectomy, Cochlear Implant, Corneal Transplant, Throat Surgery, Abdominal Surgery, Tracheostomy, Gastric Bypass Surgery, Gastrostomy, Bowel Surgery, Nephrectomy, Transurethral Resection, Joint Replacement, Amputation, Open Reduction Internal Fixation, Arthroscopy, Neurologic Surgery, Brain Shunt, Mastectomy, Lumpectomy, Tubal Ligation, Section, Vasectomy or Organ Transplant Social History SMOKING STATUS: Never smoker SECOND HAND EXPOSURE: Yes (12 years working at [employer]) SUBSTANCE USE: does not use Meds Home Medications and Allergies Home Medications ?Medication ?Instructions ?Recorded ?Confirmed ?Type spironolactone 50 mg tablet 50 mg PO QDAY 11/26/17 08/13/24 History Held on 07/20/24. Instructions: Hold until you see your PCP due to concern for low blood pressure ambrisentan 10 mg tablet (Letairis) 10 mg PO HS 05/10/19 08/13/24 History pantoprazole 40 mg tablet,delayed 40 mg PO QDAY 12/05/19 08/13/24 History release ropinirole 3 mg tablet 6 mg PO HS 12/05/19 08/13/24 History trazodone 50 mg tablet 50 mg PO HS 12/05/19 08/13/24 History tadalafil (pulm. hypertension) 20 40 mg PO QDAY 01/25/20 08/13/24 History mg tablet (pulmonary hypertension) (Adcirca) potassium chloride 10 mEq 10 meq PO BID 05/13/20 08/13/24 History capsule,extended release gabapentin 100 mg capsule 100 mg PO QDAY 01/09/22 08/13/24 History levothyroxine 100 mcg tablet 100 mcg PO QDAY 01/09/22 08/13/24 History (Euthyrox) selexipag 200 mcg tablet (Uptravi) 1,600 mcg PO BID 08/13/23 08/13/24 History fluticasone fur. 100 mcg-umeclid 1 inh inhalation Q24H 07/15/24 08/13/24 History 62.5 mcg-vilant 25 mcg inhalat.powder (Trelegy Ellipta) midodrine 10 mg tablet 10 mg PO TID PRN SBP 07/15/24 08/13/24 History Allergies Allergy/AdvReac Type Severity Reaction Status Date / Time erythromycin base Allergy Severe SWELLING Verified 08/12/23 07:45 Exam Vital Signs Temp Pulse Resp BP Pulse Ox O2 Del Method O2 Flow Rate 37.1 C 136 H 27 H 89/59 L 84 L Mechanical Ventilation 54 08/19/24 04:00 08/19/24 09:18 08/19/24 07:30 08/19/24 09:18 08/19/24 07:30 08/19/24 05:00 08/19/24 07:00 FiO2 100 08/19/24 07:30 Narrative Exam GENERAL APPEARANCE: Sick looking elderly lady currently seen in ICU. On ventilator. Pupils dilated CARDIOVASCULAR: Heart regular, no murmurs, tachycardia LUNGS/CHEST: Few rhonchi noted bilaterally ABDOMEN: Soft, s/p bowel surgery EXTREMITIES: No edema, clubbing or cyanosis. Extremities are cold SKIN: Skin exam normal without any rashes MUSCULOSKELETAL: In bed NEUROLOGICAL intubated, unresponsive Results Labs 08/19/24 04:47 08/19/24 12:39 Labs: Short CBC 08/18/24 08/19/24 Range/Units 18:01 04:47 WBC 6.8 D 24.4 H D (3.6-11.0) Thou/mm3 Hgb 11.5 L 11.7 L (12.0-16.0) g/dL Hct 36.4 39.1 (36.0-46.0) % Plt Count 317 362 D (140-440) Thou/mm3 BMP 08/18/24 08/18/24 08/18/24 12:58 18:01 20:30 Sodium 140 140 144 Potassium 3.8 2.9 L D 3.1 L Chloride 98 103 104 Carbon Dioxide 26.3 23.2 21.0 BUN 56 H 47 H 60 H Creatinine 2.1 H 1.8 H 2.3 H D Glucose 126 H 210 H D 266 H D Calcium 9.1 7.7 L 8.1 L 08/19/24 04:47 Sodium 144 Potassium 4.2 D Chloride 106 Carbon Dioxide 23.1 BUN 66 H Creatinine 2.9 H D Glucose 251 H Calcium 7.5 L Liver Function 08/18/24 08/18/24 08/18/24 Range/Units 12:58 18:01 20:30 Total Bilirubin 0.7 (0.3-1.2) mg/dL AST 22 (0-34) U/L ALT < 7 L (10-49) U/L Alkaline Phosphatase 88 (46-116) U/L Albumin 4.2 3.3 L D 3.6 (3.4-4.8) gm/dL 08/19/24 Range/Units 04:47 Total Bilirubin 0.7 (0.3-1.2) mg/dL AST 25 (0-34) U/L ALT 14 (10-49) U/L Alkaline Phosphatase 85 (46-116) U/L Albumin 3.3 L (3.4-4.8) gm/dL ABG Interpretation ABG results: 08/13/24 08/18/24 08/18/24 13:36 18:01 18:17 ABG pH 7.40 7.15 L* ABG pCO2 40 80 H* ABG pO2 54 L* 51 L* ABG HCO3 25 28 H ABG O2 Saturation 86 L 70 L ABG Base Excess 0 -3 VBG pH 7.34 VBG pCO2 37 VBG pO2 86 H VBG Base Excess -5 L 08/18/24 08/18/24 08/19/24 20:30 20:35 04:30 ABG pH 7.17 L* 7.15 L* ABG pCO2 66 H D 68 H ABG pO2 50 L* 45 L* ABG HCO3 24 24 ABG O2 Saturation 71 L 67 L ABG Base Excess -6 L -6 L VBG pH 7.20 L VBG pCO2 57 H D VBG pO2 61 H D VBG Base Excess -6 L 08/19/24 08/19/24 07:50 08:28 ABG pH 7.14 L* ABG pCO2 67 H ABG pO2 35 L* ABG HCO3 23 ABG O2 Saturation 53 L ABG Base Excess -7 L VBG pH 7.20 L VBG pCO2 52 VBG pO2 31 D VBG Base Excess -8 L Assessment & Plan Assessment and plan (1) AZALEA (acute kidney injury): Status: Acute (2) Metabolic acidosis: Status: Acute (3) Sepsis: Status: Acute (4) Septic arthritis: Status: Acute (5) Acute hypoxic respiratory failure: Status: Acute (6) Pneumonia: Status: Acute (7) COPD (chronic obstructive pulmonary disease): Status: Acute (8) SBO (small bowel obstruction): Status: Acute Additional Assessment & Plan Additional Plan: Patient currently with acute hypoxic respiratory failure, septic shock, AZALEA, electrolyte imbalance, metabolic acidosis. Minimal urinary output. Currently on 3 pressors on higher doses. Heart rate 135-140. She is hemodynamically unstable and respiratory chung her O2 sat is less than 80% despite on FiO2 of 100%. Unfortunately cannot offer renal replacement therapy at this point. Had a long conversation with ICU team. If any improvement in hemodynamic status or respiratory status will reeval and consider CRRT. Currently she is too unstable to initiate even CRRT. Team to discuss goals of care with family. Thank you Dr. Raemy for allowing me to participate in the care of Ms. Ly. Procedures Arterial Line Size (Gauge): 20
[2024-08-19] MEDS: EPINEPHrine in NS 4 MG IVPB 4 MG/250 ML BAG 174.563 MG IV (10:35)
--- NOTE | 2024-08-19 11:07 | ESOP_ITS ---
<Statement entered by Sania Ramey MD - 08/19/24 13:17> I was present for the critical and cardenas portions of the procedure and was immediately available to provide assistance. Procedures Procedure Date / Time 08/19/24 1107 Arterial Line Indication(s): frequent arterial line sampling, hypoxic resp failure and shock Informed consent obtained: from patient Time out done, and the following verified: correct patient, side and site, procedure and patient position Technique used: guide wire technique EBL(ml): 15 Complications: other Site: left and femoral Procedure comment: I wore a surgical cap, mask with protective eyewear, sterile gown and sterile gloves throughout the procedure. The left inguinal region was prepped using chlorhexidine scrub and draped in sterile fashion using a three quarter sheet drape. The femoral artery was identified under ultrasound. Anesthesia was achieved using 1% lidocaine. The introducer needle was inserted into the vessel. The syringe was removed and a guidewire was advanced. The needle was exchanged over the guide wire for an arterial catheter, and the wire was removed. The arterial line was connected to the monitor and calibrated, but no waveform was noted. It is likely the catheter was placed in the vein, and so was removed. Pressure was held. The patient was repositioned more supine. The ultrasound was again used to identify the femoral artery. Attempts were made to insert the introducer needle into the femoral artery. Venous was blood was returned in the syringe. Due to the patient's low blood pressure, with a diastolic pressure in the 50s despite ionotropic and pressor support, and multiple attempts, decision was made to abort the procedure. Pressure was held over the left inguinal area. Estimated blood loss is 15 cc. I have reviewed and discussed the patient's care with my attending, Dr. Ramey, Halima Cohen MD PGY-3
--- NOTE | 2024-08-19 11:34 | PC.SS ---
rounding note: Patient was transferred from med/surg. She is s/p surgery. Patient is now on vent, i.v. meds for blood pressure. Full code. , Clayton, is the alt medical decision maker.
[2024-08-19] MEDS: EPINEPHrine in NS 4 MG IVPB 4 MG/250 ML BAG 216.458 MG IV (11:52)
--- NOTE | 2024-08-19 12:26 | ESPR_ITS ---
Documentation for date of: 08/19/24 Subjective Subjective Brief History: History of present illness revealed that the patient was admitted to the hospital few days ago because of the septic arthritis. Patient underwent arthroscopic drainage and washout of the knee. Patient has developed some abdominal distention during the postoperativeperiod. She does not have any pain but she told me that she always have a large abdomen. Patient gives history of open cholecystectomy back in 70s with right paramedian incision. Her last bowel movement was about 4 days ago but she is passing flatus. Patient does not have a history of any chronic abdominal pain or distention Narrative: The patient's condition is worse after surgery and after she was transferred to the intensive care unit. Because of the continued pulmonary hypertension patient is in cardiogenic shock and has not been able to perfuse. Exam Vital Signs Temp Pulse Resp BP Pulse Ox O2 Del Method O2 Flow Rate 97.8 F 141 H 27 H 82/43 L 74 L Mechanical Ventilation 54 08/19/24 08:00 08/19/24 11:52 08/19/24 07:30 08/19/24 11:52 08/19/24 11:16 08/19/24 05:00 08/19/24 07:00 FiO2 100 08/19/24 11:16 Her vital signs revealed severe tachycardia around 140 and blood pressure being maintained with epinephrine around 80s patient is not responsive Routine Abdominal Exam Comments: Abdominal examination is unchanged Results Results: Laboratory Laboratory Narrative: Laboratory results show that the patient has started having multiple organ failure as shown by increased BUN and creatinine. Her arterial blood gases show significant worsening since surgery. Her lactic acid is on the rise and chest x-ray shows bilateral infiltrate Assessment & Plan Assessment Additional comments: Impression: Poor recovery following surgery for small bowel obstruction Significant pulmonary hypertension Plan Plan: We had a discussion with the family along with the industrial engineer and the bleak prognosis was mentioned to the family. Her chances of recovery is practically nil and they will make a decision about whether to we should proceed with CPR or not. Procedures Procedures Enterolysis and release of obstruction
--- NOTE | 2024-08-19 12:40 | PC.NURSE ---
Organ donor network was contacted at 1224 regarding GCS of 3. Donor network requested to continue all support measures until a clinical coordinator reaches out.
[2024-08-19] MEDS: EPINEPHrine in NS 4 MG IVPB 4 MG/250 ML BAG 384.038 MG IV ×2 (13:00→13:39)
[2024-08-19 13:09] LABS: Base Excess, Venous -8 (-3-3); O2 Saturation, Venous 95 % (96-97); PCO2, Venous 37 mmHg (36-56); PO2, Venous 76 mmHg (15-58); pH, Venous 7.29 (7.33-7.66)
[2024-08-19] MEDS: Norepinephrine/D5W 8mg/250ml 8 MG/250 ML BAG 16.463 MG IV (13:36)
[2024-08-19] MEDS: fentaNYL 2,500 MCG/250 ML BAG 2,500 MCG/250 ML BAG IV (14:04)
--- NOTE | 2024-08-19 14:08 | PC.NURSE ---
Received a call from Tracy from the donor network at [phone] stating that the Patient has been ruled out for organ donation, and to call back with cardiac time of .
[2024-08-19] MEDS: EPINEPHrine in NS 4 MG IVPB 4 MG/250 ML BAG 314.213 MG IV (14:21)
[2024-08-19] MEDS: SODIUM BICARB INJ 8.4% 1 mEq/ML 50 ML VIAL 50 MEQ IV (14:30)
[2024-08-19] MEDS: Norepinephrine/D5W 8mg/250ml 8 MG/250 ML BAG 246.938 MG IV ×3 (14:47→16:47)
[2024-08-19] MEDS: DOBUTamine/D5w 500 MG IVPB 500 MG/250 ML BAG 13.965 MG IV (14:50)
[2024-08-19 15:23] LABS: Anion Gap 24 (7-16); Blood Urea Nitrogen 64 mg/dL (9-23); Carbon Dioxide 16.9 mMol/L (20.0-31.0); Chloride 105 mMol/L (98-107); Creatinine (Component) 3.3 mg/dL (0.6-1.3); Potassium 4.8 mMol/L (3.4-5.1); Sodium 146 mMol/L (136-145)
[2024-08-19 15:24] LABS: BUN/Creatinine Ratio 19 Ratio (12-20); Calcium 7.1 mg/dL (8.3-10.6); Calcium (Corrected) 7.9 mg/dL (8.5-10.1); Estimated Creatinine Clearance 15.7 mL/min (>60); Glucose 180 mg/dL (74-106); Osmolality,Calculated 313 (275-295); Phosphorous 7.6 mg/dL (2.4-5.1); eGFR 15 See Note
[2024-08-19 15:34] LABS: Lactate (Lactic Acid) 6.6 mMol/L (0.4-2.0)
[2024-08-19] MEDS: EPINEPHrine in NS 4 MG IVPB 4 MG/250 ML BAG 202.493 MG IV ×3 (15:43→18:13)
[2024-08-19 16:08] LABS: Reflex Lactate? Y
[2024-08-19] MEDS: Norepinephrine/D5W 8mg/250ml 8 MG/250 ML BAG 274.924 MG IV (17:47)
[2024-08-19 18:21] LABS: Base Excess, Venous -10 (-3-3); O2 Saturation, Venous 97 % (96-97); PCO2, Venous 31 mmHg (36-56); PO2, Venous 109 mmHg (15-58); pH, Venous 7.31 (7.33-7.66)
[2024-08-19 18:24] LABS: Basophils # (Auto) 0.1 Thou/mm3 (0.0-0.2); Basophils % (Auto) 1 % (0-2.5); Eosinophils % (Auto) 0 % (0-10); Hematocrit 32.9 % (36.0-46.0); Hemoglobin 9.7 g/dL (12.0-16.0); Immature Granulocytes % (Auto) 2 % (0-0); Immature Granulocytes Auto 0.45 Thou/mm3 (0.00-0.00); Lactate (Lactic Acid) 6.8 mMol/L (0.4-2.0); Lymphocytes # (Auto) 0.4 Thou/mm3 (1.0-4.8); Lymphocytes % (Auto) 2 % (10-50); Mean Corpuscular HGB Conc 29.5 g/dl (31.0-37.0); Mean Corpuscular Volume 85 fL (80-100); Monocytes # (Auto) 0.8 Thou/mm3 (0.0-0.8); Monocytes % (Auto) 4 % (0-12); Neutrophils # (Auto) 18.8 Thou/mm3 (1.8-7.7); Neutrophils % (Auto) 91 % (37-80); Nucleated Red Blood Cell # 0.08 Thou/mm3 (0.00-0.00); Nucleated Red Blood Cell % 0 /100 WBC (0); Platelet Count 312 Thou/mm3 (140-440); RDW Standard Deviation 51.8 fL (36.4-46.3); Red Blood Count 3.88 Miln/mm3 (4.00-5.20); White Blood Count 20.6 Thou/mm3 (3.6-11.0)
[2024-08-19 18:25] LABS: Reflex Lactate? Y
[2024-08-19] MEDS: Norepinephrine/D5W 8mg/250ml 8 MG/250 ML BAG 357.236 MG IV (18:36)
--- NOTE | 2024-08-19 18:52 | DES_ITS ---
<Statement entered by Sania Ramey MD - 08/21/24 07:59> I reviewed the resident?s note and agree with findings and plan as documented in the resident?s note Documentation for date of: 08/19/24 Summary Date and Time Date of admission: 08/13/24 05:31 Date of : 08/19/24 Time of : 18:56 Summary Hospital Course: Ms Ly is a 69-year-old female with past medical history of COPD on 4 L of home oxygen and BiPAP at night, severe pulmonary hypertension, hypothyroidism, atrial fibrillation, CHF, history of DVT, restless leg syndrome who initially presented on 08/13/2024 due to chief complaint of right knee pain for 1 day prior to admission. Patient was initially admitted for osteoarthritis of the knee as well as intractable nausea and vomiting. During her stay patient had SOFTWARE ARCHITECT called due to persistent nausea and vomiting episodes despite antiemetics and pain control. Orthopedic performed arthroscopic irrigation and debridement of the right knee successfully on 08/15/2024. Synovial fluid obtained did not grow any organisms. Patient's hospital procedure thus far has been complicated by GPC bacteremia growing Streptococcus mitis in 1 out of the 2 bottles on 08/08/2024 and repeat 1 out of 2 growth on 08/14/2024. Repeat culture on 08/16/2024 continues to grow GPC in the aerobic bottle x 1 preliminarily. Blood cultures drawn yesterday 08/17/24 have been negative for 24 hours. Echocardiogram was performed on 08/15/2024 and was read as Estimated EF 55-60 %. IVS flattened in systole and diastole consisitent with right ventricular pressure and volume overload. The RV size is moderately increased with normal systolic function. The estimated RVSP, 106 mmHg. RAP 5. RA cavity size is severely increased. Mild MR. Mild & Moderate TR. Due to concerns of small bowel obstruction patient underwent small bowel series which showed high-grade mechanical obstruction and general surgery was consulted who did surgery today 08/18/2024. Patient was taken to the OR on 08/18/2024 , Of note patient has been satting in the low 90s on anywhere between 5 to 10 L of oxygen switching between oxime mask and nasal cannula during her stay thus far. Soon after intubation patient's status saturations dropped to the 70s on the 100% FiO2 after which breathing treatments was administered as well as 100 mg IV of hydrocortisone and patient was subsequently brought up to about 84 to 85% saturation. We do not have the medications that may be available for patients with severe pulmonary hypertension but as this was an emergency ex lap the procedure continued. Patient underwent ex lap which lasted about an hour. Given patient's severe conditions despite maximal ventilator support she was brought over to the ICU for further management where her condition continued to worsen requiring increased amounts of pressors and inotropic support. Intervention was limited as we do not have medications specifically for pulmonary hypertension that could be used as drips in the ICU. We did have sildenafil however it cannot be crushed to be inserted to the G-tube. Patient's shock led to increased endorgan damage and increased lactic acidosis. Goals of care was held with family and the decision was made to make the patient DNR the patient soon after that as her heart went into V-fib and immediately into asystole. Patient was pronounced on 08/19/2024 at 1856. Problems addressed during this hospital stay: Acute encephalopathy Shock Tachycardia HFpEF Acute on chronic hypoxic respiratory failure Severe pulmonary arterial hypertension History of COPD on 4 L O2 nasal cannula SBO status post ex lap AZALEA Hypothyroidism Septic shock GPC bacteremia growing Streptococcus mitis Septic arthritis History of DVT unprovoked Thank you for allowing us to be part of patient's care during her time in the ICU here at [facility] I discussed patient's care with attending physician, Dr Karoline Padilla PGY3 Additional Data Attending physician: Sania Ramey MD Visit Providers Provider Primary care physician: Quan Stephen MD Consults: 08/13/24 13:54 Referral - Acquisition Associate Stat Service Needed for Transfer: Orthopedics Addl Comments:: Septic arthritis of right knee, blood culture positive 08/13/24 20:11 Consult to Cardiology Routine Comment: Consulting Provider: Mushtaq Garrison 08/15/24 16:40 Consult to Infectious Diseases Routine Comment: septic arthritis Consulting Provider: Fermin Hernandez 08/16/24 17:12 Consult to General Surgery Stat Comment: SBO Consulting Provider: Brissa Hanna 08/17/24 16:21 Consult to Orthopedic Routine Comment: Consulting Provider: Roque Ramsey 08/19/24 08:45 Consult to Nephrology Urgent Comment: acute renal failure, persistent acidemia Consulting Provider: Luciana Dickey 08/19/24 09:27 Consult to Nephrology Stat Comment: Consulting Provider: Luciana Dickey 08/19/24 13:24 Referral [place] Stat Comment: Diagnosis Contributing Factors (1) AZALEA (acute kidney injury): (2) Metabolic acidosis: (3) Sepsis: (4) Septic arthritis: (5) Acute hypoxic respiratory failure: (6) Pneumonia: (7) COPD (chronic obstructive pulmonary disease): (8) SBO (small bowel obstruction): Discharge Plan Plan Patient Disposition: [facility] Care [facility] Service Needed for Transfer: Orthopedics Disposition Comment: [facility] Care Plan Goals: Patient scheduled to be transferred to tertiary care [place] for emergent orthopedic intervention. Prescriptions/Referrals Prescriptions/Med Rec: No Action spironolactone 50 mg Tablet 50 mg PO QDAY trazodone 50 mg tablet 50 mg PO HS ropinirole 3 mg tablet 6 mg PO HS pantoprazole 40 mg tablet,delayed release (DR/EC) 40 mg PO QDAY Patient Comments: TAKE 1 TABLET BY MOUTH ONCE DAILY FOR 90 DAYS potassium chloride 10 mEq Capsule, Extended Release 10 meq PO BID ambrisentan [Letairis] 10 mg Tablet 10 mg PO HS albuterol sulfate 90 mcg/actuation Hfa Aerosol Inhaler 2 puff Inhalation Q4HR PRN (Reason: Shortness Of Breath Or Wheezing) Qty: 0 0RF tadalafil (pulm. hypertension) [Adcirca] 20 mg Tablet 40 mg PO QDAY Trelegy Ellipta 100-62.5-25 mcg blister with device 1 inh inhalation Q24H midodrine 10 mg tablet 10 mg PO TID PRN (Reason: SBP) Patient Comments: SBP < 90 gabapentin 100 mg Capsule 100 mg PO QDAY levothyroxine [Euthyrox] 100 mcg Tablet 100 mcg PO QDAY Uptravi 200 mcg tablet 1,600 mcg PO BID Rx Instructions: Take 200mcg by mouth 2 times a day for 1 week Then increase by 200mcg 2 times a day at weekly intervals to the highest tolerated dose up to 1600mcg 2 time a day Mustapha DVT-PE Treat 30D Start 5 mg (74 tabs) tablets,dose pack 5 mg PO BID Qty: 74 0RF bumetanide 1 mg tablet 1 mg PO BID Qty: 60 0RF ondansetron 4 mg tablet,disintegrating 4 mg PO Q8H PRN (Reason: nausea and vomiting) Qty: 30 0RF Referrals: Quan Stephen MD [Primary Care Provider] - Patient/Caregiver Discharge Instructions Print Language: Tuvaluan Stand Alone Forms: Kayleen Award Info., Patient Portal Info Letter Discharge Order Discharge Orders: Discharge (Routine); Ordered 08/19/24 Ordered By: Adan Arauz
--- NOTE | 2024-08-19 19:11 | PC.NURSE ---
Called [facility] at 1903 to report Pts. time of at 1856. Art at [facility] answered and stated that the patient is not a candidate for organ donation and it is ok to release the remains.
--- NOTE | 2024-08-19 19:13 | PC.NURSE ---
Patient was noted to be in V-tach at 1851 went to check the patient and pulselessness was noted at 1855 time of was [address] Cohen, family was at bedside during time of
[2024-08-19 19:14] LABS: Alanine Aminotransferase 979 U/L (10-49); Albumin, Serum 2.8 gm/dL (3.4-4.8); Albumin/Globulin Ratio 1.5 (1.2-2.2); Alkaline Phosphatase 68 U/L (46-116); Anion Gap 18 (7-16); Aspartate Amino Transferase 5875 U/L (0-34); BUN/Creatinine Ratio 21 Ratio (12-20); Bilirubin,Total 0.6 mg/dL (0.3-1.2); Blood Urea Nitrogen 74 mg/dL (9-23); Calcium (Corrected) 7.5 mg/dL (8.5-10.1); Carbon Dioxide 20.6 mMol/L (20.0-31.0); Chloride 102 mMol/L (98-107); Creatinine (Component) 3.6 mg/dL (0.6-1.3); Estimated Creatinine Clearance 14.4 mL/min (>60); Globulin 1.9 gm/dL (2.3-3.5); Glucose 307 mg/dL (74-106); Osmolality,Calculated 315 (275-295); Potassium 4.4 mMol/L (3.4-5.1); Sodium 141 mMol/L (136-145); Total Protein 4.7 gm/dL (5.7-8.2); eGFR 13 See Note
--- NOTE | 2024-08-19 19:21 | PC.NURSE ---
At [address] Dr[address] Padilla talked to family and family signed updated POLST form to make the Pt. DNR.
[2024-08-19 19:43] LABS: Calcium 6.5 mg/dL (8.3-10.6)
[2024-08-19 21:18] LABS: Reflex Lactate? Y
--- NOTE | 2024-08-20 08:15 | PC.CC ---
pt , HH and ICS canceled
[2024-08-21 07:25] LABS: Glucose,Synovial Fluid* 136 mg/dL
== END 2024-08-19 18:56 | disposition short-term general hospital (02) | DRG 853 ==
LOC: SERX 08-13 04:36 → SERHOLD 08-13 05:44 → S3NX 08-13 06:14 → S3SX 08-14 04:26 → S2SX 08-18 17:39
PROVIDERS: Anesthesiology; Internal Medicine; Internal Medicine Infectious Disease; Orthopaedic Surgery Adult Reconstructive Orthopaedic Surgery; Physician Assistant; Student in an Organized Health Care Education/Training Program; Surgery; Admitting Provider Student in an Organized Health Care Education/Training Program; Emergency Provider Emergency Medicine; PCP Family Medicine; Visit Provider Internal Medicine
PROC: (CPT 29870; principal; 2024-08-15 15:30)
PROC: 0DN80ZZ Release Small Intestine, Open Approach (ICD-10-PCS; CPT 49000; principal; 2024-08-18 16:00)
DX: A40.8 Other streptococcal sepsis (principal); I49.01 Ventricular fibrillation; J96.21 Acute and chronic respiratory failure with hypoxia; N17.0 Acute kidney failure with tubular necrosis; R65.21 Severe sepsis with septic shock; R57.0 Cardiogenic shock; J18.9 Pneumonia, unspecified organism; M00.9 Pyogenic arthritis, unspecified; Z68.41 Body mass index [BMI] 40.0-44.9, adult; E87.20 Acidosis, unspecified; I50.30 Unspecified diastolic (congestive) heart failure; J44.0 Chronic obstructive pulmonary disease with (acute) lower respiratory infection; K56.690 Other partial intestinal obstruction; K56.51 Intestinal adhesions [bands], with partial obstruction; M17.11 Unilateral primary osteoarthritis, right knee; J44.9 Chronic obstructive pulmonary disease, unspecified; I27.20 Pulmonary hypertension, unspecified; E03.9 Hypothyroidism, unspecified; I48.91 Unspecified atrial fibrillation; I11.0 Hypertensive heart disease with heart failure; I27.21 Secondary pulmonary arterial hypertension; I50.9 Heart failure, unspecified; G25.3 Myoclonus; G25.81 Restless legs syndrome; Z99.81 Dependence on supplemental oxygen; I48.0 Paroxysmal atrial fibrillation; I73.9 Peripheral vascular disease, unspecified; D63.8 Anemia in other chronic diseases classified elsewhere; D50.9 Iron deficiency anemia, unspecified; Z86.718 Personal history of other venous thrombosis and embolism; Z79.01 Long term (current) use of anticoagulants; Z79.899 Other long term (current) drug therapy; Z90.710 Acquired absence of both cervix and uterus; Z90.49 Acquired absence of other specified parts of digestive tract; Z66 Do not resuscitate; Z68.39 Body mass index [BMI] 39.0-39.9, adult
CPT/HCPCS: 36415; 36600; 71045; 73562; 73721; 74018; 74250; 76882; 80048; 80053; 80069; 80202; 82803; 82945; 83605; 83735; 84100; 84145; 84315; 84484; 84550; 85025; 85652; 86140; 86803; 87040; 87070; 87077; 87081; 87186; 87205; 87491; 87591; 87661; 89051; 93005; 93225; 93306; 93971; 94002; 94003; 94640; 94664; 96365; 96374; 96375; 99285; A4217; A4649; A4699; A9270; J0171; J0696; J1100; J1250; J1650; J1720; J1815; J1885; J1953; J2250; J2260; J2270; J2405; J2470; J2543; J2598; J2704; J2765; J3010; J3370; J3372; J3480; J3490; J7030; J7040; J7050; J7120; J0665